=== PATIENT | male | born 1945 | race Caucasian/White ===

== ENCOUNTER 2020-06-06 12:37 | Observation (INO) | payer MEDICARE, SELFPAY ==
[2020-06-06] VITALS (56 sets, daily range): BP systolic 122–173; BP diastolic 71–101; PULSE 78–100; RESP 9–22; TEMP 36.1–37.2; O2SAT 94–99; BMI 19.5
--- NOTE | ~2020-06-06 | XR_ITS ---
EXAMINATION: XR shoulder RT min 2V EXAM DATE: 06/06/2020 13:51 INDICATION: Initial encounter following injury, with pain of the right shoulder. Fell 10 days ago. TECHNIQUE: The following right shoulder projections obtained: frontal projection with internal rotati on, frontal projection with external rotation, Grashey, and scapular Y view (4+ views). Comparison is made to prior examination from 10/06/2018. FINDINGS: There is moderate right glenohumeral joint primary osteoarthritis, mild at the acromioclavi cular joint. There is high riding humeral head indicating likelihood of chronic rotator cuff tear. No fracture or dislocation. No radiopaque foreign bodies identified. Probable right apical bullous dise ase. IMPRESSION: 1. No acute right shoulder findings. 2. Moderate osteoarthritis. 3. Probable chronic rotator cuff tear. Reviewed, dictated and finalized at location A.
--- NOTE | ~2020-06-06 | XR_ITS ---
EXAMINATION: XR elbow RT min 3V DATE: 06/07/2020 14:20 INDICATION: Right elbow trauma post fall TECHNIQUE: Anteroposterior, two oblique and lateral views of the right elbow were obtained. COMPARISON: 10/02/2018 FINDINGS: Alignment is normal. No fracture. Tiny enthesopathic ossicle at the proximal tip of the olecranon. Ti ny marginal osteophytes without significant joint space narrowing consistent with mild osteoarthritis . No right elbow joint effusion. Soft tissues are unremarkable. IMPRESSION: 1. Mild right elbow osteoarthritis. No joint effusion or acute osseous abnormality. Reviewed, dictated and finalized at location B. IMPRESSION: 1. Mild right elbow osteoarthritis. No joint effusion or acute osseous abnormal ity.
--- NOTE | ~2020-06-06 | XR_ITS ---
EXAMINATION: XR hip RT 2V w AP pelvis EXAM DATE: 06/06/2020 13:51 INDICATION: Initial encounter following injury, with pain of the pelvis, right hip. Fell 10 days ago. TECHNIQUE: Right hip frontal, 'frog leg' projections for interpretation. Frontal projection pelvis. Comparison is made to prior examination from 09/26/2016. FINDINGS: Smooth right hip femoral head contour, no radiographic evidence of avascular necrosis. The re is moderate symmetric bilateral hip primary osteoarthritis. There are no acute fractures or disloc ations identified. There is no subcutaneous gas. The soft tissue is unremarkable. Right lower maru drant bowel anastomosis material identified. IMPRESSION: 1. Right hip, pelvis x-ray exam without acute osseous findings. 2. Moderate hip osteoarthritis. Reviewed, dictated and finalized at location A.
--- NOTE | ~2020-06-06 | CT_ITS ---
EXAMINATION: CT brain wo con EXAM DATE: 06/07/2020 14:41 INDICATION: Fall 11 days ago, intermittent headache. TECHNIQUE: Spiral CT of the head was performed without contrast. Axial, coronal and sagittal images were reviewed. The dose-length product (DLP) for this examination was 605.33 mGy-cm. The exposure w as tailored according to patient size, and iterative reconstruction (ASIR) was used as additional dos e reduction technique. Comparison is made to prior examination from 10/10/2018. FINDINGS: There is no acute intraparenchymal hemorrhage. No evidence of intraparenchymal brain mass lesion. No evidence of acute infarction. Please note that initial head CT has limited sensitivity f or small or acute infarctions. There is an old small right thalamic lacunar infarction. There is mo derate periventricular and subcortical hypodensity, nonspecific but probably related to small vessel ischemic disease. There is moderate prominence of the sulci and ventricles related to cerebral atro phy. There is intracranial carotid arteriosclerosis. There are no extra-axial collections. There is no mass effect or midline shift. The orbits are unremarkable. Soft tissue is unremarkable. The visualized sinuses and mastoid air cells are well aerated. IMPRESSION: 1. No acute intracranial findings. 2. Chronic age related findings. 3. Old small right thalamic lacunar infarction. Reviewed, dictated and finalized at location A.
[2020-06-06 12:47] LABS: Glucose Point of Care 363 (65-105)
--- NOTE | 2020-06-06 12:47 | PC.NURSE ---
Blood glucose was 363 at 12:46
--- NOTE | 2020-06-06 13:23 | ED.FALL ---
HPI - Fall General Chief Complaint: Fall Stated Complaint: fall Time Seen by Provider: 06/06/20 13:11 History of Present Illness HPI Narrative: Fall onto right hip about 1 week ago. Hip pain since then. Increasing. Now he has difficulty walking due to the pain and weakness. He is normally able to ambulate with a walker. He recently required rehab and has been declining since that time. Related Data Home Medications Medication Instructions Recorded Confirmed carbidopa 25 mg-levodopa 100 mg 3 tablet PO TID tablet 03/08/19 05/18/20 tablet cholecalciferol (vitamin D3) 25 1,000 unit PO DAILY 03/08/19 05/18/20 mcg (1,000 unit) chewable tablet fluticasone propionate 50 2 spray NASAL DAILY PRN 03/08/19 05/18/20 mcg/actuation nasal spray,suspension polyethylene glycol 3350 17 17 gm PO DAILY 03/08/19 05/18/20 gram/dose oral powder vitamin B12 500 mcg-folic acid 400 1 tablet PO DAILY 03/08/19 05/18/20 mcg tablet cetirizine 10 mg tablet 5 mg PO DAILY PRN 05/06/19 05/18/20 divalproex 500 mg tablet,extended 2,000 mg PO QAM AND QHS tablet 05/06/19 05/18/20 release 24 hr guaifenesin 600 mg tablet, 600 mg PO Q12H PRN 05/06/19 05/18/20 extended release 12 hr fluticasone 250 mcg-salmeterol 50 2 inh INHALATION BID ea 05/18/20 05/18/20 mcg/dose blistr powdr for inhalation loratadine 10 mg tablet 10 mg PO DAILY 05/18/20 05/18/20 tauxwuct-mmd-iykni acid 300 1 tablet PO DAILY 05/18/20 05/18/20 mcg-lycopene 600 mcg-lutein 300 mcg tablet primidone 50 mg tablet 50 mg PO .QHS tablet 05/18/20 05/18/20 sertraline 100 mg tablet 50 mg PO DAILY tablet 05/18/20 05/18/20 trazodone 50 mg tablet 50 mg PO QPM tablet 05/18/20 05/18/20 Allergies Allergy/AdvReac Type Severity Reaction Status Date / Time codeine Allergy Mild RASH,PT Verified 05/24/19 13:41 STATED HE IS NOT ALLERGIC TO THIS. Review of Systems Review of Systems: All systems reviewed & are unremarkable except as noted in HPI and below Constitutional: Constitutional: Denies chills, Reports fatigue, Denies fever(s) and Reports weakness Eyes: Eyes: Reports no additional eye complaints Cardiovascular: Cardiovascular: Denies chest pain Respiratory: Respiratory: Denies dyspnea Gastrointestinal: Comments: Poor appetite Genitourinary: Genitourinary: Reports no additional male genitourinary complaints Musculoskeletal: Musculoskeletal: Reports no additional musculoskeletal complaints Neurologic: Reports system reviewed and no additional complaints, except as documented [facility] Past Medical History Medical History Aortic stenosis Broken ribs COPD (chronic obstructive pulmonary disease) Difficulty in walking Hypertension Right shoulder pain Rotator cuff arthropathy Surgical History Surgical History History of tonsillectomy Family History Family History Unknown No problems noted. Social History Social History Smoking status: Former smoker Second hand tobacco smoke exposure: Yes Smoking end date: 03/03/16 Alcohol intake: never Substance use: never Substance use type: does not use Gender identity (if verbalized by the patient): Male Spiritual care concerns: Yes Agree to blood products: Yes Exam Const: General: no acute distress, alert and ill appearing Nutritional Appearance: thin Orientation/consciousness: patient oriented x3 HENMT: Head: normal to inspection Neck: Neck: normal visual inspection Resp: Effort & Inspection: normal respiratory effort Auscultation: clear to auscultation bilaterally Cardio: Rate: regular rate Rhythm: regular rhythm GI: GI Palp: Yes Soft to palpation and No Tenderness to palpation present (GI) Skin: General skin exam: normal colo
--- NOTE | 2020-06-06 14:38 | ECG_ITS ---
Measurements Intervals [place] Rate: 81 P: 87 PA: 172 QRS: -72 QRSD: 129 T: 75 QT: 374 QTc: 435 Interpretive Statements SINUS RHYTHM RIGHT BUNDLE BRANCH BLOCK LEFT ANTERIOR FASCICULAR BLOCK ABNORMAL ECG Electronically Signed On 06-06-2020 15:36:21 CDT by Peewee Montoya D.O.
[2020-06-06] MEDS: SODIUM CHLORIDE 0.9% IV 1,000 ML 999 ML IV CONT (15:05)
[2020-06-06] MEDS: traMADol HCL (*CRX) 50 MG TABLET PO (15:19)
[2020-06-06 15:30] LABS: Basophils Absolute Auto 0.1 K/mm3 (0.0-0.1); Basophils Percent Auto 0.6 % (0.2-1.2); Eosinophils Absolute Auto 0.2 K/mm3 (0-0.3); Eosinophils Percent Auto 2.5 % (0-4.4); Hematocrit 29.3 % (42.0-52.0); Hemoglobin 9.4 g/dL (14.0-18.0); Immature Granulocyte Absolute 0.05 K/mm3 (0.00-0.031); Immature Granulocyte Percent A 0.6 % (0-0.5); Lymphocytes Absolute Auto 1.82 K/mm3 (0.9-3.2); Lymphocytes Percent Auto 22.3 % (18.3-44.2); Mean Corpuscular HGB Conc 32.1 g/dl (32-36); Mean Corpuscular Hemoglobin 29.2 pg (26-34); Mean Platelet Volume 9.3 fl (7.4-10.4); Monocytes Absolute Auto 0.6 K/mm3 (0.1-0.6); Neutrophils Absolute Auto 5.5 K/mm3 (1.3-6.7); Platelet Count Result 296 k/mm3 (150-375); Red Blood Count 3.22 M/mm3 (4.6-6.20); White Blood Count 8.2 K/mm3 (4.5-10.0)
[2020-06-06 15:46] LABS: Albumin Level 3.7 g/dL (3.5-5.1); Bilirubin,Total 0.2 mg/dL (0.2-1.3); Carbon Dioxide 31 mmol/L (22-30); Estimated Glomerular Filt Rate > 60; Potassium 5.1 mmol/L (3.4-5.0); Sodium 134 mmol/L (137-145)
[2020-06-06 15:50] LABS: Add Urine Microscopic? YES; Appearance Urine Clear (Clear); Bilirubin Urine Negative (Negative); Blood Urine Negative (Negative); Color Urine Straw (Yellow); Glucose Urine UA 3+ mg/dL (Negative); Ketones Urine Negative (Negative); Leukocyte Esterase Ur Negative LEU/UL (Negative); Nitrate Urine Negative (Negative); Protein Urine Negative (Negative); RBC Urine 0-2 /hpf (0-2); Urobilinogen Urine Negative mg/dL (<2.0); WBC Urine 0-3 /hpf
[2020-06-06 16:08] LABS: Alkaline Phosphatase 72 U/L (38-126); Anion Gap 5 mmol/L (8-16); Aspartate Amino Transferase 12 U/L (17-59); Blood Urea Nitrogen 21 mg/dL (9-20); Calcium 8.9 mg/dL (8.4-10.2); Chloride 98 mmol/L (98-107); Estimated CRCL calculation 45 ml/min; Glucose 393 mg/dL (75-110)
[2020-06-06 16:11] LABS: Alanine Aminotransferase < 4 U/L (4-50)
--- NOTE | 2020-06-06 17:32 | PC.NURSE ---
Patient attempted to walk, was slow and shaking, said he was a little scared because he didn't want to fall again. Patient had no complaints and said he felt fine.
--- NOTE | 2020-06-06 22:01 | ADMGEN ---
This patient, Getachew Barrera, was admitted to Medical Room 345-01. Patient/family oriented to hospital policies and general routines including ID bracelet, bed and alarms, visiting hours, pain management, procedures, bathroom and other care routines, personal items, smoking policy, room service/diet, and visiting hours. Information on how to activate the Rapid Response Team has been discussed. Patient/Family are encouraged to report perceived risks to care and to ask questions if they do not understand what they are told or what they should do.
[2020-06-06 22:13] LABS: Glucose Point of Care 196 (65-105)
[2020-06-07] MEDS: ACETAMINOPHEN 500 MG TABLET 1000 MG PO ×3 (00:47→17:02)
[2020-06-07] MEDS: PRIMIDONE 50 MG TABLET PO ×2 (00:47→20:14)
[2020-06-07] MEDS: PANTOPRAZOLE 40 MG TABLET PO ×3 (00:47→20:14)
[2020-06-07] MEDS: CARBIDOPA/LEVODOPA 12.5/50 MG TABLET 1 TABLET PO ×4 (00:47→17:02)
[2020-06-07] MEDS: CARBIDOPA/LEVODOPA 25/100 MG TABLET 2 TABLET PO ×4 (00:47→17:02)
[2020-06-07] MEDS: traZODone HCL 50 MG TABLET PO ×2 (00:47→20:14)
[2020-06-07 06:00] VITALS: BP 139/68; PULSE 78; RESP 16; TEMP 36.4; O2SAT 96
[2020-06-07 08:06] VITALS: O2SAT 92
[2020-06-07 08:23] LABS: Basophils Absolute Auto 0.1 K/mm3 (0.0-0.1); Basophils Percent Auto 0.8 % (0.2-1.2); Eosinophils Absolute Auto 0.3 K/mm3 (0-0.3); Eosinophils Percent Auto 3.4 % (0-4.4); Hematocrit 26.6 % (42.0-52.0); Hemoglobin 8.8 g/dL (14.0-18.0); Immature Granulocyte Absolute 0.04 K/mm3 (0.00-0.031); Immature Granulocyte Percent A 0.5 % (0-0.5); Lymphocytes Absolute Auto 1.88 K/mm3 (0.9-3.2); Lymphocytes Percent Auto 24.9 % (18.3-44.2); Mean Corpuscular HGB Conc 33.1 g/dl (32-36); Mean Corpuscular Hemoglobin 29.5 pg (26-34); Mean Corpuscular Volume 89.3 fl (80-100); Mean Platelet Volume 10.2 fl (7.4-10.4); Monocytes Absolute Auto 0.6 K/mm3 (0.1-0.6); Monocytes Percent Auto 8.1 % (2.6-8.5); Neutrophils Absolute Auto 4.7 K/mm3 (1.3-6.7); Neutrophils Percent Auto 62.3 % (45.5-73.1); Platelet Count Result 234 k/mm3 (150-375); Red Blood Count 2.98 M/mm3 (4.6-6.20); White Blood Count 7.6 K/mm3 (4.5-10.0)
[2020-06-07 08:35] LABS: Albumin Level 3.2 g/dL (3.5-5.1); Alkaline Phosphatase 64 U/L (38-126); Anion Gap 2 mmol/L (8-16); Aspartate Amino Transferase 13 U/L (17-59); Bilirubin,Total 0.3 mg/dL (0.2-1.3); Blood Urea Nitrogen 19 mg/dL (9-20); Calcium 8.6 mg/dL (8.4-10.2); Carbon Dioxide 31 mmol/L (22-30); Chloride 99 mmol/L (98-107); Estimated CRCL calculation 54 ml/min; Estimated Glomerular Filt Rate > 60; Glucose 153 mg/dL (75-110); Magnesium 1.1 mg/dL (1.6-2.3); Potassium 4.5 mmol/L (3.4-5.0); Sodium 132 mmol/L (137-145)
[2020-06-07 08:36] LABS: Alanine Aminotransferase < 4 U/L (4-50)
[2020-06-07 08:53] LABS: Glucose Point of Care 273 (65-105)
[2020-06-07] MEDS: DIVALPROEX SODIUM ER 500 MG TAB.24H PO (09:03)
[2020-06-07] MEDS: CYANOCOBALAMIN 500 MCG TABLET PO (09:03)
[2020-06-07] MEDS: CHOLECALCIFEROL 1,000 UNITS TABLET 1000 UNITS PO (09:03)
[2020-06-07] MEDS: FOLIC ACID 0.4 MG TABLET PO (09:04)
[2020-06-07] MEDS: guaiFENesin 12 HR 600 MG TABCR 1200 MG PO (09:05)
[2020-06-07] MEDS: metFORMIN HCL XR 500 MG TAB.SR.24H 1000 MG PO ×2 (09:05→17:02)
[2020-06-07] MEDS: OPTI-GEN TAB 1 TABLET PO (09:05)
[2020-06-07] MEDS: LORATADINE 10 MG TABLET PO (09:05)
[2020-06-07] MEDS: SERTRALINE HCL 50 MG TABLET 100 MG PO (09:06)
[2020-06-07] MEDS: MAGNESIUM SULFATE 3GM/D5W100ML 3 GM/100 ML BAG IVPB (09:12)
--- NOTE | 2020-06-07 11:32 | PM.IMHP ---
H&P: HPI History of Present Illness Date/Time: 06/07/20 11:32 Mr. Barrera is a very pleasant 74 y.o. male with PMH significant for Parkinson's disease and followed by the movement clinic at [facility], neuropathy, T2DM, hx of larynx cancer s/p resection in 2015, hypertension, moderate aortic stenosis, bipolar disorder, depression, mild COPD, cervical stenosis, and GERD who presented to the emergency department on 06/06/20 at his family's request because they feel he needs rehab and can no longer care for himself at home. He suffered a mechanical fall while ambulating to the bathroom 11 days prior to admission. His walker does not fit in his bathroom door so he went to reach for the door knob but missed this and lost his balance, resulting on a fall on his right side. He injured his right hip, shoulder, and elbow. His pain continues to improve and he is now ambulating with a walker. He does not believe he suffered any head trauma however he is not completely sure. His reports that he did not have any loss of consciousness or seizure activity. He denies lateralizing weakness, speech change, or vision change. He reports that he has a frontal headache but he has no other specific complaints at this time. He reports that his appetite has improved and he is gaining more weight. He notes generalized weakness and gait dysfunction, ongoing for at least 1 year and worsening, due to his Parkinson's disease. He has been using a walker for 1 year. He denies recent recurrent falls and notes he only has 1 fall every 6 months or so. He recently saw his neurologist 05/03/20 at the movement clinic at [facility]. His has expressed that she uses a walker to ambulate and she is having difficulty taking care of him at home. He had a Zoom conference with his children on Friday night and they encouraged him to pursue rehab, prompting his emergency room visit. He has no urinary complaints. He had constipation in the past but he is now adherent to a bowel regimen with regular bowels. He denies chest pain. He notes occasional dyspnea and has COPD but this is not any worse than baseline. His mood is stable however he is working to establish care with a new psychiatrist. He notes chronic rhinorrhea and occasional sinus congestion. He notes dry skin. He notes difficulty swallowing since his larynx surgery due to laryngeal cancer. He denies leg swelling. He denies abdominal pain, nausea, and vomiting. He notes bilateral resting tremor which worsens with effort. Initial workup in the emergency department included plain films of the right hip and shoulder which demonstrated osteoarthritis without evidence of fracture or dislocation. Right shoulder films demonstrated probable chronic rotator cuff tear. Labs on arrival to the ED demonstrated normocytic anemia, sodium 134, potassium 5.1, CO2 21, BUN 21, glucose 393. Urinalysis demonstrated 3+ glucose and was otherwise unremarkable. He was admitted to the hospitalist service under observation status for PT/OT evaluation and care coordination consult for placement. The supervising physician for this history and physical is Dr. Liliana Hensley. Chief Complaint: Fall Difficulty caring for self at home, needs rehab placement Review of Systems Review of Systems: All systems reviewed & are unremarkable except as noted in HPI and below PMFSH Past Medical History Medical History Aortic stenosis Bipolar disorder Broken ribs Chronic depression COPD (chronic obstructive pulmonary disease) Difficulty in walking Hypertension Parkinsons disease Right shoulder pain Rotator cuff arthropathy Type 2 diabetes mellitus with hyperglycemia Surgical History Surgical History History of throat surgery History of tonsillectomy Hx of rotator cuff surgery Left shoulder Family History Family History (Reviewed 06/07/20 @ 14:07 by
[2020-06-07] MEDS: traMADol HCL (*CRX) 25 MG TABLET PO (12:09)
[2020-06-07] MEDS: INSULIN ASPART (*BKC) 100 UNITS/ML SUB-Q (12:13)
[2020-06-07 12:14] LABS: Glucose Point of Care 288 (65-105)
[2020-06-07 12:27] LABS: Magnesium 1.9 mg/dL (1.6-2.3)
[2020-06-07 14:00] VITALS: BP 130/70; PULSE 93; RESP 16; TEMP 36.1; O2SAT 97
--- NOTE | 2020-06-07 15:04 | PCSTNOTE ---
Attempted to complete bedside swallow evaluation; however, pt was just leaving for [facility]. ST will complete evaluation 06-08-20
[2020-06-07 16:58] LABS: Glucose Point of Care 200 (65-105)
[2020-06-07] MEDS: ASPIRIN 81 MG ENTERIC TABLET PO (17:02)
[2020-06-07 19:31] VITALS: BP 147/76; PULSE 87; RESP 14; TEMP 36.2; O2SAT 99
[2020-06-07] MEDS: FLUTICASONE/SALMETEROL 230-21 MCG INHALER 1 PUFF 2 PUFF INHALATION (19:50)
[2020-06-07 19:51] VITALS: PULSE 88; RESP 20
[2020-06-07] MEDS: ENOXAPARIN 40 MG/0.4 ML SYRINGE SUB-Q (20:14)
[2020-06-07 20:31] LABS: Glucose Point of Care 232 (65-105)
[2020-06-07] MEDS: LORazepam (*CRX) 0.5 MG TABLET PO (22:39)
[2020-06-08 05:12] VITALS: BP 155/70; PULSE 74; RESP 16; TEMP 36.7; O2SAT 97
[2020-06-08 06:26] LABS: Hematocrit 28.6 % (42.0-52.0); Hemoglobin 9.4 g/dL (14.0-18.0); Mean Corpuscular HGB Conc 32.9 g/dl (32-36); Mean Corpuscular Hemoglobin 29.1 pg (26-34); Mean Corpuscular Volume 88.5 fl (80-100); Mean Platelet Volume 9.2 fl (7.4-10.4); Platelet Count Result 299 k/mm3 (150-375); Red Blood Count 3.23 M/mm3 (4.6-6.20); Red Cell Distribution Width 14.8 % (11.5-14.5); White Blood Count 6.8 K/mm3 (4.5-10.0)
[2020-06-08 06:30] LABS: Hemoglobin A1C 8.8 % (<5.7)
[2020-06-08 06:38] LABS: Transferrin 227 mg/dL (206-381)
[2020-06-08 06:40] LABS: Anion Gap 5 mmol/L (8-16); Blood Urea Nitrogen 17 mg/dL (9-20); Calcium 9.3 mg/dL (8.4-10.2); Carbon Dioxide 32 mmol/L (22-30); Chloride 97 mmol/L (98-107); Estimated CRCL calculation 48 ml/min; Estimated Glomerular Filt Rate > 60; Glucose 138 mg/dL (75-110); Magnesium 1.6 mg/dL (1.6-2.3); Potassium 5.3 mmol/L (3.4-5.0); Sodium 134 mmol/L (137-145)
[2020-06-08 06:54] LABS: Iron 35 ug/dL (49-181)
[2020-06-08 07:03] LABS: Percent Iron Saturation 12 % (20-50)
[2020-06-08 07:38] LABS: Folic Acid 9.8 ng/mL (2.76->20)
[2020-06-08 07:58] LABS: Glucose Point of Care 155 (65-105)
[2020-06-08 08:00] VITALS: PULSE 74; RESP 16; O2SAT 97
[2020-06-08] MEDS: INSULIN ASPART (*BKC) 100 UNITS/ML SUB-Q ×3 (08:37→16:27)
[2020-06-08] MEDS: FLUTICASONE/SALMETEROL 230-21 MCG INHALER 1 PUFF 2 PUFF INHALATION (08:46)
[2020-06-08] MEDS: ASPIRIN 81 MG ENTERIC TABLET PO (08:48)
[2020-06-08] MEDS: CARBIDOPA/LEVODOPA 25/100 MG TABLET 2 TABLET PO ×3 (08:49→16:21)
[2020-06-08] MEDS: ACETAMINOPHEN 500 MG TABLET 1000 MG PO ×2 (08:49→16:21)
[2020-06-08] MEDS: CYANOCOBALAMIN 500 MCG TABLET PO (08:50)
[2020-06-08] MEDS: OPTI-GEN TAB 1 TABLET PO (08:50)
[2020-06-08] MEDS: CARBIDOPA/LEVODOPA 12.5/50 MG TABLET 1 TABLET PO ×3 (08:50→16:21)
[2020-06-08] MEDS: metFORMIN HCL XR 500 MG TAB.SR.24H 1000 MG PO ×2 (08:50→16:22)
[2020-06-08] MEDS: FOLIC ACID 0.4 MG TABLET PO (08:51)
[2020-06-08] MEDS: SERTRALINE HCL 50 MG TABLET 100 MG PO (08:51)
[2020-06-08] MEDS: LORATADINE 10 MG TABLET PO (08:51)
[2020-06-08] MEDS: CHOLECALCIFEROL 1,000 UNITS TABLET 1000 UNITS PO (08:51)
[2020-06-08] MEDS: guaiFENesin 12 HR 600 MG TABCR 1200 MG PO (08:51)
[2020-06-08] MEDS: PANTOPRAZOLE 40 MG TABLET PO (08:52)
[2020-06-08] MEDS: DIVALPROEX SODIUM ER 500 MG TAB.24H PO (10:47)
[2020-06-08] MEDS: FERROUS SULFATE 324 MG TABLET PO (11:40)
[2020-06-08] MEDS: polyethylene glycoL 3350 17 GM POWD.PACK PO (12:06)
[2020-06-08] MEDS: DOCUSATE SODIUM 100 MG CAPSULE PO (12:06)
--- NOTE | 2020-06-08 14:00 | PM.DS ---
DS: Admitting Diagnosis Admitting Diagnosis Admitting Diagnosis: Fall, decreased mobility and need for rehab placement DS: Discharge Diagnosis Discharge Diagnosis (1) Fall: Code(s): W19.XXXA - Unspecified fall, initial encounter Status: Acute Assessment and Plan: Discharge Summary (Date of service 06/08/20): Mr. Barrera is a 74 y.o. male with PMH significant for Parkinson's disease and followed by the movement clinic at [facility], neuropathy, T2DM, hx of larynx cancer s/p resection in 2014, hypertension, moderate aortic stenosis, bipolar disorder, depression, mild COPD, cervical stenosis, and GERD who presented to the emergency department on 06/06/20 at his family's request because they feel he needs rehab and can no longer care for himself at home. He suffered a mechanical fall while ambulating to the bathroom 11 days prior to admission and injured his right hip, right shoulder, and right elbow. He noted that his pain continued to improve but he just felt very deconditioned and mobility/ability to care for himself has worsened over the past year due to his Parkinson's disease. He did not believe he suffered any head trauma but CT brain was ordered since he was not completely sure and negative for acute findings but did show old small right lacunar infarct and chronic small vessel disease. He had a Zoom conference with his children who encouraged him to pursue rehab, prompting his emergency room visit. Initial workup in the emergency department included plain films of the right hip and shoulder which demonstrated osteoarthritis without evidence of fracture or dislocation. Right shoulder films demonstrated probable chronic rotator cuff tear. Labs on arrival to the ED demonstrated normocytic anemia, sodium 134, potassium 5.1, CO2 21, BUN 21, glucose 393. Urinalysis demonstrated 3+ glucose and was otherwise unremarkable. He was admitted to the hospitalist service for PT/OT evaluation and placement. He was evaluated by physical and occupational therapy who recommended rehab. Care coordination was consulted and he was accepted to [facility] for rehab. He was discharged in hemodynamically stable condition on the afternoon of 06/08/20. Worrisome signs and symptoms which would warrant return to the emergency department were discussed and he verbalized understanding. (2) Neurologic gait dysfunction: Code(s): R26.9 - Unspecified abnormalities of gait and mobility Status: Acute Assessment and Plan: Secondary to Parkinson's disease and deconditioning from decreased exercise and activity due to staying home from [facility]. He recently saw his neurologist who ordered home PT but he is still having difficultly caring for himself. He and his family decided that he needs rehab due to general decline in his mobility secondary to his Parkinson's disease. PT/OT were consulted and recommended rehab. He needs to continue follow-up with his neurologist outpatient. (3) Physical deconditioning: Code(s): R53.81 - Other malaise Status: Acute Assessment and Plan: As above. (4) Parkinsons disease: Code(s): G20 - Parkinson's disease Status: Acute Assessment and Plan: He follows with the movement clinic at [facility] and recently saw his neurologist on 05/03/20. Primidone and levodopa-carbidopa were continued and he was encouraged to continue follow-up with neurology outpatient. (5) Type 2 diabetes mellitus with hyperglycemia: Qualifiers: Diabetes mellitus nursing home insulin use: without cleaning handyman use Qualified Code(s): E11.65 - Type 2 diabetes mellitus with hyperglycemia Code(s): E11.65 - Type 2 diabetes mellitus with hyperglycemia Status: Acute Assessment and Plan: Blood sugars were elevated above target. Hemoglobin A1c was 8.8%. Metformin was continued and glimepiride was added. He will need close monitoring at [facility]. (6) Chronic
[2020-06-08] MEDS: traMADol HCL (*CRX) 25 MG TABLET PO (14:01)
[2020-06-08 14:37] VITALS: BP 158/84; PULSE 86; RESP 16; TEMP 36.5; O2SAT 99
--- NOTE | 2020-06-08 15:08 | PCOTNOTE ---
OT attempted treatment this date. Patient dressed and ready for discharge from hospital. Patient stating he was done working with therapy and would like to be left alone until his got here.
[2020-06-08 16:20] LABS: Glucose Point of Care 143 (65-105)
== END 2020-06-08 18:15 ==
LOC: ANHED 19:39 → ANH3MED 20:35
PROVIDERS: Physician Assistant; Admitting Provider Internal Medicine; Emergency Provider Emergency Medicine; PCP Physician Assistant; Visit Provider Family Medicine
DX: M25.551 Pain in right hip (principal); W19.XXXA Unspecified fall, initial encounter; R26.9 Unspecified abnormalities of gait and mobility; R53.81 Other malaise; R53.1 Weakness; G20 Parkinson's disease; E83.42 Hypomagnesemia; E11.65 Type 2 diabetes mellitus with hyperglycemia; E11.40 Type 2 diabetes mellitus with diabetic neuropathy, unspecified; R13.10 Dysphagia, unspecified; D64.9 Anemia, unspecified; M16.11 Unilateral primary osteoarthritis, right hip; M19.011 Primary osteoarthritis, right shoulder; I10 Essential (primary) hypertension; J44.9 Chronic obstructive pulmonary disease, unspecified; I35.0 Nonrheumatic aortic (valve) stenosis; K21.9 Gastro-esophageal reflux disease without esophagitis; M48.02 Spinal stenosis, cervical region; F31.9 Bipolar disorder, unspecified; Z85.21 Personal history of malignant neoplasm of larynx; Z79.84 Long term (current) use of oral hypoglycemic drugs; F17.290 Nicotine dependence, other tobacco product, uncomplicated; Z86.73 Personal history of transient ischemic attack (TIA), and cerebral infarction without residual deficits
CPT/HCPCS: 36415; 70450; 73030; 73080; 73502; 80048; 80053; 81001; 82607; 82728; 82746; 82948; 83036; 83540; 83550; 83735; 84132; 84466; 85025; 85027; 92610; 93005; 94640; 96360; 96361; 96365; 96372; 97161; 97165; 97530; 99285; A9270; G0378; J1650; J1815; J3475; J7030

== ENCOUNTER 2021-03-23 01:54 | Day surgery (SDC) | payer MEDICARE, SELFPAY ==
[2021-03-21 14:31] VITALS: BMI 17.5
--- NOTE | 2021-03-22 13:09 | PM.HPGS ---
History of Present Illness History of Present Illness Consent: Risks, benefits, and alternatives have been discussed and questions answered. Patient agrees to proceed with procedure. Chief complaint: neoplasm screening Narrative: Getachew Barrera is a 75 year old male was referred for colon cancer screening. Review of Systems Review of Systems: All systems reviewed & are unremarkable except as noted in HPI and below PMFSH Past Medical History Medical History Aortic stenosis moderate Bipolar disorder Broken ribs Chronic depression COPD (chronic obstructive pulmonary disease) Difficulty in walking History of CVA (cerebrovascular accident) Old small right thalamic lacunar infarct on CT brain 06/07/20 Hypertension Impacted cerumen of right ear On valproate therapy Parkinsons disease Right shoulder pain Rotator cuff arthropathy Type 2 diabetes mellitus with hyperglycemia Surgical History Surgical History History of throat surgery History of tonsillectomy Hx of rotator cuff surgery Left shoulder Family History Family History Unknown No problems noted. Social History Social History Social History: Mr. Barrera lives at home in [place] with his , Phoebe Barrera. He has 4 children. He is retired. 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 He reports daily vaping. He is a former 50 pack-year smoker. He denies alcohol use. He notes occasional marijuana use. He wishes for his code status to be DNR and he has designated his surrogate medical decision maker as his , Phoebe Barrera. Tobacco type: e-cigarettes/vaping Second hand tobacco smoke exposure: Yes Smoking end date: 03/03/16 Alcohol intake: never Substance use: current Substance use type: marijuana Other substance usage details: medical marijuana daily Living arrangements: with family Gender identity (if verbalized by the patient): Male Spiritual care concerns: No Agree to blood products: Yes Meds Home Medications and Allergies Home Medications Medication Instructions Recorded Confirmed Type carbidopa 25 mg-levodopa 100 mg 2.5 tablet PO TID tablet 03/08/19 03/23/21 History tablet vitamin B12 500 mcg-folic acid 400 1 tablet PO DAILY 03/08/19 03/23/21 History mcg tablet loratadine 10 mg tablet 10 mg PO DAILY 05/18/20 03/23/21 History snxtpigr-wxf-etjvh acid 300 1 tablet PO DAILY 05/18/20 03/23/21 History mcg-lycopene 600 mcg-lutein 300 mcg tablet primidone 50 mg tablet 50 mg PO HS tablet 05/18/20 03/23/21 History acetaminophen [Tylenol Extra 1,000 mg PO BID 06/06/20 03/23/21 History Strength] aspirin 81 mg PO QAM 30 Days #30 tablet 06/08/20 03/23/21 Rx docusate sodium 100 mg PO Q12HR 30 Days #60 cap 06/08/20 03/23/21 Rx polyethylene glycol 3350 [Miralax] 17 g PO QAM PRN 14 Days #14 ea 06/08/20 03/23/21 Rx blood sugar diagnostic #100 ea 07/03/20 03/23/21 Rx cholecalciferol (vitamin D3) 25 25 mcg PO DAILY 07/03/20 03/23/21 History mcg (1,000 unit) capsule folic acid 800 mcg tablet 0.8 mg PO DAILY 07/03/20 03/23/21 History glimepiride 4 mg tablet 4 mg PO QAM #90 tablet 07/03/20 03/23/21 Rx melatonin 10 mg capsule 10 mg PO QHS 07/03/20 03/23/21 History dulaglutide 1.5 mg/0.5 mL 1.5 mg SUBCUT WEEKLY 10/31/20 03/23/21 History subcutaneous pen injector sildenafil 100 mg tablet 100 mg PO DAILY PRN #9 tablet 10/31/20 03/23/21 Rx lancets 28 gauge #100 ea 11/03/20 03/23/21 Rx fluticasone propionate 50 See Rx Instructions .ROUTE 11/17/20 03/23/21 Rx mcg/actuation nasal .COMPLEX #16 g spray,suspension metformin 500 mg tablet,extended 1,000 mg PO BID #360 tablet 11/24/20 03/23/21 Rx release 24 hr trazodone 50 mg tablet 50 mg PO HS #30 tablet 12/06/20
--- NOTE | 2021-03-22 13:27 | WPDANESEPPF ---
Anes - Initial Pre Proc Eval Procedure: Operation Date: 03/23/21 09:00 Proposed Procedures p Screening Colonoscopy - Bernard Lindsey MD <Grupo Herring, DO - Last Filed: 03/23/21 09:39> Date/Time: 03/22/21 13:27 <Grupo Herring DO - Last Filed: 03/23/21 09:39> Surgeon: Bernard Lindsey MD <Grupo Herring DO - Last Filed: 03/23/21 09:39> Pre Op Diagnosis: neoplasm screening <Grupo Herring DO - Last Filed: 03/23/21 09:39> Patient Data Age: 75 Gender: M Height: 1.75 m Weight: 53.9 kg <Grupo Herring DO - Last Filed: 03/23/21 09:39> Allergies Allergy/AdvReac Type Severity Reaction Status Date / Time codeine Allergy Mild RASH,PT Verified 03/23/21 08:07 STATED HE IS NOT ALLERGIC TO THIS. <Grupo Herring, DO - Last Filed: 03/23/21 09:39> Home Medications Medication Instructions Recorded Confirmed Type carbidopa 25 mg-levodopa 100 mg 2.5 tablet PO TID tablet 03/08/19 03/23/21 History tablet vitamin B12 500 mcg-folic acid 400 1 tablet PO DAILY 03/08/19 03/23/21 History mcg tablet loratadine 10 mg tablet 10 mg PO DAILY 05/18/20 03/23/21 History blbuzwrx-ixj-sxtnu acid 300 1 tablet PO DAILY 05/18/20 03/23/21 History mcg-lycopene 600 mcg-lutein 300 mcg tablet primidone 50 mg tablet 50 mg PO HS tablet 05/18/20 03/23/21 History acetaminophen [Tylenol Extra 1,000 mg PO BID 06/06/20 03/23/21 History Strength] aspirin 81 mg PO QAM 30 Days #30 tablet 06/08/20 03/23/21 Rx docusate sodium 100 mg PO Q12HR 30 Days #60 cap 06/08/20 03/23/21 Rx polyethylene glycol 3350 [Miralax] 17 g PO QAM PRN 14 Days #14 ea 06/08/20 03/23/21 Rx blood sugar diagnostic #100 ea 07/03/20 03/23/21 Rx cholecalciferol (vitamin D3) 25 25 mcg PO DAILY 07/03/20 03/23/21 History mcg (1,000 unit) capsule folic acid 800 mcg tablet 0.8 mg PO DAILY 07/03/20 03/23/21 History glimepiride 4 mg tablet 4 mg PO QAM #90 tablet 07/03/20 03/23/21 Rx melatonin 10 mg capsule 10 mg PO QHS 07/03/20 03/23/21 History dulaglutide 1.5 mg/0.5 mL 1.5 mg SUBCUT WEEKLY 10/31/20 03/23/21 History subcutaneous pen injector sildenafil 100 mg tablet 100 mg PO DAILY PRN #9 tablet 10/31/20 03/23/21 Rx lancets 28 gauge #100 ea 11/03/20 03/23/21 Rx fluticasone propionate 50 See Rx Instructions .ROUTE 11/17/20 03/23/21 Rx mcg/actuation nasal .COMPLEX #16 g spray,suspension metformin 500 mg tablet,extended 1,000 mg PO BID #360 tablet 11/24/20 03/23/21 Rx release 24 hr trazodone 50 mg tablet 50 mg PO HS #30 tablet 12/06/20 03/23/21 Rx magnesium oxide 400 mg PO DAILY #30 tablet 02/06/21 03/23/21 Rx lorazepam 0.5 mg tablet 0.5 mg PO .QHS PRN #30 tablet 02/27/21 03/23/21 Rx divalproex 500 mg tablet,extended 500 mg PO BID #180 tablet 03/05/21 03/23/21 Rx release 24 hr fluticasone 500 mcg-salmeterol 50 1 inh INHALATION Q12H #60 ea 03/09/21 03/23/21 Rx mcg/dose blistr powdr for inhalation pantoprazole 40 mg tablet,delayed See Rx Instructions .ROUTE 03/14/21 03/23/21 Rx release .COMPLEX #180 tablet risperidone 0.5 mg tablet 0.5 mg PO QHS #30 tablet 03/21/21 03/23/21 Rx sertraline 100 mg tablet 200 mg PO DAILY #60 tablet 03/21/21 03/23/21 Rx empagliflozin 10 mg tablet 10 mg PO DAILY #30 tablet 03/22/21 03/23/21 Rx <Grupo Herring DO - Last Filed: 03/23/21 09:39> Patient hx anesthesia problems: none <Brittany Torres CRNA - Last Filed: 03/23/21 08:19> Family hx anesthesia problems: none <Brittany Torres CRNA - Last Filed: 03/23/21 08:19> Results Review: All pre-operative results and documents have been reviewed as part of the pre-operative evaluation. <Grupo Herring DO - Last Filed: 03/23/21 09:39> [facility] Past Medical History Medical History: Medical History Aortic stenosis moderate Bipolar disorder Broken ribs Chronic depression COPD (ch
[2021-03-23 08:00] VITALS: BP 123/70; PULSE 86; RESP 18; TEMP 37.1; O2SAT 98; BMI 17.4
[2021-03-23] MEDS: LACTATED RINGERS 1,000 ML 150 ML IV CONT (08:20)
[2021-03-23 08:22] LABS: Glucose Point of Care 100 mg/dl (65-105)
[2021-03-23 08:57] VITALS: BP 117/61; PULSE 81; RESP 30; O2SAT 100
[2021-03-23 09:07] VITALS: BP 158/69; PULSE 79; RESP 25; O2SAT 100
[2021-03-23 09:17] VITALS: BP 149/66; PULSE 75; RESP 15; O2SAT 99
== END 2021-03-23 09:33 | disposition home or self-care (01) ==
PROVIDERS: PCP Family Medicine; Visit Provider Internal Medicine Gastroenterology
PROC: 0DJD8ZZ Inspection of Lower Intestinal Tract, Via Natural or Artificial Opening Endoscopic (ICD-10-PCS; CPT 45378; principal; 2021-03-23 09:00)
DX: Z12.11 Encounter for screening for malignant neoplasm of colon (principal); K57.30 Diverticulosis of large intestine without perforation or abscess without bleeding; Z98.0 Intestinal bypass and anastomosis status; G20 Parkinson's disease; J44.9 Chronic obstructive pulmonary disease, unspecified; Z86.73 Personal history of transient ischemic attack (TIA), and cerebral infarction without residual deficits; E11.9 Type 2 diabetes mellitus without complications; I35.0 Nonrheumatic aortic (valve) stenosis; F31.9 Bipolar disorder, unspecified; F17.290 Nicotine dependence, other tobacco product, uncomplicated; F12.90 Cannabis use, unspecified, uncomplicated; Z79.82 Long term (current) use of aspirin; Z79.84 Long term (current) use of oral hypoglycemic drugs; Z79.899 Other long term (current) drug therapy
CPT/HCPCS: G0121; 82948; J2704; J7120

== ENCOUNTER 2021-05-16 07:36 | Observation (INO) | payer MEDICARE, SELFPAY ==
[2021-05-16] VITALS (8 sets, daily range): BP systolic 111–156; BP diastolic 66–80; PULSE 82–99; RESP 14–18; TEMP 36.5–37.6; O2SAT 91–99; BMI 11.0
--- NOTE | 2021-05-16 | ECHO_ITS ---
Patient Info Name: Getachew Barrrea Age: 75 years : 1945 Gender: Male Ht: 70 in Wt: 120 lbs BSA: 1.62 m2 HR: 78 bpm BP: 161 / 78 mmHg Heart Rhythm: Sinus Rhythm Technical Quality: Fair Exam Date: 05/16/2021 3:29 PM Exam Location: [facility] Card Pulmonary Patient Status: Inpatient Admit Date: 05/16/2021 Staff Ordering Physician: Maria Elena Gomes APRN Office Support Assistant: Haylee Titus RDCS Attending Provider: Marilia Rivers MD Referring Physician: Mireya HERNANDEZ; Exam Type: CA echo doppler color flow Study Info Indications - fALLS WITH Complete two-dimensional, color flow and Doppler transthoracic echocardiogram is performed. Summary 1. Complete two-dimensional, color flow and Doppler transthoracic echocardiogram is performed. 2. Left ventricular chamber dimension is normal. 3. Left ventricular systolic function is normal, estimated at 60-65%. 4. Ventricular septum is sigmoid shaped. No LVOT obstruction. 5. The left ventricular diastolic function is grade II diastolic dysfunction. 6. E/e' 8 is minimally elevated. 7. There is severe aortic valve sclerosis. 8. The aortic valve is not well visualized. Cannot determine number of aortic valve leaflets due to significant calcification of aortic valve. 9. There is moderate aortic valve stenosis with a peak velocity of 259 cm/s, mean gradient of 14 mmHg, and aortic valve area of 1.2 cm2. 10. There is trace aortic valve regurgitation. 11. The mitral valve has moderately calcified annulus. 12. There is trace tricuspid valve regurgitation. 13. The aortic root size at the sinus of Valsalva is mildly dilated at 4.4 cm. Left Ventricle Ventricular septum is sigmoid shaped. No LVOT obstruction. E/e' 8 is minimally elevated. Left ventricular chamber dimension is normal. Left ventricular systolic function is normal, estimated at 60-65%. The left ventricular diastolic function is grade II diastolic dysfunction. Right Ventricle Right ventricular systolic function is normal and with normal TAPSE 2.0 cm. Right ventricular chamber dimension is normal. Left Atria Left atrial chamber dimension is normal. Right Atria Right atrial chamber dimension is normal. Aortic Valve The aortic valve is not well visualized. Cannot determine number of aortic valve leaflets due to significant calcification of aortic valve. There is severe aortic valve sclerosis. There is moderate aortic valve stenosis with a peak velocity of 259 cm/s, mean gradient of 14 mmHg, and aortic valve area of 1.2 cm2. There is trace aortic valve regurgitation. Pulmonic Valve There is no pulmonic regurgitation. Mitral Valve The mitral valve has moderately calcified annulus. There is no mitral valve stenosis. There is no mitral valve regurgitation. Tricuspid Valve There is trace tricuspid valve regurgitation. No pulmonary hypertension, estimated pulmonary arterial systolic pressure is 30 mmHg. Pericardium/Pleural There is no pericardial effusion. Inferior Vena Cava Normal inferior vena cava with >50% collapse upon inspiration consistent with normal right atrial pressure, 5 mmHg. Aorta The aortic root size at the sinus of Valsalva is mildly dilated at 4.4 cm. Left Ventricular Outflow Tract Name Value Normal LVOT 2D
--- NOTE | ~2021-05-16 | XR_ITS ---
EXAMINATION: XR chest 1V DATE: 05/16/2021 08:31 INDICATION: Fall TECHNIQUE: frontal view of the chest was obtained. COMPARISON: Chest radiograph dated 10/11/2018 FINDINGS: Again seen is emphysema with increased lucency with associated architectural distortion most prominen t in the right lung with prominent bullous changes along the periphery of the upper to lower lung zon es. Opacities in the left lung have improved. There are persistent opacities in the right infrahilar region. Blunting at the costophrenic angles consistent with very small bilateral pleural effusions. Skinfold projects over the right lower lung zone. No pneumothorax. The cardiomediastinal silhouette is normal. Right rotator cuff arthropathy. Interval healing of prior lateral right seventh and eighth rib fract ures. No acute osseous abnormality appreciated. IMPRESSION: 1. Opacities in the right infrahilar region which could represent atelectasis and/or pneumonia. 2. Severe emphysema. Reviewed, dictated and finalized at location A. IMPRESSION: 1. Opacities in the right infrahilar region which could represent atelectasis a nd/or pneumonia. 2. Severe emphysema.
--- NOTE | ~2021-05-16 | CT_ITS ---
EXAMINATION: CT cervical spine wo con DATE: 05/16/2021 08:40 INDICATION: Neck injury. Fall. Weakness. TECHNIQUE: Computed tomography (CT) of the cervical spine was performed without intravenous contrast. Automated exposure control and iterative reconstruction technique were employed. The dose-length pro duct was 200.80 mGy-cm. COMPARISON: CT cervical spine 10/06/2018 FINDINGS: There is severe emphysema the lung apices. There is mild scarring at left lung apex. There is 10 degrees levoscoliosis of cervical spine. There is 2 mm anterolisthesis of C3 on C4 and 2 mm ret rolisthesis of C5 on C6. Vertebral body heights are normal. There is mildly decreased disc height at C3-C4 and severely decreased disc height at C5-C6 with endplate remodeling. The following disc levels are specifically discussed: C2-C3: There is mild bilateral uncovertebral joint osteoarthritis. There is severe right and mild lef t facet joint osteoarthritis. There is mild right neural foraminal stenosis. There is mild central ca nal stenosis. C3-C4: There is moderate bilateral uncovertebral joint osteoarthritis. There is severe bilateral face t joint osteoarthritis. There is moderate bilateral neural foraminal stenosis. There is moderate cent ral canal stenosis. C4-C5: There is mild bilateral uncovertebral joint osteoarthritis. There is severe right and mild lef t facet joint osteoarthritis. There is mild bilateral neural foraminal stenosis. There is mild centra l canal stenosis. C5-C6: There is severe bilateral uncovertebral joint osteoarthritis. There is mild bilateral facet jacky int osteoarthritis. There is mild bilateral neural foraminal stenosis. There is mild central canal st enosis. C6-C7: There is no uncovertebral joint osteoarthritis. There is no facet joint osteoarthritis. There is no neural foraminal stenosis. There is mild central canal stenosis. C7-T1: There is no uncovertebral joint osteoarthritis. There is severe right and mild left facet join t osteoarthritis. There is mild right neural foraminal stenosis. There is no central canal stenosis. IMPRESSION: 1. No fracture. 2. Severe cervical spondylosis. 3. Cervical levoscoliosis. 4. Severe emphysema. Reviewed, dictated and finalized at location A.
--- NOTE | ~2021-05-16 | CT_ITS ---
EXAMINATION: CT brain wo con DATE: 05/16/2021 08:40 INDICATION: Weakness. Fall. TECHNIQUE: Computed tomography (CT) of the head was performed without intravenous contrast. The mA wa s adjusted according to patient size. Iterative reconstruction technique was employed. The dose-lengt h product was 605.33 mGy-cm. COMPARISON: Head CT 06/07/2020 FINDINGS: There is an old infarct in right cerebellum. There is an old infarct in right thalamus. The re are scattered areas of low attenuation in the cerebral white matter. There is no intracranial hemo rrhage, acute infarction, or abnormal intracranial mass lesion. The ventricles are normal in size. Th ere are likely changes of right ocular lens replacement surgery. There is mild mucosal thickening in the paranasal sinuses. There is a trace left mastoid effusion. IMPRESSION: 1. Old infarcts in the right cerebellum and right thalamus. 2. Stable moderate nonspecific cerebral white matter disease, which likely represents chronic small v essel ischemic disease. Reviewed, dictated and finalized at location A. IMPRESSION: 1. Old infarcts in the right cerebellum and right thalamus. 2. Stable moderate nonspecific cerebral white matter disease, which likely repr esents chronic small vessel ischemic disease.
--- NOTE | ~2021-05-16 | XR_ITS ---
EXAMINATION: XR thoracic spine 3V DATE: 05/16/2021 08:31 INDICATION: Back pain post fall TECHNIQUE: One AP, lateral and lateral swimmer's views of the thoracic spine were obtained. COMPARISON: None. FINDINGS: Mild thoracic dextrocurvature. Normal sagittal alignment of the thoracic spine. 2 mm anterolisthesis of C3 on C4 on the lateral swimmers projection with severe associated facet osteoarthritis at this le rosemary. Thoracic vertebral body heights are normal. The neck L1 compression fracture with moderate centr al vertebral body height loss as seen on CT dated 10/04/2018. Mild disc height loss at a few levels in the midthoracic spine. Cardiomediastinal silhouette is normal. Emphysema with biapical pleural-parenc hymal scarring. IMPRESSION: 1. Mild thoracic dextrocurvature with mild spondylosis. Reviewed, dictated and finalized at location A.
--- NOTE | ~2021-05-16 | XR_ITS ---
XR lumbar spine 2-3V 05/16/2021 08:31 Indication: Status post fall. Back pain. Procedure: 3 views lumbar spine Comparison: 09/26/2016 Findings: There is a chronic superior endplate compression fracture of L1 unchanged. There is moderat e-severe lumbar spondylosis characterized by disc narrowing, facet hypertrophy and grade 2 spondyloli sthesis at L5-S1. Mild levocurvature of the lumbar spine. There is atherosclerosis of the aorta. Impression: 1: No acute abnormality of the lumbar spine. 2: Chronic L1 superior endplate compression fracture. 3: Moderate-severe lumbar spondylosis with grade 2 spondylolisthesis at L5-S1. Reviewed, dictated and finalized at location B. Impression: 1: No acute abnormality of the lumbar spine. 2: Chronic L1 superior endplate compression fracture. 3: Moderate-severe lumbar spondylosis with grade 2 spondylolisthesis at L5-S1.
--- NOTE | ~2021-05-16 | XR_ITS ---
XR pelvis 1-2V 05/16/2021 08:31 Indication: Status post fall. Procedure: AP pelvis Comparison: No prior studies for comparison. Findings: There is an age-indeterminate fracture of the right lower lobe rib. Pelvic rings are intact . There is mild osteoarthritis of the hips and pubic symphysis. There is mild lower lumbar spondylosi s. Sacral foramen are symmetric. Impression: 1: Age-indeterminate fracture right lower rib laterally. Recommend rib series correlation. Reviewed, dictated and finalized at location B. Impression: 1: Age-indeterminate fracture right lower rib laterally. Recommend rib series c orrelation.
--- NOTE | 2021-05-16 07:41 | ECG_ITS ---
Measurements Intervals [place] Rate: 97 P: 84 OK: 162 QRS: -81 QRSD: 129 T: 82 QT: 349 QTc: 445 Interpretive Statements SINUS RHYTHM RIGHT BUNDLE BRANCH BLOCK [120+ ms QRS DURATION, UPRIGHT V1, 40+ ms S IN I/aVL/V4/V5/V6] LEFT ANTERIOR FASCICULAR BLOCK [QRS AXIS <= -45, QR IN I, RS IN II] COMPARED TO TRACING NO SIGNIFICANT CHANGE Electronically Signed On 05-16-2021 13:03:14 CDT by Mitzy Grider M.D.
[2021-05-16 07:55] LABS: Basophils Percent Auto 0.5 % (0.2-1.2); Eosinophils Absolute Auto 0.1 K/mm3 (0-0.3); Eosinophils Percent Auto 2.1 % (0-4.4); Hematocrit 30.7 % (42.0-52.0); Hemoglobin 9.4 g/dL (14.0-18.0); Immature Granulocyte Absolute 0.04 K/mm3 (0.00-0.031); Immature Granulocyte Percent A 0.6 % (0-0.5); Lymphocytes Absolute Auto 0.79 K/mm3 (0.9-3.2); Lymphocytes Percent Auto 12.7 % (18.3-44.2); Mean Corpuscular HGB Conc 30.6 g/dl (32-36); Mean Corpuscular Hemoglobin 27.2 pg (26-34); Mean Corpuscular Volume 88.7 fl (80-100); Mean Platelet Volume 9.2 fl (7.4-10.4); Monocytes Absolute Auto 0.9 K/mm3 (0.1-0.6); Monocytes Percent Auto 14.8 % (2.6-8.5); Neutrophils Absolute Auto 4.3 K/mm3 (1.3-6.7); Neutrophils Percent Auto 69.3 % (45.5-73.1); Platelet Count Result 236 k/mm3 (150-375); Red Blood Count 3.46 M/mm3 (4.6-6.20); Red Cell Distribution Width 17.7 % (11.5-14.5); White Blood Count 6.2 K/mm3 (4.5-10.0)
[2021-05-16 08:07] LABS: Albumin Level 4.1 g/dL (3.5-5.1); Alkaline Phosphatase 56 U/L (38-126); Anion Gap 9 mmol/L (8-16); Aspartate Amino Transferase 16 U/L (17-59); Bilirubin,Total 0.4 mg/dL (0.2-1.3); Blood Urea Nitrogen 26 mg/dL (9-20); Calcium 9.5 mg/dL (8.4-10.2); Carbon Dioxide 27 mmol/L (22-30); Chloride 98 mmol/L (98-107); Estimated Glomerular Filt Rate 54; Glucose 150 mg/dL (65-110); Potassium 5.1 mmol/L (3.4-5.0); Sodium 134 mmol/L (137-145)
[2021-05-16 08:11] LABS: Add Urine Microscopic? YES; Appearance Urine Clear (Clear); Bilirubin Urine Negative (Negative); Blood Urine Negative (Negative); Color Urine Yellow (Yellow); Glucose Urine UA 3+ mg/dL (Negative); Ketones Urine Trace mg/dL (Negative); Leukocyte Esterase Ur Negative LEU/UL (Negative); Nitrate Urine Negative (Negative); Protein Urine Negative (Negative); RBC Urine 0-2 /hpf (0-2); Urobilinogen Urine Negative mg/dL (<2.0); WBC Urine 0-3 /hpf
--- NOTE | 2021-05-16 08:13 | ED.FALL ---
HPI - Fall General Chief Complaint: Fall Stated Complaint: fall with hip pain Time Seen by Provider: 05/16/21 07:44 Source: patient, EMS and RN notes reviewed Mode of arrival: EMS Limitations: no limitations History of Present Illness HPI Narrative: Patient 75 years old white male came to the emergency room because of general weakness, multiple falls, unable to manage to take care of himself, his unable to take care of him, uses a walker, would like to go to a rehab center or custodial to get better. Last meal was last night, patient denies any fever, chills, nausea, vomiting, headache, chest pain, shortness of breath or urinary symptoms. Related Data Home Medications Medication Instructions Recorded Confirmed carbidopa 25 mg-levodopa 100 mg 2.5 tablet PO TID tablet 03/08/19 03/23/21 tablet vitamin B12 500 mcg-folic acid 400 1 tablet PO DAILY 03/08/19 03/23/21 mcg tablet loratadine 10 mg tablet 10 mg PO DAILY 05/18/20 03/23/21 zamircia-dek-qbljb acid 300 1 tablet PO DAILY 05/18/20 03/23/21 mcg-lycopene 600 mcg-lutein 300 mcg tablet primidone 50 mg tablet 50 mg PO HS tablet 05/18/20 03/23/21 acetaminophen [Tylenol Extra 1,000 mg PO BID 06/06/20 03/23/21 Strength] cholecalciferol (vitamin D3) 25 25 mcg PO DAILY 07/03/20 03/23/21 mcg (1,000 unit) capsule folic acid 800 mcg tablet 0.8 mg PO DAILY 07/03/20 03/23/21 melatonin 10 mg capsule 10 mg PO QHS 07/03/20 03/23/21 Allergies Allergy/AdvReac Type Severity Reaction Status Date / Time codeine Allergy Mild RASH,PT Verified 03/23/21 08:07 STATED HE IS NOT ALLERGIC TO THIS. Review of Systems Review of Systems: CONSTITUTIONAL: Denies fever, chills, or sweats. EYES: Denies visual changes, redness, or discharge. ENT: Denies rhinorrhea, congestion, sore throat, or otalgia. CARDIOVASCULAR: Denies chest pain, palpitations, or edema. RESPIRATORY: Denies cough or dyspnea. GASTROINTESTINAL: Denies abdominal pain, nausea, vomiting, or diarrhea. GENITOURINARY: Denies dysuria or hematuria. SKIN: Denies rash or itching. MUSCULOSKELETAL: Back pain, myalgia NEUROLOGIC: Denies headache, numbness, PSYCHIATRIC: Denies anxiety or depression. 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 Social History Social History Social History: Mr. Barrera lives at home in [place] with his , Phoebe Barrera. He has 4 children. He is retired. 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 He reports daily vaping. He is a former 50 pack-year smoker. He denies alcohol use. He notes occasional marijuana use. He wishes for his code status to be DNR and he has designated his surrogate medical decision maker as his , Phoebe Barrera. Tobacco type: e-cigarettes/vaping Second hand tobacco smoke exposure: Yes Smoking end date: 03/03/16 Alcohol intake: never Substance use: current Substance use type: marijuana Other substance usage details: medical marijuana daily Gender identity (if verbalized by the patient): Male Spiritual care concerns: No Agree to blood products: Yes Exam
[2021-05-16 08:39] LABS: Alanine Aminotransferase < 6 U/L (4-50)
[2021-05-16] MEDS: SODIUM CHLORIDE 0.9% IV 1,000 ML 999 ML IV CONT (09:15)
--- NOTE | 2021-05-16 10:07 | PCCCNOTE ---
Addendum entered by Mayra Elias RN 05/17/21 07:50: OBRA called to [phone], VM received from Christelle at [facility] Reference [id number], requesting call back with requesting facility, . Addendum entered by Mayra Elias RN 05/16/21 16:36: Phone call received from Ann at [facility], @ 1530, have received referral and following, would like PT/OT sent over when available. VM received from Shanita at [facility], unable to accept. Fax'd PT/OT to [facility] as requested and pending. Fax sent to [facility] for authorization and pending. Patient has been been referred for onsite Level II Screen [facility], Pending. Addendum entered by Mayra Elias RN 05/16/21 14:09: VM received [facility], that they are able to accept clinically and want to know who will submit for auth. Called Denisha back at [phone], left message that we will submit to [facility] once PT/OT eval are completed. Original Note: Called to ER to meet with patient for skilled nursing placement, provider, Dr. Zuniga and bedside RN Lena. Met with patient, who confirms that he will need skillled skilled nursing placement due to weakness. Patient's first choice is [facility] as he has been there before, asks if okay to talk with his [facility]. Called to [facility] [phone], discussed skilled nursing and agrees, would like [facility] as first choice but agreeable to referrals being sent to [facility] and [facility] along with [facility] which she confirms is first choice since they go to [facility]. She understands that we will submit to insurance, and it will need to be authorized. PASSR has been submitted, PT/OT ordered and pending, referrals fax'd to [facility], [facility], and [facility].
[2021-05-16] MEDS: SODIUM CHLORIDE 0.9% IV 1,000 ML 125 ML IV CONT (12:03)
--- NOTE | 2021-05-16 16:05 | PM.IMHP ---
H&P: HPI History of Present Illness Date/Time: Patient was placed observation status for expected length of stay less than 23 hours for management, will plan to re-evaluate tomorrow for improvement. 05/16/21 16:05 Chief Complaint: Fall Narrative: Mr. Danielle is a 75-year-old gentleman who presented to the emergency room with generalized weakness and multiple falls recently. Patient lives with his and she states she can no longer take care of him because he falls so frequently. Patient is have discussed what to do and they are agreeable with rehab or a fpc, whichever 1 he will qualify for. Patient states he has not been eating or drinking very well, because he is just not hungry. Patient states he does fall frequently, but he does not believe it is daily. Patient has a well-known history of Parkinson's disease and at this point he realizes that it is advancing. Patient denies any lightheadedness, dizziness, syncopal, or near syncopal episodes. Patient states he just feels unsteady and falls at times. Patient denies any chest pain, shortness a breath, or palpitations. Patient does have a known history of Parkinson's disease, hypertension, CVA, COPD, bipolar disorder, type 2 diabetes mellitus, aortic stenosis, and chronic depression. Review of Systems Review of Systems: A 12 point review of systems was completed patient all pertinent positive and negative per HPI the remainder are unremarkable. 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 Other Unknown family medical history Social History Social History Social History: Mr. Barrera lives at home in [place] with his , Phoebe Barrera. He has 4 children. He is retired. 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 He reports daily vaping. He is a former 50 pack-year smoker. He denies alcohol use. He notes occasional marijuana use. He wishes for his code status to be DNR and he has designated his surrogate medical decision maker as his , Phoebe Barrera. Tobacco type: e-cigarettes/vaping Second hand tobacco smoke exposure: No Smoking end date: 03/03/16 Alcohol intake: never Substance use: never Substance use type: does not use Other substance usage details: medical marijuana daily Gender identity (if verbalized by the patient): Male Spiritual care concerns: No Agree to blood products: Yes Meds Home Medications and Allergies Home Medications Medication Instructions Recorded Confirmed Type carbidopa 25 mg-levodopa 100 mg 2.5 tablet PO TID tablet 03/08/19 05/16/21 History tablet vitamin B12 500 mcg-folic acid 400 1 tablet PO DAILY 03/08/19 05/16/21 History mcg tablet loratadine 10 mg tablet 10 mg PO DAILY 05/18/20 03/23/21 History utobfqeq-kkl-cibbw acid 300 1 tablet PO DAILY 05/18/20 05/16/21 History mcg-lycopene 600 mcg-lutein 300 mcg tablet primidone 50 mg tablet 50 mg PO HS tablet 05/18/20 05/16/21 History acetaminophen [Tylenol Extra 1,000 mg PO BID 06/06/20 05/16/21 History Strength] docusate sodium 100 mg PO Q12HR 30 Days #60 cap 06/08/20
[2021-05-16 17:22] LABS: Glucose Point of Care 137 mg/dl (65-105)
[2021-05-16] MEDS: SODIUM CHLORIDE 0.9% IV 1,000 ML 100 ML IV CONT (20:41)
--- NOTE | 2021-05-16 21:58 | PHAR ---
PHARMACY VERIFIED HOME MED: *HOME MED* DULAGLUTIDE (TRULICITY) 1.5 MG/0.5 ML INJECT 0.5 mL subQ into the abdomen, thigh, or upper arm once now
[2021-05-17 05:00] VITALS: BP 156/78; PULSE 86; RESP 15; TEMP 36.7; O2SAT 95
[2021-05-17] MEDS: SODIUM CHLORIDE 0.9% IV 1,000 ML 100 ML IV CONT ×2 (05:57→16:39)
[2021-05-17 06:08] LABS: Basophils Percent Auto 0.6 % (0.2-1.2); Eosinophils Absolute Auto 0.3 K/mm3 (0-0.3); Eosinophils Percent Auto 5.7 % (0-4.4); Hematocrit 27.1 % (42.0-52.0); Hemoglobin 8.4 g/dL (14.0-18.0); Immature Granulocyte Absolute 0.03 K/mm3 (0.00-0.031); Immature Granulocyte Percent A 0.6 % (0-0.5); Lymphocytes Absolute Auto 1.15 K/mm3 (0.9-3.2); Lymphocytes Percent Auto 21.7 % (18.3-44.2); Mean Corpuscular Hemoglobin 27.5 pg (26-34); Mean Corpuscular Volume 88.9 fl (80-100); Monocytes Absolute Auto 0.6 K/mm3 (0.1-0.6); Monocytes Percent Auto 11.7 % (2.6-8.5); Neutrophils Absolute Auto 3.2 K/mm3 (1.3-6.7); Neutrophils Percent Auto 59.7 % (45.5-73.1); Platelet Count Result 206 k/mm3 (150-375); Red Blood Count 3.05 M/mm3 (4.6-6.20); Red Cell Distribution Width 17.2 % (11.5-14.5); White Blood Count 5.3 K/mm3 (4.5-10.0)
[2021-05-17 06:21] LABS: Anion Gap 6 mmol/L (8-16); Blood Urea Nitrogen 21 mg/dL (9-20); Calcium 8.8 mg/dL (8.4-10.2); Carbon Dioxide 25 mmol/L (22-30); Chloride 102 mmol/L (98-107); Estimated Glomerular Filt Rate 59; Glucose 103 mg/dL (65-110); Potassium 4.6 mmol/L (3.4-5.0); Sodium 133 mmol/L (137-145)
[2021-05-17 08:00] VITALS: PULSE 86; RESP 15; O2SAT 95
[2021-05-17] MEDS: ENOXAPARIN 40 MG/0.4 ML SYRINGE SUB-Q (08:58)
[2021-05-17] MEDS: FLUTICASONE PROPIONATE 0.05% NA SPR 16 GM BTL (*BKC) 2 SPRAY NASAL (09:00)
[2021-05-17 13:51] VITALS: BMI 17.7
[2021-05-17 13:57] VITALS: BMI 17.7
[2021-05-17] MEDS: CARBIDOPA/LEVODOPA 12.5/50 MG TABLET 1 TABLET PO ×2 (13:58→16:42)
[2021-05-17] MEDS: CARBIDOPA/LEVODOPA 25/100 MG TABLET 2 TABLET PO ×2 (13:59→16:41)
[2021-05-17 14:30] VITALS: BP 140/78; PULSE 90; RESP 16; TEMP 36.4; O2SAT 95
--- NOTE | 2021-05-17 15:16 | PM.IMPN ---
Progress Note: A&P Assessment and Plan (1) Frequent falls: Code(s): R29.6 - Repeated falls Status: Acute (2) Prerenal azotemia: Code(s): R79.89 - Other specified abnormal findings of blood chemistry Status: Acute (3) Adult failure to thrive: Code(s): R62.7 - Adult failure to thrive Status: Acute Additional Plan # failure to thrive in setting of Parkinson's disease # frequent falls # right lower lateral rib fracture age indeterminate -continue supportive care -patient no longer able to be at his family is not able to care for him. Patient may need placement for long-term care verses evaluation at skilled nurse facility. -PT/OT consult -no intervention needed for rib fractures, continue pain control as needed -will monitor his p.o. intake and consider Megace if needed # aortic stenosis -known history of moderate aortic/severe stenosis, patient follow-up with PCP. At this point with clinical decompensation he may not be appropriate for any further intervention # prerenal azotemia -continue IV fluid hydration 100 cc normal saline # other chronic conditions -Parkinson's disease: Continue home medications Sinemet, Risperdal, Zoloft, primidone -continue aspirin 81 mg at home -vitamin B12 supplement, vitamin-D, folic acid, Mag oxide -seizure history: Continue divalproex -type 2 diabetes: Continue Jardiance -seasonal allergies: Continue Flonase Claritin -insomnia: Continue home Xanax, melatonin, trazodone Diet: Regular diet with soft and bite size pieces and dietary supplements DVT prophylaxis: Lovenox GI prophylaxis: Continue home Protonix Code status: Do not resuscitate Disposition: long-term facility Time Spent With Patient Time with patient: 25 - 35 minutes Subjective Date/time seen: 05/17/21 15:16 Patient seen examined. He is doing well today. Patient needs to continue working physical therapy. He has Parkinson's and having increased falls at home. feels she cannot take care of him anymore. Will look for placement in nursing home facility may need to look for assisted living facility afterwards. Patient has known aortic stenosis, in the future if he clinically improves he may need evaluation for TAVR. Will defer at this time and patient follow-up his PCP for aortic stenosis follow-up. He endorses weakness. He denies fever, chills nausea, vomiting, diarrhea, chest pain, shortness of breath. We will resume his home meds today. Review of Systems Review of Systems: All systems reviewed & are unremarkable except as noted in HPI and below Exam Narrative: - GENERAL: Pleasant very frail elder male in no acute distress. Very thin. - EYES: EOMI. Anicteric. - HENT: Moist mucous membranes. - LUNGS: Clear to auscultation bilaterally, no wheezing, rhonchi, or rales. - CARDIOVASCULAR: Regular rate and rhythm. No murmur. No JVD. - ABDOMEN: Soft, non-tender and non-distended. No palpable masses. - EXTREMITIES: No edema. Peripheral pulses 2+. Non-tender. - NEUROLOGIC: No focal neurological deficits. CN II-XII grossly intact. - PSYCHIATRIC: Awake, Alert and oriented. Appropriate mood and affect. - SKIN: No rashes or lesions. Warm. - LYMPH: No cervical lymphadenopathy. Objective Data Vital Signs Vital Signs: Vital Signs - 24 hr 05/16/21 20:25 05/16/21 21:07 05/17/21 05:00 Temperature 36.6 C 36.7 C Pulse Rate 86 82 86 Respiratory Rate 16 15 Blood Pressure 145/73 H 156/78 H Pulse Oximetry 91 92 95 05/17/21 08:00 Temperature Pulse Rate 86 Respiratory Rate 15 Blood Pressure Pulse Oximetry 95 Intake/Output Intake/Output: Intake & Output 05/14/21 05/15/21 05/16/21 05/17/21 23:59 23:59 23:59 23:59 Intake Total 2460 1630 Output Total 300 300 Balance 2160 1330 Meds/Results Medications: Active Medications Generic Name Dose Route Start Last Admin Trade Name Freq PRN Reason Stop Dose Admin Acetaminophen 1,000 mg 05/17/21 17:00 Acetami
[2021-05-17 16:00] VITALS: BP 138/76; PULSE 90; RESP 16; TEMP 36.5; O2SAT 99
[2021-05-17 16:12] LABS: Glucose Point of Care 231 mg/dl (65-105)
[2021-05-17] MEDS: ARTIFICIAL TEARS OPHTH SOLN 15 ML BOTTLE 1 DROP EACH EYE (16:40)
[2021-05-17] MEDS: ACETAMINOPHEN 500 MG TABLET 1000 MG PO (16:42)
[2021-05-17] MEDS: PANTOPRAZOLE 40 MG TABLET PO (20:35)
[2021-05-17] MEDS: DOCUSATE SODIUM 100 MG CAPSULE PO (20:35)
[2021-05-17] MEDS: MELATONIN 5 MG TABLET 10 MG PO (20:35)
[2021-05-17] MEDS: risperiDONE 0.5 MG TABLET PO (20:35)
[2021-05-17] MEDS: FLUTICASONE/SALMETEROL 230-21 MCG INHALER 1 PUFF 2 PUFF INHALATION (20:35)
[2021-05-17] MEDS: traZODone HCL 50 MG TABLET PO (20:35)
[2021-05-17] MEDS: PRIMIDONE 50 MG TABLET PO (20:36)
[2021-05-17] MEDS: DIVALPROEX SODIUM ER 500 MG TAB.24H PO (20:37)
[2021-05-17 20:49] VITALS: O2SAT 95
[2021-05-17] MEDS: LORazepam (*CRX) 0.5 MG TABLET PO (20:52)
[2021-05-18] VITALS (7 sets, daily range): BP systolic 126–155; BP diastolic 66–77; PULSE 84–91; RESP 14–18; TEMP 36–37.1; O2SAT 91–97
[2021-05-18] MEDS: SODIUM CHLORIDE 0.9% IV 1,000 ML 100 ML IV CONT (01:29)
[2021-05-18 06:14] LABS: Basophils Percent Auto 0.6 % (0.2-1.2); Eosinophils Absolute Auto 0.5 K/mm3 (0-0.3); Eosinophils Percent Auto 9.6 % (0-4.4); Hemoglobin 7.6 g/dL (14.0-18.0); Immature Granulocyte Absolute 0.04 K/mm3 (0.00-0.031); Immature Granulocyte Percent A 0.8 % (0-0.5); Lymphocytes Absolute Auto 1.09 K/mm3 (0.9-3.2); Lymphocytes Percent Auto 21.8 % (18.3-44.2); Mean Corpuscular HGB Conc 31.7 g/dl (32-36); Mean Corpuscular Hemoglobin 27.4 pg (26-34); Mean Corpuscular Volume 86.6 fl (80-100); Mean Platelet Volume 8.8 fl (7.4-10.4); Monocytes Absolute Auto 0.6 K/mm3 (0.1-0.6); Monocytes Percent Auto 11.6 % (2.6-8.5); Neutrophils Absolute Auto 2.8 K/mm3 (1.3-6.7); Neutrophils Percent Auto 55.6 % (45.5-73.1); Platelet Count Result 194 k/mm3 (150-375); Red Blood Count 2.77 M/mm3 (4.6-6.20)
[2021-05-18 06:29] LABS: Anion Gap 4 mmol/L (8-16); Blood Urea Nitrogen 18 mg/dL (9-20); Calcium 8.8 mg/dL (8.4-10.2); Carbon Dioxide 25 mmol/L (22-30); Chloride 102 mmol/L (98-107); Estimated CRCL calculation 40 ml/min; Estimated Glomerular Filt Rate > 60; Glucose 140 mg/dL (65-110); Magnesium 1.4 mg/dL (1.6-2.3); Potassium 4.5 mmol/L (3.4-5.0); Sodium 131 mmol/L (137-145)
[2021-05-18 08:04] LABS: Glucose Point of Care 149 mg/dl (65-105)
[2021-05-18] MEDS: FLUTICASONE/SALMETEROL 230-21 MCG INHALER 1 PUFF 2 PUFF INHALATION ×2 (08:27→20:23)
[2021-05-18] MEDS: ARTIFICIAL TEARS OPHTH SOLN 15 ML BOTTLE 1 DROP EACH EYE ×2 (08:43→17:12)
[2021-05-18] MEDS: OPTI-GEN TAB 1 TABLET PO (08:43)
[2021-05-18] MEDS: FLUTICASONE PROPIONATE 0.05% NA SPR 16 GM BTL (*BKC) 2 SPRAY NASAL (08:43)
[2021-05-18] MEDS: DOCUSATE SODIUM 100 MG CAPSULE PO ×2 (08:44→21:44)
[2021-05-18] MEDS: CARBIDOPA/LEVODOPA 25/100 MG TABLET 2 TABLET PO ×3 (08:44→17:13)
[2021-05-18] MEDS: CARBIDOPA/LEVODOPA 12.5/50 MG TABLET 1 TABLET PO ×3 (08:45→17:14)
[2021-05-18] MEDS: SERTRALINE HCL 50 MG TABLET 200 MG PO (08:47)
[2021-05-18] MEDS: DIVALPROEX SODIUM ER 500 MG TAB.24H PO ×2 (08:48→21:44)
[2021-05-18] MEDS: FOLIC ACID 0.4 MG TABLET 0.8 MG PO (08:48)
[2021-05-18] MEDS: LORATADINE 10 MG TABLET PO (08:50)
[2021-05-18] MEDS: ASPIRIN 81 MG ENTERIC TABLET PO (08:50)
[2021-05-18] MEDS: ENOXAPARIN 40 MG/0.4 ML SYRINGE SUB-Q (08:50)
[2021-05-18] MEDS: MAGNESIUM OXIDE 400 MG TABLET PO (08:50)
[2021-05-18] MEDS: ACETAMINOPHEN 500 MG TABLET 1000 MG PO ×2 (08:51→17:12)
[2021-05-18] MEDS: PANTOPRAZOLE 40 MG TABLET PO ×2 (08:51→21:44)
[2021-05-18] MEDS: EMPAGLIFLOZIN 10 MG TABLET PO (08:52)
[2021-05-18] MEDS: CHOLECALCIFEROL 1,000 UNITS TABLET 1000 UNITS PO (08:52)
[2021-05-18] MEDS: CYANOCOBALAMIN 500 MCG TABLET PO (08:52)
[2021-05-18] MEDS: FOLIC ACID 0.4 MG TABLET PO (08:53)
[2021-05-18] MEDS: MAGNESIUM SULF 4 GM/WATER100ML 4 GM/100 ML BAG IVPB (10:09)
--- NOTE | 2021-05-18 10:10 | PM.IMPN ---
Progress Note: A&P Assessment and Plan (1) Frequent falls: Code(s): R29.6 - Repeated falls Status: Acute (2) Prerenal azotemia: Code(s): R79.89 - Other specified abnormal findings of blood chemistry Status: Acute (3) Adult failure to thrive: Code(s): R62.7 - Adult failure to thrive Status: Acute (4) Chronic anemia: Code(s): D64.9 - Anemia, unspecified Status: Acute Additional Plan # failure to thrive in setting of Parkinson's disease # frequent falls # right lower lateral rib fracture age indeterminate -continue supportive care -patient no longer able to be at his family is not able to care for him. Patient may need placement for long-term care verses evaluation at skilled nurse facility -PT/OT consulted -no intervention needed for rib fractures, continue pain control as needed -will monitor his p.o. intake and consider Megace if needed # anemia -hemoglobin 7.6, drop in hemoglobin likely hemodilutional, no signs of bleeding -placed on iron supplementation, check iron panel # aortic stenosis -known history of moderate aortic/severe stenosis, patient follow-up with PCP. No need for surgery at this time # prerenal azotemia -resolved, stop IV fluids # other chronic conditions -Parkinson's disease: Continue home medications Sinemet, Risperdal, Zoloft, primidone -continue aspirin 81 mg at home -vitamin B12 supplement, vitamin-D, folic acid, Mag oxide -seizure history: Continue divalproex -type 2 diabetes: Continue Jardiance -seasonal allergies: Continue Flonase Claritin -insomnia: Continue home Xanax, melatonin, trazodone Diet: Regular diet with soft and bite size pieces and dietary supplements DVT prophylaxis: Lovenox GI prophylaxis: Continue home Protonix Code status: Do not resuscitate [facility]position[facility] Subjective Date/time seen: 05/18/21 10:10 Patient seen examined. He has no new complaints. Hemoglobin dropped to 7.6, likely hemodilution, stopping IV fluids. Magnesium 1.4 giving 4 g Mag sulfate. Discussed with bedside. Still looking for placement. Denies fever, chills, nausea vomiting, diarrhea, chest pain, shortness of breath. Review of Systems Review of Systems: All systems reviewed & are unremarkable except as noted in HPI and below Exam Narrative: - GENERAL: Pleasant very frail elder male in no acute distress. Very thin. - EYES: EOMI. Anicteric. - HENT: Moist mucous membranes. Tremor - LUNGS: Clear to auscultation bilaterally, no wheezing, rhonchi, or rales. - CARDIOVASCULAR: Regular rate and rhythm. No murmur. No JVD. - ABDOMEN: Soft, non-tender and non-distended. No palpable masses. - EXTREMITIES: No edema. Peripheral pulses 2+. Non-tender. - NEUROLOGIC: No focal neurological deficits. CN II-XII grossly intact. Parkinson's tremor both hands, lower jaw - PSYCHIATRIC: Awake, Alert and oriented. Appropriate mood and affect. - SKIN: No rashes or lesions. Warm. - LYMPH: No cervical lymphadenopathy. Objective Data Vital Signs Vital Signs: Vital Signs - 24 hr 05/17/21 14:30 05/17/21 16:00 05/17/21 20:49 Temperature 36.4 C 36.5 C Pulse Rate 90 90 Respiratory Rate 16 16 Blood Pressure 140/78 138/76 Pulse Oximetry 95 99 95 05/18/21 05:26 05/18/21 08:00 05/18/21 08:25 Temperature 36.3 C L Pulse Rate 84 84 Respiratory Rate 18 18 Blood Pressure 128/76 Pulse Oximetry 97 95 95 Intake/Output Intake/Output: Intake & Output 05/15/21 05/16/21 05/17/21 05/18/21 23:59 23:59 23:59 23:59 Intake Total 2460 3450 1475 Output Total 300 900 675 Balance 2160 2550 800 Meds/Results Medications: Active Medications Generic Name Dose Route Start Last Admin Trade Name Freq PRN Reason Stop Dose Admin Acetaminophen 1,000 mg 05/17/21 17:00 05/18/21 08:51 Acetaminophen 500 Mg Tablet PO 1,000 mg BID ILANA Administration Artificial Tears 1 drop 05/17/21 17:00 05/18/21 08:43 Artificial Tears Ophth
[2021-05-18 10:28] LABS: Immature Reticulocyte Fraction 9.1 % (3.0-15.9); Reticulocyte Hemoglobin Conten 26.2 pg (28.2-35.7); Reticulocyte Percent 0.99 % (0.7-4.3); Reticulocytes Absolute 0.03 B/L (32.2-175.7)
[2021-05-18 10:36] LABS: Lactate Dehydrogenase 224 U/L (313-618)
[2021-05-18 11:00] LABS: Iron 38 ug/dL (49-181)
[2021-05-18 11:12] LABS: Percent Iron Saturation 14 % (20-50)
[2021-05-18 11:24] LABS: Glucose Point of Care 303 mg/dl (65-105)
[2021-05-18 16:29] LABS: Glucose Point of Care 239 mg/dl (65-105)
[2021-05-18 19:59] LABS: Glucose Point of Care 274 mg/dl (65-105)
[2021-05-18] MEDS: traZODone HCL 50 MG TABLET PO (21:43)
[2021-05-18] MEDS: MELATONIN 5 MG TABLET 10 MG PO (21:43)
[2021-05-18] MEDS: risperiDONE 0.5 MG TABLET PO (21:43)
[2021-05-18] MEDS: PRIMIDONE 50 MG TABLET PO (21:43)
[2021-05-18] MEDS: LORazepam (*CRX) 0.5 MG TABLET PO (21:44)
[2021-05-19 06:01] LABS: Hemoglobin 8.5 g/dL (14.0-18.0); Mean Corpuscular HGB Conc 32.7 g/dl (32-36); Mean Corpuscular Hemoglobin 28.1 pg (26-34); Mean Corpuscular Volume 85.8 fl (80-100); Mean Platelet Volume 9.2 fl (7.4-10.4); Platelet Count Result 246 k/mm3 (150-375); Red Blood Count 3.03 M/mm3 (4.6-6.20); White Blood Count 5.9 K/mm3 (4.5-10.0)
[2021-05-19 06:24] LABS: Anion Gap 4 mmol/L (8-16); Blood Urea Nitrogen 21 mg/dL (9-20); Calcium 9.2 mg/dL (8.4-10.2); Carbon Dioxide 28 mmol/L (22-30); Chloride 101 mmol/L (98-107); Estimated CRCL calculation 44 ml/min; Estimated Glomerular Filt Rate > 60; Glucose 151 mg/dL (65-110); Potassium 5.5 mmol/L (3.4-5.0); Sodium 133 mmol/L (137-145)
[2021-05-19 06:25] VITALS: BP 169/78; PULSE 80; RESP 16; TEMP 36.2; O2SAT 95
[2021-05-19] MEDS: CARBIDOPA/LEVODOPA 12.5/50 MG TABLET 1 TABLET PO ×3 (08:11→16:41)
[2021-05-19] MEDS: FOLIC ACID 0.4 MG TABLET 0.8 MG PO (08:12)
[2021-05-19] MEDS: ACETAMINOPHEN 500 MG TABLET 1000 MG PO ×2 (08:12→16:41)
[2021-05-19] MEDS: MAGNESIUM OXIDE 400 MG TABLET PO (08:12)
[2021-05-19] MEDS: FOLIC ACID 0.4 MG TABLET PO (08:12)
[2021-05-19] MEDS: PANTOPRAZOLE 40 MG TABLET PO ×2 (08:12→21:48)
[2021-05-19] MEDS: OPTI-GEN TAB 1 TABLET PO (08:13)
[2021-05-19] MEDS: CARBIDOPA/LEVODOPA 25/100 MG TABLET 2 TABLET PO ×3 (08:13→16:41)
[2021-05-19] MEDS: CYANOCOBALAMIN 500 MCG TABLET PO (08:13)
[2021-05-19] MEDS: EMPAGLIFLOZIN 10 MG TABLET PO (08:13)
[2021-05-19] MEDS: DOCUSATE SODIUM 100 MG CAPSULE PO ×2 (08:13→21:48)
[2021-05-19] MEDS: DIVALPROEX SODIUM ER 500 MG TAB.24H PO ×2 (08:13→21:48)
[2021-05-19] MEDS: ASPIRIN 81 MG ENTERIC TABLET PO (08:13)
[2021-05-19] MEDS: ARTIFICIAL TEARS OPHTH SOLN 15 ML BOTTLE 1 DROP EACH EYE ×2 (08:13→16:41)
[2021-05-19] MEDS: FERROUS SULFATE 324 MG TABLET PO (08:14)
[2021-05-19] MEDS: FLUTICASONE PROPIONATE 0.05% NA SPR 16 GM BTL (*BKC) 2 SPRAY NASAL (08:14)
[2021-05-19] MEDS: LORATADINE 10 MG TABLET PO (08:14)
[2021-05-19] MEDS: SERTRALINE HCL 50 MG TABLET 200 MG PO (08:14)
[2021-05-19] MEDS: SODIUM POLYSTYRENE SULFONONATE 15 GM/60 ML BTL PO (08:14)
[2021-05-19] MEDS: CHOLECALCIFEROL 1,000 UNITS TABLET 1000 UNITS PO (08:14)
[2021-05-19] MEDS: ENOXAPARIN 40 MG/0.4 ML SYRINGE SUB-Q (08:14)
[2021-05-19 08:35] VITALS: O2SAT 94
[2021-05-19] MEDS: FLUTICASONE/SALMETEROL 230-21 MCG INHALER 1 PUFF 2 PUFF INHALATION ×2 (08:40→20:05)
--- NOTE | 2021-05-19 12:21 | PM.IMPN ---
Progress Note: A&P Assessment and Plan (1) Frequent falls: Code(s): R29.6 - Repeated falls Status: Acute (2) Prerenal azotemia: Code(s): R79.89 - Other specified abnormal findings of blood chemistry Status: Acute (3) Adult failure to thrive: Code(s): R62.7 - Adult failure to thrive Status: Acute (4) Rib fracture: Qualifiers: Encounter type: subsequent encounter Fracture healing: with nonunion Fracture type: closed Laterality: right Rib fracture type: single rib Qualified Code(s): S22.31XK - Fracture of one rib, right side, subsequent encounter for fracture with nonunion Code(s): S22.39XA - Fracture of one rib, unspecified side, initial encounter for closed fracture Status: Acute (5) Anemia: Code(s): D64.9 - Anemia, unspecified Status: Acute Additional Plan # failure to thrive in setting of Parkinson's disease # frequent falls # right lower lateral rib fracture age indeterminate -continue supportive care -patient no longer able to be at his family is not able to care for him. Patient may need placement for long-term care verses evaluation at skilled nurse facility -PT/OT following -no intervention needed for rib fractures, continue pain control as needed -will monitor his p.o. intake and consider Megace if needed, holding off for now # hyperkalemia -may be secondary to poor p.o. water intake -giving Kayexalate 15 g for potassium 5.5 # anemia -hemoglobin 8.5, stable - iron supplementation # aortic stenosis -known history of moderate aortic/severe stenosis, patient follow-up with PCP. No need for surgery at this time # prerenal azotemia -resolved, stopped IV fluids # other chronic conditions -Parkinson's disease: Continue home medications Sinemet, Risperdal, Zoloft, primidone -continue aspirin 81 mg at home -vitamin B12 supplement, vitamin-D, folic acid, Mag oxide -seizure history: Continue divalproex -type 2 diabetes: Continue Jardiance -seasonal allergies: Continue Flonase Claritin -insomnia: Continue home Xanax, melatonin, trazodone Diet: Regular diet with soft and bite size pieces and dietary supplements DVT prophylaxis: Lovenox GI prophylaxis: Continue home Protonix Code status: Do not resuscitate Disposition: [facility] facility, he [facility] for [facility] Time Spent With Patient Time with patient: 15 - 25 minutes Subjective Date/time seen: 05/19/21 12:21 Patient seen examined. He is doing well with no new complaints. Potassium graciela to 5.5, giving Kayexalate 15 g. Patient encouraged to drink more water as a hydrated. He states he does like to get up to pee as well he does not like to drink too much water. We are still waiting for placement at jail facility. Patient has fever, chills, nausea, vomiting, diarrhea, chest pain, shortness of breath. Review of Systems Review of Systems: All systems reviewed & are unremarkable except as noted in HPI and below Exam Narrative: - GENERAL: Pleasant very frail elder male in no acute distress. Very thin. - EYES: EOMI. Anicteric. - HENT: Moist mucous membranes. Tremor of jaw - LUNGS: Clear to auscultation bilaterally, no wheezing, rhonchi, or rales. - CARDIOVASCULAR: Regular rate and rhythm. No murmur. No JVD. - ABDOMEN: Soft, non-tender and non-distended. No palpable masses. - EXTREMITIES: No edema. Peripheral pulses 2+. Non-tender. - NEUROLOGIC: No focal neurological deficits. CN II-XII grossly intact. Parkinson's tremor both hands, lower jaw - PSYCHIATRIC: Awake, Alert and oriented. Appropriate mood and affect. - SKIN: No rashes or lesions. Warm. - LYMPH: No cervical lymphadenopathy. Objective Data Vital Signs Vital Signs: Vital Signs - 24 hr 05/18/21 14:53 05/18/21 17:28 05/18/21 20:24 Temperature 37.1 C 37.1 C Pulse Rate 90 90 Respiratory Rate 14 14 Blood Pressure 126/66 126/66 Pulse Oximetry 93 93 93 05/18/21 21:12 0
[2021-05-19 15:41] VITALS: BP 153/81; PULSE 92; RESP 16; TEMP 36.6; O2SAT 97
[2021-05-19 19:34] VITALS: BP 135/72; PULSE 91; RESP 16; TEMP 36.6; O2SAT 96
[2021-05-19 20:08] VITALS: O2SAT 94
[2021-05-19] MEDS: LORazepam (*CRX) 0.5 MG TABLET PO (21:48)
[2021-05-19] MEDS: traZODone HCL 50 MG TABLET PO (21:48)
[2021-05-19] MEDS: risperiDONE 0.5 MG TABLET PO (21:49)
[2021-05-19] MEDS: MELATONIN 5 MG TABLET 10 MG PO (21:49)
[2021-05-19] MEDS: PRIMIDONE 50 MG TABLET PO (21:49)
[2021-05-20 04:34] VITALS: BP 158/81; PULSE 81; RESP 18; TEMP 36.5; O2SAT 94
[2021-05-20 07:55] LABS: Glucose Point of Care 159 mg/dl (65-105)
[2021-05-20] MEDS: FLUTICASONE/SALMETEROL 230-21 MCG INHALER 1 PUFF 2 PUFF INHALATION ×2 (08:41→20:34)
[2021-05-20] MEDS: ARTIFICIAL TEARS OPHTH SOLN 15 ML BOTTLE 1 DROP EACH EYE ×2 (08:53→16:30)
[2021-05-20] MEDS: CARBIDOPA/LEVODOPA 12.5/50 MG TABLET 1 TABLET PO ×3 (08:53→16:30)
[2021-05-20] MEDS: ACETAMINOPHEN 500 MG TABLET 1000 MG PO ×2 (08:53→16:29)
[2021-05-20] MEDS: ASPIRIN 81 MG ENTERIC TABLET PO (08:53)
[2021-05-20] MEDS: CARBIDOPA/LEVODOPA 25/100 MG TABLET 2 TABLET PO ×3 (08:53→16:30)
[2021-05-20] MEDS: FERROUS SULFATE 324 MG TABLET PO (08:53)
[2021-05-20] MEDS: EMPAGLIFLOZIN 10 MG TABLET PO (08:54)
[2021-05-20] MEDS: CHOLECALCIFEROL 1,000 UNITS TABLET 1000 UNITS PO (08:54)
[2021-05-20] MEDS: CYANOCOBALAMIN 500 MCG TABLET PO (08:54)
[2021-05-20] MEDS: ENOXAPARIN 40 MG/0.4 ML SYRINGE SUB-Q (08:54)
[2021-05-20] MEDS: DIVALPROEX SODIUM ER 500 MG TAB.24H PO ×2 (08:54→20:39)
[2021-05-20] MEDS: FLUTICASONE PROPIONATE 0.05% NA SPR 16 GM BTL (*BKC) 2 SPRAY NASAL (08:54)
[2021-05-20] MEDS: DOCUSATE SODIUM 100 MG CAPSULE PO ×2 (08:54→20:37)
[2021-05-20] MEDS: FOLIC ACID 0.4 MG TABLET PO (08:55)
[2021-05-20] MEDS: PANTOPRAZOLE 40 MG TABLET PO ×2 (08:55→20:37)
[2021-05-20] MEDS: FOLIC ACID 0.4 MG TABLET 0.8 MG PO (08:55)
[2021-05-20] MEDS: MAGNESIUM OXIDE 400 MG TABLET PO (08:55)
[2021-05-20] MEDS: SERTRALINE HCL 50 MG TABLET 200 MG PO (08:55)
[2021-05-20] MEDS: LORATADINE 10 MG TABLET PO (08:55)
[2021-05-20] MEDS: OPTI-GEN TAB 1 TABLET PO (08:55)
[2021-05-20 10:00] LABS: Anion Gap 9 mmol/L (8-16); Blood Urea Nitrogen 22 mg/dL (9-20); Calcium 9.3 mg/dL (8.4-10.2); Carbon Dioxide 27 mmol/L (22-30); Chloride 97 mmol/L (98-107); Estimated CRCL calculation 37 ml/min; Estimated Glomerular Filt Rate 59; Glucose 320 mg/dL (65-110); Potassium 4.7 mmol/L (3.4-5.0); Sodium 133 mmol/L (137-145)
[2021-05-20 11:44] LABS: Glucose Point of Care 400 mg/dl (65-105)
[2021-05-20 11:44] LABS: Glucose Point of Care 420 mg/dl (65-105)
--- NOTE | 2021-05-20 11:57 | PC.NURSE ---
Dr Pastrana notified of blood sugar 400, new received
[2021-05-20] MEDS: INSULIN ASPART (*BKC) 100 UNITS/ML SUB-Q (12:01)
--- NOTE | 2021-05-20 12:22 | PM.IMPN ---
Progress Note: A&P Assessment and Plan (1) Frequent falls: Code(s): R29.6 - Repeated falls Status: Acute (2) Prerenal azotemia: Code(s): R79.89 - Other specified abnormal findings of blood chemistry Status: Acute (3) Adult failure to thrive: Code(s): R62.7 - Adult failure to thrive Status: Acute (4) Rib fracture: Qualifiers: Encounter type: subsequent encounter Fracture healing: with nonunion Fracture type: closed Laterality: right Rib fracture type: single rib Qualified Code(s): S22.31XK - Fracture of one rib, right side, subsequent encounter for fracture with nonunion Code(s): S22.39XA - Fracture of one rib, unspecified side, initial encounter for closed fracture Status: Acute (5) Anemia: Code(s): D64.9 - Anemia, unspecified Status: Acute Additional Plan # failure to thrive in setting of Parkinson's disease # frequent falls # right lower lateral rib fracture age indeterminate -continue supportive care -patient no longer able to be at his family is not able to care for him. Patient may need placement for long-term care verses evaluation at skilled nurse facility -PT/OT following -no intervention needed for rib fractures, continue pain control as needed -will monitor his p.o. intake and consider Megace if needed, holding off for now, intake appears to be improved as his blood sugars are rising # hyperkalemia, resolved -may be secondary to poor p.o. water intake -yesterday he received Kayexalate improving his potassium from 5.5 to 4.7 # anemia -hemoglobin 8.5, stable - iron supplementation # aortic stenosis -known history of moderate aortic/severe stenosis, patient follow-up with PCP. No need for surgery at this time # prerenal azotemia -resolved, stopped IV fluids # other chronic conditions -Parkinson's disease: Continue home medications Sinemet, Risperdal, Zoloft, primidone -continue aspirin 81 mg at home -vitamin B12 supplement, vitamin-D, folic acid, Mag oxide -seizure history: Continue divalproex -type 2 diabetes: Continue Jardiance, adding Accu-Cheks a.c. HS, sliding scale insulin, changing to diabetic diet -seasonal allergies: Continue Flonase Claritin -insomnia: Continue home Xanax, melatonin, trazodone Diet: soft and bite size pieces and dietary supplements, changing regular diet to diabetic diet for elevated blood sugars DVT prophylaxis: Lovenox GI prophylaxis: Continue home Protonix Code status: Do not resuscitate Disposition: long term facility, he is medically stable for [facility] facility Time Spent With Patient Time with patient: 15 - 25 minutes Subjective Date/time seen: 05/20/21 12:22 Patient seen examined. Creatinine 2.0, hemoglobin stable at 8.5. No overnight events, he has no new complaints. Nursing reports blood sugar significant elevated 400, will add sliding scale insulin moderate dose, Accu-Cheks a.c. HS. Patient's p.o. intake appears to be improving. He is put back on diabetic diet, he was on regular diet for failure to thrive. Still awaiting placement. He denies fever, chills, nausea, vomiting, diarrhea chest pain, shortness of breath. Review of Systems Review of Systems: All systems reviewed & are unremarkable except as noted in HPI and below Exam Narrative: - GENERAL: Pleasant very frail elder male in no acute distress. Very thin. - EYES: EOMI. Anicteric. - HENT: Moist mucous membranes. Tremor of jaw - LUNGS: Clear to auscultation bilaterally, no wheezing, rhonchi, or rales. - CARDIOVASCULAR: Regular rate and rhythm. No murmur. No JVD. - ABDOMEN: Soft, non-tender and non-distended. No palpable masses. - EXTREMITIES: No edema. Peripheral pulses 2+. Non-tender. - NEUROLOGIC: No focal neurological deficits. CN II-XII grossly intact. Parkinson's tremor both hands, lower jaw - PSYCHIATRIC: Awake, Alert and oriented. Appropriate mood and affect. - SKIN: No rashes or lesions. Warm. - LYMPH: No ce
[2021-05-20 13:53] LABS: Glucose Point of Care 269 mg/dl (65-105)
[2021-05-20 14:00] VITALS: BP 107/73; PULSE 95; RESP 18; TEMP 36.4; O2SAT 100
[2021-05-20 16:21] LABS: Glucose Point of Care 118 mg/dl (65-105)
[2021-05-20 20:32] VITALS: BP 133/68; PULSE 91; RESP 16; TEMP 36.4; O2SAT 95
[2021-05-20 20:37] VITALS: O2SAT 93
[2021-05-20] MEDS: MELATONIN 5 MG TABLET 10 MG PO (20:37)
[2021-05-20] MEDS: PRIMIDONE 50 MG TABLET PO (20:37)
[2021-05-20] MEDS: risperiDONE 0.5 MG TABLET PO (20:37)
[2021-05-20] MEDS: traZODone HCL 50 MG TABLET PO (20:38)
[2021-05-20 21:26] LABS: Glucose Point of Care 345 mg/dl (65-105)
[2021-05-20] MEDS: INSULIN ASPART (*BKC) 100 UNITS/ML 6 UNITS SUB-Q (22:26)
[2021-05-21 04:49] VITALS: BP 124/69; PULSE 77; RESP 16; TEMP 36.2; O2SAT 95
[2021-05-21 07:32] LABS: Glucose Point of Care 164 mg/dl (65-105)
[2021-05-21] MEDS: CARBIDOPA/LEVODOPA 25/100 MG TABLET 2 TABLET PO ×3 (08:24→16:35)
[2021-05-21] MEDS: ARTIFICIAL TEARS OPHTH SOLN 15 ML BOTTLE 1 DROP EACH EYE ×2 (08:24→16:35)
[2021-05-21] MEDS: FERROUS SULFATE 324 MG TABLET PO (08:24)
[2021-05-21] MEDS: CARBIDOPA/LEVODOPA 12.5/50 MG TABLET 1 TABLET PO ×3 (08:24→16:35)
[2021-05-21] MEDS: ASPIRIN 81 MG ENTERIC TABLET PO (08:24)
[2021-05-21] MEDS: ACETAMINOPHEN 500 MG TABLET 1000 MG PO ×2 (08:24→16:34)
[2021-05-21] MEDS: ENOXAPARIN 40 MG/0.4 ML SYRINGE SUB-Q (08:25)
[2021-05-21] MEDS: DOCUSATE SODIUM 100 MG CAPSULE PO ×2 (08:25→20:47)
[2021-05-21] MEDS: DIVALPROEX SODIUM ER 500 MG TAB.24H PO ×2 (08:25→20:47)
[2021-05-21] MEDS: EMPAGLIFLOZIN 10 MG TABLET PO (08:25)
[2021-05-21] MEDS: CHOLECALCIFEROL 1,000 UNITS TABLET 1000 UNITS PO (08:25)
[2021-05-21] MEDS: CYANOCOBALAMIN 500 MCG TABLET PO (08:25)
[2021-05-21] MEDS: FLUTICASONE PROPIONATE 0.05% NA SPR 16 GM BTL (*BKC) 2 SPRAY NASAL (08:26)
[2021-05-21] MEDS: FOLIC ACID 0.4 MG TABLET PO (08:26)
[2021-05-21] MEDS: SERTRALINE HCL 50 MG TABLET 200 MG PO (08:26)
[2021-05-21] MEDS: PANTOPRAZOLE 40 MG TABLET PO ×2 (08:26→20:47)
[2021-05-21] MEDS: LORATADINE 10 MG TABLET PO (08:26)
[2021-05-21] MEDS: MAGNESIUM OXIDE 400 MG TABLET PO (08:26)
[2021-05-21] MEDS: FOLIC ACID 0.4 MG TABLET 0.8 MG PO (08:26)
[2021-05-21] MEDS: OPTI-GEN TAB 1 TABLET PO (08:26)
[2021-05-21] MEDS: FLUTICASONE/SALMETEROL 230-21 MCG INHALER 1 PUFF 2 PUFF INHALATION ×2 (08:31→20:13)
[2021-05-21 08:32] VITALS: O2SAT 93
[2021-05-21 11:33] LABS: Glucose Point of Care 215 mg/dl (65-105)
[2021-05-21] MEDS: INSULIN ASPART (*BKC) 100 UNITS/ML SUB-Q (11:48)
[2021-05-21 14:30] VITALS: BP 110/61; PULSE 84; RESP 14; TEMP 36.1; O2SAT 97
--- NOTE | 2021-05-21 14:30 | PM.IMPN ---
Progress Note: A&P Additional Plan 75-year-old gentleman who presented to the emergency room with generalized weakness and multiple falls recently. 1)failure to thrive in setting of Parkinson's disease frequent falls right lower lateral rib fracture age indeterminate continue supportive care patient no longer able to be at his family is not able to care for him. PT/OT following -no intervention needed for rib fractures, continue pain control as needed -will monitor his p.o. intake and consider Megace if needed, holding off for now, intake appears to be improved as his blood sugars are rising Continue home medications Sinemet, Risperdal, Zoloft, primidone 2)hyperkalemia, resolved 3) anemia -hemoglobin stable - iron supplementation 4)aortic stenosis -known history of moderate aortic/severe stenosis, patient follow-up with PCP. No need for surgery at this time 5)prerenal azotemia -resolved 6)seizure history: Continue divalproex 7)type 2 diabetes: Continue Jardiance, c/w Accu-Cheks a.c. HS, sliding scale insulin, c/wdiabetic diet 8)DVT prophylaxis: Lovenox 9)Code status: Do not resuscitate 10)Disposition: long term facility, he is medically stable for long-term facility,await placement Time Spent With Patient Time with patient: 15 - 25 minutes Subjective Date/time seen: 05/21/21 14:30 no acute events overnight Review of Systems Review of Systems: All systems reviewed & are unremarkable except as noted in HPI and below Constitutional: Constitutional: Reports no additional constitutional complaints ENT: Reports system reviewed and no additional complaints, except as documented Cardiovascular: Cardiovascular: Reports no additional cardiovascular complaints Respiratory: Respiratory: Reports no additional respiratory complaints and Reports dyspnea Gastrointestinal: Gastrointestinal: Reports no additional gastrointestinal complaints Exam Const: General: no acute distress HENMT: Mouth: Yes moist mucous membranes Eyes: General: appearance normal, both eyes and all related structures Neck: Neck: supple Resp: Effort & Inspection: normal respiratory effort Auscultation: clear to auscultation bilaterally Cardio: Rate: regular rate Rhythm: regular rhythm GI: GI Palp: Yes Soft to palpation Auscultation: normal bowel sounds Skin: General skin exam: normal color Neuro: Motor exam (neuro): Motor abnormalites present Other: parkinson's tremor noted Psych: Mental Status: mental status grossly normal Objective Data Vital Signs Vital Signs: Vital Signs - 24 hr 05/20/21 20:32 05/20/21 20:37 05/21/21 04:49 Temperature 97.6 F 97.2 F L Pulse Rate 91 77 Respiratory Rate 16 16 Blood Pressure 133/68 124/69 Pulse Oximetry 95 93 95 05/21/21 08:32 Temperature Pulse Rate Respiratory Rate Blood Pressure Pulse Oximetry 93 Intake/Output Intake/Output: Intake & Output 05/18/21 05/19/21 05/20/21 05/21/21 23:59 23:59 23:59 23:59 Intake Total 3660 1080 1362 270 Output Total 1375 2160 900 250 Balance 2245 -0433 462 20 Meds/Results Medications: Active Medications Generic Name Dose Route Start Last Admin Trade Name Mando PRN Reason Stop Dose Admin Acetaminophen 1,000 mg 05/17/21 17:00 05/21/21 08:24 Acetaminophen 500 Mg Tablet PO 1,000 mg BID ILANA Administration Artificial Tears 1 drop 05/17/21 17:00 05/21/21 08:24 Artificial Tears Ophth Soln 15 Ml Bottle EACH EYE 1 drop BID ILANA Administration Aspirin 81 mg 05/18/21 09:00 05/21/21 08:24 Aspirin 81 Mg Enteric Tablet PO 81 mg QAM ILANA Administration Carbidopa/Levodopa 2 tablet 05/17/21 13:00 05/21/21 13:27 Carbidopa/Levodopa 25/100 Mg Tablet PO 2 tablet TID ILANA Administration Carbidopa/Levodopa 1 tablet 05/17/21 13:00 05/21/21 13:27 Carbidopa/Levodopa 12.5/50 Mg Tablet PO 1 tablet TID ILANA Administration Cyanocobalamin 500 mcg 05/18/21 09:00
[2021-05-21 16:28] LABS: Glucose Point of Care 174 mg/dl (65-105)
[2021-05-21 20:00] VITALS: PULSE 84; RESP 14; O2SAT 94
[2021-05-21 20:16] VITALS: O2SAT 94
[2021-05-21] MEDS: PRIMIDONE 50 MG TABLET PO (20:47)
[2021-05-21] MEDS: traZODone HCL 50 MG TABLET PO (20:47)
[2021-05-21] MEDS: risperiDONE 0.5 MG TABLET PO (20:47)
[2021-05-21] MEDS: MELATONIN 5 MG TABLET 10 MG PO (20:47)
[2021-05-21 21:03] LABS: Glucose Point of Care 192 mg/dl (65-105)
[2021-05-21 21:46] VITALS: BP 114/70; PULSE 91; RESP 18; TEMP 36.2; O2SAT 94
[2021-05-22 05:59] LABS: Basophils Percent Auto 0.3 % (0.2-1.2); Eosinophils Absolute Auto 0.1 K/mm3 (0-0.3); Eosinophils Percent Auto 1.4 % (0-4.4); Hematocrit 27.2 % (42.0-52.0); Hemoglobin 8.6 g/dL (14.0-18.0); Immature Granulocyte Absolute 0.04 K/mm3 (0.00-0.031); Immature Granulocyte Percent A 0.6 % (0-0.5); Lymphocytes Absolute Auto 0.56 K/mm3 (0.9-3.2); Lymphocytes Percent Auto 7.8 % (18.3-44.2); Mean Corpuscular HGB Conc 31.6 g/dl (32-36); Mean Corpuscular Hemoglobin 27.4 pg (26-34); Mean Corpuscular Volume 86.6 fl (80-100); Mean Platelet Volume 8.9 fl (7.4-10.4); Monocytes Absolute Auto 0.8 K/mm3 (0.1-0.6); Monocytes Percent Auto 11.5 % (2.6-8.5); Neutrophils Absolute Auto 5.6 K/mm3 (1.3-6.7); Neutrophils Percent Auto 78.4 % (45.5-73.1); Platelet Count Result 285 k/mm3 (150-375); Red Blood Count 3.14 M/mm3 (4.6-6.20); Red Cell Distribution Width 17.8 % (11.5-14.5); White Blood Count 7.2 K/mm3 (4.5-10.0)
[2021-05-22 06:00] VITALS: BP 145/74; PULSE 96; RESP 18; TEMP 36.8; O2SAT 94
[2021-05-22 06:10] LABS: Anion Gap 11 mmol/L (8-16); Blood Urea Nitrogen 32 mg/dL (9-20); Calcium 9.4 mg/dL (8.4-10.2); Carbon Dioxide 24 mmol/L (22-30); Chloride 100 mmol/L (98-107); Estimated CRCL calculation 32 ml/min; Estimated Glomerular Filt Rate 50; Glucose 197 mg/dL (65-110); Potassium 4.6 mmol/L (3.4-5.0); Sodium 135 mmol/L (137-145)
[2021-05-22 07:53] LABS: Glucose Point of Care 188 mg/dl (65-105)
[2021-05-22] MEDS: ENOXAPARIN 40 MG/0.4 ML SYRINGE SUB-Q (08:29)
[2021-05-22] MEDS: ASPIRIN 81 MG ENTERIC TABLET PO (08:32)
[2021-05-22] MEDS: SERTRALINE HCL 50 MG TABLET 200 MG PO (08:32)
[2021-05-22] MEDS: PANTOPRAZOLE 40 MG TABLET PO (08:34)
[2021-05-22] MEDS: ACETAMINOPHEN 500 MG TABLET 1000 MG PO ×2 (08:34→17:23)
[2021-05-22] MEDS: FERROUS SULFATE 324 MG TABLET PO (08:35)
[2021-05-22] MEDS: DOCUSATE SODIUM 100 MG CAPSULE PO (08:35)
[2021-05-22] MEDS: CHOLECALCIFEROL 1,000 UNITS TABLET 1000 UNITS PO (08:36)
[2021-05-22] MEDS: FOLIC ACID 0.4 MG TABLET PO (08:38)
[2021-05-22] MEDS: FOLIC ACID 0.4 MG TABLET 0.8 MG PO (08:38)
[2021-05-22] MEDS: MAGNESIUM OXIDE 400 MG TABLET PO (08:40)
[2021-05-22] MEDS: LORATADINE 10 MG TABLET PO (08:40)
[2021-05-22] MEDS: OPTI-GEN TAB 1 TABLET PO (08:42)
[2021-05-22] MEDS: CYANOCOBALAMIN 500 MCG TABLET PO (08:42)
[2021-05-22] MEDS: EMPAGLIFLOZIN 10 MG TABLET PO (08:42)
[2021-05-22] MEDS: CARBIDOPA/LEVODOPA 12.5/50 MG TABLET 1 TABLET PO ×3 (08:43→17:23)
[2021-05-22] MEDS: DIVALPROEX SODIUM ER 500 MG TAB.24H PO (08:43)
[2021-05-22] MEDS: CARBIDOPA/LEVODOPA 25/100 MG TABLET 2 TABLET PO ×3 (08:44→17:25)
[2021-05-22] MEDS: FLUTICASONE PROPIONATE 0.05% NA SPR 16 GM BTL (*BKC) 2 SPRAY NASAL (08:54)
[2021-05-22] MEDS: ARTIFICIAL TEARS OPHTH SOLN 15 ML BOTTLE 1 DROP EACH EYE ×2 (08:54→17:25)
[2021-05-22] MEDS: FLUTICASONE/SALMETEROL 230-21 MCG INHALER 1 PUFF 2 PUFF INHALATION (09:11)
[2021-05-22] MEDS: BISACODYL 10 MG SUPPOSITORY RECTAL (11:42)
--- NOTE | 2021-05-22 12:05 | PCNFU ---
Nutrition Follow-Up Complete: Inadequate oral intake related to decreased appetite as evidenced by reported average intake Goal: Pt to meet 75% of estimated nutritional needs Patient is progressing towards goal. We will continue current goal. Pt current nutrition is Soft Bite Sized, Level 6/DBCC with Compact TID. Last recorded weight is 54.5 kg-stable Bowel Motility:+BM reported 05/17 Labs Reviewed:Glu 197, Cr 1.4,GFR 50, Na 135, Hgb 8.6,Hct 27.2 Meds Noted:Vit D, Sinemet, Vit B12, Colace, Lovenox, Ferrous Sulfate, Protonix, Mag-ox, Ativan, Folic Acid, Ocuvite. Zoloft. Skin: WNL Additional Notes: Nutrition follow up. Spoke with patient today, oral intake poor today. Overall intake has been 50-100% of most meals. Patient is a feeder. Diet supplement are being consumed providing an additional 220 kcals and 9 gms protein. He does like both flavors of the diet supplements being sent. Agree with diet orders. Monitoring: Will monitor labs, medication, wt, and reported intake every 5 days
[2021-05-22 12:17] LABS: Haptoglobin 285 mg/dL (43-212)
[2021-05-22 12:25] LABS: Glucose Point of Care 231 mg/dl (65-105)
[2021-05-22] MEDS: INSULIN ASPART (*BKC) 100 UNITS/ML SUB-Q (12:27)
--- NOTE | 2021-05-22 13:53 | PM.DS ---
DS: Admitting Diagnosis Discharge Date 05/22/2021 Admitting Diagnosis 1) Adult Failure to Thrive 2) Prerenal azotemia 3) Rib fracture 4) Parkinson's Disease 5) Frequent Falls DS: Discharge Diagnosis Discharge Diagnosis (1) Frequent falls: Code(s): R29.6 - Repeated falls Status: Acute Assessment and Plan: Patient states he does fall frequently, but he is not falling daily. Patient denies any loss of consciousness. Patient does have a history of moderate aortic stenosis. Patient has systolic murmur is very quiet and would like to re-evaluate his aortic stenosis to ensure that patient is not losing consciousness when he is falling from a severe aortic stenosis. - ECHO was performed that showed normal LVSF with EF of 60-65%. There is severe aortic valve stenosis identified. He will need follow up as outpatient with cardiology to discuss any treatment options he may or may not want to entertain. (2) Prerenal azotemia: Code(s): R79.89 - Other specified abnormal findings of blood chemistry Status: Acute Assessment and Plan: Patient does have prerenal azotemia. At this point time will hydrate patient with IV fluids and encourage oral intake. Will re-evaluate laboratories in the morning. - Stable renal function with Cr of 1.4 and BUN of 32. He has been hydrated and is taking in fluids well. (3) Adult failure to thrive: Code(s): R62.7 - Adult failure to thrive Status: Acute Assessment and Plan: - Patient's past does not feel that she is able to care for the patient at home by herself any longer. Will have PT and OT to evaluate and treat to help make decision over patient will need to be placed. - Discharging to [facility] today. (4) Rib fracture: Qualifiers: Encounter type: subsequent encounter Fracture healing: with nonunion Fracture type: closed Laterality: right Rib fracture type: single rib Qualified Code(s): S22.31XK - Fracture of one rib, right side, subsequent encounter for fracture with nonunion Code(s): S22.39XA - Fracture of one rib, unspecified side, initial encounter for closed fracture Status: Acute Assessment and Plan: - Patient's imaging shows a right lower lateral rib fracture with age undetermined. At this point time patient is totally asymptomatic and denies any pain. No further treatment is needed at this time. (5) Anemia: Code(s): D64.9 - Anemia, unspecified Status: Acute Assessment and Plan: - Stable on day of discharge with H&H of 8.6/27.2. Pt's baseline Hgb is 7-8. DS: Summary Hospital Course Reason for hospitalization: Generalized weakness and fatigue with inability to care for himself requiring SNF placement. Hospital Course: This very pleasant 75 yrear old male with history of anemia, aortic stenosis, Bipolar disorder, broken ribs from falls, depression, COPD, CVA, HTN, Parkinson's disease, T2DM presented to the ER with complaints of no longer being able to care for himself at home and his cannot either. He has sola been eating or drinking well and states he is just not hungry. He has experienced multiple falls. He denied any acute symptoms or complaints upon presentation and admission. He was evaluated with ECHO and PT was consulted and he has ultimately been placed at [facility]F. The pt. has done well considering the history given in ER and has remained stable. He has no complaints today at the time of discharge. Status at Discharge Functional status at discharge: wheelchair bound Overall status at discharge: patient is not back to baseline Time Spent with Patient Time attestation: Total time spent providing and/or coordinating discharge services: 40 minutes Time spent: Greater than 30 minutes Exam Narrative: - GENERAL: Pleasant very frail elder male in no acute distress. Very thin. - EYES: EOMI. Anicteric. - HENT: Moist mucous membranes. Tremor of jaw - LUNGS: Clear to aus
[2021-05-22 14:00] VITALS: BP 109/60; PULSE 92; RESP 16; TEMP 36.7; O2SAT 94
[2021-05-22 15:44] LABS: EDCOVIDSCREEN Negative (Negative)
[2021-05-22 17:33] LABS: Glucose Point of Care 130 mg/dl (65-105)
== END 2021-05-22 18:41 ==
LOC: ANHED 10:08 → ANH3MED 10:35
PROVIDERS: Internal Medicine; Nurse Practitioner Adult Health; Student in an Organized Health Care Education/Training Program; Admitting Provider Family Medicine; Emergency Provider Emergency Medicine; PCP Family Medicine; Visit Provider Nurse Practitioner Adult Health
DX: G20 Parkinson's disease (principal); R62.7 Adult failure to thrive; R79.89 Other specified abnormal findings of blood chemistry; R29.6 Repeated falls; R53.1 Weakness; S22.31XA Fracture of one rib, right side, initial encounter for closed fracture; W19.XXXA Unspecified fall, initial encounter; E87.5 Hyperkalemia; D64.9 Anemia, unspecified; J44.9 Chronic obstructive pulmonary disease, unspecified; I10 Essential (primary) hypertension; E11.9 Type 2 diabetes mellitus without complications; G40.909 Epilepsy, unspecified, not intractable, without status epilepticus; G47.00 Insomnia, unspecified; F31.9 Bipolar disorder, unspecified; I35.0 Nonrheumatic aortic (valve) stenosis; Z86.73 Personal history of transient ischemic attack (TIA), and cerebral infarction without residual deficits; F12.90 Cannabis use, unspecified, uncomplicated; Z87.891 Personal history of nicotine dependence; Z79.84 Long term (current) use of oral hypoglycemic drugs; Z66 Do not resuscitate; Z20.822 Contact with and (suspected) exposure to COVID-19; Z79.51 Long term (current) use of inhaled steroids; Z79.899 Other long term (current) drug therapy
CPT/HCPCS: 36415; 51701; 70450; 71045; 72072; 72100; 72125; 72170; 80048; 80053; 81001; 82728; 82948; 83010; 83540; 83550; 83615; 83735; 85025; 85027; 85046; 87426; 93005; 93306; 94640; 96361; 96365; 96366; 96367; 96372; 97110; 97161; 97165; 97530; 97535; 99285; A9270; C9803; G0378; J0131; J1650; J1815; J3475; J7030

== ENCOUNTER 2021-08-20 10:25 | Inpatient (IN) | payer MEDICARE, SELFPAY ==
[2021-08-20] VITALS (9 sets, daily range): BP systolic 113–156; BP diastolic 67–83; PULSE 96–100; RESP 18–22; TEMP 36.8–37.7; O2SAT 70–95; BMI 14.8
--- NOTE | ~2021-08-20 | XR_ITS ---
EXAMINATION: XR chest 1V portable Exam Date/Time: 08/22/2021 15:10 CDT HISTORY: pneumonia,COPD,CVA Comparison: 08/20/2021. RESULT: Lines, tubes, and devices: None. Lungs and pleura: Stable patchy opacities in the right lower lung. Severe emphysema. Large right lat eral blebs. Right angle blunting.. Cardiomediastinal silhouette: Stable cardiomediastinal silhouette. Other: No acute osseous or upper abdominal finding. IMPRESSION: No acute cardiopulmonary process. Stable right lower lung scar/atelectasis and severe emphysematous c hange. Reviewed, dictated and finalized at location K. IMPRESSION: No acute cardiopulmonary process. Stable right lower lung scar/atelectasis and severe emphysematous change.
--- NOTE | ~2021-08-20 | CT_ITS ---
EXAMINATION:CT diagnostic chest wo con DATE: 08/20/2021 11:33 INDICATION: Lung mass. TECHNIQUE: Computed tomography (CT) of the chest was performed without intravenous contrast. Automate d exposure control and iterative reconstruction technique were employed. The dose-length product (DLP ) was 257.64 mGy-cm. COMPARISON: Chest CT 10/02/2018, chest single view 08/20/2021 FINDINGS: There is severe emphysema. There is mild scarring at left lung apex. There is mild atelecta sis in left lower lobe. There are airspace opacities in right lower lobe. There is pleural thickening bilaterally with pleural calcifications on the left. The heart size is normal. There are coronary ar brad calcifications. There are calcifications of aortic valve. No pericardial effusion. There is ecta fátima of ascending aorta measuring 4.1 cm. There is a 3.9 cm cyst in right kidney. A 4 mm calcification in left kidney may be a stone or vascular calcification. There is mild thoracic spondylosis. There i s a chronic burst fracture of L2. IMPRESSION: 1. Airspace opacities in right lung lower lobe, likely rounded atelectasis. 2. Severe emphysema. Reviewed, dictated and finalized at location A.
--- NOTE | ~2021-08-20 | XR_ITS ---
EXAMINATION: XR chest 1V portable INDICATION: Shortness of breath, possible aspiration TECHNIQUE: Portable AP chest at 0956 hours COMPARISON: 08/22/2021 FINDINGS: There are lucencies of the upper lung zones, consistent with emphysema. A small right pleur al effusion is present. There is stable airspace opacity at the right lung base. No pneumothorax is i dentified. No new airspace opacities are seen. IMPRESSION: 1. Small right pleural effusion with stable right basilar airspace opacity, likely round atelectasis. 2. Emphysema. Reviewed, dictated and finalized at location A. IMPRESSION: 1. Small right pleural effusion with stable right basilar airspace opacity, lik ashley round atelectasis. 2. Emphysema.
--- NOTE | ~2021-08-20 | XR_ITS ---
EXAMINATION: XR chest 1V portable DATE: 08/20/2021 10:46 INDICATION: Cough TECHNIQUE: frontal view of the chest was obtained. COMPARISON: Chest radiograph dated 05/16/[address] dated 10/02/2018 FINDINGS: Again seen is severe emphysema with increased lucency most prominent at the left upper lung zone and along the periphery of the right lung, laterally with prominent bullous changes. Airspace opacities i n the right lower lung zone. This includes and indeterminate nodular opacity projecting over the ante rior right sixth rib which appears both larger and more caudal than would be expected for a nipple sh adow based upon the prior CT imaging. No pleural effusion or pneumothorax. The cardiomediastinal silh ouette is normal. A few old right rib fractures. IMPRESSION: 1. Opacities in the right lower lung zone which could represent atelectasis or pneumonia as well as a nd indeterminate more nodular opacity right lung base for which differential would include malignancy and would recommend further evaluation with chest CT. 2. Severe emphysema. Reviewed, dictated and finalized at location B. IMPRESSION: 1. Opacities in the right lower lung zone which could represent atelectasis or pneumonia as well as and indeterminate more nodular opacity right lung base for which differential would include malignancy and would recommend further evalua tion with chest CT. 2. Severe emphysema.
--- NOTE | ~2021-08-20 | CT_ITS ---
EXAMINATION: CT brain wo con DATE: 08/20/2021 10:52 INDICATION: Confusion. Altered mental status. Weakness. TECHNIQUE: Computed tomography (CT) of the head was performed without intravenous contrast. The mA wa s adjusted according to patient size. Iterative reconstruction technique was employed. The dose-lengt h product was 605.33 mGy-cm. COMPARISON: Head CT 05/16/2021 FINDINGS: There is an old infarct in right cerebellum. There is an old infarct in right thalamus. The re are scattered areas of low attenuation in the cerebral white matter. There is no intracranial hemo rrhage, acute infarction, or abnormal intracranial mass lesion. The ventricles are normal in size. Th ere are likely changes of right ocular lens replacement surgery. There is mucosal thickening in the p aranasal sinuses. The mastoid air cells are normal. IMPRESSION: 1. Old infarcts in the right cerebellum and right thalamus. 2. Stable moderate nonspecific cerebral white matter disease, which likely represents chronic small v essel ischemic disease. Reviewed, dictated and finalized at location A. IMPRESSION: 1. Old infarcts in the right cerebellum and right thalamus. 2. Stable moderate nonspecific cerebral white matter disease, which likely repr esents chronic small vessel ischemic disease.
--- NOTE | ~2021-08-20 | XR_ITS ---
EXAM: XR abdomen/kub 1V DATE: 08/26/2021 08:33 HISTORY: constipation . COMPARISON: CT abdomen pelvis 10/04/2018. FINDINGS: Clear lung bases. Normal bowel gas pattern. No organomegaly. No abnormal abdominal calcifi cation. Diffuse osteopenia. Lumbar and bilateral hip degenerative change. IMPRESSION: No radiographic evidence of obstruction or ileus. Reviewed, dictated and finalized at location K.
--- NOTE | 2021-08-20 10:30 | ECG_ITS ---
Measurements Intervals [place] Rate: 94 P: 86 SC: 171 QRS: -84 QRSD: 135 T: 80 QT: 367 QTc: 460 Interpretive Statements SINUS RHYTHM RIGHT BUNDLE-BRANCH BLOCK LEFT ANTERIOR FASCICULAR BLOCK ABNORMAL ECG COMPARED TO ECG 05/16/2021 07:42:09 NO SIGNIFICANT CHANGES Electronically Signed On 08-20-2021 14:40:11 CDT by Adrian Galvez M.D.
--- NOTE | 2021-08-20 10:31 | ED.GENADULT ---
HPI - General Adult General Chief complaint: Unspecified Stated complaint: increase weakness and decrease po intake x days Source: RN notes reviewed History of Present Illness HPI narrative: Patient presents emergency department from home via EMS for weakness. Patient states has been feeling generally weak since yesterday. States that he recently returned home from rehab for which she had been at rehab since he fell. Patient denies having any fevers or chills he denies falling at home denies any chest pain shortness of breath abdominal pain nausea vomiting diarrhea or any other symptoms. States he has not been eating and drinking as well Related Data Home Medications Medication Instructions Recorded Confirmed carbidopa 25 mg-levodopa 100 mg 2.5 tablet PO TID 03/08/19 07/25/21 tablet vitamin B12 500 mcg-folic acid 400 1 tablet PO DAILY 03/08/19 07/25/21 mcg tablet loratadine 10 mg tablet (Claritin) 10 mg PO DAILY 05/18/20 07/25/21 ralmrdad-bok-uezrt acid 300 1 tablet PO DAILY 05/18/20 07/25/21 mcg-lycopene 600 mcg-lutein 300 mcg tablet (Centrum Silver Men) primidone 50 mg tablet 50 mg PO HS 05/18/20 07/25/21 acetaminophen 500 mg tablet 1,000 mg PO BID 06/06/20 07/25/21 (Tylenol Extra Strength) cholecalciferol (vitamin D3) 25 25 mcg PO DAILY 07/03/20 07/25/21 mcg (1,000 unit) capsule folic acid 800 mcg tablet 0.8 mg PO DAILY 07/03/20 07/25/21 melatonin 10 mg capsule 10 mg PO QHS 07/03/20 07/25/21 aspirin 81 mg tablet,delayed 81 mg PO QAM 05/16/21 07/25/21 release (Adult Aspirin Regimen) pantoprazole 40 mg tablet,delayed 40 mg PO BID 05/16/21 07/25/21 release (Protonix) artificial tears solution eye drops 1 drp ophthalmic (eye) BID 05/17/21 07/25/21 Allergies Allergy/AdvReac Type Severity Reaction Status Date / Time codeine Allergy Mild RASH,PT Verified 07/25/21 16:05 STATED HE IS NOT ALLERGIC TO THIS. Review of Systems Review of Systems: Gen.: Denies fevers or chills Eyes: Denies eye pain or visual change ENT: Denies congestion Respiratory: Denies shortness of breath or cough CV: Denies chest pain or palpitations GI: Denies abdominal pain nausea, emesis or diarrhea Musculoskeletal: Denies back pain or muscle pain Neuro: Reports weakness Skin: Denies rash Except as documented, all other systems reviewed and negative [facility] Past Medical History Medical History Anemia Aortic stenosis moderate Bipolar disorder Broken ribs Chronic depression COPD (chronic obstructive pulmonary disease) Difficulty in walking History of CVA (cerebrovascular accident) 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 Other Unknown family medical history Social History Social History Social History: Mr. Barrera lives at home in [place] with his , Phoebe Barrera. He has 4 children. He is retired. 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 He reports daily vaping. He is a former 50 pack-year smoker. He denies alcohol use. He notes occasional marijuana use. He wishes for his code status to be DNR and he has designated his surrogate medical decision maker as his , Phoebe Barrera. Smoking status: Current some day smoker Tobacco type: e-cigarettes/vaping Second hand tobacco smoke exposure: No Smoking end date: 03/03/16 Cece
--- NOTE | 2021-08-20 10:45 | PC.NURSE ---
PT went to CT
--- NOTE | 2021-08-20 11:08 | PC.NURSE ---
Pt incontinant tech unable to obtain urine at this time will attempt again.
[2021-08-20 11:33] LABS: SARS-CoV-2 RNA PCR Negative
[2021-08-20] MEDS: SODIUM CHLORIDE 0.9% IV 1,000 ML 999 ML IV CONT (11:37)
[2021-08-20 11:47] LABS: Basophils Absolute Auto 0.1 K/mm3 (0.0-0.1); Basophils Percent Auto 0.6 % (0.2-1.2); Eosinophils Percent Auto 0.1 % (0-4.4); Hematocrit 36.7 % (42.0-52.0); Hemoglobin 11.4 g/dL (14.0-18.0); Immature Granulocyte Absolute 0.05 K/mm3 (0.00-0.031); Immature Granulocyte Percent A 0.5 % (0-0.5); Lymphocytes Absolute Auto 0.46 K/mm3 (0.9-3.2); Lymphocytes Percent Auto 4.2 % (18.3-44.2); Mean Corpuscular HGB Conc 31.1 g/dl (32-36); Mean Corpuscular Hemoglobin 26.9 pg (26-34); Mean Corpuscular Volume 86.6 fl (80-100); Mean Platelet Volume 10.2 fl (7.4-10.4); Monocytes Absolute Auto 0.9 K/mm3 (0.1-0.6); Monocytes Percent Auto 8.1 % (2.6-8.5); Neutrophils Absolute Auto 9.4 K/mm3 (1.3-6.7); Neutrophils Percent Auto 86.5 % (45.5-73.1); Platelet Count Result 243 k/mm3 (150-375); Red Blood Count 4.24 M/mm3 (4.6-6.20); Red Cell Distribution Width 18.6 % (11.5-14.5); White Blood Count 10.9 K/mm3 (4.5-10.0)
[2021-08-20 11:57] LABS: Lactic Acid Reflex 1.2 mmol/L (0.7-2.0)
[2021-08-20 11:58] LABS: Alanine Aminotransferase 7 U/L (6-50); Alkaline Phosphatase 84 U/L (38-126); Anion Gap 11 mmol/L (8-16); Aspartate Amino Transferase 12 U/L (17-59); Bilirubin,Total 0.5 mg/dL (0.2-1.3); Blood Urea Nitrogen 45 mg/dL (9-20); Calcium 10.7 mg/dL (8.4-10.2); Carbon Dioxide 28 mmol/L (22-30); Chloride 96 mmol/L (98-107); Estimated CRCL calculation 29 ml/min; Estimated Glomerular Filt Rate 49; Glucose 370 mg/dL (65-110); Magnesium 1.6 mg/dL (1.6-2.3); Potassium 4.6 mmol/L (3.4-5.0); Sodium 135 mmol/L (137-145)
[2021-08-20 12:04] LABS: INR 1.1; Prothrombin Time 14.2 Seconds (11.1-14.7)
[2021-08-20 12:05] LABS: Partial Thromboplastin Time 32.2 SECONDS (22.3-36.8)
[2021-08-20 12:29] LABS: Appearance Urine Cloudy (Clear); Bilirubin Urine Negative (Negative); Blood Urine 3+ (Negative); Color Urine Yellow (Yellow); Glucose Urine UA 3+ mg/dL (Negative); Ketones Urine 1+ mg/dL (Negative); Leukocyte Esterase Ur 3+ LEU/UL (Negative); Nitrate Urine Negative (Negative); Protein Urine 3+ mg/dL (Negative); Urobilinogen Urine 0.2 mg/dL (<2.0)
[2021-08-20 12:35] LABS: RBC Urine >75 /hpf (0-2); Squamous Epithelial Cell Urine Rare /hpf (Few); WBC Clumps Urine Present /HPF; WBC Urine >75 /hpf
[2021-08-20 12:43] LABS: Add Urine Microscopic? YES
[2021-08-20 13:17] LABS: Glucose Point of Care 381 mg/dl (65-105)
[2021-08-20] MEDS: INSULIN ASPART (*BKC) 100 UNITS/ML 6 UNITS SUB-Q (14:02)
--- NOTE | 2021-08-20 16:30 | PM.IMHP ---
H&P: HPI History of Present Illness Date/Time: 08/20/21 16:30 Chief Complaint: Generalized weakness Narrative: The patient presents to the ED from home by EMS for generalized weakness. He also had 2 episodes of vomiting yesterday. He reports some abdominal discomfort but no fever. He might have been a little bit febrile. No nausea. He lives at home with his . He has underlying Parkinson's disease. He denies any fall. In the ED use found to have urinary tract infection. No diarrhea. He has not been eating and drinking as much. Review of Systems Review of Systems: - CONSTITUTIONAL: Denies weight loss, fever and chills. - HEENT: Denies changes in vision and hearing - RESPIRATORY: Denies SOB and cough. - CV: Denies palpitations and CP. - GI: Reports abdominal pain, nausea, vomiting and denies diarrhea. - : Reports dysuria and urinary frequency. - MSK: Denies myalgia and joint pain. - SKIN: Denies rash and pruritus. - NEUROLOGICAL: Denies headache and syncope. - PSYCHIATRIC: Denies recent changes in mood. Denies anxiety and depression. 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 Other Unknown family medical history Social History Social History Social History: Mr. Barrera lives at home in [place] with his , Phoebe Barrera. He has 4 children. He is retired. 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 He reports daily vaping. He is a former 50 pack-year smoker. He denies alcohol use. He notes occasional marijuana use. He wishes for his code status to be DNR and he has designated his surrogate medical decision maker as his , Phoebe Barrera. Smoking status: Former smoker Tobacco type: e-cigarettes/vaping Second hand tobacco smoke exposure: No Smoking end date: 03/03/16 Alcohol intake: never Substance use: never Substance use type: marijuana Other substance usage details: uses small amount every day to stimulate the appetite Gender identity (if verbalized by the patient): Male Spiritual care concerns: Yes (Katelyn) Agree to blood products: Yes Meds Home Medications and Allergies Home Medications Medication Instructions Recorded Confirmed Type carbidopa 25 mg-levodopa 100 mg 2.5 tablet PO TID 03/08/19 08/20/21 History tablet vitamin B12 500 mcg-folic acid 400 1 tablet PO DAILY 03/08/19 08/20/21 History mcg tablet loratadine 10 mg tablet (Claritin) 10 mg PO DAILY 05/18/20 08/20/21 History nopctlzq-paj-ftnag acid 300 1 tablet PO DAILY 05/18/20 08/20/21 History mcg-lycopene 600 mcg-lutein 300 mcg tablet (Centrum Silver Men) primidone 50 mg tablet 50 mg PO HS 05/18/20 08/20/21 History acetaminophen 500 mg tablet 1,000 mg PO BID PRN Pain 06/06/20 08/20/21 History (Tylenol Extra Strength) docusate sodium 100 mg capsule 100 mg PO Q12HR 30 days #6
--- NOTE | 2021-08-20 16:41 | PC.NURSE ---
spoke with pt's per pt's instructions regarding his home meds. pt's asked during this conversation if we could have an oncology consult for the brown thing on his arm. She explained that it was biopsied about [address] Blanc's office and came back positive for cancer. Pt was scheduled to have an oncology consult tomorrow (08/21/21). I explained to pt that it was unlikely that there would be anything we could do as that is not why he is in the hospital (UTI, increasing weakness) but that I would ask the hospitalist and make her aware of pt's 's concern. I spoke with the hospitalist who confirmed that since that is not why pt is here and is not an acute condition, pt would have to seek outpatient care for the brown thing as planned prior to admission to the hospital.
[2021-08-20 16:45] LABS: Glucose Point of Care 217 mg/dl (65-105)
[2021-08-20] MEDS: SODIUM CHLORIDE 0.9% IV 1,000 ML 70 ML IV CONT (17:24)
[2021-08-20 17:45] LABS: Hemoglobin A1C 7.9 % (<5.7)
[2021-08-20] MEDS: DIVALPROEX SODIUM ER 500 MG TAB.24H PO (18:14)
[2021-08-20] MEDS: CARBIDOPA/LEVODOPA 25/100 MG TABLET 2 TABLET PO (18:14)
[2021-08-20] MEDS: INSULIN ASPART (*BKC) 100 UNITS/ML SUB-Q (18:14)
[2021-08-20] MEDS: metFORMIN HCL XR 500 MG TAB.SR.24H 1000 MG PO (18:14)
[2021-08-20] MEDS: CARBIDOPA/LEVODOPA 12.5/50 MG TABLET 1 TABLET PO (18:14)
[2021-08-20] MEDS: risperiDONE 0.5 MG TABLET PO (20:50)
[2021-08-20] MEDS: guaiFENesin 12 HR 600 MG TABCR 1200 MG PO (20:50)
[2021-08-20] MEDS: DOCUSATE SODIUM 100 MG CAPSULE PO (20:50)
[2021-08-20] MEDS: PRIMIDONE 50 MG TABLET PO (20:50)
[2021-08-20] MEDS: traZODone HCL 50 MG TABLET PO (20:50)
[2021-08-20] MEDS: MELATONIN 5 MG TABLET 10 MG PO (20:50)
[2021-08-20] MEDS: MAGNESIUM OXIDE 400 MG TABLET PO (20:50)
[2021-08-20] MEDS: PANTOPRAZOLE 40 MG TABLET PO (20:50)
[2021-08-20 21:12] LABS: Glucose Point of Care 231 mg/dl (65-105)
[2021-08-21] VITALS (7 sets, daily range): BP systolic 100–124; BP diastolic 60–68; PULSE 85–100; RESP 16–18; TEMP 36.7–38; O2SAT 93–95; BMI 14.8
[2021-08-21] MEDS: ACETAMINOPHEN 500 MG TABLET 1000 MG PO (05:28)
[2021-08-21 05:45] LABS: Basophils Absolute Auto 0.1 K/mm3 (0.0-0.1); Basophils Percent Auto 0.6 % (0.2-1.2); Eosinophils Percent Auto 0.1 % (0-4.4); Hematocrit 28.5 % (42.0-52.0); Hemoglobin 8.7 g/dL (14.0-18.0); Immature Granulocyte Absolute 0.04 K/mm3 (0.00-0.031); Immature Granulocyte Percent A 0.4 % (0-0.5); Lymphocytes Absolute Auto 0.55 K/mm3 (0.9-3.2); Lymphocytes Percent Auto 5.6 % (18.3-44.2); Mean Corpuscular HGB Conc 30.5 g/dl (32-36); Mean Corpuscular Hemoglobin 26.5 pg (26-34); Mean Corpuscular Volume 86.9 fl (80-100); Mean Platelet Volume 10.4 fl (7.4-10.4); Monocytes Absolute Auto 0.8 K/mm3 (0.1-0.6); Monocytes Percent Auto 8.5 % (2.6-8.5); Neutrophils Absolute Auto 8.4 K/mm3 (1.3-6.7); Neutrophils Percent Auto 84.8 % (45.5-73.1); Platelet Count Result 190 k/mm3 (150-375); Red Blood Count 3.28 M/mm3 (4.6-6.20); Red Cell Distribution Width 18.7 % (11.5-14.5); White Blood Count 9.9 K/mm3 (4.5-10.0)
[2021-08-21 06:17] LABS: Albumin Level 3.3 g/dL (3.5-5.1); Alkaline Phosphatase 59 U/L (38-126); Anion Gap 11 mmol/L (8-16); Aspartate Amino Transferase 12 U/L (17-59); Bilirubin,Total 0.4 mg/dL (0.2-1.3); Blood Urea Nitrogen 42 mg/dL (9-20); Carbon Dioxide 20 mmol/L (22-30); Chloride 103 mmol/L (98-107); Estimated CRCL calculation 29 ml/min; Estimated Glomerular Filt Rate 49; Glucose 235 mg/dL (65-110); Potassium 4.2 mmol/L (3.4-5.0); Sodium 134 mmol/L (137-145)
[2021-08-21 06:24] LABS: Alanine Aminotransferase < 4 U/L (6-50)
[2021-08-21] MEDS: SODIUM CHLORIDE 0.9% IV 1,000 ML 70 ML IV CONT (06:33)
[2021-08-21 07:47] LABS: Glucose Point of Care 220 mg/dl (65-105)
[2021-08-21] MEDS: INSULIN ASPART (*BKC) 100 UNITS/ML SUB-Q ×2 (08:30→16:44)
[2021-08-21] MEDS: CARBIDOPA/LEVODOPA 25/100 MG TABLET 2 TABLET PO ×3 (08:33→16:34)
[2021-08-21] MEDS: ARTIFICIAL TEARS OPHTH SOLN 15 ML BOTTLE 1 DROP EACH EYE (08:33)
[2021-08-21] MEDS: DOCUSATE SODIUM 100 MG CAPSULE PO ×2 (08:33→21:06)
[2021-08-21] MEDS: polyethylene glycoL 3350 17 GM POWD.PACK PO (08:33)
[2021-08-21] MEDS: metFORMIN HCL XR 500 MG TAB.SR.24H 1000 MG PO ×2 (08:34→16:35)
[2021-08-21] MEDS: PANTOPRAZOLE 40 MG TABLET PO ×2 (08:34→21:06)
[2021-08-21] MEDS: SERTRALINE HCL 50 MG TABLET 150 MG PO (08:34)
[2021-08-21] MEDS: OPTI-GEN TAB 1 TABLET PO (08:34)
[2021-08-21] MEDS: CARBIDOPA/LEVODOPA 12.5/50 MG TABLET 1 TABLET PO ×3 (08:34→16:33)
[2021-08-21] MEDS: DIVALPROEX SODIUM ER 500 MG TAB.24H PO ×2 (08:34→16:34)
[2021-08-21] MEDS: guaiFENesin 12 HR 600 MG TABCR 1200 MG PO ×2 (08:35→21:06)
[2021-08-21] MEDS: ASPIRIN 81 MG ENTERIC TABLET PO (08:35)
[2021-08-21] MEDS: EMPAGLIFLOZIN 10 MG TABLET PO (08:35)
[2021-08-21] MEDS: CHOLECALCIFEROL 1,000 UNITS TABLET 1000 UNITS PO (08:35)
[2021-08-21] MEDS: LORATADINE 10 MG TABLET PO (08:35)
[2021-08-21] MEDS: CYANOCOBALAMIN 1,000 MCG TABLET 1000 MCG PO (08:38)
[2021-08-21] MEDS: FLUTICASONE PROPIONATE 0.05% NA SPR 16 GM BTL (*BKC) 1 SPRAY NASAL (08:38)
[2021-08-21] MEDS: glipiZIDE 5 MG TABLET 20 MG PO ×2 (08:39→16:34)
[2021-08-21 11:52] LABS: Glucose Point of Care 206 mg/dl (65-105)
--- NOTE | 2021-08-21 11:58 | PCNSR ---
On 08/21/21, the student, Adriane Adkins, provided care and completed [facility] documentation on this patient. I have reviewed the student's documentation and agree with the findings.
--- NOTE | 2021-08-21 14:04 | PM.IMPN ---
Progress Note: A&P Assessment and Plan (1) Acute UTI: Code(s): N39.0 - Urinary tract infection, site not specified Status: Acute (2) Acute renal insufficiency: Code(s): N28.9 - Disorder of kidney and ureter, unspecified Status: Acute (3) Weakness: Code(s): R53.1 - Weakness Status: Acute (4) Acute hyperglycemia: Code(s): R73.9 - Hyperglycemia, unspecified Status: Acute (5) Hypercalcemia: Code(s): E83.52 - Hypercalcemia Status: Acute (6) Type 2 diabetes mellitus with hyperglycemia: Qualifiers: Diabetes mellitus terminal block assembler insulin use: without terminal block assembler use Qualified Code(s): E11.65 - Type 2 diabetes mellitus with hyperglycemia Code(s): E11.65 - Type 2 diabetes mellitus with hyperglycemia Status: Acute (7) Chronic depression: Code(s): F32.9 - Major depressive disorder, single episode, unspecified Status: Acute (8) Bipolar disorder: Code(s): F31.9 - Bipolar disorder, unspecified Status: Acute (9) Parkinsons disease: Code(s): G20 - Parkinson's disease Status: Acute (10) COPD (chronic obstructive pulmonary disease): Qualifiers: COPD type: emphysema Emphysema type: unspecified Qualified Code(s): J43.9 - Emphysema, unspecified Code(s): J44.9 - Chronic obstructive pulmonary disease, unspecified Status: Acute (11) Aortic stenosis: Qualifiers: Cardiac valve disease etiology: etiology unspecified Qualified Code(s): I35.0 - Nonrheumatic aortic (valve) stenosis Code(s): I35.0 - Nonrheumatic aortic (valve) stenosis Status: Acute (12) Primary hypertension: Code(s): I10 - Essential (primary) hypertension Status: Acute (13) Hyperlipidemia: Qualifiers: Hyperlipidemia type: unspecified Qualified Code(s): E78.5 - Hyperlipidemia, unspecified Code(s): E78.5 - Hyperlipidemia, unspecified Status: Acute Plan Generalized weakness CT head negative. PT OT to see Dehydration improving GABRIELA IV fluids creatinine continues to be the same today. Continue IV hydration as ordered UTI ceftriaxone Bacteremia Gram-positive cocci in clusters 1 other to could be contamination will cover with vancomycin until finalization Moderate aortic stenosis Bipolar disorder Parkinson's disease History of CVA Hypertension Type 2 diabetes mellitus with hyper glycemia improving. Chronic depression COPD Chronic anemia hemoglobin around 8-9 at baseline currently likely hemoconcentrated no back to baseline no signs of bleeding continue to monitor Abnormal x-ray chest further evaluation with CT chest revealed atelectasis DVT prophylaxis Code status do not resuscitate Subjective Date/time seen: 08/21/21 14:04 Interval history: HPI:The patient presents to the ED from home by EMS for generalized weakness.? He also had 2 episodes of vomiting yesterday.? He reports some abdominal discomfort but no fever.? He might have been a little bit febrile.? No nausea.? He lives at home with his .? He has underlying Parkinson's disease.? He denies any fall.? In the ED use found to have urinary tract infection.? No diarrhea.? He has not been eating and drinking as much. 08/21/21 feels okay still feels tired and sleepy. Did wanted to work was therapy no chest pain shortness of breath. Denies any abdominal pain. Not illness. Review of Systems Review of Systems: All systems reviewed & are unremarkable except as noted in HPI and below Exam Narrative: APPEARANCE:? No acute distress, nontoxic, resting in bed tired looking EYES: EOMI PERRLA HEENT: Normocephalic, atraumatic RESPIRATORY: No respiratory distress Clear to auscultation bilaterally with no rhonchi wheezing or rales. CARDIOVASCULAR: Regular rate and rhythm without murmurs rubs or gallops. ABDOMINAL: Soft, nontender, nondistended, no rebound or guarding MUSCULOSKELETAl: Moves all extremities.
[2021-08-21] MEDS: FOLIC ACID 0.4 MG TABLET 0.8 MG PO (14:05)
[2021-08-21 16:55] LABS: Glucose Point of Care 233 mg/dl (65-105)
[2021-08-21 20:46] LABS: Glucose Point of Care 251 mg/dl (65-105)
[2021-08-21] MEDS: risperiDONE 0.5 MG TABLET PO (21:06)
[2021-08-21] MEDS: MAGNESIUM OXIDE 400 MG TABLET PO (21:06)
[2021-08-21] MEDS: PRIMIDONE 50 MG TABLET PO (21:06)
[2021-08-21] MEDS: traZODone HCL 50 MG TABLET PO (21:06)
[2021-08-21] MEDS: MELATONIN 5 MG TABLET 10 MG PO (21:06)
[2021-08-22] MEDS: SODIUM CHLORIDE 0.9% IV 1,000 ML 70 ML IV CONT ×2 (02:56→22:41)
[2021-08-22 05:57] LABS: Basophils Absolute Auto 0.1 K/mm3 (0.0-0.1); Basophils Percent Auto 0.5 % (0.2-1.2); Eosinophils Absolute Auto 0.1 K/mm3 (0-0.3); Hematocrit 26.8 % (42.0-52.0); Hemoglobin 8.3 g/dL (14.0-18.0); Immature Granulocyte Absolute 0.04 K/mm3 (0.00-0.031); Immature Granulocyte Percent A 0.4 % (0-0.5); Lymphocytes Absolute Auto 0.53 K/mm3 (0.9-3.2); Lymphocytes Percent Auto 5.3 % (18.3-44.2); Mean Corpuscular Hemoglobin 26.8 pg (26-34); Mean Corpuscular Volume 86.5 fl (80-100); Mean Platelet Volume 10.2 fl (7.4-10.4); Monocytes Absolute Auto 0.8 K/mm3 (0.1-0.6); Monocytes Percent Auto 8.4 % (2.6-8.5); Neutrophils Absolute Auto 8.4 K/mm3 (1.3-6.7); Neutrophils Percent Auto 84.4 % (45.5-73.1); Platelet Count Result 197 k/mm3 (150-375); Red Cell Distribution Width 18.6 % (11.5-14.5); White Blood Count 9.9 K/mm3 (4.5-10.0)
[2021-08-22 06:00] VITALS: BP 119/66; PULSE 99; RESP 20; TEMP 36.9; O2SAT 90
[2021-08-22 06:14] LABS: Albumin Level 3.1 g/dL (3.5-5.1); Alkaline Phosphatase 67 U/L (38-126); Anion Gap 9 mmol/L (8-16); Aspartate Amino Transferase 11 U/L (17-59); Bilirubin,Total 0.3 mg/dL (0.2-1.3); Blood Urea Nitrogen 41 mg/dL (9-20); Calcium 8.5 mg/dL (8.4-10.2); Carbon Dioxide 21 mmol/L (22-30); Chloride 100 mmol/L (98-107); Estimated CRCL calculation 24 ml/min; Estimated Glomerular Filt Rate 39; Glucose 177 mg/dL (65-110); Magnesium 1.4 mg/dL (1.6-2.3); Potassium 4.3 mmol/L (3.4-5.0); Sodium 130 mmol/L (137-145)
[2021-08-22 07:15] LABS: Alanine Aminotransferase < 4 U/L (6-50)
[2021-08-22 07:44] LABS: Glucose Point of Care 170 mg/dl (65-105)
[2021-08-22] MEDS: metFORMIN HCL XR 500 MG TAB.SR.24H 1000 MG PO ×2 (08:32→16:44)
[2021-08-22] MEDS: DIVALPROEX SODIUM ER 500 MG TAB.24H PO ×2 (08:32→16:44)
[2021-08-22] MEDS: PANTOPRAZOLE 40 MG TABLET PO ×2 (08:33→19:56)
[2021-08-22] MEDS: ARTIFICIAL TEARS OPHTH SOLN 15 ML BOTTLE 1 DROP EACH EYE (08:33)
[2021-08-22] MEDS: guaiFENesin 12 HR 600 MG TABCR 1200 MG PO ×2 (08:33→19:56)
[2021-08-22] MEDS: glipiZIDE 5 MG TABLET 20 MG PO ×2 (08:33→16:44)
[2021-08-22] MEDS: CARBIDOPA/LEVODOPA 25/100 MG TABLET 2 TABLET PO ×3 (08:33→16:43)
[2021-08-22] MEDS: OPTI-GEN TAB 1 TABLET PO (08:34)
[2021-08-22] MEDS: DOCUSATE SODIUM 100 MG CAPSULE PO ×2 (08:34→19:56)
[2021-08-22] MEDS: SERTRALINE HCL 50 MG TABLET 150 MG PO (08:34)
[2021-08-22] MEDS: CYANOCOBALAMIN 1,000 MCG TABLET 1000 MCG PO (08:34)
[2021-08-22] MEDS: CARBIDOPA/LEVODOPA 12.5/50 MG TABLET 1 TABLET PO ×3 (08:34→16:44)
[2021-08-22] MEDS: EMPAGLIFLOZIN 10 MG TABLET PO (08:34)
[2021-08-22] MEDS: CHOLECALCIFEROL 1,000 UNITS TABLET 1000 UNITS PO (08:34)
[2021-08-22] MEDS: ASPIRIN 81 MG ENTERIC TABLET PO (08:34)
[2021-08-22] MEDS: LORATADINE 10 MG TABLET PO (08:34)
[2021-08-22] MEDS: FLUTICASONE PROPIONATE 0.05% NA SPR 16 GM BTL (*BKC) 1 SPRAY NASAL ×2 (08:35→20:09)
[2021-08-22] MEDS: polyethylene glycoL 3350 17 GM POWD.PACK PO (08:35)
[2021-08-22 09:02] VITALS: O2SAT 92
[2021-08-22 09:12] VITALS: TEMP 37.8
[2021-08-22] MEDS: ACETAMINOPHEN 500 MG TABLET 1000 MG PO (09:12)
[2021-08-22 10:10] VITALS: TEMP 37.1
[2021-08-22] MEDS: MAGNESIUM SULF 2 GM/WATER 50ML 2 GM/50 ML BAG IVPB (11:34)
[2021-08-22] MEDS: FOLIC ACID 0.4 MG TABLET 0.8 MG PO (11:35)
[2021-08-22 11:44] LABS: Glucose Point of Care 193 mg/dl (65-105)
[2021-08-22 13:14] LABS: Lactic Acid Reflex 0.8 mmol/L (0.7-2.0)
[2021-08-22 14:00] VITALS: BP 109/55; PULSE 88; RESP 16; TEMP 36.9; O2SAT 95
--- NOTE | 2021-08-22 15:10 | PM.IMPN ---
Progress Note: A&P Assessment and Plan (1) Acute UTI: Code(s): N39.0 - Urinary tract infection, site not specified Status: Acute (2) Acute renal insufficiency: Code(s): N28.9 - Disorder of kidney and ureter, unspecified Status: Acute (3) Weakness: Code(s): R53.1 - Weakness Status: Acute (4) Acute hyperglycemia: Code(s): R73.9 - Hyperglycemia, unspecified Status: Acute (5) Hypercalcemia: Code(s): E83.52 - Hypercalcemia Status: Acute (6) Type 2 diabetes mellitus with hyperglycemia: Qualifiers: Diabetes mellitus certified physician assistant insulin use: without certified physician assistant use Qualified Code(s): E11.65 - Type 2 diabetes mellitus with hyperglycemia Code(s): E11.65 - Type 2 diabetes mellitus with hyperglycemia Status: Acute (7) Chronic depression: Code(s): F32.9 - Major depressive disorder, single episode, unspecified Status: Acute (8) Bipolar disorder: Code(s): F31.9 - Bipolar disorder, unspecified Status: Acute (9) Parkinsons disease: Code(s): G20 - Parkinson's disease Status: Acute (10) COPD (chronic obstructive pulmonary disease): Qualifiers: COPD type: emphysema Emphysema type: unspecified Qualified Code(s): J43.9 - Emphysema, unspecified Code(s): J44.9 - Chronic obstructive pulmonary disease, unspecified Status: Acute (11) Aortic stenosis: Qualifiers: Cardiac valve disease etiology: etiology unspecified Qualified Code(s): I35.0 - Nonrheumatic aortic (valve) stenosis Code(s): I35.0 - Nonrheumatic aortic (valve) stenosis Status: Acute (12) Primary hypertension: Code(s): I10 - Essential (primary) hypertension Status: Acute (13) Hyperlipidemia: Qualifiers: Hyperlipidemia type: unspecified Qualified Code(s): E78.5 - Hyperlipidemia, unspecified Code(s): E78.5 - Hyperlipidemia, unspecified Status: Acute Plan Generalized weakness CT head negative. PT OT to see Dehydration improving GABRIELA IV fluids creatinine continues to be the same today. Continue IV hydration as ordered UTI ceftriaxone Bacteremia Gram-positive cocci in clusters 1 other to could be contamination will cover with vancomycin until finalization Moderate aortic stenosis Bipolar disorder Parkinson's disease History of CVA Hypertension Type 2 diabetes mellitus with hyper glycemia improving. Chronic depression COPD Chronic anemia hemoglobin around 8-9 at baseline currently likely hemoconcentrated no back to baseline no signs of bleeding continue to monitor Abnormal x-ray chest further evaluation with CT chest revealed atelectasis DVT prophylaxis Code status do not resuscitate 08/22/2021 interval history: patient continued to go of being tired and unable to sleep, trazodone was started 50 mg at bedtime will increase it 100 mg as needed, patient has a fever today, his urine and blood culture so far normal, currently patient is on ceftriaxone and vancomycin, will repeat urine and blood culture, spoke with the pharmacy id and start the patient on cefepime, Flagyl and doxycycline will continue vancomycin. will follow-up urine and blood culture as well as chest x-ray further recommendation to follow. Subjective Date/time seen: 08/22/21 15:10 Interval history: HPI:The patient presents to the ED from home by EMS for generalized weakness.? He also had 2 episodes of vomiting yesterday.? He reports some abdominal discomfort but no fever.? He might have been a little bit febrile.? No nausea.? He lives at home with his .? He has underlying Parkinson's disease.? He denies any fall.? In the ED use found to have urinary tract infection.? No diarrhea.? He has not been eating and drinking as much. 08/21/21 feels okay still feels tired and sleepy. Did wanted to work was therapy no chest pain shortness of breath. Denies any abdominal pain. Not illness. 08/22/2021 in
[2021-08-22] MEDS: metroNIDAZOLE 500 MG/ISO 100ML 500 MG/100 ML BAG 100 MG IVPB ×2 (15:32→22:37)
[2021-08-22 16:37] LABS: Glucose Point of Care 198 mg/dl (65-105)
[2021-08-22] MEDS: DOXYCYCLINE 100 MG/NS 100 ML 100 MG/100 ML BAG IVPB (16:39)
[2021-08-22] MEDS: PRIMIDONE 50 MG TABLET PO (19:56)
[2021-08-22] MEDS: risperiDONE 0.5 MG TABLET PO (19:56)
[2021-08-22] MEDS: MELATONIN 5 MG TABLET 10 MG PO (19:57)
[2021-08-22] MEDS: MAGNESIUM OXIDE 400 MG TABLET PO (19:57)
[2021-08-22 20:58] LABS: Glucose Point of Care 186 mg/dl (65-105)
[2021-08-22 21:58] VITALS: BP 123/62; PULSE 85; RESP 16; TEMP 36.8; O2SAT 97
[2021-08-23] MEDS: metroNIDAZOLE 500 MG/ISO 100ML 500 MG/100 ML BAG 100 MG IVPB ×3 (05:10→21:08)
[2021-08-23 06:00] VITALS: BP 138/63; PULSE 95; RESP 18; TEMP 37.7; O2SAT 92
[2021-08-23 06:31] VITALS: TEMP 37.7
[2021-08-23] MEDS: ACETAMINOPHEN 500 MG TABLET 1000 MG PO (06:31)
[2021-08-23 07:17] LABS: Hematocrit 25.4 % (42.0-52.0); Mean Corpuscular HGB Conc 31.5 g/dl (32-36); Mean Corpuscular Volume 85.8 fl (80-100); Mean Platelet Volume 10.1 fl (7.4-10.4); Platelet Count Result 197 k/mm3 (150-375); Red Blood Count 2.96 M/mm3 (4.6-6.20); Red Cell Distribution Width 18.6 % (11.5-14.5)
[2021-08-23 07:25] VITALS: TEMP 37.2
[2021-08-23 07:35] LABS: Glucose Point of Care 195 mg/dl (65-105)
[2021-08-23 07:36] LABS: Anion Gap 9 mmol/L (8-16); Blood Urea Nitrogen 40 mg/dL (9-20); Calcium 8.2 mg/dL (8.4-10.2); Carbon Dioxide 18 mmol/L (22-30); Chloride 103 mmol/L (98-107); Estimated CRCL calculation 24 ml/min; Estimated Glomerular Filt Rate 39; Glucose 203 mg/dL (65-110); Sodium 130 mmol/L (137-145)
[2021-08-23] MEDS: CARBIDOPA/LEVODOPA 25/100 MG TABLET 2 TABLET PO ×3 (09:00→17:07)
[2021-08-23] MEDS: DIVALPROEX SODIUM ER 500 MG TAB.24H PO ×2 (09:01→17:03)
[2021-08-23] MEDS: CARBIDOPA/LEVODOPA 12.5/50 MG TABLET 1 TABLET PO ×3 (09:01→17:07)
[2021-08-23] MEDS: LORATADINE 10 MG TABLET PO (09:02)
[2021-08-23] MEDS: guaiFENesin 12 HR 600 MG TABCR 1200 MG PO ×2 (09:02→20:09)
[2021-08-23] MEDS: ARTIFICIAL TEARS OPHTH SOLN 15 ML BOTTLE 1 DROP EACH EYE (09:04)
[2021-08-23] MEDS: glipiZIDE 5 MG TABLET 20 MG PO ×2 (09:13→17:07)
[2021-08-23] MEDS: OPTI-GEN TAB 1 TABLET PO (09:13)
[2021-08-23] MEDS: SERTRALINE HCL 50 MG TABLET 150 MG PO (09:13)
[2021-08-23] MEDS: PANTOPRAZOLE 40 MG TABLET PO ×2 (09:13→20:11)
[2021-08-23] MEDS: CHOLECALCIFEROL 1,000 UNITS TABLET 1000 UNITS PO (09:13)
[2021-08-23] MEDS: CYANOCOBALAMIN 1,000 MCG TABLET 1000 MCG PO (09:13)
[2021-08-23] MEDS: polyethylene glycoL 3350 17 GM POWD.PACK PO (09:13)
[2021-08-23] MEDS: DOCUSATE SODIUM 100 MG CAPSULE PO ×2 (09:13→20:09)
[2021-08-23] MEDS: EMPAGLIFLOZIN 10 MG TABLET PO (09:13)
[2021-08-23] MEDS: ASPIRIN 81 MG ENTERIC TABLET PO (09:13)
[2021-08-23] MEDS: FLUTICASONE PROPIONATE 0.05% NA SPR 16 GM BTL (*BKC) 1 SPRAY NASAL ×2 (09:19→20:09)
[2021-08-23] MEDS: metFORMIN HCL XR 500 MG TAB.SR.24H 1000 MG PO ×2 (09:20→17:08)
[2021-08-23] MEDS: MAGNESIUM OXIDE 400 MG TABLET PO ×2 (09:21→20:10)
--- NOTE | 2021-08-23 09:35 | PCPTNOTE ---
Patient refused attempts to transfer out of bed and gait. Patient states I am really sick. I don't like to skimp on my therapy, but I am sick. I am too sick to even try to get to the chair. Informed patient that he would be assisted during transfer and transfer equipment can be used to complete transfer. Patient continued to refuse transfer.
[2021-08-23 11:37] LABS: Glucose Point of Care 207 mg/dl (65-105)
--- NOTE | 2021-08-23 13:54 | PCCCNOTE ---
On 08/23/21, the student, [Camryn Conner], provided care and completed [facility] documentation on this patient. I have reviewed the student's documentation and agree with the findings.
[2021-08-23 14:00] VITALS: BP 137/71; PULSE 87; RESP 16; TEMP 36.5; O2SAT 93
[2021-08-23] MEDS: FOLIC ACID 0.4 MG TABLET 0.8 MG PO (14:34)
--- NOTE | 2021-08-23 14:55 | P.CDI_ITS ---
CDI Query Clarification Request Acute renal insufficiency codes to a nonspecific disorder of kidney and ureter. Please clarify the status of the patient's renal function, if known to accurately reflect the severity of illness. Risk Factors: Pt presented with generalized weakness, vomiting, recently return ed home from rehab after a fall, not been eating and drinking as much. Clinical Indicators: UTI, Cr 1.40 on arrival, 08/23/21 1.70. Treatment: IV fluids * Acute Kidney Injury (GABRIELA) * Acute on Chronic Renal Failure * Chronic Kidney failure (please document stage I-V/ESRD) * Acute Tubular Necrosis (ATN) * Other * Unspecified <LOR Harrington - Last Filed: 08/23/21 15:13> Clarified Diagnosis (1) Acute on chronic renal insufficiency: Code(s): N28.9 - Disorder of kidney and ureter, unspecified; N18.9 - Chronic kidney disease, unspecified <LOR Harrington - Last Filed: 08/23/21 15:13> Status: Acute <LOR Harrington - Last Filed: 08/23/21 15:13> Assessment and Plan: acute on chronic renal failure patient was hydrated <Marilia Rivers MD - Last Filed: 09/11/21 18:38>
[2021-08-23 16:59] LABS: Glucose Point of Care 286 mg/dl (65-105)
[2021-08-23] MEDS: INSULIN ASPART (*BKC) 100 UNITS/ML SUB-Q (17:02)
[2021-08-23] MEDS: SODIUM CHLORIDE 0.9% IV 1,000 ML 70 ML IV CONT (18:22)
[2021-08-23] MEDS: PRIMIDONE 50 MG TABLET PO (20:10)
[2021-08-23] MEDS: MELATONIN 5 MG TABLET 10 MG PO (20:10)
[2021-08-23] MEDS: risperiDONE 0.5 MG TABLET PO (20:10)
[2021-08-23 21:08] LABS: Glucose Point of Care 228 mg/dl (65-105)
[2021-08-23 22:00] VITALS: BP 116/54; PULSE 80; RESP 16; TEMP 36.6; O2SAT 95
[2021-08-24] MEDS: metroNIDAZOLE 500 MG/ISO 100ML 500 MG/100 ML BAG 100 MG IVPB ×3 (05:48→22:28)
[2021-08-24 06:00] VITALS: BP 131/56; PULSE 81; RESP 16; TEMP 36.7; O2SAT 94
[2021-08-24 06:00] LABS: Hematocrit 25.2 % (42.0-52.0); Mean Corpuscular HGB Conc 31.7 g/dl (32-36); Mean Corpuscular Hemoglobin 27.1 pg (26-34); Mean Corpuscular Volume 85.4 fl (80-100); Platelet Count Result 202 k/mm3 (150-375); Red Blood Count 2.95 M/mm3 (4.6-6.20); Red Cell Distribution Width 18.6 % (11.5-14.5); White Blood Count 9.7 K/mm3 (4.5-10.0)
[2021-08-24 06:14] LABS: Anion Gap 5 mmol/L (8-16); Blood Urea Nitrogen 39 mg/dL (9-20); Calcium 8.5 mg/dL (8.4-10.2); Carbon Dioxide 22 mmol/L (22-30); Chloride 104 mmol/L (98-107); Estimated CRCL calculation 22 ml/min; Estimated Glomerular Filt Rate 37; Glucose 157 mg/dL (65-110); Magnesium 1.8 mg/dL (1.6-2.3); Potassium 3.9 mmol/L (3.4-5.0); Sodium 131 mmol/L (137-145)
[2021-08-24 07:37] LABS: Glucose Point of Care 186 mg/dl (65-105)
[2021-08-24] MEDS: PANTOPRAZOLE 40 MG TABLET PO ×2 (09:39→20:19)
[2021-08-24] MEDS: CHOLECALCIFEROL 1,000 UNITS TABLET 1000 UNITS PO (09:39)
[2021-08-24] MEDS: polyethylene glycoL 3350 17 GM POWD.PACK PO (09:39)
[2021-08-24] MEDS: EMPAGLIFLOZIN 10 MG TABLET PO (09:39)
[2021-08-24] MEDS: metFORMIN HCL XR 500 MG TAB.SR.24H 1000 MG PO ×2 (09:39→16:41)
[2021-08-24] MEDS: MAGNESIUM OXIDE 400 MG TABLET PO ×2 (09:39→20:19)
[2021-08-24] MEDS: glipiZIDE 5 MG TABLET 20 MG PO ×2 (09:39→16:40)
[2021-08-24] MEDS: guaiFENesin 12 HR 600 MG TABCR 1200 MG PO ×2 (09:40→20:19)
[2021-08-24] MEDS: LORATADINE 10 MG TABLET PO (09:40)
[2021-08-24] MEDS: SERTRALINE HCL 50 MG TABLET 150 MG PO (09:40)
[2021-08-24] MEDS: DOCUSATE SODIUM 100 MG CAPSULE PO ×2 (09:40→20:19)
[2021-08-24] MEDS: CYANOCOBALAMIN 1,000 MCG TABLET 1000 MCG PO (09:40)
[2021-08-24] MEDS: ASPIRIN 81 MG ENTERIC TABLET PO (09:40)
[2021-08-24] MEDS: FLUTICASONE PROPIONATE 0.05% NA SPR 16 GM BTL (*BKC) 1 SPRAY NASAL ×2 (09:40→20:20)
[2021-08-24] MEDS: CARBIDOPA/LEVODOPA 12.5/50 MG TABLET 1 TABLET PO ×3 (09:40→16:38)
[2021-08-24] MEDS: OPTI-GEN TAB 1 TABLET PO (09:40)
[2021-08-24] MEDS: CARBIDOPA/LEVODOPA 25/100 MG TABLET 2 TABLET PO ×3 (09:40→16:38)
[2021-08-24] MEDS: DIVALPROEX SODIUM ER 500 MG TAB.24H PO ×2 (09:41→16:40)
[2021-08-24] MEDS: SODIUM CHLORIDE 0.9% IV 1,000 ML 75 ML IV CONT (09:52)
--- NOTE | 2021-08-24 10:46 | PCPTNOTE ---
Patient more alert today. Patient refused treatment this session. Patient states I want to rest! I don't want therapy today! I am tired! Patient informed and educated on the importance of participating in therapy to improve strength and mobility. Patient verbalizes understanding but continues to refuse. Patient states I am not refusing but I am not going to do anything today. I need to rest and can try tomorrow.
--- NOTE | 2021-08-24 11:17 | PCNFU ---
Nutrition Follow-Up Complete: Inadequate oral intake related to decreased appetite as evidenced by oral intake of 5%. Goal: Increase oral intake to 50% or more of meals with Glucerna shake TID (220kcal, 10gm protein each). - Not meeting goal, continue current goal Pt current nutrition is DBCC. Last recorded weight is 49.4 kg, no new wt measurements reported. Bowel Motility: Last BM on 08/20. Labs Reviewed: Hgb 8.0, Hct 25.2, Na 131, GFR 37, BUN 39, Cr 1.80, Glu 157 Meds Noted: Vit-D, Saline, Miralax, Multivitamin, Folic Acid, B-complex, NovoLog, Colace capsule Skin: WNL, dry/loose Additional Notes: Pt is eating about 10% of his meals because he reports a decreased appetite that is not improving. Pt is also refusing to drink his Glucerna shakes because he believes he needs more protein and his Muscle Milk shakes from home are a better option. Pt was educated again on the importance of getting adequate nutrition and meeting calorie needs through adequate oral intake of meals and Glucerna. Pt said he will again start drinking his Glucerna shake TID (220kcal, 10gm protein each). Monitor changes in wt, oral intake %, and labs every 3 days.
[2021-08-24 11:20] LABS: Glucose Point of Care 253 mg/dl (65-105)
[2021-08-24] MEDS: FOLIC ACID 0.4 MG TABLET 0.8 MG PO (12:14)
[2021-08-24] MEDS: INSULIN ASPART (*BKC) 100 UNITS/ML SUB-Q ×2 (12:17→16:42)
--- NOTE | 2021-08-24 13:31 | P.PNIM_ITS ---
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9 - Emphysema, unspecified Code(s): J44.9 - Chronic obstructive pulmonary disease, unspecified Status: Acute (11) Aortic stenosis: Qualifiers: Cardiac valve disease etiology: etiology unspecified Qualified Code(s): I35.0 - Nonrheumatic aortic (valve) stenosis Code(s): I35.0 - Nonrheumatic aortic (valve) stenosis Status: Acute (12) Primary hypertension: Code(s): I10 - Essential (primary) hypertension Status: Acute (13) Hyperlipidemia: Qualifiers: Hyperlipidemia type: unspecified Qualified Code(s): E78.5 - Hyperlipidemia, unspecified Code(s): E78.5 - Hyperlipidemia, unspecified Status: Acute Plan Generalized weakness CT head negative. PT OT to see Dehydration improving GABRIELA IV fluids creatinine continues to be the same today. Continue IV hydration as ordered UTI ceftriaxone Bacteremia Gram-positive cocci in clusters 1 other to could be contamination will cover with vancomycin until finalization Moderate aortic stenosis Bipolar disorder Parkinson's disease History of CVA Hypertension Type 2 diabetes mellitus with hyper glycemia improving. Chronic depression COPD Chronic anemia hemoglobin around 8-9 at baseline currently likely hemoconcentrated no back to baseline no signs of bleeding continue to monitor Abnormal x-ray chest further evaluation with CT chest revealed atelectasis DVT prophylaxis Code status do not resuscitate 08/22/2021 interval history: patient continued to go of being tired and unable to sleep, trazodone was started 50 mg at bedtime will increase it 100 mg as needed, patient has a fever today, his urine and blood culture so far normal, currently patient is on ceftriaxone and vancomycin, will repeat urine and blood culture, spoke with the pharmacy id and start the patient on cefepime, Flagyl and doxycycline will continue vancomycin. will follow-up urine and blood culture as well as chest x-ray further recommendation to follow. 08/23/2021 interval history: patient continued to complaints of being tired and unable to sleep, trazodone was started 50 mg at bedtime will increase it 100 mg as needed, patient had a fever on 08/22, his urine and blood culture so far normal, patient had been treated with ceftriaxone and vancomy
--- NOTE | 2021-08-24 13:39 | PCNSR ---
On 08/24/21, the student, Adriane Adkins, provided care and completed [facility] documentation on this patient. I have reviewed the student's documentation and agree with the findings.
[2021-08-24 14:00] VITALS: BP 114/64; PULSE 88; RESP 16; TEMP 36.1; O2SAT 98
[2021-08-24 16:10] LABS: Glucose Point of Care 257 mg/dl (65-105)
[2021-08-24] MEDS: risperiDONE 0.5 MG TABLET PO (20:19)
[2021-08-24] MEDS: PRIMIDONE 50 MG TABLET PO (20:19)
[2021-08-24] MEDS: MELATONIN 5 MG TABLET 10 MG PO (20:19)
[2021-08-24 21:00] LABS: Glucose Point of Care 252 mg/dl (65-105)
[2021-08-24 22:00] VITALS: BP 145/63; PULSE 92; RESP 16; TEMP 37.5; O2SAT 94
[2021-08-25] MEDS: metroNIDAZOLE 500 MG/ISO 100ML 500 MG/100 ML BAG 100 MG IVPB ×3 (05:24→22:19)
[2021-08-25] MEDS: SODIUM CHLORIDE 0.9% IV 1,000 ML 75 ML IV CONT ×2 (05:24→18:20)
[2021-08-25 05:40] VITALS: BP 136/66; PULSE 92; RESP 17; TEMP 37.4; O2SAT 92
[2021-08-25 06:15] LABS: Hematocrit 24.5 % (42.0-52.0); Hemoglobin 7.7 g/dL (14.0-18.0); Mean Corpuscular HGB Conc 31.4 g/dl (32-36); Mean Platelet Volume 9.6 fl (7.4-10.4); Platelet Count Result 215 k/mm3 (150-375); Red Blood Count 2.85 M/mm3 (4.6-6.20); Red Cell Distribution Width 18.7 % (11.5-14.5); White Blood Count 11.4 K/mm3 (4.5-10.0)
[2021-08-25 06:35] LABS: Anion Gap 7 mmol/L (8-16); Blood Urea Nitrogen 37 mg/dL (9-20); Calcium 8.4 mg/dL (8.4-10.2); Carbon Dioxide 17 mmol/L (22-30); Chloride 107 mmol/L (98-107); Estimated CRCL calculation 24 ml/min; Estimated Glomerular Filt Rate 39; Glucose 187 mg/dL (65-110); Magnesium 1.8 mg/dL (1.6-2.3); Sodium 131 mmol/L (137-145)
[2021-08-25 07:56] LABS: Glucose Point of Care 197 mg/dl (65-105)
[2021-08-25 08:00] VITALS: PULSE 92; RESP 17; O2SAT 92
[2021-08-25] MEDS: FLUTICASONE PROPIONATE 0.05% NA SPR 16 GM BTL (*BKC) 1 SPRAY NASAL ×2 (08:09→20:14)
[2021-08-25] MEDS: polyethylene glycoL 3350 17 GM POWD.PACK PO (08:09)
[2021-08-25] MEDS: CARBIDOPA/LEVODOPA 12.5/50 MG TABLET 1 TABLET PO ×3 (08:10→16:20)
[2021-08-25] MEDS: metFORMIN HCL XR 500 MG TAB.SR.24H 1000 MG PO ×2 (08:10→16:20)
[2021-08-25] MEDS: SERTRALINE HCL 50 MG TABLET 150 MG PO (08:10)
[2021-08-25] MEDS: glipiZIDE 5 MG TABLET 20 MG PO ×2 (08:10→16:20)
[2021-08-25] MEDS: guaiFENesin 12 HR 600 MG TABCR 1200 MG PO ×2 (08:10→20:14)
[2021-08-25] MEDS: CYANOCOBALAMIN 1,000 MCG TABLET 1000 MCG PO (08:10)
[2021-08-25] MEDS: DIVALPROEX SODIUM ER 500 MG TAB.24H PO ×2 (08:10→16:19)
[2021-08-25] MEDS: CHOLECALCIFEROL 1,000 UNITS TABLET 1000 UNITS PO (08:11)
[2021-08-25] MEDS: PANTOPRAZOLE 40 MG TABLET PO ×2 (08:11→20:14)
[2021-08-25] MEDS: OPTI-GEN TAB 1 TABLET PO (08:11)
[2021-08-25] MEDS: CARBIDOPA/LEVODOPA 25/100 MG TABLET 2 TABLET PO ×3 (08:11→16:19)
[2021-08-25] MEDS: EMPAGLIFLOZIN 10 MG TABLET PO (08:11)
[2021-08-25] MEDS: LORATADINE 10 MG TABLET PO (08:12)
[2021-08-25] MEDS: DOCUSATE SODIUM 100 MG CAPSULE PO ×2 (08:12→20:14)
[2021-08-25] MEDS: ASPIRIN 81 MG ENTERIC TABLET PO (08:12)
[2021-08-25] MEDS: MAGNESIUM OXIDE 400 MG TABLET PO ×2 (08:13→20:14)
[2021-08-25] MEDS: ACETAMINOPHEN 500 MG TABLET 1000 MG PO ×2 (10:47→16:29)
[2021-08-25 11:52] LABS: Glucose Point of Care 194 mg/dl (65-105)
[2021-08-25] MEDS: FOLIC ACID 0.4 MG TABLET 0.8 MG PO (12:35)
[2021-08-25 14:00] VITALS: BP 107/64; PULSE 85; RESP 16; TEMP 36.7; O2SAT 94
[2021-08-25] MEDS: INSULIN ASPART (*BKC) 100 UNITS/ML SUB-Q (17:14)
[2021-08-25 17:28] LABS: Glucose Point of Care 231 mg/dl (65-105)
[2021-08-25] MEDS: risperiDONE 0.5 MG TABLET PO (20:14)
[2021-08-25] MEDS: MELATONIN 5 MG TABLET 10 MG PO (20:14)
[2021-08-25] MEDS: PRIMIDONE 50 MG TABLET PO (20:14)
[2021-08-25 22:00] VITALS: BP 141/64; PULSE 83; RESP 16; TEMP 36.2; O2SAT 95
[2021-08-26 06:00] VITALS: BP 135/68; PULSE 97; RESP 16; TEMP 36.3; O2SAT 92
[2021-08-26 06:24] LABS: Hematocrit 24.7 % (42.0-52.0); Hemoglobin 7.8 g/dL (14.0-18.0); Mean Corpuscular HGB Conc 31.6 g/dl (32-36); Mean Corpuscular Hemoglobin 26.9 pg (26-34); Mean Corpuscular Volume 85.2 fl (80-100); Mean Platelet Volume 9.8 fl (7.4-10.4); Platelet Count Result 238 k/mm3 (150-375); Red Cell Distribution Width 18.9 % (11.5-14.5); White Blood Count 13.2 K/mm3 (4.5-10.0)
[2021-08-26 06:25] LABS: Anion Gap 9 mmol/L (8-16); Blood Urea Nitrogen 37 mg/dL (9-20); Calcium 8.4 mg/dL (8.4-10.2); Carbon Dioxide 18 mmol/L (22-30); Chloride 107 mmol/L (98-107); Estimated CRCL calculation 24 ml/min; Estimated Glomerular Filt Rate 39; Glucose 192 mg/dL (65-110); Magnesium 1.6 mg/dL (1.6-2.3); Sodium 134 mmol/L (137-145)
[2021-08-26] MEDS: metroNIDAZOLE 500 MG/ISO 100ML 500 MG/100 ML BAG 100 MG IVPB (06:36)
[2021-08-26] MEDS: SODIUM CHLORIDE 0.9% IV 1,000 ML 75 ML IV CONT (07:42)
--- NOTE | 2021-08-26 07:48 | PC.NURSE ---
constipation no bm report in several days, N.O KUB and suppository per MD Boland
[2021-08-26 08:00] VITALS: PULSE 97; RESP 16; O2SAT 92
[2021-08-26 08:12] LABS: Glucose Point of Care 179 mg/dl (65-105)
[2021-08-26] MEDS: SERTRALINE HCL 50 MG TABLET 150 MG PO (08:46)
[2021-08-26] MEDS: guaiFENesin 12 HR 600 MG TABCR 1200 MG PO ×2 (08:46→19:59)
[2021-08-26] MEDS: EMPAGLIFLOZIN 10 MG TABLET PO (08:46)
[2021-08-26] MEDS: FLUTICASONE PROPIONATE 0.05% NA SPR 16 GM BTL (*BKC) 1 SPRAY NASAL ×2 (08:46→19:59)
[2021-08-26] MEDS: ASPIRIN 81 MG ENTERIC TABLET PO (08:46)
[2021-08-26] MEDS: CHOLECALCIFEROL 1,000 UNITS TABLET 1000 UNITS PO (08:47)
[2021-08-26] MEDS: metFORMIN HCL XR 500 MG TAB.SR.24H 1000 MG PO ×2 (08:47→16:24)
[2021-08-26] MEDS: CARBIDOPA/LEVODOPA 25/100 MG TABLET 2 TABLET PO ×3 (08:47→16:23)
[2021-08-26] MEDS: CYANOCOBALAMIN 1,000 MCG TABLET 1000 MCG PO (08:47)
[2021-08-26] MEDS: LORATADINE 10 MG TABLET PO (08:47)
[2021-08-26] MEDS: glipiZIDE 5 MG TABLET 20 MG PO ×2 (08:48→16:24)
[2021-08-26] MEDS: CARBIDOPA/LEVODOPA 12.5/50 MG TABLET 1 TABLET PO ×3 (08:48→16:24)
[2021-08-26] MEDS: MAGNESIUM OXIDE 400 MG TABLET PO ×2 (08:48→20:00)
[2021-08-26] MEDS: PANTOPRAZOLE 40 MG TABLET PO ×2 (08:48→19:59)
[2021-08-26] MEDS: DOCUSATE SODIUM 100 MG CAPSULE PO ×2 (08:48→19:58)
[2021-08-26] MEDS: DIVALPROEX SODIUM ER 500 MG TAB.24H PO ×2 (08:48→16:24)
[2021-08-26] MEDS: OPTI-GEN TAB 1 TABLET PO (08:48)
[2021-08-26] MEDS: polyethylene glycoL 3350 17 GM POWD.PACK PO (09:45)
[2021-08-26 11:45] LABS: Glucose Point of Care 234 mg/dl (65-105)
[2021-08-26] MEDS: FOLIC ACID 0.4 MG TABLET 0.8 MG PO (12:07)
[2021-08-26] MEDS: INSULIN ASPART (*BKC) 100 UNITS/ML SUB-Q (12:08)
--- NOTE | 2021-08-26 12:48 | PM.IMPN ---
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 insulin use: without long wall mining machine tender use Qualified Code(s): E11.65 - Type 2 diabetes mellitus with hyperglycemia Code(s): E11.65 - Type 2 diabetes mellitus with hyperglycemia Status: Acute (7) Chronic depression: Code(s): F32.9 - Major depressive disorder, single episode, unspecified Status: Acute (8) Bipolar disorder: Code(s): F31.9 - Bipolar disorder, unspecified Status: Acute (9) Parkinsons disease: Code(s): G20 - Parkinson's disease Status: Acute (10) COPD (chronic obstructive pulmonary disease): Qualifiers: COPD type: emphysema Emphysema type: unspecified Qualified Code(s): J43.9 - Emphysema, unspecified Code(s): J44.9 - Chronic obstructive pulmonary disease, unspecified Status: Acute (11) Aortic stenosis: Qualifiers: Cardiac valve disease etiology: etiology unspecified Qualified Code(s): I35.0 - Nonrheumatic aortic (valve) stenosis Code(s): I35.0 - Nonrheumatic aortic (valve) stenosis Status: Acute (12) Primary hypertension: Code(s): I10 - Essential (primary) hypertension Status: Acute (13) Hyperlipidemia: Qualifiers: Hyperlipidemia type: unspecified Qualified Code(s): E78.5 - Hyperlipidemia, unspecified Code(s): E78.5 - Hyperlipidemia, unspecified Status: Acute Plan Generalized weakness CT head negative. PT OT to see Dehydration improving GABRIELA IV fluids creatinine continues to be the same today. Continue IV hydration as ordered UTI ceftriaxone Bacteremia Gram-positive cocci in clusters 1 other to could be contamination will cover with vancomycin until finalization Moderate aortic stenosis Bipolar disorder Parkinson's disease History of CVA Hypertension Type 2 diabetes mellitus with hyper glycemia improving. Chronic depression COPD Chronic anemia hemoglobin around 8-9 at baseline currently likely hemoconcentrated no back to baseline no signs of bleeding continue to monitor Abnormal x-ray chest further evaluation with CT chest revealed atelectasis DVT prophylaxis Code status do not resuscitate 08/22/2021 interval history: patient continued to go of being tired and unable to sleep, trazodone was started 50 mg at bedtime will increase it 100 mg as needed, patient has a fever today, his urine and blood culture so far normal, currently patient is on ceftriaxone and vancomycin, will repeat urine and blood culture, spoke with the pharmacy id and start the patient on cefepime, Flagyl and doxycycline will continue vancomycin. will follow-up urine and blood culture as well as chest x-ray further recommendation to follow. 08/23/2021 interval history: patient continued to complaints of being tired and unable to sleep, trazodone was started 50 mg at bedtime will increase it 100 mg as needed, patient had a fever on 08/22, his urine and blood culture so far normal, patient had been treated with ceftriaxone and vancomycin, ordered repeat urine and blood culture, spoke with the pharmacy id and started the patient on cefepime, Flagyl and doxycycline will continue vancomycin. today patient stats he is feeling litter better, will follow-up urine and blood culture, chest x-ray did not show any acute cardiopulmonary disease, will continue to monitor and have PT/OT evaluate the patient, further recomm
[2021-08-26 14:53] VITALS: BP 109/64; PULSE 92; RESP 16; TEMP 36.3
[2021-08-26] MEDS: ACETAMINOPHEN 500 MG TABLET 1000 MG PO (16:24)
[2021-08-26 16:49] LABS: Glucose Point of Care 191 mg/dl (65-105)
[2021-08-26] MEDS: risperiDONE 0.5 MG TABLET PO (19:59)
[2021-08-26] MEDS: MELATONIN 5 MG TABLET 10 MG PO (19:59)
[2021-08-26] MEDS: PRIMIDONE 50 MG TABLET PO (19:59)
[2021-08-26 20:40] LABS: Glucose Point of Care 232 mg/dl (65-105)
[2021-08-26 22:00] VITALS: BP 181/74; PULSE 105; RESP 18; TEMP 36.7; O2SAT 97
[2021-08-27] MEDS: SODIUM CHLORIDE 0.9% IV 1,000 ML 75 ML IV CONT (02:03)
[2021-08-27 06:00] VITALS: BP 118/63; PULSE 105; RESP 18; TEMP 37.8; O2SAT 93
[2021-08-27 06:35] LABS: Hematocrit 23.7 % (42.0-52.0); Hemoglobin 7.8 g/dL (14.0-18.0); Mean Corpuscular HGB Conc 32.9 g/dl (32-36); Mean Corpuscular Hemoglobin 27.3 pg (26-34); Mean Corpuscular Volume 82.9 fl (80-100); Mean Platelet Volume 8.8 fl (7.4-10.4); Platelet Count Result 210 k/mm3 (150-375); Red Blood Count 2.86 M/mm3 (4.6-6.20); Red Cell Distribution Width 19.1 % (11.5-14.5); White Blood Count 8.5 K/mm3 (4.5-10.0)
[2021-08-27 06:40] VITALS: TEMP 37.2
[2021-08-27 06:55] LABS: Anion Gap 9 mmol/L (8-16); Blood Urea Nitrogen 37 mg/dL (9-20); Calcium 8.5 mg/dL (8.4-10.2); Carbon Dioxide 17 mmol/L (22-30); Chloride 111 mmol/L (98-107); Estimated CRCL calculation 24 ml/min; Estimated Glomerular Filt Rate 39; Glucose 173 mg/dL (65-110); Magnesium 1.6 mg/dL (1.6-2.3); Potassium 3.9 mmol/L (3.4-5.0); Sodium 137 mmol/L (137-145)
[2021-08-27 08:00] VITALS: PULSE 105; RESP 18; O2SAT 93
[2021-08-27] MEDS: DIVALPROEX SODIUM ER 500 MG TAB.24H PO (08:13)
[2021-08-27] MEDS: OPTI-GEN TAB 1 TABLET PO (08:13)
[2021-08-27] MEDS: DOCUSATE SODIUM 100 MG CAPSULE PO (08:13)
[2021-08-27] MEDS: MAGNESIUM OXIDE 400 MG TABLET PO (08:14)
[2021-08-27] MEDS: CARBIDOPA/LEVODOPA 25/100 MG TABLET 2 TABLET PO ×2 (08:14→12:13)
[2021-08-27] MEDS: PANTOPRAZOLE 40 MG TABLET PO (08:14)
[2021-08-27] MEDS: CHOLECALCIFEROL 1,000 UNITS TABLET 1000 UNITS PO (08:14)
[2021-08-27] MEDS: guaiFENesin 12 HR 600 MG TABCR 1200 MG PO (08:14)
[2021-08-27] MEDS: ASPIRIN 81 MG ENTERIC TABLET PO (08:14)
[2021-08-27] MEDS: CYANOCOBALAMIN 1,000 MCG TABLET 1000 MCG PO (08:15)
[2021-08-27] MEDS: LORATADINE 10 MG TABLET PO (08:15)
[2021-08-27] MEDS: metFORMIN HCL XR 500 MG TAB.SR.24H 1000 MG PO (08:15)
[2021-08-27] MEDS: SERTRALINE HCL 50 MG TABLET 150 MG PO (08:15)
[2021-08-27] MEDS: EMPAGLIFLOZIN 10 MG TABLET PO (08:15)
[2021-08-27] MEDS: CARBIDOPA/LEVODOPA 12.5/50 MG TABLET 1 TABLET PO ×2 (08:16→12:14)
[2021-08-27] MEDS: FLUTICASONE PROPIONATE 0.05% NA SPR 16 GM BTL (*BKC) 1 SPRAY NASAL (08:16)
[2021-08-27] MEDS: glipiZIDE 5 MG TABLET 20 MG PO (08:16)
[2021-08-27 08:54] LABS: Glucose Point of Care 156 mg/dl (65-105)
--- NOTE | 2021-08-27 09:29 | PCOTNOTE ---
Patient asleep with head leaning to L, patient unable to stay awake to answer ABBOTT's questions. Assisted patient with repositioning head and patient fell back to sleep. Will attempt to see patient when awake later today for OT.
--- NOTE | 2021-08-27 09:54 | PC.NURSE ---
difficulty taking medication this morning, difficulty with swallowing, possible aspiration, elevated temperature, weakness, and drowsiness. Ordered cxr and swallow eval and tx.
--- NOTE | 2021-08-27 11:53 | PM.DS ---
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: without detention use Qualified Code(s): E11.65 - Type 2 diabetes mellitus with hyperglycemia Code(s): E11.65 - Type 2 diabetes mellitus with hyperglycemia Status: Acute (7) Chronic depression: Code(s): F32.9 - Major depressive disorder, single episode, unspecified Status: Acute (8) Bipolar disorder: Code(s): F31.9 - Bipolar disorder, unspecified Status: Acute (9) Parkinsons disease: Code(s): G20 - Parkinson's disease Status: Acute (10) COPD (chronic obstructive pulmonary disease): Qualifiers: COPD type: emphysema Emphysema type: unspecified Qualified Code(s): J43.9 - Emphysema, unspecified Code(s): J44.9 - Chronic obstructive pulmonary disease, unspecified Status: Acute (11) Aortic stenosis: Qualifiers: Cardiac valve disease etiology: etiology unspecified Qualified Code(s): I35.0 - Nonrheumatic aortic (valve) stenosis Code(s): I35.0 - Nonrheumatic aortic (valve) stenosis Status: Acute (12) Primary hypertension: Code(s): I10 - Essential (primary) hypertension Status: Acute (13) Hyperlipidemia: Qualifiers: Hyperlipidemia type: unspecified Qualified Code(s): E78.5 - Hyperlipidemia, unspecified Code(s): E78.5 - Hyperlipidemia, unspecified Status: Acute Plan Generalized weakness CT head negative. PT OT to see Dehydration improving GABRIELA IV fluids creatinine continues to be the same today. Continue IV hydration as ordered UTI ceftriaxone Bacteremia Gram-positive cocci in clusters 1 other to could be contamination will cover with vancomycin until finalization Moderate aortic stenosis Bipolar disorder Parkinson's disease History of CVA Hypertension Type 2 diabetes mellitus with hyper glycemia improving. Chronic depression COPD Chronic anemia hemoglobin around 8-9 at baseline currently likely hemoconcentrated no back to baseline no signs of bleeding continue to monitor Abnormal x-ray chest further evaluation with CT chest revealed atelectasis DVT prophylaxis Code status do not resuscitate 08/22/2021 interval history: patient continued to go of being tired and unable to sleep, trazodone was started 50 mg at bedtime will increase it 100 mg as needed, patient has a fever today, his urine and blood culture so far normal, currently patient is on ceftriaxone and vancomycin, will repeat urine and blood culture, spoke with the pharmacy id and start the patient on cefepime, Flagyl and doxycycline will continue vancomycin. will follow-up urine and blood culture as well as chest x-ray further recommendation to follow. 08/23/2021 interval history: patient continued to complaints of being tired and unable to sleep, trazodone was started 50 mg at bedtime will increase it 100 mg as needed, patient had a fever on 08/22, his urine and blood culture so far normal, patient had been treated with ceftriaxone and vancomycin, ordered repeat urine and blood culture, spoke with the pharmacy id and started the patient on cefepime, Flagyl and doxycycline will continue vancomycin. today patient stats he is feeling litter better, will follow-up urine and blood culture, chest x-ray did not show any acute cardiopulm
[2021-08-27] MEDS: FOLIC ACID 0.4 MG TABLET 0.8 MG PO (12:13)
[2021-08-27 12:16] LABS: Glucose Point of Care 159 mg/dl (65-105)
--- NOTE | 2021-08-27 12:36 | PC.NURSE ---
report given to Corey at [facility].
== END 2021-08-27 12:00 | disposition swing bed (61) | DRG 690 ==
LOC: ANHED 11:01 → ANH3MEDSUR 13:17
PROVIDERS: Internal Medicine; Admitting Provider Family Medicine; Emergency Provider Emergency Medicine; PCP Family Medicine; Visit Provider Family Medicine
DX: N39.0 Urinary tract infection, site not specified (principal); N17.9 Acute kidney failure, unspecified; E83.52 Hypercalcemia; E11.65 Type 2 diabetes mellitus with hyperglycemia; Z20.822 Contact with and (suspected) exposure to COVID-19; B95.7 Other staphylococcus as the cause of diseases classified elsewhere; F31.9 Bipolar disorder, unspecified; G20 Parkinson's disease; J43.9 Emphysema, unspecified; I35.0 Nonrheumatic aortic (valve) stenosis; I10 Essential (primary) hypertension; E78.5 Hyperlipidemia, unspecified; D64.9 Anemia, unspecified; E86.0 Dehydration; Z66 Do not resuscitate; Z86.73 Personal history of transient ischemic attack (TIA), and cerebral infarction without residual deficits; Z87.891 Personal history of nicotine dependence
CPT/HCPCS: 36415; 70450; 71045; 71250; 74018; 80048; 80053; 81001; 82948; 83036; 83605; 83735; 85025; 85027; 85610; 85730; 87040; 87081; 87086; 87147; 87181; 87186; 93005; 96361; 96365; 96366; 96367; 96374; 96375; 97110; 97116; 97161; 97166; 97530; 97535; 99285; A9270; C9803; G0378; J0692; J0696; J1815; J3370; J3475; J7030; U0003; U0005

== ENCOUNTER 2021-08-27 14:15 | Inpatient (IN) | payer MEDICARE, SELFPAY ==
--- NOTE | ~2021-08-27 | XR_ITS ---
XR chest 1V portable 08/30/2021 09:52 Indication: Cough Procedure: AP portable chest Comparison: Comparison to multiple prior studies sequentially, with oldest reviewed study dated 05/16. Findings: Heart size is normal. Small right pleural effusion. There is increasing consolidation in th e right lung base. There are emphysematous changes. No acute osseous abnormality. Generalized osteope evelyn. Impression: 1: Increasing right basilar consolidation which may reflect atelectasis or pneumonia. 2: Mild interstitial edema. 3: Small right pleural effusion. 4: Emphysema. Reviewed, dictated and finalized at location A. Impression: 1: Increasing right basilar consolidation which may reflect atelectasis or pneu monia. 2: Mild interstitial edema. 3: Small right pleural effusion. 4: Emphysema.
--- NOTE | ~2021-08-27 | CT_ITS ---
EXAMINATION: CT abdomen pelvis wo con DATE: 08/30/2021 07:17 INDICATION: Blood loss. TECHNIQUE: Computed tomography (CT) of the abdomen and pelvis was performed without intravenous contr ast. The dose-length product was 702.48 mGy-cm. Automated exposure control and iterative reconstructi on technique were employed. COMPARISON: CT dated 10/04/2018 FINDINGS: There are is emphysematous change with large bleb in the right lower lung. There is bibasil ar dependent airspace consolidation. Heart size normal. Small pleural effusions. Small pericardial ef fusion. There is chronic pancreatitis. There is right hydronephrosis with abrupt termination. Fluid i n the right renal collecting system is slightly hyperdense measuring 30 Hounsfield units. Cannot excl ude blood. Small amount of free fluid in the pelvis. There is nonobstructing left nephrolithiasis. Sm all amount of free fluid in the pelvis. Bladder wall is mildly prominent, although decompressed. Decaler tisha L1 burst fracture. Mild loss of vertebral body height at multiple additional lumbar levels. There is disc narrowing at multiple levels most advanced at L3-4, L4-5 and L5-S1. There is grade 2 spondyl olisthesis at L5-S1 secondary to spondylolysis. There is diffuse atherosclerosis of the aorta with ec brent. Aortic diameter measures up to 2.8 cm AP dimension. IMPRESSION: 1. Bibasilar airspace consolidation which may represent pneumonia and/or atelectasis. 2: Small pericardial effusion. 3: Small pleural effusions. 4: Hyperdense fluid in dilated right renal collecting system and renal pelvis which abruptly terminat es at the UPJ, suspicious for UPJ obstruction. Fluid may represent hemorrhage within the renal collec ting system. Infection is also a consideration. 5: Nonobstructing left nephrolithiasis. 6: Chronic pancreatitis. 7: Emphysema.] Reviewed, dictated and finalized at location A. IMPRESSION: 1. Bibasilar airspace consolidation which may represent pneumonia and/or atelec tasis. 2: Small pericardial effusion. 3: Small pleural effusions. 4: Hyperdense fluid in dilated right renal collecting system and renal pelvis w hich abruptly terminates at the UPJ, suspicious for UPJ obstruction. Fluid may represent hemorrhage within the renal collecting system. Infection is also a co nsideration. 5: Nonobstructing left nephrolithiasis. 6: Chronic pancreatitis. 7: Emphysema.]
[2021-08-27 14:15] VITALS: BP 96/58; PULSE 85; RESP 18; TEMP 36.6; O2SAT 94; BMI 16.2
[2021-08-27 17:19] LABS: Glucose Point of Care 212 mg/dl (65-105)
[2021-08-27] MEDS: DIVALPROEX SODIUM ER 500 MG TAB.24H PO (17:19)
[2021-08-27] MEDS: PANTOPRAZOLE 40 MG TABLET PO (17:19)
[2021-08-27] MEDS: guaiFENesin 12 HR 600 MG TABCR 1200 MG PO (17:19)
[2021-08-27] MEDS: CARBIDOPA/LEVODOPA 25/100 MG TABLET 2 TABLET PO (17:19)
[2021-08-27] MEDS: CARBIDOPA/LEVODOPA 12.5/50 MG TABLET 1 TABLET PO (17:20)
[2021-08-27] MEDS: FLUTICASONE PROPIONATE 0.05% NA SPR 16 GM BTL (*BKC) 1 SPRAY NASAL (17:23)
[2021-08-27] MEDS: ACETAMINOPHEN 500 MG TABLET 1000 MG PO (20:32)
[2021-08-27] MEDS: DOCUSATE SODIUM 100 MG CAPSULE PO (21:06)
[2021-08-27] MEDS: risperiDONE 0.25 MG TABLET 0.5 MG PO (21:06)
[2021-08-27] MEDS: PRIMIDONE 50 MG TABLET PO (21:06)
[2021-08-27] MEDS: MELATONIN 5 MG TABLET 10 MG PO (21:07)
[2021-08-27 21:11] LABS: Glucose Point of Care 214 mg/dl (65-105)
[2021-08-28] VITALS: BP 110/53; PULSE 77; RESP 16; TEMP 37.7; O2SAT 94
--- NOTE | 2021-08-28 07:04 | PM.IMHP ---
H&P: HPI History of Present Illness Date/Time: 08/28/21 07:04 Chief Complaint: Weakness, UTI, Rehab Narrative: This is a 76 year old male that has been admitted to our swing bed from [facility] where was admitted due to uti, confusion and weakness with 2 episodes of vomiting prior to admission. Patient had a 1 blood culture that was growing e- coli which was deem more than likely contamination. Patient spike a temp while at the hospital but he remained very weak. Patient had some acute kidney injury and some dehydration noted. Patient family would like for him to be able to go home and need to be stronger. At this time he has been with a low grade temperature that resolves itself so we will continue to monitor for signs and symptoms of any infection. Patient medication are needing to be crushed at this time. Patient denies any abdominal pain, He does states he has some back pain which he has had for years. He has been drinking and eating throughout the night. Patient has a past medical history of diabetes type 2, bipolar, UTI, encephalopathy, chronic kidney disease, chronic anemia. Prior to admission patient's potassium was 3.9, sodium was 137, BUN 37, creatinine 1.70, WBCs 8.5, hemoglobin 7.8, [place] 23.7, platelets 210. We will continue to monitor patient as he is a swing patient at this time Review of Systems Review of Systems: Weakness, confusion All systems reviewed & are unremarkable except as noted in HPI and below PMFSH Past Medical History Medical History Anemia Aortic stenosis moderate Bipolar disorder Broken ribs Chronic depression COPD (chronic obstructive pulmonary disease) Difficulty in walking History of CVA (cerebrovascular accident) 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 Other Unknown family medical history Social History Social History Social History: Mr. Barrera lives at home in [place] with his , Phoebe Barrera. He has 4 children. He is retired. 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 He reports daily vaping. He is a former 50 pack-year smoker. He denies alcohol use. He notes occasional marijuana use. He wishes for his code status to be DNR and he has designated his surrogate medical decision maker as his , Phoebe Barrera. Smoking packs per day: 1.5 Smoking cigarettes per day: 30.0 Years smoked: 55 Smoking pack-years: 82.50 Smoking status: Former smoker Tobacco type: cigarettes Second hand tobacco smoke exposure: No Smoking end date: 03/03/16 Alcohol intake: never Substance use: current Substance use type: marijuana Other substance usage details: smokes Last use: 1 week Gender identity (if verbalized by the patient): Male Spiritual care concerns: No Agree to blood products: Yes Comments At time as signature, I have reviewed and agree with nursing past medical, social, surgical and family history. Please see nursing chart for further information. There is no relevant family history pertinent to the presenting complaint. Meds Home Medications and Allergies Home Medications Medication Instructions Recorded Confirmed Type carbidopa 25 mg-levodopa 100 mg 2.5 tablet PO TID 03/08/19 08/27/21 History tablet vitamin B12 500 mcg-folic acid 400 1 tablet PO DAILY 03/08/19 08/27/21 His
[2021-08-28 07:25] VITALS: BP 117/77; PULSE 99; RESP 18; TEMP 38.2; O2SAT 90
[2021-08-28 08:00] VITALS: TEMP 37.8
[2021-08-28] MEDS: ASPIRIN 81 MG ENTERIC TABLET PO (08:01)
[2021-08-28] MEDS: SERTRALINE HCL 50 MG TABLET 150 MG PO (08:01)
[2021-08-28] MEDS: CYANOCOBALAMIN 1,000 MCG TABLET 1000 MCG PO (08:01)
[2021-08-28] MEDS: DOCUSATE SODIUM 100 MG CAPSULE PO ×2 (08:01→21:11)
[2021-08-28] MEDS: CARBIDOPA/LEVODOPA 25/100 MG TABLET 2 TABLET PO ×3 (08:01→17:28)
[2021-08-28] MEDS: guaiFENesin 12 HR 600 MG TABCR 1200 MG PO ×2 (08:02→17:28)
[2021-08-28] MEDS: LORATADINE 10 MG TABLET PO (08:02)
[2021-08-28] MEDS: FLUTICASONE PROPIONATE 0.05% NA SPR 16 GM BTL (*BKC) 1 SPRAY NASAL ×2 (08:02→17:28)
[2021-08-28] MEDS: polyethylene glycoL 3350 17 GM POWD.PACK PO (08:02)
[2021-08-28] MEDS: DIVALPROEX SODIUM ER 500 MG TAB.24H PO ×2 (08:02→17:28)
[2021-08-28] MEDS: OPTI-GEN TAB 1 TABLET PO (08:02)
[2021-08-28] MEDS: PANTOPRAZOLE 40 MG TABLET PO ×2 (08:02→17:28)
[2021-08-28 08:04] LABS: Glucose Point of Care 169 mg/dl (65-105)
[2021-08-28 08:35] VITALS: TEMP 37.4
[2021-08-28] MEDS: EMPAGLIFLOZIN 10 MG TABLET PO (08:38)
[2021-08-28] MEDS: FOLIC ACID 0.4 MG TABLET 0.8 MG PO (08:39)
[2021-08-28] MEDS: CARBIDOPA/LEVODOPA 12.5/50 MG TABLET 1 TABLET PO ×3 (08:39→17:28)
[2021-08-28 12:01] LABS: Glucose Point of Care 170 mg/dl (65-105)
--- NOTE | 2021-08-28 15:41 | STIPEVAL ---
Thank you for referring Getachew Barrera to [facility] [place].? The patient is scheduled to be seen for therapy? 2-3x/week for 2 weeks. Please review, sign, date and return this plan of care CAMILA.- I agree with and certify that the following plan of care is medically necessary. Referring Physician Date Admitting Provider: Onur Roberts MD Attending Provider: Onur Roberts MD Referring Provider: SONALI Inpatient Evaluation Start: 08/28/21 12:36 Freq: Status: Active Protocol: Document 08/28/21 12:00 MJB (Rec: 08/28/21 12:59 MJB [id number]) Therapy Assessment Status Assessment Status Assessment Status Evaluation Prior Level of Function Prior Swallow Level Prior Intake Method Oral Prior Diet Regular (Level 7 Diet) Prior Liquid Consistency Thin (Level 0 Diet) Prior Cognition/Communication Prior Communication Level No Impairment Pain Assessment Timing of Pain Assessment Timing of Pain Assessment Assessment Pain Scale Pain Scale Used Numeric (1 - 10) Self Report Pain Assessment Back Reported Pain Level 5 Pain Description Aching Pain Radiation Back Pain Score Pain Score 5: Self Report Interventions Used Interventions Used By Clinicians Rest Bedside Swallow Evaluation General Reports Dysphagia Yes Onset of Dysphagia during hospitalization History of Related Medical Diagnosis Parkinson's Disease Reported Difficult Consistencies Solids Swallowing Worsening Gradually Meal Observed Snack History of Dysphagia No Other Factors Impacting Dysphagia Lethargy Intake Method Prior to Swallow Oral Evaluation Diet Prior to Swallow Evaluation Regular, Level 7 Liquid Consistency Prior to Swallow Thin (0) Evaluation Cognition During Swallowing Alert Orthodontic/Dental Appliances Full Dentures, Lower,Full Dentures, Upper Consistency Solid Consistency Other Swallow Amount scrambled egg and oreo Behaviors Observed Lengthy Oral Transit Time, Multiple Swallows Used,Oral Residue,Shortness of Breath Occurrence of Coughing None Vocal Quality After Swallowing Breathy Swallow Palpation Results Reduced Laryngeal Elevation Thin Other Swallow Amount soda and orange juice Method of Presentation Straw Behaviors Observed Shortness of Breath Occurrence of Coughing None Vocal Quality After Swallowing Clear Swallow Palpation Results Good Swallow Initiation, Reduced Laryngeal Elevation Tolerance Tolerance For Swa
[2021-08-28 16:25] VITALS: BP 115/75; PULSE 98; RESP 16; TEMP 37.4; O2SAT 91
[2021-08-28 17:10] LABS: Glucose Point of Care 205 mg/dl (65-105)
[2021-08-28] MEDS: MELATONIN 5 MG TABLET 10 MG PO (21:11)
[2021-08-28] MEDS: PRIMIDONE 50 MG TABLET PO (21:11)
[2021-08-28] MEDS: risperiDONE 0.25 MG TABLET 0.5 MG PO (21:12)
[2021-08-28 21:40] LABS: Glucose Point of Care 195 mg/dl (65-105)
[2021-08-28 23:21] VITALS: BP 146/67; PULSE 75; RESP 18; TEMP 36.8; O2SAT 95
[2021-08-29 05:09] LABS: Hematocrit 23.3 % (37.0-46.0); Hemoglobin 7.1 g/dL (12.4-15.3); Mean Corpuscular HGB Conc 30.5 g/dL (32.0-36.0); Mean Corpuscular Hemoglobin 26.2 pg (27.0-31.0); Mean Platelet Volume 9.4 fl (8.7-11.0); Platelet Count Result 224 K/mm3 (150-420); Red Blood Count 2.71 M/mm3 (4.70-6.10); Red Cell Distribution Width 19.7 % (11.6-14.4); White Blood Count 14.6 K/mm3 (4.8-10.8)
[2021-08-29 05:18] LABS: Anion Gap 7 mmol/L (8-16); Blood Urea Nitrogen 39 mg/dL (7-18); Calcium 9.1 mg/dL (8.5-10.1); Carbon Dioxide 21 mmol/L (21-32); Chloride 106 mmol/L (98-108); Estimated CRCL calculation 24 ml/min; Estimated Glomerular Filt Rate 36; Glucose 136 mg/dL (70-99); Osmolality Calculated 289 mOsm/kg (285-295); Potassium 3.9 mmol/L (3.5-5.1); Sodium 134 mmol/L (136-145)
[2021-08-29 08:00] VITALS: BP 118/60; PULSE 92; RESP 16; TEMP 36.9; O2SAT 90
[2021-08-29] MEDS: polyethylene glycoL 3350 17 GM POWD.PACK PO (09:32)
[2021-08-29] MEDS: EMPAGLIFLOZIN 10 MG TABLET PO (09:32)
[2021-08-29] MEDS: CARBIDOPA/LEVODOPA 12.5/50 MG TABLET 1 TABLET PO ×3 (09:32→16:55)
[2021-08-29] MEDS: SERTRALINE HCL 50 MG TABLET 150 MG PO (09:33)
[2021-08-29] MEDS: FOLIC ACID 0.4 MG TABLET 0.8 MG PO (09:33)
[2021-08-29] MEDS: PANTOPRAZOLE 40 MG TABLET PO ×2 (09:33→16:54)
[2021-08-29] MEDS: ACETAMINOPHEN 500 MG TABLET 1000 MG PO ×2 (09:33→23:57)
[2021-08-29] MEDS: CYANOCOBALAMIN 1,000 MCG TABLET 1000 MCG PO (09:33)
[2021-08-29] MEDS: guaiFENesin 12 HR 600 MG TABCR 1200 MG PO ×2 (09:35→16:53)
[2021-08-29] MEDS: CARBIDOPA/LEVODOPA 25/100 MG TABLET 2 TABLET PO ×3 (09:35→16:54)
[2021-08-29] MEDS: OPTI-GEN TAB 1 TABLET PO (09:35)
[2021-08-29] MEDS: LORATADINE 10 MG TABLET PO (09:36)
[2021-08-29] MEDS: FLUTICASONE PROPIONATE 0.05% NA SPR 16 GM BTL (*BKC) 1 SPRAY NASAL ×2 (09:36→16:53)
[2021-08-29] MEDS: DOCUSATE SODIUM 100 MG CAPSULE PO ×2 (09:36→20:45)
[2021-08-29] MEDS: ASPIRIN 81 MG ENTERIC TABLET PO (09:36)
[2021-08-29] MEDS: DIVALPROEX SODIUM ER 500 MG TAB.24H PO ×2 (09:42→16:54)
[2021-08-29] MEDS: LIDOCAINE 5% PATCH 1 PATCH TRANSDERM (11:00)
--- NOTE | 2021-08-29 11:42 | PM.EVENT ---
Event Note Event Note Event Note: Patient only complaint is that he has pain in his lower back. Ordered lidocaine patch we will continue to monitor
[2021-08-29 12:06] LABS: Glucose Point of Care 225 mg/dl (65-105)
[2021-08-29 15:34] VITALS: BP 145/81; PULSE 96; RESP 20; TEMP 37.4; O2SAT 96
[2021-08-29 16:34] LABS: Glucose Point of Care 203 mg/dl (65-105)
[2021-08-29] MEDS: PRIMIDONE 50 MG TABLET PO (20:45)
[2021-08-29] MEDS: MELATONIN 5 MG TABLET 10 MG PO (20:45)
[2021-08-29] MEDS: risperiDONE 0.25 MG TABLET 0.5 MG PO (20:46)
[2021-08-29 20:47] LABS: Glucose Point of Care 300 mg/dl (65-105)
[2021-08-29 23:57] VITALS: TEMP 38.1
[2021-08-30] VITALS (8 sets, daily range): BP systolic 81–108; BP diastolic 39–57; PULSE 81–114; RESP 16–22; TEMP 36.7–38.1; O2SAT 90–94
--- NOTE | 2021-08-30 00:06 | PC.NURSE ---
Tylenol given due to temp 100.5 temporal, no c/o pain or discomfort.
--- NOTE | 2021-08-30 02:23 | PC.NURSE ---
Patient resting, temp 99.7 temporal, spo2 90, pulse 104.
--- NOTE | 2021-08-30 04:51 | PC.NURSE ---
Patient resting, temp is 97.2 temporal, pulse is 88.
[2021-08-30 05:11] LABS: Hematocrit 20.8 % (37.0-46.0); Mean Corpuscular HGB Conc 31.3 g/dL (32.0-36.0); Mean Corpuscular Hemoglobin 26.9 pg (27.0-31.0); Mean Platelet Volume 10.3 fl (8.7-11.0); Platelet Count Result 208 K/mm3 (150-420); Red Blood Count 2.42 M/mm3 (4.70-6.10); Red Cell Distribution Width 19.7 % (11.6-14.4); White Blood Count 13.7 K/mm3 (4.8-10.8)
[2021-08-30 05:29] LABS: Hemoglobin 6.5 g/dL (12.4-15.3)
--- NOTE | 2021-08-30 05:30 | PC.NURSE ---
Lab called to report a critical Hgb of 6.5 on patient.
--- NOTE | 2021-08-30 06:07 | PC.NURSE ---
Corbin Blanchard NP, called with new orders for a CT scan of the abdomen and pelvis; Orders received and noted.
[2021-08-30 07:49] LABS: Glucose Point of Care 194 mg/dl (65-105)
[2021-08-30] MEDS: guaiFENesin 12 HR 600 MG TABCR 1200 MG PO (08:19)
[2021-08-30] MEDS: CARBIDOPA/LEVODOPA 25/100 MG TABLET 2 TABLET PO ×2 (08:20→12:59)
[2021-08-30] MEDS: PANTOPRAZOLE 40 MG TABLET PO (08:21)
[2021-08-30] MEDS: OPTI-GEN TAB 1 TABLET PO (08:21)
[2021-08-30] MEDS: SERTRALINE HCL 50 MG TABLET 150 MG PO (08:22)
[2021-08-30] MEDS: DOCUSATE SODIUM 100 MG CAPSULE PO (08:22)
[2021-08-30] MEDS: CYANOCOBALAMIN 1,000 MCG TABLET 1000 MCG PO (08:23)
[2021-08-30] MEDS: LORATADINE 10 MG TABLET PO (08:23)
[2021-08-30] MEDS: DIVALPROEX SODIUM ER 500 MG TAB.24H PO (08:23)
[2021-08-30] MEDS: LIDOCAINE 5% PATCH 1 PATCH TRANSDERM (08:24)
[2021-08-30] MEDS: polyethylene glycoL 3350 17 GM POWD.PACK PO (08:24)
[2021-08-30] MEDS: EMPAGLIFLOZIN 10 MG TABLET PO (08:25)
[2021-08-30] MEDS: FOLIC ACID 0.4 MG TABLET 0.8 MG PO (08:25)
[2021-08-30] MEDS: CARBIDOPA/LEVODOPA 12.5/50 MG TABLET 1 TABLET PO ×2 (08:26→12:59)
[2021-08-30] MEDS: FLUTICASONE PROPIONATE 0.05% NA SPR 16 GM BTL (*BKC) 1 SPRAY NASAL (08:26)
[2021-08-30 08:36] LABS: Hematocrit 22.6 % (37.0-46.0); Hemoglobin 7.2 g/dL (12.4-15.3); Mean Corpuscular HGB Conc 31.9 g/dL (32.0-36.0); Mean Corpuscular Hemoglobin 26.9 pg (27.0-31.0); Mean Corpuscular Volume 84.3 fL (78.0-102.0); Mean Platelet Volume 10.3 fl (8.7-11.0); Platelet Count Result 215 K/mm3 (150-420); Red Blood Count 2.68 M/mm3 (4.70-6.10); Red Cell Distribution Width 19.7 % (11.6-14.4); White Blood Count 11.2 K/mm3 (4.8-10.8)
--- NOTE | 2021-08-30 08:39 | PCSTNOTE ---
Patient will not be seen for ST this date due to low hemoglobin and plan to be transferred to another hospital.
[2021-08-30 09:00] LABS: Immature Reticulocyte Fraction 17.1 % (2.0-16.52); Reticulocyte Hemoglobin Conten 25.4 pg (28.0-35.0); Reticulocyte Percent 0.27 % (0.50-1.50); Reticulocytes Absolute 0.01 M/mm3 (0.02-0.1)
[2021-08-30 09:10] LABS: Band Neutrophils Percent 6 % (0-6); Lymphocytes Absolute Manual 0.44 K/mm3 (1.1-4.5); Lymphocytes Percent Manual 4 % (18-44); Metamyelocytes Percent 3 %; Monocytes Absolute Manual 0.22 K/mm3 (0.1-0.90); Monocytes Percent Manual 2 % (3-9); Myelocytes Percent 2 %; Neutrophils Absolute Manual 9.96 K/mm3 (1.3-6.7); Neutrophils Percent Manual 83 % (46-73); Platelet Estimate Adequate (Adequate); Total Cells Counted 100
[2021-08-30 09:26] LABS: Occult Blood Negative (Negative)
[2021-08-30 09:35] LABS: Bilirubin Direct 0.1 mg/dL (0-0.2); Bilirubin,Total 0.3 mg/dL (0.00-1.00); Thyroid Stimulating Hormone Reflex 2.25 u/IU/mL (0.36-3.74)
[2021-08-30 09:38] LABS: Iron 13 ug/dL (65-175); Lactate Dehydrogenase 112 U/L (85-227)
[2021-08-30 09:40] LABS: Ferritin > 1000 ng/mL (26-388)
[2021-08-30 09:41] LABS: Folic Acid > 20.0 ng/mL (8.6->20); Vitamin B12 > 2000 pg/mL (193-986)
[2021-08-30 10:01] LABS: Percent Iron Saturation 13 % (12-57)
[2021-08-30 10:04] LABS: Alanine Aminotransferase 8 U/L (16-63); Albumin Level 1.8 g/dL (3.4-5.0); Alkaline Phosphatase 84 U/L (46-116); Anion Gap 8 mmol/L (8-16); Aspartate Amino Transferase 58 U/L (15-37); Bilirubin,Total 0.3 mg/dL (0.00-1.00); Blood Urea Nitrogen 46 mg/dL (7-18); Calcium 9.1 mg/dL (8.5-10.1); Carbon Dioxide 24 mmol/L (21-32); Chloride 106 mmol/L (98-108); Estimated CRCL calculation 20 ml/min; Estimated Glomerular Filt Rate 28; Glucose 164 mg/dL (70-99); Osmolality Calculated 301 mOsm/kg (285-295); Potassium 4.3 mmol/L (3.5-5.1); Sodium 138 mmol/L (136-145); Total Protein 5.4 g/dL (6.4-8.2)
--- NOTE | 2021-08-30 10:05 | PC.NURSE ---
18 g IV started in RFA on 2nd attempt. Patient tolerated well.
--- NOTE | 2021-08-30 10:12 | P.TS_ITS ---
Transfer Discharge Sum: Prov Provider Date of admission: 08/27/21 14:15 Primary care physician: Linda Blanc MD Admitting clinician: Onur Roberts MD Attending physician on admission: Mike Roberts Attending physician on discharge: Mike Roberts Discharging clinician: Wade Blanchard Anticipated date of transfer: 08/30/21 Receiving physician/facility: [facility] accepted by Dr. Salguero DS: Admitting Diagnosis Discharge Date 08/30/2021 Admitting Diagnosis weakness /swing bed DS: Discharge Diagnosis Discharge Diagnosis (1) Acute UTI: Code(s): N39.0 - Urinary tract infection, site not specified Status: Acute Assessment and Plan: * Treatment completed * encourage Po fluids * monitor urinary output patient incontinent * Repeat UA with culture pending (2) Acute renal insufficiency: Code(s): N28.9 - Disorder of kidney and ureter, unspecified Status: Acute Assessment and Plan: * Creatinine worsening 1.70>1.82>2.26 * Avoid nephrotoxic drugs * metformin and Glucophage held * Continue Accu-Cheks we will treat with sliding scale * Encourage p.o. fluids (3) Weakness: Code(s): R53.1 - Weakness Status: Acute Assessment and Plan: * Physical therapy and Occupational Therapy to evaluate and treat * Ensure patient has adequate hydration and nutrition * Monitoring any signs and symptoms of infection (4) Acute hyperglycemia: Code(s): R73.9 - Hyperglycemia, unspecified Status: Acute Assessment and Plan: * Monitor patient's blood sugars * Treat with insulin at this time * Hemoglobin A1c if not completed in the last 6 months (5) Anemia: Code(s): D64.9 - Anemia, unspecified Status: Acute Assessment and Plan: * Monitor hemoglobin levels hgb 7.1>6.5>7.1 2 units of PRBCs ordered. 1 unit infused at this hospital * CT of the abdomen indicates possible hemorrhage in the renal collection system * Patient being transfused [facility] accepted by Dr. Salguero for urology consult * Chronic anemia anemia work-up pending * iron 13 TIBC 104 ferritin greater than 1000 vitamin B12 greater than 2000 folate greater than 20 TSH 2.25 * Occult blood negative (6) Frequent falls: Code(s): R29.6 - Repeated falls Status: Acute Assessment and Plan: * Patient on fall precautions * Removed things that could be a hazard (7) Adult failure to thrive: Code(s): R62.7 - Adult failure to thrive Status: Acute Assessment and Plan: * Encourage patient to have p.o. intake (8) Type 2 diabetes mellitus with hyperglycemia: Qualifiers: Diabetes mellitus machine long goods helper insulin use: without usp use Qualified Code(s): E11.65 - Type 2 diabetes mellitus with hyperglycemia Code(s): E11.65 - Type 2 diabetes mellitus with hyperglycemia Status: Acute Assessment and Plan: * Hold Glucophage and glipizide * Accu-Chek before meals and at bedtime * Low-dose sliding scale * Encourage p.o. 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
--- NOTE | 2021-08-30 10:12 | PM.TDS ---
Transfer Discharge Sum: Prov Provider Date of admission: 08/27/21 14:15 Primary care physician: Linda Blanc MD Admitting clinician: Onur Roberts MD Attending physician on admission: Mike Roberts Attending physician on discharge: Mike Roberts Discharging clinician: Wade Blanchard Anticipated date of transfer: 08/30/21 Receiving physician/facility: [facility] accepted by Dr. Salguero DS: Admitting Diagnosis Discharge Date 08/30/2021 Admitting Diagnosis weakness /swing bed DS: Discharge Diagnosis Discharge Diagnosis (1) Acute UTI: Code(s): N39.0 - Urinary tract infection, site not specified Status: Acute Assessment and Plan: Treatment completed encourage Po fluids monitor urinary output patient incontinent Repeat UA with culture pending (2) Acute renal insufficiency: Code(s): N28.9 - Disorder of kidney and ureter, unspecified Status: Acute Assessment and Plan: Creatinine worsening 1.70>1.82>2.26 Avoid nephrotoxic drugs metformin and Glucophage held Continue Accu-Cheks we will treat with sliding scale Encourage p.o. fluids (3) Weakness: Code(s): R53.1 - Weakness Status: Acute Assessment and Plan: Physical therapy and Occupational Therapy to evaluate and treat Ensure patient has adequate hydration and nutrition Monitoring any signs and symptoms of infection (4) Acute hyperglycemia: Code(s): R73.9 - Hyperglycemia, unspecified Status: Acute Assessment and Plan: Monitor patient's blood sugars Treat with insulin at this time Hemoglobin A1c if not completed in the last 6 months (5) Anemia: Code(s): D64.9 - Anemia, unspecified Status: Acute Assessment and Plan: Monitor hemoglobin levels hgb 7.1>6.5>7.1 2 units of PRBCs ordered. 1 unit infused at this hospital CT of the abdomen indicates possible hemorrhage in the renal collection system Patient being transfused [facility] accepted by Dr. Salguero for urology consult Chronic anemia anemia work-up pending iron 13 TIBC 104 ferritin greater than 1000 vitamin B12 greater than 2000 folate greater than 20 TSH 2.25 Occult blood negative (6) Frequent falls: Code(s): R29.6 - Repeated falls Status: Acute Assessment and Plan: Patient on fall precautions Removed things that could be a hazard (7) Adult failure to thrive: Code(s): R62.7 - Adult failure to thrive Status: Acute Assessment and Plan: Encourage patient to have p.o. intake (8) Type 2 diabetes mellitus with hyperglycemia: Qualifiers: Diabetes mellitus [facility] insulin use: without technician terminal and repeater use Qualified Code(s): E11.65 - Type 2 diabetes mellitus with hyperglycemia Code(s): E11.65 - Type 2 diabetes mellitus with hyperglycemia Status: Acute Assessment and Plan: Hold Glucophage and glipizide Accu-Chek before meals and at bedtime Low-dose sliding scale Encourage p.o. 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 Status: Acute (10) Hypotension: Code(s): I95.9 - Hypotension, unspecified Status: Acute Assessment and Plan: Possibly secondary to hypovolemia caused by hemorrhage Will treat underlying cause Plan CT of the abdomen indicates nal pelvis which abruptly terminates at the UPJ, suspicious for UPJ obstruction Patient will transfer with a urology consult at [facility] Unsure if this is chronic or acute Transfer Discharge Sum: Med Medications Active and Home Medications: Home Medications carbidopa 25 mg-levodopa 100 mg tablet 2.5 tablet PO TID 03/08/19 [History Confirmed 08/27/21] vitamin B12 500 mcg-folic acid 400 mcg tablet 1 tablet PO DAILY 03/08/19 [History Confirmed 08/27/21] loratadine 10 mg tablet (Claritin) 10
--- NOTE | 2021-08-30 10:42 | PCDIET ---
1021 blood infusion started. See TAR for documentation.
[2021-08-30] MEDS: SODIUM CHLORIDE 0.9% IV 250 ML 100 ML (10:50)
[2021-08-30 11:41] LABS: Glucose Point of Care 270 mg/dl (65-105)
--- NOTE | 2021-08-30 13:28 | PC.NURSE ---
Blood product infused. Patient tolerated well.
--- NOTE | 2021-08-30 13:40 | PC.NURSE ---
Patient got zosin late d/t administration of blood products.
[2021-08-30] MEDS: SODIUM CHLORIDE 0.9% IV 1,000 ML 999 ML IV CONT (14:05)
--- NOTE | 2021-08-30 14:35 | PC.NURSE ---
Patient transferred back to [facility] via [facility] on stretcher, d/t unstable labs and low BP. Personal items sent with patient on ambulance. Report called to Prashanth at [facility]. Patient going into room 209.
[2021-09-04 14:40] LABS: Haptoglobin 216 mg/dL (43-212); Transferrin 99 mg/dL (188-341)
== END 2021-08-30 14:35 | disposition short-term general hospital (02) | DRG 948 ==
PROVIDERS: Nurse Practitioner; Nurse Practitioner Family; Admitting Provider Internal Medicine; PCP Family Medicine; Visit Provider Internal Medicine
DX: R53.1 Weakness (principal); D64.9 Anemia, unspecified; I95.9 Hypotension, unspecified; E11.22 Type 2 diabetes mellitus with diabetic chronic kidney disease; N18.9 Chronic kidney disease, unspecified; I35.0 Nonrheumatic aortic (valve) stenosis; J44.9 Chronic obstructive pulmonary disease, unspecified; N13.5 Crossing vessel and stricture of ureter without hydronephrosis; G20 Parkinson's disease; R62.7 Adult failure to thrive; R29.6 Repeated falls; F31.9 Bipolar disorder, unspecified; Z86.73 Personal history of transient ischemic attack (TIA), and cerebral infarction without residual deficits; Z79.899 Other long term (current) drug therapy; Z87.891 Personal history of nicotine dependence
CPT/HCPCS: 36415; 36430; 71045; 74176; 80048; 80053; 82247; 82248; 82272; 82607; 82728; 82746; 82948; 83010; 83540; 83550; 83615; 84443; 84466; 85025; 85027; 85046; 86850; 86900; 86901; 86920; 87040; 92610; 97110; 97161; 97165; 97530; 97535; A9270; J1815; J2543; J7030; J7050; P9016

== ENCOUNTER 2021-08-30 15:13 | Inpatient (IN) | payer MEDICARE, SELFPAY ==
--- NOTE | ~2021-08-30 | US_ITS ---
EXAMINATION: US venous doppler E DATE: 08/31/2021 13:12 INDICATION: Upper limb edema TECHNIQUE: Grayscale ultrasound images without and with compression and Doppler ultrasound images of the bilateral upper extremity veins were obtained. COMPARISON: None. FINDINGS: The right internal jugular vein, subclavian vein, axillary vein, brachial veins, basilic vein, cephal ic vein, radial vein, and ulnar vein are patent. There is partial thrombosis of the left ulnar vein. The left internal jugular vein, subclavian vein, axillary vein, brachial veins, basilic vein, cephalic vein, and radial vein are patent. IMPRESSION: 1. Partial thrombosis of the left ulnar vein. 2. No evidence of deep venous thrombosis of the right upper extremity. Reviewed, dictated and finalized at location F.
--- NOTE | ~2021-08-30 | XR_ITS ---
EXAMINATION: XR retrograde pyelo w/stent RT DATE: 08/31/2021 15:56 INDICATION: Right internal ureteral stent placement TECHNIQUE: Fluoroscopic images from a right internal ureteral stent placement are submitted for loli palafox 52 seconds of fluoroscopy time. Fluoroscopic images. FINDINGS: There is a right double-J internal ureteral stent projecting in expected position, with proximal [place] loop at the level of the renal pelvis and distal loop in the pelvis within the bladder lumen. IMPRESSION: 1. Right internal ureteral stent placement. Please refer to real-time procedural findings for dom mascorro. Reviewed, dictated and finalized at location A. IMPRESSION: 1. Right internal ureteral stent placement. Please refer to real-time procedu ral findings for details.
--- NOTE | ~2021-08-30 | US_ITS ---
EXAMINATION: US renal BI DATE: 09/04/2021 09:38 INDICATION: Right hydronephrosis TECHNIQUE: Multiple grayscale and Doppler ultrasound images of the kidneys were obtained. COMPARISON: 08/31/2021 FINDINGS: The right kidney measures 11.3 x 5.3 x 4.5 cm and contains a 3.9 cm cyst. A right internal ureteral stent is coiled in the right renal pelvis. The left kidney measures 13.5 x 5.1 x 6.5 cm. The kidneys demonstrate normal parenchymal echogenicity. A small volume of ascites is present. There is mild right hydronephrosis. The bladder is decompressed by Akhtar catheter. IMPRESSION: 1. Right internal ureteral stent insertion with mild persistent right hydronephrosis. 2. Ascites. Reviewed, dictated and finalized at location B. IMPRESSION: 1. Right internal ureteral stent insertion with mild persistent right hydroneph rosis. 2. Ascites.
--- NOTE | ~2021-08-30 | US_ITS ---
EXAMINATION: US carotid duplex BI DATE: 08/31/2021 13:04 INDICATION: Carotid bruit TECHNIQUE: Grayscale, color Doppler, and pulsed Doppler images of the cervical carotid arteries were obtained. The degree of vessel stenosis is placed in one of the following categories: normal, <50%, 5 0-69%, >=70% but less than near-occlusion, near-occlusion, or total occlusion. Note that percent sten osis relative to normal distal artery lumen diameter is indirectly measured from velocity measurement s as described by Dennis, et al. Radiology 2003; 229:340-346. COMPARISON: 01/24/2016 FINDINGS: RIGHT: The right common carotid artery (CCA) peak systolic velocity (PSV) is 114 cm/s. The right internal ca rotid artery (ICA) PSV is 93 cm/s. The right ICA end-diastolic velocity (EDV) is 26 cm/s. The right I CA/CCA PSV ratio is 0.8. Grayscale and color Doppler images yield an estimate of <50% diameter reduct ion from plaque in the ICA. The external carotid artery (ECA) PSV is 119 cm/s. There is antegrade lorrie w in the right vertebral artery. LEFT: The left CCA PSV is 98 cm/s. The left ICA PSV is 103 cm/s. The left ICA EDV is 28 cm/s. The left ICA/ CCA PSV ratio is 1.1. Grayscale and color Doppler images yield an estimate of <50% diameter reduction from plaque in the ICA. The ECA PSV is 108 cm/s. There is antegrade flow in the left vertebral arter y. IMPRESSION: 1. <50% stenosis in the right internal carotid artery. 2. <50% stenosis in the left internal carotid artery. Reviewed, dictated and finalized at location A.
--- NOTE | ~2021-08-30 | US_ITS ---
EXAMINATION: US venous doppler UE DATE: 09/04/2021 09:38 INDICATION: Left upper limb swelling, history of deep venous thrombosis TECHNIQUE: Grayscale ultrasound images without and with compression and Doppler ultrasound images of the left upper extremity veins were obtained. COMPARISON: 08/31/2021. FINDINGS: The left internal jugular vein, subclavian vein, axillary vein, brachial veins, basilic vein, cephali c vein, radial vein, and ulnar vein are patent. IMPRESSION: 1. No evidence of deep venous thrombosis. Reviewed, dictated and finalized at location B.
--- NOTE | ~2021-08-30 | US_ITS ---
EXAMINATION: US renal BI DATE: 08/31/2021 13:07 INDICATION: Acute kidney injury TECHNIQUE: Multiple grayscale and Doppler ultrasound images of the kidneys were obtained. COMPARISON: None. FINDINGS: The right kidney measures 13.3 x 6.4 x 6.9 cm. There is severe right hydronephrosis. The le ft kidney measures 12.1 x 4.7 x 6.9 cm. The kidneys demonstrate normal parenchymal echogenicity. Ther e is no hydronephrosis. The bladder is decompressed by Akhtar catheter. IMPRESSION: 1. Severe right hydronephrosis. Reviewed, dictated and finalized at location F.
[2021-08-30 15:13] VITALS: BMI 20.6
--- NOTE | 2021-08-30 16:17 | ADMGEN ---
This patient, Getachew Barrera, was admitted to IMU Room 209-01. Patient/family oriented to hospital policies and general routines including ID bracelet, bed and alarms, visiting hours, pain management, procedures, bathroom and other care routines, personal items, smoking policy, room service/diet, and visiting hours. Information on how to activate the Rapid Response Team has been discussed. Patient/Family are encouraged to report perceived risks to care and to ask questions if they do not understand what they are told or what they should do.
[2021-08-30 16:34] VITALS: BP 96/56; PULSE 79; RESP 18; TEMP 37; O2SAT 98
--- NOTE | 2021-08-30 17:37 | PM.IMHP ---
H&P: HPI History of Present Illness Date/Time: 08/30/21 17:37 Chief Complaint: Anemia Narrative: 76yo male with hx of COPD, Parkinson's disease and DM here for anemia and obstructing renal mass. Patient initially presente to the hospital on 08/20 from home for fall, generalized weakness,nausea and vomiting. UA was concerning for UTI but urine culture was negative. He was started on Rocephin on admission. He had GABRIELA with Cr 1.4 that worsened to 1.8. One blood culture grew out Staph coccus hominis. Antibiotics were changed to cefepime, Flagyl and Vancomycin and then narrowed once bacteria was identified. Blood cultures were repeated and they were negative. MRSA nasal swab and repeat UCx were negative. CT chest showed atelectasis in the RLL. It mentions a 3.9cm right renal cyst. He was anemic but it appears to be chronic with Hgb in the 7-8 range. Patient was discharged on 08/27/21 to rehab facility. At the rehab facility this morning, the patient's BP was 84/48. He had low grade fever to 100.5. Patient is alert and oriented but at times has difficulty providing detailed history. His is present who supplements this history. Patient states he has been weak with no energy since the fall that prompted his 1st admission. Patient has multiple chronic complaints although none appear to be acute over the past few days. He complains of increased voiding. He has had dysuria for about a month. He has been more constipated recently. No melena or hematochezia. He does have lower abdominal pain. He has chronic back pain that worsened over the past several months. No chest pain. No headaches or vision changes. He does have dysphagia but this is longstanding. He has a cough the past 6 months she has a worse in the morning productive green sputum. He was a heavy alcohol and tobacco user in the past. He currently vapes still. He also smokes marijuana to help with his appetite. His states that he is a very picky eater and he has trouble eating because he is edentulous. Labs drawn today showing WBC was 13.7K with Hgb 6.5. BUN 46 with Cr 2.3. Fe 13, TIBC 104 and TSAT 13%. TSH, b12 and folate normal. Transfsed 1 unit of PRBC. Stool guaiac negative. CXR showing increasing right basilar consolidation and mild edema. CT of Abd/pelvis showing bibasilar airspace consolidation, small pleural effusions, chronic pancreatitis, emphysema and hyperdense fluid in dilated right renal collecting system which abruptly terminates at the UPJ suspicious for obstruction. Fluid may represent hemorrhage. Patient was transferred to [facility] for further care. 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 Other Unknown family medical history Social History Social History (Updated 08/30/21 @ 19:10 by Mike Roberts MD) Social History: Patient is adopted. Lives at home in [place] with his , Phoebe Barrera. He has 4 children. He is retired. 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 He reports daily vaping. He is
[2021-08-30 17:44] LABS: Lactic Acid Reflex 1.6 mmol/L (0.7-2.0)
[2021-08-30 17:47] LABS: Alanine Aminotransferase 7 U/L (6-50); Albumin Level 2.4 g/dL (3.5-5.1); Alkaline Phosphatase 89 U/L (38-126); Anion Gap 7 mmol/L (8-16); Aspartate Amino Transferase 47 U/L (17-59); Bilirubin,Total 0.4 mg/dL (0.2-1.3); Blood Urea Nitrogen 45 mg/dL (9-20); Calcium 8.6 mg/dL (8.4-10.2); Carbon Dioxide 19 mmol/L (22-30); Chloride 109 mmol/L (98-107); Estimated CRCL calculation 28 ml/min; Estimated Glomerular Filt Rate 35; Glucose 148 mg/dL (65-110); Magnesium 1.7 mg/dL (1.6-2.3); Sodium 135 mmol/L (137-145)
[2021-08-30 17:48] LABS: Hematocrit 26.7 % (42.0-52.0); Hemoglobin 8.5 g/dL (14.0-18.0); Mean Corpuscular HGB Conc 31.8 g/dl (32-36); Mean Corpuscular Hemoglobin 27.8 pg (26-34); Mean Corpuscular Volume 87.3 fl (80-100); Mean Platelet Volume 10.3 fl (7.4-10.4); Platelet Count Result 210 k/mm3 (150-375); Red Blood Count 3.06 M/mm3 (4.6-6.20); Red Cell Distribution Width 18.3 % (11.5-14.5); White Blood Count 12.1 K/mm3 (4.5-10.0)
[2021-08-30 18:00] VITALS: PULSE 79
[2021-08-30] MEDS: SODIUM CHLORIDE 0.9% IV 1,000 ML 100 ML IV CONT (18:24)
[2021-08-30 18:44] LABS: Band Neutrophils Percent 5 % (0-6); Lymphocytes Absolute Manual 1.69 K/mm3 (1.1-4.5); Lymphocytes Percent Manual 14 % (18-44); Metamyelocytes Percent 2 %; Monocytes Absolute Manual 0.24 K/mm3 (0.1-0.90); Monocytes Percent Manual 2 % (3-9); Myelocytes Percent 1 %; Neutrophils Percent Manual 76 % (46-73); Platelet Estimate Adequate (Adequate); Total Cells Counted 100
[2021-08-30 18:45] LABS: Ovalocytes 1+ (NORMAL); Target Cells 1+ (NORMAL)
[2021-08-30 18:47] VITALS: BP 104/60; PULSE 76; RESP 18; TEMP 37.4; O2SAT 100
[2021-08-30 20:00] VITALS: BP 116/56; PULSE 81; PULSE 87; RESP 12; TEMP 37.4; O2SAT 95
[2021-08-30 21:44] LABS: Appearance Urine Clear (Clear); Bilirubin Urine Negative (Negative); Blood Urine Trace-lysed (Negative); Color Urine Yellow (Yellow); Glucose Urine UA 2+ mg/dL (Negative); Ketones Urine Negative (Negative); Leukocyte Esterase Ur 2+ LEU/UL (NEGATIVE); Nitrate Urine Negative (Negative); Protein Urine 1+ mg/dL (Negative); Urobilinogen Urine 0.2 mg/dL (<2.0)
[2021-08-30 21:50] LABS: Add Urine Microscopic? YES; Bacteria Urine Trace /hpf; Mucus Urine Rare /lpf; WBC Clumps Urine Present /HPF; WBC Urine >75 /hpf (0-3)
[2021-08-30 22:00] VITALS: PULSE 82
[2021-08-30 22:04] LABS: Creatinine Urine 39.9 mg/dL; Total Protein Urine Random 50 mg/dL; Ur Ttl Prot Creatinine Ratio 1.25 mg/mg (0-0.20)
[2021-08-30 22:11] LABS: Potassium Urine Random 19.5 meq/L; Sodium Urine Random 77 meq/L
[2021-08-31] VITALS (17 sets, daily range): BP systolic 104–130; BP diastolic 54–88; PULSE 75–111; RESP 12–22; TEMP 36.6–37.5; O2SAT 91–99; BMI 19.8
--- NOTE | 2021-08-31 | ECHO_ITS ---
Patient Info Name: Getachew Barrera Age: 76 years : 1945 Gender: Male Ht: 72 in Wt: 142 lbs BSA: 1.80 m2 HR: 85 bpm BP: 111 / 54 mmHg Heart Rhythm: Sinus Rhythm Technical Quality: Fair Exam Date: 08/31/2021 8:15 AM Exam Location: [facility] Patient Status: Outpatient Admit Date: 08/30/2021 Staff Ordering Physician: Mike Roberts MD Wire Coating Operator Metal: Haylee Titus RDCS Attending Provider: Jt Salguero MD Exam Type: CA echo doppler color flow Study Info Indications - ao stenosis Complete two-dimensional, color flow and Doppler transthoracic echocardiogram is performed. Summary 1. Complete two-dimensional, color flow and Doppler transthoracic echocardiogram is performed. 2. Left ventricular chamber dimension is normal. 3. Left ventricular systolic function is normal, estimated at 60-65%. 4. Left ventricular septal wall motion is abnormal with septal motion related to bundle branch block. 5. The left ventricular diastolic function is grade I diastolic dysfunction. 6. E/e' 12 is mildly elevated. 7. The aortic valve is possibly bicuspid or with fusion of right and left coronary cusps. 8. There is severe aortic valve sclerosis. 9. There is moderate aortic valve stenosis with a peak velocity of 255 cm/s, mean gradient of 12 mmHg, and aortic valve area of 1.4 cm2. 10. Mild pulmonary hypertension, estimated pulmonary arterial systolic pressure is 42 mmHg. 11. The aortic root size at the sinus of Valsalva is mildly dilated at 4.3 cm. Left Ventricle E/e' 12 is mildly elevated. Left ventricular chamber dimension is normal. Left ventricular systolic function is normal, estimated at 60-65%. Left ventricular septal wall motion is abnormal with septal motion related to bundle branch block. The left ventricular diastolic function is grade I diastolic dysfunction. Right Ventricle Right ventricular systolic function is normal and with normal TAPSE 1.7 cm. Right ventricular chamber dimension is normal. Left Atria Left atrial chamber dimension is normal. Right Atria Right atrial chamber dimension is normal. Aortic Valve The aortic valve is possibly bicuspid or with fusion of right and left coronary cusps. There is severe aortic valve sclerosis. There is moderate aortic valve stenosis with a peak velocity of 255 cm/s, mean gradient of 12 mmHg, and aortic valve area of 1.4 cm2. Pulmonic Valve There is no pulmonic regurgitation. Mitral Valve There is no mitral valve stenosis. There is no mitral valve regurgitation. Tricuspid Valve There is no tricuspid valve regurgitation. Mild pulmonary hypertension, estimated pulmonary arterial systolic pressure is 42 mmHg. Pericardium/Pleural There is no pericardial effusion. Inferior Vena Cava Normal inferior vena cava with >50% collapse upon inspiration consistent with normal right atrial pressure, 5 mmHg. Aorta The aortic root size at the sinus of Valsalva is mildly dilated at 4.3 cm. Left Ventricular Outflow Tract Name Value Normal LVOT 2D LVOT Diameter 2.0 cm LVOT Doppler LVOT Peak Velocity 91 cm/s
[2021-08-31 00:24] LABS: Eosinophil Urine None Seen % (None Seen)
[2021-08-31 05:03] LABS: Hematocrit 26.8 % (42.0-52.0); Hemoglobin 8.8 g/dL (14.0-18.0); Mean Corpuscular HGB Conc 32.8 g/dl (32-36); Mean Corpuscular Hemoglobin 27.8 pg (26-34); Mean Corpuscular Volume 84.5 fl (80-100); Mean Platelet Volume 9.8 fl (7.4-10.4); Platelet Count Result 207 k/mm3 (150-375); Red Blood Count 3.17 M/mm3 (4.6-6.20); Red Cell Distribution Width 18.4 % (11.5-14.5); White Blood Count 11.6 K/mm3 (4.5-10.0)
[2021-08-31 05:12] LABS: Lactic Acid Reflex 0.7 mmol/L (0.7-2.0)
[2021-08-31 05:17] LABS: Complement C3 86 mg/dL (88-165)
[2021-08-31 05:22] LABS: Albumin Level 2.2 g/dL (3.5-5.1); Alkaline Phosphatase 83 U/L (38-126); Anion Gap 7 mmol/L (8-16); Aspartate Amino Transferase 52 U/L (17-59); Bilirubin,Total 0.2 mg/dL (0.2-1.3); Blood Urea Nitrogen 42 mg/dL (9-20); Calcium 8.6 mg/dL (8.4-10.2); Carbon Dioxide 19 mmol/L (22-30); Chloride 109 mmol/L (98-107); Creatine Kinase 33 U/L (55-170); Estimated CRCL calculation 31 ml/min; Estimated Glomerular Filt Rate 39; Glucose 135 mg/dL (65-110); Magnesium 1.6 mg/dL (1.6-2.3); Phosphorus 2.7 mg/dL (2.5-4.5); Potassium 3.9 mmol/L (3.4-5.0); Sodium 135 mmol/L (137-145)
[2021-08-31 05:31] LABS: CRP 19.7 mg/dL (<1.0)
[2021-08-31 05:34] LABS: Alanine Aminotransferase < 6 U/L (6-50)
[2021-08-31 06:09] LABS: Glucose Point of Care 144 mg/dl (65-105)
[2021-08-31] MEDS: SODIUM CHLORIDE 0.9% IV 1,000 ML 100 ML IV CONT ×2 (06:35→20:59)
--- NOTE | 2021-08-31 09:10 | WPDURCON ---
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 Will plan on cysto retrograde stent placement today to see if this helps with his renal function. Depending on how he does clinically he may need ureteroscopy at a later point time and/or contrast study if his kidney function normalizes. (2) Acute renal insufficiency: Code(s): N28.9 - Disorder of kidney and ureter, unspecified Status: Acute Assessment and Plan: See above Urology Consult Note HPI Date Seen: 08/31/21 Time Seen: 08:00 Requesting Physician: Jt Salguero MD Primary Care Provider: Linda Blanc MD Consult Narrative Reason for consult: Right hydronephrosis with renal colic and renal insufficiency Narrative: Getachew Barrera is a 76 year old male with multiple medical problems. Unable to have any significant conversation with the patient. Patient was transferred from [facility]. He has a history of diabetes acute kidney injury, COPD and chronic anemia. During his evaluation with a CT scan he was found to have right hydronephrosis with a dilated collecting system to the UPJ area. There was a question of some blood in the collecting system. We are unable to obtain contrast study due to his renal insufficiency at this time. When asking the patient about pain he is nonspecific and states hurts all over. His baseline renal function back in May of 2021 was 1. He got up to a level of 2.2 and now is at 1.7. We are asked to further evaluate. 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 Other Unknown family medical history Social History Social History (Updated 08/30/21 @ 19:10 by Mike Roberts MD) Social History: Patient is adopted. Lives at home in [place] with his , Phoebe Barrera. He has 4 children. He is retired. 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 He reports daily vaping. He is a former 50 pack-year smoker. He denies alcohol use but was a heavy alcohol user up until 40 years ago. He notes occasional marijuana use. He is a DNR and he has designated his surrogate medical decision maker as his , Phoebe Barrera. Smoking packs per day: 1.5 Smoking cigarettes per day: 30.0 Years smoked: 55 Smoking pack-years: 82.50 Smoking status: Former smoker Second hand tobacco smoke exposure: No Alcohol intake: never Substance use: current Substance use type: marijuana Other substance usage details: smokes Last use: 1 week Gender identity (if verbalized by the patient): Male Spiritual care concerns: No Agree to blood products: Yes Meds Home Medications and Allergies Home Medications Medication Instructions Recorded Confirmed Type carbidopa 25 mg-levodopa 100 mg 2.5 tablet PO TID 03/08/19 08/30/21 History tablet
[2021-08-31] MEDS: FOLIC ACID 0.4 MG TABLET 0.8 MG PO (09:35)
[2021-08-31] MEDS: CARBIDOPA/LEVODOPA 25/100 MG TABLET 2 TABLET PO ×2 (09:35→18:05)
[2021-08-31] MEDS: DIVALPROEX SODIUM ER 500 MG TAB.24H PO ×2 (09:35→21:01)
[2021-08-31] MEDS: CARBIDOPA/LEVODOPA 12.5/50 MG TABLET 1 TABLET PO ×2 (09:35→18:05)
[2021-08-31] MEDS: MULTIVITAMINS /C LUTEIN (CENTRUM SILVER) TABLET *BKC 1 TAB PO (09:35)
[2021-08-31] MEDS: guaiFENesin 12 HR 600 MG TABCR 1200 MG PO ×2 (09:38→21:10)
[2021-08-31] MEDS: SERTRALINE HCL 50 MG TABLET 150 MG PO (09:39)
[2021-08-31] MEDS: PANTOPRAZOLE 40 MG TABLET PO ×2 (09:39→21:05)
[2021-08-31] MEDS: CYANOCOBALAMIN 1,000 MCG TABLET 1000 MCG PO (09:39)
[2021-08-31] MEDS: CHOLECALCIFEROL 1,000 UNITS TABLET 1000 UNITS PO (09:39)
[2021-08-31] MEDS: FLUTICASONE PROPIONATE 0.05% NA SPR 16 GM BTL (*BKC) 2 SPRAY NASAL (09:39)
--- NOTE | 2021-08-31 12:03 | PM.IMPN ---
Progress Note: A&P Assessment and Plan (1) Hypotension: Code(s): I95.9 - Hypotension, unspecified Status: Acute Assessment and Plan: Patient's blood pressure overall has been well controlled up until the morning of admission with systolic in the 80s. He is fluid responsive with the blood transfusion and now with IV fluids. Systolic blood pressure has improved and more stable. Hypotension could be related to sepsis versus dehydration. WBC 11.6K but CRP 19. Continue IV antibiotics. Continue fluids. Continue to monitor. 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 CT of the chest 10 days ago mentions a right renal cyst so this finding may be chronic. UA noted. Concerning for UTI. Renal functions improved with the fluids. Discussed with urology. Renal ultrasound pending. Plan for cystoscopy later today. Will continue to follow. (3) Anemia: Code(s): D64.9 - Anemia, unspecified Status: Acute Assessment and Plan: Patient's hemoglobin has been low since a year ago running in the 8-10 range mostly. Hemoglobin last admission was 11.4 but the following day dropped to 8.7. He may have bled into the renal pelvis. He did have blood in his urine on admission. Hemoglobin remained relatively stable in the 7-8 range but dropped to 6.5 at the Rehab. He received 1 unit packed red blood cells. Hemoglobin has improved to 8 range and stable. He was guaiac negative. May have been lab error given the brisk response with 1 unit. Iron studies are more consistent with anemia of chronic disease probably related to CKD, malnutrition and/or Parkinson's disease. No evidence of acute blood loss. Will continue to monitor H&H and transfuse as necessary. If stent placed, will see if there is old clotted blood in the right renal pelvis. (4) Acute UTI: Code(s): N39.0 - Urinary tract infection, site not specified Status: Acute Assessment and Plan: On the last admission, urinalysis was consistent with UTI but urine culture was negative. One Blood culture was positive for Staph hominis but repeat cultures were negative. Repeat UA and blood cultures pending. Continue broad-spectrum IV antibiotics. (5) Acute renal insufficiency: Code(s): N28.9 - Disorder of kidney and ureter, unspecified Status: Acute Assessment and Plan: Earlier this year patient's creatinine was 1.0-1.4 range but was 1.8 last admission. Creatinine on admission was 2.3 possibly related to obstructive process. He also may be dehydrated or related to UTI. He has had a metabolic non gap acidosis intermittently so consider RTA. Proteinuria could be related to the obstructive process. Urine eosinophils negative. Prot/Cr ration elevated at 1.25gm. Renal US pending. Cretainine better with fluids. Continue to follow. 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 PT and OT started He is having evidence of dysphagia so will have speech therapy evaluate and treat the patient as well. (7) Type 2 diabetes mellitus with hyperglycemia: Qualifiers: Diabetes mellitus fci insulin use: without parts counterman use Qualified Code(s): E11.65 - Type 2 diabetes mellitus with hyperglycemia Code(s): E11.65 - Type 2 diabetes mellitus with hyperglycemia Status: Acute Assessment and Plan: A1c 7.9. The patient's blood glucose was reviewed on 08/31/21 Glucose elev
--- NOTE | 2021-08-31 14:28 | WPDHPUPDATE1 ---
History and Physical Update Update Date/Time: 08/31/21 14:28 History and Physical has been reviewed, including an updated exam of the patient. There are NO changes in the patient's condition. Risks, benefits, and alternatives have been discussed and questions answered. Patient agrees to proceed with procedure. Proceed with cysto, right retrograde, right stent placement
--- NOTE | 2021-08-31 14:36 | PCPTNOTE ---
Attempted PT evaluation, pt off the floor for testing. Will follow
--- NOTE | 2021-08-31 14:39 | WPDANESEPPF ---
Anes - Initial Pre Proc Eval Procedure: Operation Date: 08/31/21 16:30 Proposed Procedures p Cystoscopy, Right Retrograde Pyelogram, Right Stent Placement(Right) - Brett Pope MD Date/Time: 08/31/21 14:39 Surgeon: Jt Salguero MD Pre Op Diagnosis: anemia,upj obstruction Patient Data Age: 76 Gender: M Height: 1.83 m Weight: 66.3 kg Last Vital Signs Temp 36.8 C 08/31/21 12:24 Pulse 95 08/31/21 12:24 Resp 16 08/31/21 12:24 BP 107/66 08/31/21 12:24 Pulse Ox 92 08/31/21 12:24 O2 Del Method Room Air 08/31/21 12:00 Allergies Allergy/AdvReac Type Severity Reaction Status Date / Time codeine Allergy Mild RASH,PT Verified 07/25/21 16:05 STATED HE IS NOT ALLERGIC TO THIS. Home Medications Medication Instructions Recorded Confirmed Type carbidopa 25 mg-levodopa 100 mg 2.5 tablet PO TID 03/08/19 08/30/21 History tablet vitamin B12 500 mcg-folic acid 400 1 tablet PO DAILY 03/08/19 08/30/21 History mcg tablet loratadine 10 mg tablet (Claritin) 10 mg PO DAILY 05/18/20 08/30/21 History gkvlrswn-uui-azamf acid 300 1 tablet PO DAILY 05/18/20 08/30/21 History mcg-lycopene 600 mcg-lutein 300 mcg tablet (Centrum Silver Men) primidone 50 mg tablet 50 mg PO HS 05/18/20 08/30/21 History acetaminophen 500 mg tablet 1,000 mg PO BID PRN Pain 06/06/20 08/30/21 History (Tylenol Extra Strength) docusate sodium 100 mg capsule 100 mg PO Q12HR 30 days #60 caps 06/08/20 08/30/21 Rx cholecalciferol (vitamin D3) 25 25 mcg PO DAILY 07/03/20 08/30/21 History mcg (1,000 unit) capsule folic acid 800 mcg tablet 0.8 mg PO DAILY 07/03/20 08/30/21 History melatonin 10 mg capsule 10 mg PO QHS 07/03/20 08/30/21 History sildenafil 100 mg tablet 100 mg PO DAILY PRN sexual 10/31/20 08/30/21 Rx activity #9 tabs lancets 28 gauge (Push Button #100 ea 11/03/20 08/30/21 Rx Safety Lancets) metformin 500 mg tablet,extended 1,000 mg PO BID #360 tabs 11/24/20 08/30/21 Rx release 24 hr divalproex 500 mg tablet,extended 500 mg PO BID #180 tabs 03/05/21 08/30/21 Rx release 24 hr empagliflozin 10 mg tablet 10 mg PO DAILY #30 tabs 03/22/21 08/30/21 Rx (Jardiance) aspirin 81 mg tablet,delayed 81 mg PO QAM 05/16/21 08/30/21 History release (Adult Aspirin Regimen) pantoprazole 40 mg tablet,delayed 40 mg PO BID 05/16/21 08/30/21 History release (Protonix) artificial tears solution eye drops 1 drp ophthalmic (eye) BID PRN Dry 05/17/21 08/30/21 History Eyes plecanatide 3 mg tablet 3 mg PO DAILY #30 tabs 06/27/21 08/30/21 Rx magnesium oxide 400 mg PO DAILY #30 tabs 06/29/21 08/30/21 Rx risperidone 0.5 mg tablet 0.5 mg PO QHS #30 tabs 06/29/21 08/30/21 Rx (Risperdal) fluticasone propionate 50 See Rx Instructions .Route 07/04/21 08/30/21 Rx mcg/actuation nasal .COMPLEX #16 grams spray,suspension blood sugar diagnostic #100 ea 07/09/21 08/30/21 Rx trazodone 50 mg tablet 50 mg PO HS #30 tabs 07/17/21 08/30/21 Rx dulaglutide 1.5 mg/0.5 mL See Rx Instructions .Route 08/01/21 08/30/21 Rx subcutaneous pen injector .COMPLEX #6.5 mL (Trulicity) glipizide 10 mg tablet 40 mg PO DAILY 08/20/21 08/30/21 History guaifenesin 1,200 mg tablet, 1,200 mg PO BID 08/20/21 08/30/21 History extended release 12 hr (Mucinex) lorazepam 0.5 mg tablet (Ativan) 0.5 mg PO HS PRN Anxiety 08/20/21 08/30/21 History polyethylene glycol 3350 17 gram 17 g PO DAILY 08/20/21 08/30/21 History oral powder packet (Miralax) sertraline 100 mg tablet 150 mg PO DAILY 08/20/21 08/30/21 History bisacodyl 10 mg rectal suppository 10 mg RECTAL QAM PRN Constipation 08/27/21 08/30/21 Rx #5 ea cyanocobalamin (vitamin B-12) 1,000 mcg PO QAM #30 tabs 08/27/21 08/30/21 Rx 1,000 mcg tablet (Vitamin B-12) Laboratory Tests 08/30/21 08/30/21 08/30/21 17:27 17:27 17:27 WBC 12.1 K/mm3 H K/mm3 (4.5-10.0) RBC 3.06 M/mm3 L M/mm3 (4.6-6.20) Hgb 8.5 g/dL L g/
[2021-08-31] MEDS: LACTATED RINGERS 1,000 ML 30 ML IV CONT (14:40)
--- NOTE | 2021-08-31 15:57 | W.PM.PROC2 ---
Procedure Note - Detailed Date of Procedure 08/31/21 Pre-op Diagnosis anemia,upj obstruction Post-op Diagnosis Same (Purulence in right renal pelvis) Procedure Performed Cystoscopy, right retrograde, right stent placement 6 [place] contour aspiration fluid from right renal pelvis, Akhtar placement Surgeon Brett Pope MD Anesthesia General Description of Procedure Patient is taken to the operative suite correctly identified. Once anesthesia was obtained was placed in dorsal lithotomy position and prepped draped usual sterile fashion. Twenty-two [place] scope was inserted into the bladder. There were no tumors noted. The right ureteral orifice was cannulated with a [place]. Pyelogram was performed. He has a ureter that appears somewhat narrow it is irregular in nature with what appears to be a UPJ proximally. Contrast made its way into the bladder. With placement of the [place] it was noted that purulence was coming from the right UO. The [place] was advanced all way up to the renal pelvis in approximately 10 cc of purulence was retrieved from the renal pelvis and sent for culture. We then placed a 6 [place] contour stent with the proximal end in the renal pelvis and the distal in the bladder. 2% viscous lidocaine was inserted into the urethra and a 16 [place] Akhtar was placed with 10 cc in the balloon. Patient is taken recovery stable condition. Will see how patient progresses. If it appears that this kidney still not draining well due to the significant thickness of this fluid then he may required percutaneous tube placed into the kidney. Urine Output 300 Drains Yes Packing No Pathology Yes Complications No immediate complications Condition Stable Disposition PACU
[2021-08-31 20:14] LABS: Glucose Point of Care 170 mg/dl (65-105)
[2021-08-31] MEDS: PRIMIDONE 50 MG TABLET PO (21:05)
[2021-08-31] MEDS: MELATONIN 5 MG TABLET 10 MG PO (21:05)
[2021-08-31] MEDS: MAGNESIUM OXIDE 400 MG TABLET PO (21:05)
[2021-08-31] MEDS: DOCUSATE SODIUM 100 MG CAPSULE PO (21:07)
[2021-08-31] MEDS: traZODone HCL 50 MG TABLET PO (21:07)
[2021-08-31] MEDS: risperiDONE 0.5 MG TABLET PO (21:07)
[2021-09-01] VITALS (16 sets, daily range): BP systolic 89–110; BP diastolic 48–59; PULSE 73–134; RESP 15–26; TEMP 35.8–39.5; O2SAT 90–97; BMI 11.0
[2021-09-01] MEDS: ACETAMINOPHEN 500 MG TABLET 1000 MG PO ×2 (00:35→12:21)
[2021-09-01 00:45] LABS: Glucose Point of Care 234 mg/dl (65-105)
[2021-09-01] MEDS: INSULIN ASPART (*BKC) 100 UNITS/ML SUB-Q ×2 (00:57→12:21)
[2021-09-01 05:42] LABS: Basophils Percent Auto 0.3 % (0.2-1.2); Eosinophils Percent Auto 0.3 % (0-4.4); Hematocrit 25.8 % (42.0-52.0); Hemoglobin 8.5 g/dL (14.0-18.0); Immature Granulocyte Absolute 0.33 K/mm3 (0.00-0.031); Immature Granulocyte Percent A 3.7 % (0-0.5); Lymphocytes Absolute Auto 0.61 K/mm3 (0.9-3.2); Lymphocytes Percent Auto 6.8 % (18.3-44.2); Mean Corpuscular HGB Conc 32.9 g/dl (32-36); Mean Corpuscular Hemoglobin 27.5 pg (26-34); Mean Corpuscular Volume 83.5 fl (80-100); Mean Platelet Volume 10.1 fl (7.4-10.4); Monocytes Absolute Auto 0.5 K/mm3 (0.1-0.6); Monocytes Percent Auto 5.4 % (2.6-8.5); Neutrophils Absolute Auto 7.4 K/mm3 (1.3-6.7); Neutrophils Percent Auto 83.5 % (45.5-73.1); Platelet Count Result 199 k/mm3 (150-375); Red Blood Count 3.09 M/mm3 (4.6-6.20); White Blood Count 8.9 K/mm3 (4.5-10.0)
[2021-09-01 05:52] LABS: Albumin Level 2.2 g/dL (3.5-5.1); Anion Gap 6 mmol/L (8-16); Blood Urea Nitrogen 41 mg/dL (9-20); Calcium 8.6 mg/dL (8.4-10.2); Carbon Dioxide 17 mmol/L (22-30); Chloride 114 mmol/L (98-107); Estimated CRCL calculation 40 ml/min; Estimated Glomerular Filt Rate 42; Glucose 162 mg/dL (65-110); Magnesium 1.7 mg/dL (1.6-2.3); Phosphorus 3.2 mg/dL (2.5-4.5); Potassium 3.7 mmol/L (3.4-5.0); Sodium 137 mmol/L (137-145)
[2021-09-01 05:59] LABS: Glucose Point of Care 155 mg/dl (65-105)
[2021-09-01] MEDS: SODIUM CHLORIDE 0.9% IV 1,000 ML 999 ML IV CONT (06:17)
[2021-09-01] MEDS: SODIUM CHLORIDE 0.9% IV 1,000 ML 100 ML IV CONT ×2 (07:00→21:02)
--- NOTE | 2021-09-01 08:13 | P.PNAN_ITS ---
Anes - Prog Note Post-Op Date/Time: 09/01/21 08:13 Vital Signs: Last Vital Signs Temp 35.8 C L 09/01/21 07:56 Pulse 78 09/01/21 07:56 Resp 16 09/01/21 07:56 BP 104/52 L 09/01/21 07:56 Pulse Ox 94 09/01/21 07:56 O2 Del Method Room Air 09/01/21 04:00 Pain Score (VAS): 04/12 I/O: Intake & Output 08/31/21 09/01/21 09/01/21 23:59 07:59 15:59 Intake Total 1700 1200 Output Total 50 800 Balance 1650 400 Laboratory Tests 09/01/21 05:09 09/01/21 05:09 08/31/21 09/01/21 09/01/21 20:04 00:33 05:09 WBC 8.9 RBC 3.09 L Hgb 8.5 L Hct 25.8 L MCV 83.5 MCH 27.5 MCHC 32.9 RDW 19.0 H Plt Count 199 MPV 10.1 Immature Gran % (Auto) 3.7 H Neut % (Auto) 83.5 H Lymph % (Auto) 6.8 L [place] % (Auto) 5.4 Eos % (Auto) 0.3 Baso % (Auto) 0.3 Lymph # (Auto) 0.61 L [place] # (Auto) 0.5 Eos # (Auto) 0.0 Baso # (Auto) 0.0 Abs Immat Gran (auto) 0.33 H Absolute Neuts (auto) 7.4 H Absolute Nucleated RBC 0.0 Nucleated RBC % 0.0 Sodium Potassium Chloride Carbon Dioxide Anion Gap BUN Creatinine Estim Creat Clear Calc Estimated GFR Glucose POC Capillary Glucose 170 H 234 H Calcium Phosphorus Magnesium Albumin 09/01/21 09/01/21 05:09 05:54 WBC RBC Hgb Hct MCV MCH MCHC RDW Plt Count MPV Immature Gran % (Auto) Neut % (Auto) Lymph % (Auto) [place] % (Auto) Eos % (Auto) Baso % (Auto) Lymph # (Auto) [place] # (Auto) Eos # (Auto) Baso # (Auto) Abs Immat Gran (auto) Absolute Neuts (auto) Absolute Nucleated RBC Nucleated RBC % Sodium 137 Potassium 3.7 Chloride 114 H Carbon Dioxide 17 L Anion Gap 6 L BUN 41 H Creatinine 1.60 H Estim Creat Clear Calc 40 Estimated GFR 42 L Glucose 162 H POC Capillary Glucose 155 H Calcium 8.6 Phosphorus 3.2 Magnesium 1.7 Albumin 2.2 L Patient Feedback: Patient satisfied with anesthetic care.
[2021-09-01] MEDS: FOLIC ACID 0.4 MG TABLET 0.8 MG PO (09:31)
[2021-09-01] MEDS: polyethylene glycoL 3350 17 GM POWD.PACK PO (09:31)
[2021-09-01] MEDS: SERTRALINE HCL 50 MG TABLET 150 MG PO (09:31)
[2021-09-01] MEDS: CARBIDOPA/LEVODOPA 25/100 MG TABLET 2 TABLET PO ×3 (09:31→18:11)
[2021-09-01] MEDS: DIVALPROEX SODIUM ER 500 MG TAB.24H PO ×2 (09:31→21:07)
[2021-09-01] MEDS: CARBIDOPA/LEVODOPA 12.5/50 MG TABLET 1 TABLET PO ×3 (09:32→18:12)
[2021-09-01] MEDS: CYANOCOBALAMIN 1,000 MCG TABLET 1000 MCG PO (09:32)
[2021-09-01] MEDS: guaiFENesin 12 HR 600 MG TABCR 1200 MG PO ×2 (09:32→21:07)
[2021-09-01] MEDS: PANTOPRAZOLE 40 MG TABLET PO ×2 (09:32→21:08)
[2021-09-01] MEDS: ASPIRIN 81 MG ENTERIC TABLET PO (09:32)
[2021-09-01] MEDS: CHOLECALCIFEROL 1,000 UNITS TABLET 1000 UNITS PO (09:32)
[2021-09-01] MEDS: DOCUSATE SODIUM 100 MG CAPSULE PO (09:32)
[2021-09-01] MEDS: FLUTICASONE PROPIONATE 0.05% NA SPR 16 GM BTL (*BKC) 2 SPRAY NASAL (09:33)
[2021-09-01] MEDS: MULTIVITAMINS /C LUTEIN (CENTRUM SILVER) TABLET *BKC 1 TAB PO (09:33)
--- NOTE | 2021-09-01 09:55 | PCSTNOTE ---
Patient was not seen yesterday, 08/31/21 due to being NPO for procedure. The evaluation will be attempted today, 09/01.
--- NOTE | 2021-09-01 10:51 | WPDHPUPDATE1 ---
History and Physical Update Update Date/Time: 09/01/21 10:51 History and Physical has been reviewed, including an updated exam of the patient. There are NO changes in the patient's condition. Risks, benefits, and alternatives have been discussed and questions answered. Patient agrees to proceed with procedure.
--- NOTE | 2021-09-01 10:52 | WPDUROPN2 ---
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 Agree with antibiotics, cultures pending, taper to C&S. 2. Monitor closely for sepsis and transfer to ICU if hemodynamic instability noted. 3. If no improvement, patient may require nephrostomy tube, will continue to monitor. Subjective Subjective Date/Time Seen: 09/01/21 10:52 NAEO, febrile with episodes of hypotension and tachycardia. Reports he still has right-sided back pain. Cultures pending. He would like to eat and drink. Speech pathologist walking into room for evaluation as I was leaving. Exam Narrative: NAD, A&Ox3 RRR EWOB S/NT/ND extremities warm and dry. Objective Data Vital Signs Vital Signs: Vital Signs - 24 hr 08/31/21 12:24 08/31/21 12:00 08/31/21 14:35 Temperature 98.3 F 97.8 F Pulse Rate 95 82 Respiratory Rate 16 20 Blood Pressure 107/66 125/64 Pulse Oximetry 92 99 Oxygen Delivery Room Air Room Air 08/31/21 16:01 08/31/21 16:15 08/31/21 16:29 Temperature 99.1 F Pulse Rate 79 96 75 Respiratory Rate 20 16 18 Blood Pressure 109/65 128/65 130/82 Pulse Oximetry 96 97 96 Oxygen Delivery Room Air Room Air Room Air 08/31/21 12:00 08/31/21 16:00 08/31/21 14:00 Temperature Pulse Rate 90 92 Respiratory Rate Blood Pressure Pulse Oximetry Oxygen Delivery Room Air 08/31/21 19:12 08/31/21 20:00 08/31/21 20:00 Temperature 98.3 F Pulse Rate 84 84 93 Respiratory Rate 15 15 Blood Pressure 127/88 Pulse Oximetry 95 95 Oxygen Delivery Room Air 08/31/21 22:00 09/01/21 00:35 09/01/21 00:00 Temperature 103 F H 103 F H Pulse Rate 111 H 133 H Respiratory Rate 26 H Blood Pressure 98/59 L Pulse Oximetry 90 Oxygen Delivery 09/01/21 00:00 09/01/21 00:00 09/01/21 01:35 Temperature 103.1 F H Pulse Rate 133 H 134 H Respiratory Rate 26 H Blood Pressure Pulse Oximetry 90 Oxygen Delivery Room Air 09/01/21 02:00 09/01/21 02:42 09/01/21 04:00 Temperature 101.4 F H 99.1 F Pulse Rate 128 H 107 H Respiratory Rate 24 H Blood Pressure 89/51 L Pulse Oximetry 91 Oxygen Delivery 09/01/21 04:00 09/01/21 04:00 09/01/21 05:37 Temperature Pulse Rate 107 H 104 H 95 Respiratory Rate 24 H Blood Pressure Pulse Oximetry 91 Oxygen Delivery Room Air 09/01/21 07:56 09/01/21 08:55 09/01/21 08:00 Temperature 96.4 F L Pulse Rate 78 79 Respiratory Rate 16 Blood Pressure 104/52 L Pulse Oximetry 94 Oxygen Delivery Room Air Intake/Output Intake/Output: Intake & Output 08/29/21 08/30/21 08/31/21 09/01/21 23:59 23:59 23:59 23:59 Intake Total 300 2700 1440 Output Total 1700 800 Balance 300 1000 640 Meds/Results Medications: Active Medications Generic Name Dose Route Start Last Admin Trade Name Jose Gq PRN Reason Stop Dose Admin Acetaminophen 1,000 mg 08/31/21 07:20 09/01/21 00:35 Acetaminophen 500 Mg Tablet PO 1,000 mg BID PRN Administration Pain or Fever Artificial Tears 1 drop 08/31/21 07:41 Artificial Tears Ophth Soln 15 Ml Bottle EACH EYE BID PRN Dry Eye(s) Aspirin 81 mg 08/31/21 09:00 09/01/21 09:32 Aspirin 81 Mg Enteric Tablet PO 81 mg QAM ILANA Administration Bisacodyl 10 mg 08/31/21 07:20 Bisacodyl 10 Mg Suppository RECTAL QAM PRN Constipation Carbidopa/Levodopa 1 tablet 08/31/21 09:00 09/01/21 09:32 Carbidopa/Levodopa 12.5/50 Mg Tablet PO 1 tablet TID ILANA Administration Carbidopa/Levodopa 2 tablet 08/31/21 09:00 09/01/21 09:31 Carbidopa/Levodopa 25/100 Mg Tablet PO 2 tablet TID ILANA Administration Cyanocobalamin 1,000 mcg 08/31/21 09:00 09/01/21 09:32 Cyanocobalamin 1,000 Mcg Tablet PO 1,000 mcg QAM ILANA Administration Dextrose 12.5 gm 08/30/21 19:45 Dextrose 50% 25 Gm/50 Ml Sy
--- NOTE | 2021-09-01 10:52 | PCSTNOTE ---
Please refer to the Bedside Swallow Evaluation in the EMR. Please note, silent aspiration cannot be ruled out at bedside.
--- NOTE | 2021-09-01 11:47 | PCNFU ---
Nutrition Follow-Up Complete: Inadequate oral intake related to anemia and upj obstruction as evidenced by NPO status Goal: Pt. to meet >50% of estimated nutritional needs Goal: patient is progressing towards goal. We will continue current goal. Pt current nutrition is Full liquids. Nutrition Recommendations: DBCC. Last recorded weight is 65.9 kg, down from 66.3 kg on admit. Bowel Motility: +Bm reported 08/30 Labs Reviewed:Glu 165, Cr 1.6,GFR 42, BUN 41, Alb 2.2,Hgb 8.5,Hct 25.8 Meds Noted: Protonix, Miralax, Zoloft, NS, Aspirin, Vit B12, Centrum Silver, Vancomycin, Sinemet, Folic Acid, Vit D Skin: Right distal arm skin tear, left anterior distal arm skin tear, bilateral upper buttock maceration Additional Notes: Patient seen today for nutrition follow up. Reporting good appetite. 75% of clear liquids documented. Bedside swallow performed today recommending Minced and Moist, Level 5 with no dentures and Soft and Bite Sized, Level 6 with dentures. Patient refused diet supplements, states he drinks muscle milk at home. Monitoring: Will monitor labs, medication, wt, and reported intake every 3 days
[2021-09-01 12:07] LABS: Glucose Point of Care 306 mg/dl (65-105)
[2021-09-01 17:44] LABS: Glucose Point of Care 134 mg/dl (65-105)
--- NOTE | 2021-09-01 18:09 | PM.IMPN ---
Progress Note: A&P Assessment and Plan (1) Sepsis associated hypotension: Code(s): A41.9 - Sepsis, unspecified organism; I95.9 - Hypotension, unspecified Status: Acute Assessment and Plan: Sepsis present on admission. Source is obstructed right renal pelvis with obstructing pyelitis. Patient's blood pressure dropped again last night felt related to the fevers. Could have been transiently bacteremic from the recent stent placement or he has re-obstructed. BP better today. Will continue the NS. Renal function better. Continue IV antibiotics. Continue to monitor. 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 UA noted. Concerning for UTI. Patient underwent cystoscopy with right stent placement.? There was purulence noted in the right renal pelvis.? Fluid was sent for culture.? Appreciate Urology evaluation and treatment. Renal ultrasound showing severe right hydronephrosis. Will continue to follow. (3) Anemia: Code(s): D64.9 - Anemia, unspecified Status: Acute Assessment and Plan: Patient's hemoglobin has been low since a year ago running in the 8-10 range mostly. Hemoglobin last admission was 11.4 but the following day dropped to 8.7 but remained relatively stable. Hgb did drop to 6.5 at the Rehab and he received 1 unit PRBC. Guaiac negative. Iron studies are more consistent with anemia of chronic disease probably related to CKD, malnutrition and/or Parkinson's disease. No evidence of acute blood loss. Hemoglobin has improved to 8 range and stable. Will continue to monitor H&H and transfuse as necessary. (4) Acute UTI: Code(s): N39.0 - Urinary tract infection, site not specified Status: Acute Assessment and Plan: On the last admission, urine culture was negative. One Blood culture was positive for Staph hominis but repeat cultures were negative. This admission, BCx NGTD. UCx negative. Urine culture from cystoscope (right renal pelvis) pending. BCx repeat due to fever. Continue broad-spectrum IV antibiotics. (5) Acute renal insufficiency: Code(s): N28.9 - Disorder of kidney and ureter, unspecified Status: Acute Assessment and Plan: Earlier this year patient's creatinine was 1.0-1.4 range but was 1.8 last admission. Creatinine this admission was 2.3 possibly related to obstructive process. He also may be dehydrated and/or related to UTI. He has had a metabolic non gap acidosis intermittently so consider RTA. Proteinuria could be related to the obstructive process. Urine eosinophils negative. Prot/Cr ration elevated at 1.25gm. Renal US showing severe hydronephrosis felt contributing to his elevated Cr. Also suspect ATN from the presumed right pyelitis. Creatinine better with fluids. Continue to follow. 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 PT and OT started He is having evidence of dysphagia but speech therapy evaluation was okay. Diet adjusted due to patient being edentulous. Will decreased primidone to see if this improves his appetite. 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 The patient's blood
[2021-09-01] MEDS: SODIUM BICARBONATE TAB 650 MG TABLET PO (21:07)
[2021-09-01] MEDS: MAGNESIUM OXIDE 400 MG TABLET PO (21:08)
[2021-09-01] MEDS: PRIMIDONE 25 MG TABLET PO (21:08)
[2021-09-01] MEDS: traZODone HCL 50 MG TABLET PO (21:08)
[2021-09-01] MEDS: risperiDONE 0.5 MG TABLET PO (21:08)
[2021-09-01] MEDS: MELATONIN 5 MG TABLET 10 MG PO (21:09)
[2021-09-02] VITALS (14 sets, daily range): BP systolic 90–124; BP diastolic 45–63; PULSE 72–103; RESP 16–20; TEMP 36.3–37.1; O2SAT 90–95
[2021-09-02 00:04] LABS: Glucose Point of Care 256 mg/dl (65-105)
[2021-09-02] MEDS: INSULIN ASPART (*BKC) 100 UNITS/ML SUB-Q ×3 (00:48→18:46)
[2021-09-02 05:03] LABS: Basophils Percent Auto 0.3 % (0.2-1.2); Eosinophils Absolute Auto 0.5 K/mm3 (0-0.3); Eosinophils Percent Auto 4.4 % (0-4.4); Hematocrit 25.8 % (42.0-52.0); Hemoglobin 8.4 g/dL (14.0-18.0); Immature Granulocyte Absolute 0.39 K/mm3 (0.00-0.031); Immature Granulocyte Percent A 3.7 % (0-0.5); Lymphocytes Absolute Auto 0.71 K/mm3 (0.9-3.2); Lymphocytes Percent Auto 6.7 % (18.3-44.2); Mean Corpuscular HGB Conc 32.6 g/dl (32-36); Mean Corpuscular Hemoglobin 27.6 pg (26-34); Mean Corpuscular Volume 84.9 fl (80-100); Mean Platelet Volume 10.1 fl (7.4-10.4); Monocytes Absolute Auto 0.5 K/mm3 (0.1-0.6); Monocytes Percent Auto 4.5 % (2.6-8.5); Neutrophils Absolute Auto 8.5 K/mm3 (1.3-6.7); Neutrophils Percent Auto 80.4 % (45.5-73.1); Platelet Count Result 198 k/mm3 (150-375); Red Blood Count 3.04 M/mm3 (4.6-6.20); Red Cell Distribution Width 19.1 % (11.5-14.5); White Blood Count 10.6 K/mm3 (4.5-10.0)
[2021-09-02 05:17] LABS: Anion Gap 4 mmol/L (8-16); Blood Urea Nitrogen 34 mg/dL (9-20); Calcium 8.3 mg/dL (8.4-10.2); Carbon Dioxide 18 mmol/L (22-30); Chloride 113 mmol/L (98-107); Estimated CRCL calculation 36 ml/min; Estimated Glomerular Filt Rate 46; Glucose 191 mg/dL (65-110); Magnesium 1.5 mg/dL (1.6-2.3); Phosphorus 2.9 mg/dL (2.5-4.5); Potassium 3.5 mmol/L (3.4-5.0); Sodium 135 mmol/L (137-145)
[2021-09-02 06:22] LABS: Glucose Point of Care 189 mg/dl (65-105)
--- NOTE | 2021-09-02 08:47 | PCPTNOTE ---
Attempted therapy session. Pt was waiting for assistance to eat breakfast, and requested therapist to come back later. Will attempted again.
[2021-09-02] MEDS: MAGNESIUM SULF 2 GM/WATER 50ML 2 GM/50 ML BAG IVPB (09:51)
[2021-09-02] MEDS: FLUTICASONE PROPIONATE 0.05% NA SPR 16 GM BTL (*BKC) 2 SPRAY NASAL (09:51)
[2021-09-02] MEDS: SODIUM BICARBONATE TAB 650 MG TABLET PO ×2 (09:51→17:47)
[2021-09-02] MEDS: guaiFENesin 12 HR 600 MG TABCR 1200 MG PO ×2 (09:51→21:09)
[2021-09-02] MEDS: SODIUM BICARBONATE 8.4% 100 MEQ in DEXTROSE 5% 1,000 ML 1,000 ML 70 MEQ IV CONT (09:51)
[2021-09-02] MEDS: MULTIVITAMINS /C LUTEIN (CENTRUM SILVER) TABLET *BKC 1 TAB PO (09:52)
[2021-09-02] MEDS: PANTOPRAZOLE 40 MG TABLET PO ×2 (09:52→21:09)
[2021-09-02] MEDS: CYANOCOBALAMIN 1,000 MCG TABLET 1000 MCG PO (09:52)
[2021-09-02] MEDS: FOLIC ACID 0.4 MG TABLET 0.8 MG PO (09:52)
[2021-09-02] MEDS: CARBIDOPA/LEVODOPA 25/100 MG TABLET 2 TABLET PO ×3 (09:52→17:47)
[2021-09-02] MEDS: DIVALPROEX SODIUM ER 500 MG TAB.24H PO ×2 (09:52→21:09)
[2021-09-02] MEDS: CARBIDOPA/LEVODOPA 12.5/50 MG TABLET 1 TABLET PO ×3 (09:52→17:47)
[2021-09-02] MEDS: ASPIRIN 81 MG ENTERIC TABLET PO (09:52)
[2021-09-02] MEDS: CHOLECALCIFEROL 1,000 UNITS TABLET 1000 UNITS PO (09:53)
[2021-09-02] MEDS: DOCUSATE SODIUM 100 MG CAPSULE PO (09:53)
[2021-09-02] MEDS: SERTRALINE HCL 50 MG TABLET 150 MG PO (09:53)
[2021-09-02] MEDS: polyethylene glycoL 3350 17 GM POWD.PACK PO (09:55)
--- NOTE | 2021-09-02 11:34 | PM.IMPN ---
Progress Note: A&P Assessment and Plan (1) Sepsis associated hypotension: Code(s): A41.9 - Sepsis, unspecified organism; I95.9 - Hypotension, unspecified Status: Acute Assessment and Plan: Sepsis present on admission. Source is obstructed right renal pelvis with obstructing pyelitis. 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 [place] he was transiently bacteremic from the recent stent placement; doubt that he has re-obstructed. BP better and stable. No further fevers. Renal function better. BCx 08/30 and 09/01 NGTD. UCx 08/30 negative but 08/31 UCx pending. Rash noted but probably related to heat due to dependent nature and that he was having fevers. Try powder and up to chair. Continue IV antibiotics. Continue to monitor. 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 Patient underwent cystoscopy with right stent placement on 08/31.? There was purulence noted in the right renal pelvis and fluid was sent for culture. This culture is pending? Appreciate Urology evaluation and treatment. Renal ultrasound showing severe right hydronephrosis prior to stent. Plan to repeat Renal US in a few days to see if this improves. Will continue to follow. (3) Anemia: Code(s): D64.9 - Anemia, unspecified Status: Acute Assessment and Plan: Patient's hemoglobin has been low since a year ago running in the 8-10 range mostly. Hemoglobin last admission was 11.4 but the following day dropped to 8.7 but remained relatively stable. Hgb did drop to 6.5 at the Rehab and he received 1 unit PRBC. Guaiac negative. Iron studies are more consistent with anemia of chronic disease probably related to CKD, malnutrition and/or Parkinson's disease. No evidence of acute blood loss. Hemoglobin has improved to 8 range and stable. Will continue to monitor H&H and transfuse as necessary. (4) Acute UTI: Code(s): N39.0 - Urinary tract infection, site not specified Status: Acute Assessment and Plan: On the last admission, urine culture was negative. One Blood culture was positive for Staph hominis but repeat blood cultures were negative. [place] to be a contaminant and he was not discharged on abx. This admission, BCx on 08/30 and 09/01 NGTD. UCx 08/30 negative. Urine culture from cystoscope (right renal pelvis) pending. Continue broad-spectrum IV antibiotics. (5) Acute renal insufficiency: Code(s): N28.9 - Disorder of kidney and ureter, unspecified Status: Acute Assessment and Plan: Earlier this year patient's creatinine was 1.0-1.4 range but was 1.8 last admission. Creatinine this admission was 2.3 possibly related to obstructive process. He also may be dehydrated and/or ATN related to UTI/pyelitis. He has had a metabolic non gap acidosis intermittently so consider RTA. Proteinuria could be related to the obstructive process. Urine eosinophils negative. Prot/Cr ration elevated at 1.25gm. Renal US showing severe hydronephrosis felt contributing to his elevated Cr. Creatinine better with fluids. Will change to IV fluids with bicarb x 1 liter then stop fluids. Continue oral bicarb until acidosis resolves. Continue to follow. 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 He is having evidence of dysphagia but speech therapy evaluation was okay. Diet adjusted due to patient being christelle
[2021-09-02 12:28] LABS: Glucose Point of Care 259 mg/dl (65-105)
--- NOTE | 2021-09-02 14:14 | WPDUROPN2 ---
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 Continue broad spectrum antibiotics, culture from OR pending. Agree with fluids Agree with IMU admission. (2) Acute UTI: Code(s): N39.0 - Urinary tract infection, site not specified Status: Acute Subjective Subjective Date/Time Seen: 09/02/21 14:14 NAEO, patient reports left back pain, reports it is unchanged since his spleen surgery. Exam Narrative: NAD, A&Ox3 RRR eWOB S/NT/ND Akhtar draining purulent urine. Objective Data Vital Signs Vital Signs: Vital Signs - 24 hr 09/01/21 16:00 09/01/21 16:00 09/01/21 16:00 Temperature 97.4 F L Pulse Rate 73 74 Respiratory Rate 15 Blood Pressure 101/48 L Pulse Oximetry 94 Oxygen Delivery Room Air 09/01/21 18:00 09/01/21 20:00 09/01/21 20:00 Temperature 98 F Pulse Rate 76 82 82 Respiratory Rate 18 18 Blood Pressure 101/49 L Pulse Oximetry 94 94 Oxygen Delivery Room Air 09/02/21 00:00 09/02/21 00:00 09/01/21 20:00 Temperature 98 F Pulse Rate 73 73 78 Respiratory Rate 20 20 Blood Pressure 124/51 L Pulse Oximetry 95 95 Oxygen Delivery Room Air 09/01/21 22:00 09/02/21 00:00 09/02/21 02:00 Temperature Pulse Rate 83 72 75 Respiratory Rate Blood Pressure Pulse Oximetry Oxygen Delivery 09/02/21 04:00 09/02/21 04:00 09/02/21 04:00 Temperature 98.7 F Pulse Rate 82 82 80 Respiratory Rate 20 20 Blood Pressure 124/53 L Pulse Oximetry 94 94 Oxygen Delivery Room Air 09/02/21 05:53 09/02/21 08:00 09/02/21 12:00 Temperature 98.5 F 98.5 F Pulse Rate 75 84 92 Respiratory Rate 20 16 Blood Pressure 110/48 L 90/47 L Pulse Oximetry 90 90 Oxygen Delivery Intake/Output Intake/Output: Intake & Output 08/30/21 08/31/21 09/01/21 09/02/21 23:59 23:59 23:59 23:59 Intake Total 300 2700 4340 490 Output Total 1700 1050 995 Balance 300 1000 3290 -921 Meds/Results Medications: Active Medications Generic Name Dose Route Start Last Admin Trade Name Freq PRN Reason Stop Dose Admin Acetaminophen 1,000 mg 08/31/21 07:20 09/01/21 12:21 Acetaminophen 500 Mg Tablet PO 1,000 mg BID PRN Administration Pain or Fever Artificial Tears 1 drop 08/31/21 07:41 Artificial Tears Ophth Soln 15 Ml Bottle EACH EYE BID PRN Dry Eye(s) Aspirin 81 mg 08/31/21 09:00 09/02/21 09:52 Aspirin 81 Mg Enteric Tablet PO 81 mg QAM ILANA Administration Bisacodyl 10 mg 08/31/21 07:20 Bisacodyl 10 Mg Suppository RECTAL QAM PRN Constipation Carbidopa/Levodopa 1 tablet 08/31/21 09:00 09/02/21 12:51 Carbidopa/Levodopa 12.5/50 Mg Tablet PO 1 tablet TID ILANA Administration Carbidopa/Levodopa 2 tablet 08/31/21 09:00 09/02/21 12:51 Carbidopa/Levodopa 25/100 Mg Tablet PO 2 tablet TID ILANA Administration Cyanocobalamin 1,000 mcg 08/31/21 09:00 09/02/21 09:52 Cyanocobalamin 1,000 Mcg Tablet PO 1,000 mcg QAM ILANA Administration Dextrose 12.5 gm 08/30/21 19:45 Dextrose 50% 25 Gm/50 Ml Syringe IV PUSH PRN PRN Hypoglycemia Protocol Divalproex Sodium 500 mg 08/31/21 09:00 09/02/21 09:52 Divalproex Sodium Er 500 Mg Tab.24h PO 500 mg Q12HR ILANA Administration Docusate Sodium 100 mg 08/31/21 09:00 09/02/21 09:53 Docusate Sodium 100 Mg Capsule PO 100 mg Q12HR ILANA Administration Fentanyl Citrate 25 mcg 08/31/21 14:40 Fentanyl Citrate Inj (*Crx) 100 Mcg/2 Ml Vial IV PUSH Q2M PRN Pain Fluticasone Propionate 2 spray 08/31/21 09:00 09/02/21 09:51 Fluticasone Propionate 0.05% Na Spr 16 Gm Btl (*Bkc) NASAL 2 spray DAILY ILANA Administration Folic Acid 0.8 mg 08/31/21 09:00 09/02/21 09:52 Fo
[2021-09-02 18:05] LABS: Glucose Point of Care 219 mg/dl (65-105)
[2021-09-02 20:46] LABS: Vancomycin Trough 10.8 ug/mL (10.0-20.0)
[2021-09-02] MEDS: PRIMIDONE 25 MG TABLET PO (21:09)
[2021-09-02] MEDS: MELATONIN 5 MG TABLET 10 MG PO (21:09)
[2021-09-02] MEDS: traZODone HCL 50 MG TABLET PO (21:09)
[2021-09-02] MEDS: risperiDONE 0.5 MG TABLET PO (21:09)
[2021-09-02] MEDS: MAGNESIUM OXIDE 400 MG TABLET PO (21:10)
[2021-09-02 23:42] LABS: Pneumococcal Antigen Urine Not Detected (Not Detected)
[2021-09-03] VITALS (13 sets, daily range): BP systolic 93–148; BP diastolic 50–74; PULSE 73–94; RESP 16–20; TEMP 36.4–36.9; O2SAT 90–98
[2021-09-03 00:49] LABS: Glucose Point of Care 321 mg/dl (65-105)
[2021-09-03] MEDS: INSULIN ASPART (*BKC) 100 UNITS/ML SUB-Q ×3 (00:50→17:13)
[2021-09-03 05:25] LABS: Basophils Percent Auto 0.2 % (0.2-1.2); Eosinophils Absolute Auto 0.5 K/mm3 (0-0.3); Eosinophils Percent Auto 5.3 % (0-4.4); Hemoglobin 8.7 g/dL (14.0-18.0); Immature Granulocyte Absolute 0.45 K/mm3 (0.00-0.031); Immature Granulocyte Percent A 4.8 % (0-0.5); Lymphocytes Absolute Auto 1.03 K/mm3 (0.9-3.2); Lymphocytes Percent Auto 11.1 % (18.3-44.2); Mean Corpuscular HGB Conc 32.2 g/dl (32-36); Mean Corpuscular Volume 86.8 fl (80-100); Mean Platelet Volume 10.1 fl (7.4-10.4); Monocytes Absolute Auto 0.7 K/mm3 (0.1-0.6); Monocytes Percent Auto 7.7 % (2.6-8.5); Neutrophils Absolute Auto 6.6 K/mm3 (1.3-6.7); Neutrophils Percent Auto 70.9 % (45.5-73.1); Platelet Count Result 201 k/mm3 (150-375); Red Blood Count 3.11 M/mm3 (4.6-6.20); Red Cell Distribution Width 19.6 % (11.5-14.5); White Blood Count 9.3 K/mm3 (4.5-10.0)
[2021-09-03 05:34] LABS: Anion Gap 3 mmol/L (8-16); Blood Urea Nitrogen 30 mg/dL (9-20); CRP 8.1 mg/dL (<1.0); Calcium 8.4 mg/dL (8.4-10.2); Carbon Dioxide 22 mmol/L (22-30); Chloride 107 mmol/L (98-107); Estimated CRCL calculation 41 ml/min; Estimated Glomerular Filt Rate 54; Glucose 186 mg/dL (65-110); Magnesium 1.8 mg/dL (1.6-2.3); Phosphorus 2.2 mg/dL (2.5-4.5); Potassium 3.3 mmol/L (3.4-5.0); Sodium 132 mmol/L (137-145)
[2021-09-03] MEDS: CARBIDOPA/LEVODOPA 25/100 MG TABLET 2 TABLET PO ×3 (08:17→16:45)
[2021-09-03] MEDS: POTASSIUM CHLORIDE 20 MEQ TABLET PO (08:17)
[2021-09-03] MEDS: DOCUSATE SODIUM 100 MG CAPSULE PO ×2 (08:17→22:09)
[2021-09-03] MEDS: MULTIVITAMINS /C LUTEIN (CENTRUM SILVER) TABLET *BKC 1 TAB PO (08:17)
[2021-09-03] MEDS: POTASSIUM/PHOSPHORUS/SODIUM 1.5 GM PACKET 1 PACKET PO (08:17)
[2021-09-03] MEDS: polyethylene glycoL 3350 17 GM POWD.PACK PO (08:17)
[2021-09-03] MEDS: FOLIC ACID 0.4 MG TABLET 0.8 MG PO (08:17)
[2021-09-03] MEDS: guaiFENesin 12 HR 600 MG TABCR 1200 MG PO ×2 (08:18→22:10)
[2021-09-03] MEDS: PANTOPRAZOLE 40 MG TABLET PO ×2 (08:18→22:13)
[2021-09-03] MEDS: ASPIRIN 81 MG ENTERIC TABLET PO (08:18)
[2021-09-03] MEDS: SERTRALINE HCL 50 MG TABLET 150 MG PO (08:18)
[2021-09-03] MEDS: CHOLECALCIFEROL 1,000 UNITS TABLET 1000 UNITS PO (08:18)
[2021-09-03] MEDS: DIVALPROEX SODIUM ER 500 MG TAB.24H PO ×2 (08:18→22:09)
[2021-09-03] MEDS: FLUTICASONE PROPIONATE 0.05% NA SPR 16 GM BTL (*BKC) 2 SPRAY NASAL (08:18)
[2021-09-03] MEDS: CYANOCOBALAMIN 1,000 MCG TABLET 1000 MCG PO (08:18)
[2021-09-03] MEDS: CARBIDOPA/LEVODOPA 12.5/50 MG TABLET 1 TABLET PO ×3 (08:19→16:45)
--- NOTE | 2021-09-03 08:51 | WPDUROPN2 ---
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 Continue broad spectrum antibiotics, culture from OR NG, send new culture as urine appeared purulent yesterday. Agree with IMU admission. (2) Acute UTI: Code(s): N39.0 - Urinary tract infection, site not specified Status: Acute Subjective Subjective Date/Time Seen: 09/03/21 08:51 NAEO, patient reports slight improvement in flank pain, urine appears better. Exam Narrative: NAD, A&Oxx3 RRR EWOB S/NT/ND, scaphoid Akhtar in place, urine is clear today (purulent appearing yesterday). Objective Data Vital Signs Vital Signs: Vital Signs - 24 hr 09/02/21 12:00 09/02/21 10:00 09/02/21 12:00 Temperature 98.5 F Pulse Rate 92 97 103 H Respiratory Rate 16 Blood Pressure 90/47 L Pulse Oximetry 90 Oxygen Delivery 09/02/21 14:00 09/02/21 12:00 09/02/21 16:00 Temperature Pulse Rate 90 89 Respiratory Rate Blood Pressure Pulse Oximetry 90 Oxygen Delivery Room Air 09/02/21 16:00 09/02/21 16:00 09/02/21 18:00 Temperature 97.4 F L Pulse Rate 87 87 Respiratory Rate 20 Blood Pressure 111/63 Pulse Oximetry 90 95 Oxygen Delivery Room Air 09/02/21 19:51 09/02/21 21:13 09/02/21 20:00 Temperature 97.9 F Pulse Rate 87 83 Respiratory Rate 20 Blood Pressure 90/45 L 110/58 L Pulse Oximetry 91 Oxygen Delivery 09/02/21 20:00 09/02/21 22:00 09/03/21 00:00 Temperature 97.6 F Pulse Rate 87 78 73 Respiratory Rate 20 20 Blood Pressure 113/57 L Pulse Oximetry 91 98 Oxygen Delivery Room Air 09/03/21 00:00 09/03/21 00:00 09/03/21 02:00 Temperature Pulse Rate 76 73 73 Respiratory Rate 20 Blood Pressure Pulse Oximetry 98 Oxygen Delivery Room Air 09/03/21 03:28 09/03/21 04:00 09/03/21 04:00 Temperature 97.6 F Pulse Rate 74 75 74 Respiratory Rate 20 20 Blood Pressure 148/74 H Pulse Oximetry 96 96 Oxygen Delivery Room Air 09/03/21 06:00 09/03/21 08:00 Temperature 98.2 F Pulse Rate 84 88 Respiratory Rate 16 Blood Pressure 112/54 L Pulse Oximetry 90 Oxygen Delivery Intake/Output Intake/Output: Intake & Output 08/31/21 09/01/21 09/02/21 09/03/21 23:59 23:59 23:59 23:59 Intake Total 2700 4340 1830 1340 Output Total 1700 1050 1595 800 Balance 1000 3290 235 540 Meds/Results Medications: Active Medications Generic Name Dose Route Start Last Admin Trade Name Freq PRN Reason Stop Dose Admin Acetaminophen 1,000 mg 08/31/21 07:20 09/01/21 12:21 Acetaminophen 500 Mg Tablet PO 1,000 mg BID PRN Administration Pain or Fever Artificial Tears 1 drop 08/31/21 07:41 Artificial Tears Ophth Soln 15 Ml Bottle EACH EYE BID PRN Dry Eye(s) Aspirin 81 mg 08/31/21 09:00 09/03/21 08:18 Aspirin 81 Mg Enteric Tablet PO 81 mg QAM ILANA Administration Bisacodyl 10 mg 08/31/21 07:20 Bisacodyl 10 Mg Suppository RECTAL QAM PRN Constipation Carbidopa/Levodopa 1 tablet 08/31/21 09:00 09/03/21 08:19 Carbidopa/Levodopa 12.5/50 Mg Tablet PO 1 tablet TID ILANA Administration Carbidopa/Levodopa 2 tablet 08/31/21 09:00 09/03/21 08:17 Carbidopa/Levodopa 25/100 Mg Tablet PO 2 tablet TID ILANA Administration Cyanocobalamin 1,000 mcg 08/31/21 09:00 09/03/21 08:18 Cyanocobalamin 1,000 Mcg Tablet PO 1,000 mcg QAM ILANA Administration Dextrose 12.5 gm 08/30/21 19:45 Dextrose 50% 25 Gm/50 Ml Syringe IV PUSH PRN PRN Hypoglycemia Protocol Divalproex Sodium 500 mg 08/31/21 09:00 09/03/21 08:18 Divalproex Sodium Er 500 Mg Tab.24h PO 500 mg Q12HR ILANA Administration Docusate Sodium 100 mg 08/31/21 09:00 09/03/21 08:17 Docusate Sodium 10
[2021-09-03 11:49] LABS: Glucose Point of Care 232 mg/dl (65-105)
--- NOTE | 2021-09-03 14:09 | PM.IMPN ---
Progress Note: A&P Assessment and Plan (1) Sepsis associated hypotension: Code(s): A41.9 - Sepsis, unspecified organism; I95.9 - Hypotension, unspecified Status: Acute Assessment and Plan: Sepsis present on admission. Source is obstructed right renal pelvis with obstructing pyelitis. 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 [place] he was transiently bacteremic from the recent stent placement. BP better and stable. No further fevers. Renal function better. BCx 08/30 and 09/01 NGTD. UCx 08/30 and 08/31 negative. Continue IV antibiotics. Continue to monitor. 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 Patient underwent cystoscopy with right stent placement on 08/31.? There was purulence noted in the right renal pelvis and fluid was sent for culture. Urine culture is negative? Appreciate Urology evaluation and treatment. Renal ultrasound showing severe right hydronephrosis prior to stent. Plan to repeat Renal US tomorrow. Will continue to follow. (3) Anemia: Code(s): D64.9 - Anemia, unspecified Status: Acute Assessment and Plan: Patient's hemoglobin has been low since a year ago running in the 8-10 range mostly. Hemoglobin last admission was 11.4 but the following day dropped to 8.7 but remained relatively stable. Hgb did drop to 6.5 at the Rehab and he received 1 unit PRBC. Guaiac negative. Iron studies are more consistent with anemia of chronic disease probably related to CKD, malnutrition and/or Parkinson's disease. No evidence of acute blood loss. Hemoglobin has improved to 8 range and stable. Will continue to monitor H&H and transfuse as necessary. (4) Acute UTI: Code(s): N39.0 - Urinary tract infection, site not specified Status: Acute Assessment and Plan: On the last admission, urine culture was negative. One Blood culture was positive for Staph hominis but repeat blood cultures were negative. [place] to be a contaminant and he was not discharged on abx. This admission, BCx on 08/30 and 09/01 NGTD. UCx 08/30 negative. Urine culture from cystoscope (right renal pelvis) 08/31 also negative. Despite negative cultures, felt patient's symptoms related to obstruction with pyelitis. Continue broad-spectrum IV antibiotics. Will need to finish an emperic treatment course. (5) Deep vein thrombosis (DVT) of ulnar vein: Code(s): I82.629 - Acute embolism and thrombosis of deep veins of unspecified upper extremity Status: Acute Assessment and Plan: Doppler shows partial thrombus of the left ulnar vein. Patient was not candidate for anticoagulation prior. K-pad ordered for left forearm. He is improving but will continue to hold Lovenox for now. Repeat US tomorrow. If persistent or propagating, will consider starting anticoagulation. (6) Acute renal insufficiency: Code(s): N28.9 - Disorder of kidney and ureter, unspecified Status: Acute Assessment and Plan: Earlier this year patient's creatinine was 1.0-1.4 range but was 1.8 last admission. Creatinine this admission was 2.3 possibly related to obstructive process. He also may be dehydrated and/or ATN related to UTI/pyelitis. He has had a metabolic non gap acidosis intermittently so consider RTA. Proteinuria could be related to the obstructive process. Urine eosinophils negative. Prot/Cr ration elevated at 1.25gm. Renal US showing severe hydronephrosis felt contributing to his elevated Cr. Creatinine back to baseline. Metabolic acidosis resolved. Continue to follow. (7) Weakness: Code(s): R53.1 - Weakness Status: Acute Assessment
[2021-09-03 15:27] LABS: Albumin 2.1 g/dL (3.8-4.8); Alpha 1 Globulin 0.4 g/dL (0.2-0.3); Alpha 2 Globulin 0.7 g/dL (0.5-0.9); Beta 1 Globulin 0.3 g/dL (0.4-0.6); Gamma Globulin 1.1 g/dL (0.8-1.7)
[2021-09-03 16:57] LABS: Glucose Point of Care 224 mg/dl (65-105)
[2021-09-03] MEDS: traZODone HCL 50 MG TABLET PO (22:08)
[2021-09-03] MEDS: MAGNESIUM OXIDE 400 MG TABLET PO (22:11)
[2021-09-03] MEDS: MELATONIN 5 MG TABLET 10 MG PO (22:13)
[2021-09-03] MEDS: PRIMIDONE 25 MG TABLET PO (22:14)
[2021-09-03] MEDS: risperiDONE 0.5 MG TABLET PO (22:15)
[2021-09-03] MEDS: INSULIN GLARGINE (*BKC) 100 UNITS/ML SUB-Q (22:45)
[2021-09-03 23:00] LABS: Glucose Point of Care 167 mg/dl (65-105)
[2021-09-04 07:38] LABS: Hematocrit 25.7 % (42.0-52.0); Hemoglobin 8.2 g/dL (14.0-18.0); Mean Corpuscular HGB Conc 31.9 g/dl (32-36); Mean Corpuscular Hemoglobin 27.4 pg (26-34); Mean Platelet Volume 10.2 fl (7.4-10.4); Platelet Count Result 220 k/mm3 (150-375); Red Blood Count 2.99 M/mm3 (4.6-6.20); Red Cell Distribution Width 19.4 % (11.5-14.5); White Blood Count 8.9 K/mm3 (4.5-10.0)
[2021-09-04 07:45] LABS: Glucose Point of Care 142 mg/dl (65-105)
[2021-09-04 07:56] LABS: Albumin Level 1.9 g/dL (3.5-5.1); Anion Gap 2 mmol/L (8-16); Blood Urea Nitrogen 27 mg/dL (9-20); Calcium 8.2 mg/dL (8.4-10.2); Carbon Dioxide 23 mmol/L (22-30); Chloride 107 mmol/L (98-107); Estimated CRCL calculation 38 ml/min; Estimated Glomerular Filt Rate 49; Glucose 139 mg/dL (65-110); Magnesium 1.6 mg/dL (1.6-2.3); Phosphorus 2.7 mg/dL (2.5-4.5); Potassium 3.8 mmol/L (3.4-5.0); Sodium 132 mmol/L (137-145)
[2021-09-04 08:00] VITALS: BP 125/56; PULSE 83; RESP 16; TEMP 36.8; O2SAT 93
--- NOTE | 2021-09-04 09:08 | WPDUROPN2 ---
Progress Note: A&P Assessment and Plan (1) Hydronephrosis: Code(s): N13.30 - Unspecified hydronephrosis Status: Acute Assessment and Plan: Patient clinically looks much better and feels better. Surprisingly cultures have been negative. Fluid in right renal pelvis was grossly purulent. Would recommend oral antibiotics for. Of the least 10-14 days on discharge. Akhtar can be removed when no longer required for output. Will plan on outpatient ureteroscopy in approximately 3-4 weeks time. Subjective Subjective Date/Time Seen: 09/04/21 09:08 Principal diagnosis: Right hydronephrosis with pyelitis Interval history: Feeling better at this time. Review of Systems Review of Systems: All systems reviewed & are unremarkable except as noted in HPI and below Exam Const: General: cooperative and comfortable Eyes: General: appearance normal, both eyes and all related structures Resp: Effort & Inspection: normal respiratory effort Urinary Catheter: Urinary Catheter: patent and draining and urine clear Objective Data Vital Signs Vital Signs: Vital Signs - 24 hr 09/03/21 10:00 09/03/21 11:52 09/03/21 12:00 Temperature 36.8 C Pulse Rate 94 88 89 Respiratory Rate 16 Blood Pressure 99/50 L Pulse Oximetry 91 Oxygen Delivery 09/03/21 12:00 09/03/21 14:00 09/03/21 16:00 Temperature 36.8 C Pulse Rate 88 87 86 Respiratory Rate 16 16 Blood Pressure 95/59 L Pulse Oximetry 90 91 Oxygen Delivery Room Air 09/03/21 16:00 09/03/21 16:00 09/03/21 20:00 Temperature 36.9 C Pulse Rate 88 87 84 Respiratory Rate 16 16 Blood Pressure 93/55 L Pulse Oximetry 90 93 Oxygen Delivery Room Air 09/03/21 23:36 09/03/21 20:00 09/04/21 08:00 Temperature 36.7 C 36.8 C Pulse Rate 87 87 83 Respiratory Rate 16 16 16 Blood Pressure 112/54 L 125/56 L Pulse Oximetry 90 90 93 Oxygen Delivery Room Air Intake/Output Intake/Output: Intake & Output 09/01/21 09/02/21 09/03/21 09/04/21 23:59 23:59 23:59 23:59 Intake Total 4340 1830 1920 750 Output Total 1050 1595 1000 700 Balance 3290 235 920 50 Meds/Results Medications: Active Medications Generic Name Dose Route Start Last Admin Trade Name Mando PRN Reason Stop Dose Admin Acetaminophen 1,000 mg 08/31/21 07:20 09/01/21 12:21 Acetaminophen 500 Mg Tablet PO 1,000 mg BID PRN Administration Pain or Fever Artificial Tears 1 drop 08/31/21 07:41 Artificial Tears Ophth Soln 15 Ml Bottle EACH EYE BID PRN Dry Eye(s) Aspirin 81 mg 08/31/21 09:00 09/03/21 08:18 Aspirin 81 Mg Enteric Tablet PO 81 mg QAM ILANA Administration Bisacodyl 10 mg 08/31/21 07:20 Bisacodyl 10 Mg Suppository RECTAL QAM PRN Constipation Carbidopa/Levodopa 1 tablet 08/31/21 09:00 09/03/21 16:45 Carbidopa/Levodopa 12.5/50 Mg Tablet PO 1 tablet TID ILANA Administration Carbidopa/Levodopa 2 tablet 08/31/21 09:00 09/03/21 16:45 Carbidopa/Levodopa 25/100 Mg Tablet PO 2 tablet TID ILANA Administration Cyanocobalamin 1,000 mcg 08/31/21 09:00 09/03/21 08:18 Cyanocobalamin 1,000 Mcg Tablet PO 1,000 mcg QAM ILANA Administration Dextrose 12.5 gm 08/30/21 19:45 Dextrose 50% 25 Gm/50 Ml Syringe IV PUSH PRN PRN Hypoglycemia Protocol Divalproex Sodium 500 mg 08/31/21 09:00 09/03/21 22:09 Divalproex Sodium Er 500 Mg Tab.24h PO 500 mg Q12HR ILANA Administration Docusate Sodium 100 mg 08/31/21 09:00 09/03/21 22:09 Docusate Sodium 100 Mg Capsule PO 100 mg Q12HR ILANA Administration Fentanyl Citrate 25 mcg 08/31/21 14:40 Fentanyl Citrate Inj (*Crx) 100 Mcg/2 Ml Vial IV PUSH Q2M PRN Pain Fluticasone Propionate 2 spray 08/31/21 09:00 09/03/21 08:18 Fluticasone Propionate 0.05% Na Spr 16 Gm Btl (*Bkc) NASAL 2 spray DAILY ILANA Administration Folic Acid 0.8 mg 08/31/21 09:00 09/03/21 08:17 Folic Acid 0.4 Mg Tablet PO
[2021-09-04] MEDS: ASPIRIN 81 MG ENTERIC TABLET PO (09:58)
[2021-09-04] MEDS: CARBIDOPA/LEVODOPA 25/100 MG TABLET 2 TABLET PO ×3 (09:58→17:10)
[2021-09-04] MEDS: DIVALPROEX SODIUM ER 500 MG TAB.24H PO ×2 (09:59→21:37)
[2021-09-04] MEDS: CHOLECALCIFEROL 1,000 UNITS TABLET 1000 UNITS PO (09:59)
[2021-09-04] MEDS: DOCUSATE SODIUM 100 MG CAPSULE PO ×2 (09:59→21:37)
[2021-09-04] MEDS: CARBIDOPA/LEVODOPA 12.5/50 MG TABLET 1 TABLET PO ×3 (09:59→17:10)
[2021-09-04] MEDS: CYANOCOBALAMIN 1,000 MCG TABLET 1000 MCG PO (09:59)
[2021-09-04] MEDS: FOLIC ACID 0.4 MG TABLET 0.8 MG PO (10:00)
[2021-09-04] MEDS: guaiFENesin 12 HR 600 MG TABCR 1200 MG PO ×2 (10:00→21:50)
[2021-09-04] MEDS: FLUTICASONE PROPIONATE 0.05% NA SPR 16 GM BTL (*BKC) 2 SPRAY NASAL (10:00)
[2021-09-04] MEDS: PANTOPRAZOLE 40 MG TABLET PO ×2 (10:01→21:37)
[2021-09-04] MEDS: SERTRALINE HCL 50 MG TABLET 150 MG PO (10:01)
[2021-09-04] MEDS: polyethylene glycoL 3350 17 GM POWD.PACK PO (10:01)
[2021-09-04] MEDS: MULTIVITAMINS /C LUTEIN (CENTRUM SILVER) TABLET *BKC 1 TAB PO (10:01)
[2021-09-04 11:20] VITALS: BP 96/72; PULSE 109; RESP 16; TEMP 36.3; O2SAT 97
[2021-09-04 11:20] LABS: Glucose Point of Care 226 mg/dl (65-105)
[2021-09-04] MEDS: INSULIN ASPART (*BKC) 100 UNITS/ML SUB-Q (12:01)
--- NOTE | 2021-09-04 14:38 | PM.IMPN ---
Progress Note: A&P Assessment and Plan (1) Sepsis associated hypotension: Code(s): A41.9 - Sepsis, unspecified organism; I95.9 - Hypotension, unspecified Status: Acute Assessment and Plan: Sepsis present on admission. Source is obstructed right renal pelvis with obstructing pyelitis. 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 [place] he was transiently bacteremic from the recent stent placement. BP better and stable. No further fevers. Renal function better. BCx 08/30 and 09/01 NGTD. UCx 08/30 and 08/31 negative. Continue IV antibiotics. 09/04: Resolved, all cultures negative, currently on day 6 of vancomycin and cefepime, urology requesting total of 10-14 days of oral antibiotics due to grossly purulent fluid in right renal pelvis, will discuss with Infectious Disease pharmacist tomorrow prior to discharge (2) Other obstructive defects of renal pelvis and ureter: Code(s): Q62.39 - Other obstructive defects of renal pelvis and ureter Status: Acute Assessment and Plan: CT of the abdomen pelvis 08/30 shows hyperdense fluid in the dilated right renal collecting system and renal pelvis which abruptly terminates at the UPJ. Patient underwent cystoscopy with right stent placement on 08/31.? There was purulence noted in the right renal pelvis and fluid was sent for culture. Urine culture is negative? Appreciate Urology evaluation and treatment. Renal ultrasound showing severe right hydronephrosis prior to stent. 09/04: Renal ultrasound from today shows mild persistent right hydronephrosis with some ascites, much improved from the August 31 study, will DC Akhtar today. (3) Anemia: Code(s): D64.9 - Anemia, unspecified Status: Acute Assessment and Plan: Patient's hemoglobin has been low since a year ago running in the 8-10 range mostly. Hemoglobin last admission was 11.4 but the following day dropped to 8.7 but remained relatively stable. Hgb did drop to 6.5 at the Rehab and he received 1 unit PRBC. Guaiac negative. Iron studies are more consistent with anemia of chronic disease probably related to CKD, malnutrition and/or Parkinson's disease. No evidence of acute blood loss. Hemoglobin has improved to 8 range and stable. Will continue to monitor H&H and transfuse as necessary. 09/04: Hemoglobin stable at 8.2 today (4) Acute UTI: Code(s): N39.0 - Urinary tract infection, site not specified Status: Acute Assessment and Plan: On the last admission, urine culture was negative. One Blood culture was positive for Staph hominis but repeat blood cultures were negative. [place] to be a contaminant and he was not discharged on abx. This admission, BCx on 08/30 and 09/01 NGTD. UCx 08/30 negative. Urine culture from cystoscope (right renal pelvis) 08/31 also negative. Despite negative cultures, felt patient's symptoms related to obstruction with pyelitis. Continue broad-spectrum IV antibiotics. Will need to finish an emperic treatment course. 09/04: See above for details (5) Deep vein thrombosis (DVT) of ulnar vein: Code(s): I82.629 - Acute embolism and thrombosis of deep veins of unspecified upper extremity Status: Acute Assessment and Plan: Doppler shows partial thrombus of the left ulnar vein. Patient was not candidate for anticoagulation prior. K-pad ordered for left forearm. He is improving but will continue to hold Lovenox for now. Repeat US tomorrow. If persistent or propagating, will consider starting anticoagulation. 09/04: Repeat Doppler study shows no thrombus of the left ulnar vein (6) Acute renal insufficiency: Code(s): N28.9 - Disorder of kidney and ureter, unspecified Status: Acute Assessment and Plan: Earlier this year patient's creatinine was 1.0-1.4 range but was 1.8 last admission. Creatinine this admission was 2.3 possibly related to obstructive process. He also may be dehydrated and/or AT
--- NOTE | 2021-09-04 14:45 | PCNFU ---
Nutrition Follow-Up Complete: Inadequate energy intake related to appetite and dentition as evidenced by pt report Goal:Pt. to meet >50% of estimated nutritional needs. Pt is progressing towards goal. Pt current nutrition is Diabetic consistent carb, level 5 minced and moist per speech. Nutrition recommendation: Continue with current plan of care. Last recorded weight is 65.1 kg - stable x admit wt. Bowel Motility: no recent BM recorded Labs Reviewed: Hgb:8.2, HCT:25.7, Alb:1.9, NA:132, BUN:27, Cre:1.4 Meds Noted: vitaman B, folic acid, miralax, lantus, zofran. Skin: no pressure areas Additional Notes: Pt diet upgraded to diabetic, minced and moist level 5 per speech. Pt is requesting regular consistency. Explained importance of following speech recommendations for diet consistency and would need to discuss and diet upgrade with physician. Pt states overall intake is still poor but has muscle milk and drinks that. Pt is not interested in supplements here. Encourage good intake. Will monitor labs, medication, wt, and reported intake every 5 days
[2021-09-04 14:50] LABS: ANCA Screen Negative (Negative)
[2021-09-04 15:53] VITALS: BP 82/48; PULSE 88; RESP 16; TEMP 37.1; O2SAT 93
[2021-09-04 16:06] LABS: Chloride Rand Ur 80 mmol/L (32-290); Chloride/Creatinine Rand Ur 182 (23-275); Creatinine Random Urine 44 mg/dL (20-320)
[2021-09-04 16:20] LABS: Glucose Point of Care 167 mg/dl (65-105)
[2021-09-04 19:41] LABS: Glucose Point of Care 192 mg/dl (65-105)
[2021-09-04] MEDS: PRIMIDONE 25 MG TABLET PO (21:37)
[2021-09-04] MEDS: traZODone HCL 50 MG TABLET PO (21:37)
[2021-09-04] MEDS: risperiDONE 0.5 MG TABLET PO (21:37)
[2021-09-04] MEDS: MELATONIN 5 MG TABLET 10 MG PO (21:37)
[2021-09-04] MEDS: INSULIN GLARGINE (*BKC) 100 UNITS/ML SUB-Q (21:39)
[2021-09-04] MEDS: MAGNESIUM OXIDE 400 MG TABLET PO (21:39)
[2021-09-04 22:00] VITALS: BP 124/57; PULSE 89; RESP 18; TEMP 37.3; O2SAT 90
[2021-09-04 22:34] LABS: Total Protein/Creatinine Ratio 1773 mg/g creat (22-128)
[2021-09-05 06:00] VITALS: BP 127/65; PULSE 88; RESP 18; TEMP 37.3; O2SAT 93
[2021-09-05 07:57] LABS: Glucose Point of Care 166 mg/dl (65-105)
[2021-09-05] MEDS: CYANOCOBALAMIN 1,000 MCG TABLET 1000 MCG PO (09:27)
[2021-09-05] MEDS: CHOLECALCIFEROL 1,000 UNITS TABLET 1000 UNITS PO (09:27)
[2021-09-05] MEDS: ASPIRIN 81 MG ENTERIC TABLET PO (09:27)
[2021-09-05] MEDS: CARBIDOPA/LEVODOPA 25/100 MG TABLET 2 TABLET PO ×3 (09:27→17:07)
[2021-09-05] MEDS: CARBIDOPA/LEVODOPA 12.5/50 MG TABLET 1 TABLET PO ×3 (09:27→17:07)
[2021-09-05] MEDS: guaiFENesin 12 HR 600 MG TABCR 1200 MG PO ×2 (09:28→21:09)
[2021-09-05] MEDS: FLUTICASONE PROPIONATE 0.05% NA SPR 16 GM BTL (*BKC) 2 SPRAY NASAL (09:28)
[2021-09-05] MEDS: DIVALPROEX SODIUM ER 500 MG TAB.24H PO ×2 (09:28→21:09)
[2021-09-05] MEDS: PANTOPRAZOLE 40 MG TABLET PO ×2 (09:28→21:08)
[2021-09-05] MEDS: DOCUSATE SODIUM 100 MG CAPSULE PO ×2 (09:28→21:08)
[2021-09-05] MEDS: SERTRALINE HCL 50 MG TABLET 150 MG PO (09:28)
[2021-09-05] MEDS: MULTIVITAMINS /C LUTEIN (CENTRUM SILVER) TABLET *BKC 1 TAB PO (09:28)
[2021-09-05] MEDS: FOLIC ACID 0.4 MG TABLET 0.8 MG PO (09:28)
[2021-09-05] MEDS: polyethylene glycoL 3350 17 GM POWD.PACK PO (09:28)
[2021-09-05 11:28] LABS: Glucose Point of Care 194 mg/dl (65-105)
[2021-09-05 14:00] VITALS: BP 92/51; PULSE 91; RESP 16; TEMP 36.8; O2SAT 93
[2021-09-05 14:18] LABS: Glucose Point of Care 140 mg/dl (65-105)
[2021-09-05 14:19] LABS: Glucose Point of Care 137 mg/dl (65-105)
[2021-09-05 14:20] LABS: Glucose Point of Care 182 mg/dl (65-105)
[2021-09-05 14:21] LABS: Glucose Point of Care 140 mg/dl (65-105)
[2021-09-05 14:21] LABS: Glucose Point of Care 181 mg/dl (65-105)
[2021-09-05 14:50] VITALS: BP 93/53; BP 96/54
--- NOTE | 2021-09-05 15:30 | PM.IMPN ---
Progress Note: A&P Assessment and Plan (1) Sepsis associated hypotension: Code(s): A41.9 - Sepsis, unspecified organism; I95.9 - Hypotension, unspecified Status: Acute Assessment and Plan: Sepsis present on admission. Source is obstructed right renal pelvis with obstructing pyelitis. 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 [place] he was transiently bacteremic from the recent stent placement. BP better and stable. No further fevers. Renal function better. BCx 08/30 and 09/01 NGTD. UCx 08/30 and 08/31 negative. Currently on day 7 of vancomycin and cefepime, urology requesting total of 10-14 days of oral antibiotics due to grossly purulent fluid in right renal pelvis. Pharmacy recommended increasing cefepime to Q12h. (2) Other obstructive defects of renal pelvis and ureter: Code(s): Q62.39 - Other obstructive defects of renal pelvis and ureter Status: Acute Assessment and Plan: CT of the abdomen pelvis 08/30 shows hyperdense fluid in the dilated right renal collecting system and renal pelvis which abruptly terminates at the UPJ. Patient underwent cystoscopy with right stent placement on 08/31.? There was purulence noted in the right renal pelvis and fluid was sent for culture. Urine culture is negative? Appreciate Urology evaluation and treatment. Renal ultrasound showing severe right hydronephrosis prior to stent. Repeat renal ultrasound from 09/04 shows mild persistent right hydronephrosis with some ascites, much improved from the August 31 study. Remove Akhtar when okay with urology (3) Anemia: Code(s): D64.9 - Anemia, unspecified Status: Acute Assessment and Plan: Patient's hemoglobin has been low since a year ago running in the 8-10 range mostly. Hemoglobin last admission was 11.4 but the following day dropped to 8.7 but remained relatively stable. Hgb did drop to 6.5 at the Rehab and he received 1 unit PRBC. Guaiac negative. Iron studies are more consistent with anemia of chronic disease probably related to CKD, malnutrition and/or Parkinson's disease. No evidence of acute blood loss. Hemoglobin has improved to 8 range and stable. Will continue to monitor H&H and transfuse as necessary. (4) Acute UTI: Code(s): N39.0 - Urinary tract infection, site not specified Status: Acute Assessment and Plan: On the last admission, urine culture was negative. One Blood culture was positive for Staph hominis but repeat blood cultures were negative. [place] to be a contaminant and he was not discharged on abx. This admission, BCx on 08/30 and 09/01 NGTD. UCx 08/30 negative. Urine culture from cystoscope (right renal pelvis) 08/31 also negative. Despite negative cultures, felt patient's symptoms related to obstruction with pyelitis. Continue broad-spectrum IV antibiotics. Will need to finish an emperic treatment course. (5) Deep vein thrombosis (DVT) of ulnar vein: Code(s): I82.629 - Acute embolism and thrombosis of deep veins of unspecified upper extremity Status: Acute Assessment and Plan: Doppler shows partial thrombus of the left ulnar vein. Patient was not candidate for anticoagulation prior. K-pad ordered for left forearm. He is improving but will continue to hold Lovenox for now. Repeat US tomorrow. If persistent or propagating, will consider starting anticoagulation. Repeat Doppler study shows no thrombus of the left ulnar vein. Resolved. Add lovenox (6) Acute renal insufficiency: Code(s): N28.9 - Disorder of kidney and ureter, unspecified Status: Acute Assessment and Plan: Earlier this year patient's creatinine was 1.0-1.4 range but was 1.8 last admission. Creatinine this admission was 2.3 possibly related to obstructive process. He also may be dehydrated and/or ATN related to UTI/pyelitis. He has had a metabolic non gap acidosis intermittently so consider RTA. Proteinuria could be related to the ob
[2021-09-05 16:35] LABS: Glucose Point of Care 201 mg/dl (65-105)
[2021-09-05] MEDS: ENOXAPARIN 40 MG/0.4 ML SYRINGE SUB-Q (17:07)
[2021-09-05] MEDS: INSULIN ASPART (*BKC) 100 UNITS/ML SUB-Q (17:08)
[2021-09-05 20:42] LABS: Vancomycin Trough 14.9 ug/mL (10.0-20.0)
[2021-09-05] MEDS: PRIMIDONE 25 MG TABLET PO (21:07)
[2021-09-05] MEDS: MELATONIN 5 MG TABLET 10 MG PO (21:07)
[2021-09-05] MEDS: MAGNESIUM OXIDE 400 MG TABLET PO (21:07)
[2021-09-05] MEDS: traZODone HCL 50 MG TABLET PO (21:07)
[2021-09-05] MEDS: risperiDONE 0.5 MG TABLET PO (21:08)
[2021-09-05] MEDS: INSULIN GLARGINE (*BKC) 100 UNITS/ML SUB-Q (21:19)
[2021-09-05 22:00] VITALS: BP 140/58; PULSE 81; RESP 16; TEMP 36.5; O2SAT 95
[2021-09-06 06:00] VITALS: BP 144/62; PULSE 71; RESP 18; TEMP 36.2; O2SAT 94
[2021-09-06 06:36] LABS: Basophils Percent Auto 0.3 % (0.2-1.2); Eosinophils Absolute Auto 0.4 K/mm3 (0-0.3); Eosinophils Percent Auto 4.8 % (0-4.4); Hematocrit 23.4 % (42.0-52.0); Hemoglobin 7.6 g/dL (14.0-18.0); Immature Granulocyte Absolute 0.23 K/mm3 (0.00-0.031); Immature Granulocyte Percent A 2.7 % (0-0.5); Lymphocytes Absolute Auto 1.19 K/mm3 (0.9-3.2); Lymphocytes Percent Auto 13.8 % (18.3-44.2); Mean Corpuscular HGB Conc 32.5 g/dl (32-36); Mean Corpuscular Volume 86.3 fl (80-100); Monocytes Absolute Auto 0.7 K/mm3 (0.1-0.6); Monocytes Percent Auto 7.9 % (2.6-8.5); Neutrophils Absolute Auto 6.1 K/mm3 (1.3-6.7); Neutrophils Percent Auto 70.5 % (45.5-73.1); Platelet Count Result 237 k/mm3 (150-375); Red Blood Count 2.71 M/mm3 (4.6-6.20); Red Cell Distribution Width 19.4 % (11.5-14.5); White Blood Count 8.6 K/mm3 (4.5-10.0)
[2021-09-06 06:47] LABS: Glucose Point of Care 181 mg/dl (65-105)
[2021-09-06 06:53] LABS: Albumin Level 2.2 g/dL (3.5-5.1); Anion Gap 1 mmol/L (8-16); Blood Urea Nitrogen 28 mg/dL (9-20); Calcium 8.4 mg/dL (8.4-10.2); Carbon Dioxide 25 mmol/L (22-30); Chloride 105 mmol/L (98-107); Estimated CRCL calculation 43 ml/min; Estimated Glomerular Filt Rate 59; Glucose 104 mg/dL (65-110); Magnesium 1.5 mg/dL (1.6-2.3); Phosphorus 3.2 mg/dL (2.5-4.5); Sodium 131 mmol/L (137-145)
[2021-09-06] MEDS: MAGNESIUM SULF 2 GM/WATER 50ML 2 GM/50 ML BAG IVPB (07:58)
[2021-09-06 08:19] LABS: Glucose Point of Care 92 mg/dl (65-105)
[2021-09-06] MEDS: ASPIRIN 81 MG ENTERIC TABLET PO (09:01)
[2021-09-06] MEDS: CARBIDOPA/LEVODOPA 25/100 MG TABLET 2 TABLET PO ×3 (09:01→16:37)
[2021-09-06] MEDS: DIVALPROEX SODIUM ER 500 MG TAB.24H PO ×2 (09:02→19:59)
[2021-09-06] MEDS: CHOLECALCIFEROL 1,000 UNITS TABLET 1000 UNITS PO (09:02)
[2021-09-06] MEDS: CARBIDOPA/LEVODOPA 12.5/50 MG TABLET 1 TABLET PO ×3 (09:02→16:38)
[2021-09-06] MEDS: CYANOCOBALAMIN 1,000 MCG TABLET 1000 MCG PO (09:02)
[2021-09-06] MEDS: ENOXAPARIN 40 MG/0.4 ML SYRINGE SUB-Q (09:03)
[2021-09-06] MEDS: FOLIC ACID 0.4 MG TABLET 0.8 MG PO (09:03)
[2021-09-06] MEDS: DOCUSATE SODIUM 100 MG CAPSULE PO ×2 (09:03→19:59)
[2021-09-06] MEDS: MULTIVITAMINS /C LUTEIN (CENTRUM SILVER) TABLET *BKC 1 TAB PO (09:03)
[2021-09-06] MEDS: FLUTICASONE PROPIONATE 0.05% NA SPR 16 GM BTL (*BKC) 2 SPRAY NASAL (09:03)
[2021-09-06] MEDS: guaiFENesin 12 HR 600 MG TABCR 1200 MG PO ×2 (09:03→20:00)
[2021-09-06] MEDS: polyethylene glycoL 3350 17 GM POWD.PACK PO (09:04)
[2021-09-06] MEDS: PANTOPRAZOLE 40 MG TABLET PO ×2 (09:04→19:59)
[2021-09-06] MEDS: SERTRALINE HCL 50 MG TABLET 150 MG PO (09:04)
[2021-09-06 10:49] LABS: Hematocrit 25.1 % (42.0-52.0); Hemoglobin 8.2 g/dL (14.0-18.0)
[2021-09-06 12:04] LABS: Glucose Point of Care 197 mg/dl (65-105)
[2021-09-06 15:46] VITALS: BP 102/60
[2021-09-06 15:47] VITALS: BP 98/50
[2021-09-06 16:12] VITALS: BP 95/55; PULSE 86; RESP 16; TEMP 36.7; O2SAT 97
--- NOTE | 2021-09-06 16:13 | PM.DS ---
DS: Admitting Diagnosis Discharge Date 09/06/21 Admitting Diagnosis Anemia DS: Discharge Diagnosis Discharge Diagnosis (1) Sepsis associated hypotension: Code(s): A41.9 - Sepsis, unspecified organism; I95.9 - Hypotension, unspecified Status: Acute Assessment and Plan: Sepsis present on admission. Source is obstructed right renal pelvis with obstructing pyelitis. 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 [place] he was transiently bacteremic from the recent stent placement. BP better overall but still soft at times felt related to his medications and/or from his Parkinsons. No further fevers. Renal function better. BCx 08/30 and 09/01 negative. UCx 08/30, 08/31 and 09/03 negative. Currently on day 8 of vancomycin and cefepime, urology requesting total of 10-14 days of oral antibiotics due to grossly purulent fluid in right renal pelvis. Pharmacy ID recommended Augmentin at discharge. (2) Other obstructive defects of renal pelvis and ureter: Code(s): Q62.39 - Other obstructive defects of renal pelvis and ureter Status: Acute Assessment and Plan: CT of the abdomen pelvis 08/30 shows hyperdense fluid in the dilated right renal collecting system and renal pelvis which abruptly terminates at the UPJ. Patient underwent cystoscopy with right stent placement on 08/31.? There was purulence noted in the right renal pelvis and fluid was sent for culture. Urine culture is negative? Appreciate Urology evaluation and treatment. Renal ultrasound showing severe right hydronephrosis prior to stent. Repeat renal ultrasound from 09/04 shows mild persistent right hydronephrosis with some ascites, much improved from the August 31 study. Follow up with urology after discharge for further management. (3) Anemia: Code(s): D64.9 - Anemia, unspecified Status: Acute Assessment and Plan: Patient's hemoglobin has been low since a year ago running in the 8-10 range mostly. Hemoglobin last admission was 11.4 but the following day dropped to 8.7 but remained relatively stable. Hgb did drop to 6.5 at the Rehab and he received 1 unit PRBC. Guaiac negative. Iron studies are more consistent with anemia of chronic disease probably related to CKD, malnutrition and/or Parkinson's disease. No evidence of acute blood loss. Hemoglobin has improved to 8 range and stable. (4) Acute UTI: Code(s): N39.0 - Urinary tract infection, site not specified Status: Acute Assessment and Plan: On the last admission, urine culture was negative. One Blood culture was positive for Staph hominis but repeat blood cultures were negative. [place] to be a contaminant and he was not discharged on abx. This admission, BCx on 08/30 and 09/01 negative. UCx 08/30 negative. Urine culture from cystoscope (right renal pelvis) 08/31 also negative. Despite negative cultures, felt patient's symptoms related to obstruction with pyelitis. Treated with broad-spectrum IV antibiotics. Will need to finish a 2 week emperic treatment course. (5) Deep vein thrombosis (DVT) of ulnar vein: Code(s): I82.629 - Acute embolism and thrombosis of deep veins of unspecified upper extremity Status: Acute Assessment and Plan: Doppler showed partial thrombus of the left ulnar vein. Patient was not candidate for anticoagulation. K-pad ordered for left forearm. Repeat Doppler study shows no thrombus of the left ulnar vein. (6) Acute renal insufficiency: Code(s): N28.9 - Disorder of kidney and ureter, unspecified Status: Acute Assessment and Plan: Earlier this year patient's creatinine was 1.0-1.4 range but was 1.8 last admission. Creatinine this admission was 2.3 possibly related to obstructive process. He also may be dehydrated and/or ATN related to UTI/pyelitis. He has had a metabolic non gap acidosis intermittently. Proteinuria could be related to the obstructive process. Urine eosin
[2021-09-06 17:26] LABS: Glucose Point of Care 181 mg/dl (65-105)
[2021-09-06 18:42] LABS: EDCOVIDSCREEN Negative (Negative)
[2021-09-06] MEDS: MELATONIN 5 MG TABLET 10 MG PO (19:58)
[2021-09-06] MEDS: PRIMIDONE 25 MG TABLET PO (19:59)
[2021-09-06] MEDS: traZODone HCL 50 MG TABLET PO (19:59)
[2021-09-06] MEDS: risperiDONE 0.5 MG TABLET PO (19:59)
[2021-09-06] MEDS: MAGNESIUM OXIDE 400 MG TABLET PO (19:59)
[2021-09-06] MEDS: INSULIN GLARGINE (*BKC) 100 UNITS/ML SUB-Q (21:10)
[2021-09-06 21:53] LABS: Glucose Point of Care 300 mg/dl (65-105)
[2021-09-06 22:00] VITALS: BP 125/72; PULSE 91; RESP 18; TEMP 37.4; O2SAT 92
--- NOTE | 2021-09-08 07:35 | PC.NURSE ---
Urine pneumococcal antigen is negative. UPEP shows no abn. peaks. Dr. Alejandra urias.
[2021-09-13 07:45] LABS: Glucose Point of Care 137 mg/dl (65-105)
== END 2021-09-06 23:55 | DRG 854 ==
LOC: ANHIMU 08-31 09:41 → ANH3MEDSUR 09-04 07:31 → ANHIMU 09-07 12:32
PROVIDERS: Internal Medicine; Physician Assistant; Student in an Organized Health Care Education/Training Program; Urology; Admitting Provider Internal Medicine; PCP Family Medicine; Visit Provider Internal Medicine
PROC: 0T768DZ Dilation of Right Ureter with Intraluminal Device, Via Natural or Artificial Opening Endoscopic (ICD-10-PCS; CPT 52352; principal; 2021-08-31 16:30)
DX: A41.9 Sepsis, unspecified organism (principal); E87.2 Acidosis; I82.622 Acute embolism and thrombosis of deep veins of left upper extremity; K86.1 Other chronic pancreatitis; Q62.39 Other obstructive defects of renal pelvis and ureter; N11.1 Chronic obstructive pyelonephritis; N28.9 Disorder of kidney and ureter, unspecified; E86.0 Dehydration; D63.8 Anemia in other chronic diseases classified elsewhere; Z20.822 Contact with and (suspected) exposure to COVID-19; I95.9 Hypotension, unspecified; E11.65 Type 2 diabetes mellitus with hyperglycemia; F17.290 Nicotine dependence, other tobacco product, uncomplicated; F12.90 Cannabis use, unspecified, uncomplicated; F31.9 Bipolar disorder, unspecified; G89.29 Other chronic pain; G20 Parkinson's disease; I10 Essential (primary) hypertension; I35.0 Nonrheumatic aortic (valve) stenosis; I27.20 Pulmonary hypertension, unspecified; J43.9 Emphysema, unspecified; K08.109 Complete loss of teeth, unspecified cause, unspecified class; M54.9 Dorsalgia, unspecified; R13.10 Dysphagia, unspecified; Z86.73 Personal history of transient ischemic attack (TIA), and cerebral infarction without residual deficits; Z66 Do not resuscitate; Z79.4 Long term (current) use of insulin
CPT/HCPCS: 36415; 74420; 76775; 80048; 80053; 80069; 80076; 80202; 81001; 82436; 82550; 82570; 82948; 83605; 83735; 84100; 84133; 84155; 84156; 84165; 84166; 84300; 85014; 85018; 85025; 85027; 85999; 86036; 86038; 86140; 86160; 87040; 87086; 87426; 87899; 92610; 93306; 93880; 93970; 93971; 96361; 96365; 96367; 97110; 97162; 97166; 97530; 97535; A9270; C1758; C1769; C2617; C9803; G0378; J0692; J1650; J1815; J2704; J3370; J3475; J7030; J7070; J7120

== ENCOUNTER 2021-09-09 18:30 | Inpatient (IN) | payer MEDICARE, SELFPAY ==
[2021-09-09] VITALS (8 sets, daily range): BP systolic 107–139; BP diastolic 61–68; PULSE 83–92; RESP 16–18; TEMP 36.8–37.1; O2SAT 93–99; BMI 16.1
--- NOTE | ~2021-09-09 | XR_ITS ---
XR chest 1V portable 09/09/2021 21:09 Indication: Shortness of breath. COPD. Procedure: AP portable chest Comparison: Comparison to multiple prior studies sequentially, with oldest reviewed study dated 08/27. Findings: Patchy bilateral airspace disease, right greater than left. Severe emphysema. Small pleural effusions. No pneumothorax. Impression: 1: Patchy bilateral airspace disease, consistent with pneumonia. 2: Severe bullous emphysema. 3: Small pleural effusions. Reviewed, dictated and finalized at location A. Impression: 1: Patchy bilateral airspace disease, consistent with pneumonia. 2: Severe bullous emphysema. 3: Small pleural effusions.
--- NOTE | ~2021-09-09 | XR_ITS ---
XR chest 1V portable 09/10/2021 22:47 Indication: Shortness of breath Procedure: AP portable chest Comparison: 08/30/2021 Findings: There is severe emphysema with worsening of bilateral airspace disease, consistent with pne umonia versus edema. Small right pleural effusion. No pneumothorax. No acute osseous abnormality. Impression: 1: Progression of bilateral airspace disease, consistent with pneumonia, superimposed on severe emphy sema. 2: Small right pleural effusion. Reviewed, dictated and finalized at location A. Impression: 1: Progression of bilateral airspace disease, consistent with pneumonia, superi mposed on severe emphysema. 2: Small right pleural effusion.
--- NOTE | 2021-09-09 18:45 | ED.GENADULT ---
HPI - General Adult General Chief complaint: Recheck/Abnormal Lab/Rx Stated complaint: low HGB Time Seen by Provider: 09/09/21 18:37 Source: patient and EMS Mode of arrival: EMS Limitations: no limitations History of Present Illness HPI narrative: 76 years old white female [facility]. Also jail reports that the patient have shortness of breath. Currently patient is asymptomatic. Patient normally on no oxygen. Started on oxygen yesterday by nasal cannula at 2 L because of hypoxia. Related Data Home Medications Medication Instructions Recorded Confirmed carbidopa 25 mg-levodopa 100 mg 2.5 tablet PO TID 03/08/19 09/09/21 tablet vitamin B12 500 mcg-folic acid 400 1 tablet PO DAILY 03/08/19 09/09/21 mcg tablet trkpkbdo-iqm-jqstp acid 300 1 tablet PO DAILY 05/18/20 09/09/21 mcg-lycopene 600 mcg-lutein 300 mcg tablet (Centrum Silver Men) acetaminophen 500 mg tablet 1,000 mg PO BID PRN Pain 06/06/20 09/09/21 (Tylenol Extra Strength) cholecalciferol (vitamin D3) 25 25 mcg PO DAILY 07/03/20 09/09/21 mcg (1,000 unit) capsule folic acid 800 mcg tablet 0.8 mg PO DAILY 07/03/20 09/09/21 melatonin 10 mg capsule 10 mg PO QHS 07/03/20 09/09/21 aspirin 81 mg tablet,delayed 81 mg PO QAM 05/16/21 09/09/21 release (Adult Aspirin Regimen) pantoprazole 40 mg tablet,delayed 40 mg PO BID 05/16/21 09/09/21 release (Protonix) artificial tears solution eye drops 1 drp ophthalmic (eye) BID PRN Dry 05/17/21 09/09/21 Eyes glipizide 10 mg tablet 40 mg PO DAILY 08/20/21 09/09/21 guaifenesin 1,200 mg tablet, 1,200 mg PO BID 08/20/21 09/09/21 extended release 12 hr (Mucinex) polyethylene glycol 3350 17 gram 17 g PO DAILY 08/20/21 09/09/21 oral powder packet (Miralax) sertraline 100 mg tablet 150 mg PO DAILY 08/20/21 09/09/21 Allergies Allergy/AdvReac Type Severity Reaction Status Date / Time codeine Allergy Mild RASH,PT Verified 07/25/21 16:05 STATED HE IS NOT ALLERGIC TO THIS. 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 Other Unknown family medical history Social History Social History Social History: Patient is adopted. Lives at home in [place] with his , Phoebe Barrera. He has 4 children. He is retired. 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 He reports daily vaping. He is a former 50 pack-year smoker. He denies alcohol use but was a heavy alcohol user up until 40 years ago. He notes occasional marijuana use. He is a DNR and he has designated his surrogate medical decision maker as his , Phoebe Barrera. Smoking packs per day: 1.5 Smoking cigarettes per day: 30.0 Years smoked: 55 Smoking pack-years: 82.50 Smoking status: Former smoker Second hand tobacco smoke exposure: No Alcohol intake: never Substance use: current Substance use type: marijuana Other substance usage details: smokes Last
[2021-09-09 19:06] LABS: Basophils Absolute Auto 0.1 K/mm3 (0.0-0.1); Basophils Percent Auto 0.9 % (0.2-1.2); Eosinophils Absolute Auto 0.2 K/mm3 (0-0.3); Eosinophils Percent Auto 2.4 % (0-4.4); Hemoglobin 7.3 g/dL (14.0-18.0); Immature Granulocyte Absolute 0.02 K/mm3 (0.00-0.031); Immature Granulocyte Percent A 0.3 % (0-0.5); Lymphocytes Absolute Auto 2.02 K/mm3 (0.9-3.2); Lymphocytes Percent Auto 29.1 % (18.3-44.2); Mean Corpuscular HGB Conc 30.4 g/dl (32-36); Mean Corpuscular Volume 88.9 fl (80-100); Mean Platelet Volume 9.4 fl (7.4-10.4); Monocytes Absolute Auto 0.9 K/mm3 (0.1-0.6); Monocytes Percent Auto 13.4 % (2.6-8.5); Neutrophils Absolute Auto 3.8 K/mm3 (1.3-6.7); Neutrophils Percent Auto 53.9 % (45.5-73.1); Platelet Count Result 269 k/mm3 (150-375); Red Cell Distribution Width 19.1 % (11.5-14.5)
[2021-09-09 19:10] LABS: INR 1.2; Prothrombin Time 14.9 Seconds (11.1-14.7)
[2021-09-09 19:11] LABS: Partial Thromboplastin Time 47.8 SECONDS (22.3-36.8)
[2021-09-09 19:12] LABS: Albumin Level 2.5 g/dL (3.5-5.1); Alkaline Phosphatase 104 U/L (38-126); Anion Gap 3 mmol/L (8-16); Aspartate Amino Transferase 16 U/L (17-59); Bilirubin,Total 0.2 mg/dL (0.2-1.3); Blood Urea Nitrogen 30 mg/dL (9-20); Calcium 8.6 mg/dL (8.4-10.2); Carbon Dioxide 29 mmol/L (22-30); Chloride 99 mmol/L (98-107); Estimated CRCL calculation 48 ml/min; Estimated Glomerular Filt Rate 54; Glucose 149 mg/dL (65-110); Potassium 4.3 mmol/L (3.4-5.0); Sodium 131 mmol/L (137-145)
[2021-09-09 19:41] LABS: Iron 31 ug/dL (49-181)
[2021-09-09 19:44] LABS: Lactate Dehydrogenase 231 U/L (313-618)
[2021-09-09 19:50] LABS: Alanine Aminotransferase < 4 U/L (6-50)
[2021-09-09 21:00] LABS: Folic Acid > 20.0 ng/mL (2.76->20); Vitamin B12 > 1000.0 pg/mL (239-931)
--- NOTE | 2021-09-09 21:33 | PC.NURSE ---
Olga Johnson RN updated on pt admission
[2021-09-09 21:46] LABS: Base Excess ABG 5.9 mEq/l (+/-2.0); Fractional Inspired Oxygen 21 %; Oxygen Content ABG 10.5 %vol (16.0-22.0); Oxygen Saturation ABG 91.8 % (95.0-100.0); PCO2 ABG 41.5 mmHg (35.0-45.0); PO2 FiO2 Ratio Arterial Blood 2.76 %; Total Hemoglobin 8.4 g/dL (12.0-18.0); pH ABG 7.477 (7.350-7.450)
[2021-09-09 21:47] LABS: Modified Allen's Test Pass; Site Drawn LEFT RADIAL
--- NOTE | 2021-09-09 22:11 | PM.IMHP ---
H&P: HPI History of Present Illness Date/Time: 09/09/21 22:11 Chief Complaint: Shortness of breath Narrative: 76-year-old male past medical history significant for COPD, Parkinson's disease, diabetes, anemia is presenting with shortness of breath. He was incidentally found to have a low hemoglobin 7.3. Fecal occult blood test was negative in the ER. Patient denies any nausea, vomiting, diarrhea, melena or hematemesis. He denies any chest pain admits to minimal shortness of breath, currently resolved on room air. He denies fevers or chills. No lower extremity edema, no URI symptoms. Of note, patient was recently discharged on September 06 after an extensive admission for sepsis secondary to obstructing pyelitis. Patient had grossly purulent fluid from the right renal pelvis. He was discharged on Augmentin to complete a 14 day course. 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 Other Unknown family medical history Social History Social History Social History: Patient is adopted. Lives at home in [place] with his , Phoebe Barrera. He has 4 children. He is retired. 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 He reports daily vaping. He is a former 50 pack-year smoker. He denies alcohol use but was a heavy alcohol user up until 40 years ago. He notes occasional marijuana use. He is a DNR and he has designated his surrogate medical decision maker as his , Phoebe Barrera. Smoking packs per day: 1.5 Smoking cigarettes per day: 30.0 Years smoked: 55 Smoking pack-years: 82.50 Smoking status: Former smoker Second hand tobacco smoke exposure: No Alcohol intake: never Substance use: never Substance use type: marijuana Other substance usage details: smokes Last use: 1 week Gender identity (if verbalized by the patient): Male Spiritual care concerns: No Agree to blood products: Yes Meds Home Medications and Allergies Home Medications Medication Instructions Recorded Confirmed Type carbidopa 25 mg-levodopa 100 mg 2.5 tablet PO TID 03/08/19 09/09/21 History tablet wsbvkqun-vqj-yhxqw acid 300 1 tablet PO DAILY 05/18/20 09/09/21 History mcg-lycopene 600 mcg-lutein 300 mcg tablet (Centrum Silver Men) acetaminophen 500 mg tablet 1,000 mg PO BID PRN Pain 06/06/20 09/09/21 History (Tylenol Extra Strength) docusate sodium 100 mg capsule 100 mg PO Q12HR 30 days #60 caps 06/08/20 09/09/21 Rx cholecalciferol (vitamin D3) 25 25 mcg PO DAILY 07/03/20 09/09/21 History mcg (1,000 unit) capsule folic acid 800 mcg tablet 0.8 mg PO DAILY 07/03/20 09/09/21 History melatonin 10 mg capsule 10 mg PO QHS 07/03/20 09/09/21 History lancets 28 gauge (Push Button #100 ea 11/03/20 09/09/21 Rx Safety Lancets) divalproex 500 mg tablet,extended 500 mg PO BID #180 tabs 03/05/21 09/09/21 Rx release 24 hr empagliflozin 10 mg tablet 10 mg PO DAILY #30 tabs 03/22/21 09/09/21 Rx (Jardiance) aspirin 81 mg
[2021-09-09 22:20] LABS: INR 1.3; Prothrombin Time 15.3 Seconds (11.1-14.7)
[2021-09-09 22:21] LABS: Partial Thromboplastin Time 47.6 SECONDS (22.3-36.8)
[2021-09-09 22:23] LABS: Lactic Acid Reflex 0.7 mmol/L (0.7-2.0)
[2021-09-09 22:26] LABS: CRP 7.7 mg/dL (<1.0)
[2021-09-09 22:27] LABS: SARS-CoV-2 RNA PCR Negative
--- NOTE | 2021-09-09 22:48 | ADMGEN ---
This patient, Getachew Barrera, was admitted to Medical Room 344-01. Patient/family oriented to hospital policies and general routines including ID bracelet, bed and alarms, visiting hours, pain management, procedures, bathroom and other care routines, personal items, smoking policy, room service/diet, and visiting hours. Information on how to activate the Rapid Response Team has been discussed. Patient/Family are encouraged to report perceived risks to care and to ask questions if they do not understand what they are told or what they should do.
[2021-09-09] MEDS: SODIUM CHLORIDE 0.9% IV 1,000 ML 125 ML IV CONT (23:03)
[2021-09-10 05:52] LABS: Basophils Absolute Auto 0.1 K/mm3 (0.0-0.1); Basophils Percent Auto 1.3 % (0.2-1.2); Eosinophils Absolute Auto 0.1 K/mm3 (0-0.3); Eosinophils Percent Auto 2.3 % (0-4.4); Hemoglobin 7.6 g/dL (14.0-18.0); Immature Granulocyte Absolute 0.04 K/mm3 (0.00-0.031); Immature Granulocyte Percent A 0.7 % (0-0.5); Lymphocytes Absolute Auto 1.73 K/mm3 (0.9-3.2); Lymphocytes Percent Auto 28.8 % (18.3-44.2); Mean Corpuscular HGB Conc 31.7 g/dl (32-36); Mean Corpuscular Volume 88.6 fl (80-100); Mean Platelet Volume 9.6 fl (7.4-10.4); Monocytes Absolute Auto 1.1 K/mm3 (0.1-0.6); Monocytes Percent Auto 17.5 % (2.6-8.5); Neutrophils Percent Auto 49.4 % (45.5-73.1); Platelet Count Result 212 k/mm3 (150-375); Red Blood Count 2.71 M/mm3 (4.6-6.20); Red Cell Distribution Width 19.2 % (11.5-14.5)
[2021-09-10 06:00] VITALS: BP 151/66; PULSE 79; RESP 18; TEMP 36.9; O2SAT 100
[2021-09-10 06:08] LABS: Anion Gap 3 mmol/L (8-16); Blood Urea Nitrogen 28 mg/dL (9-20); Calcium 8.4 mg/dL (8.4-10.2); Carbon Dioxide 25 mmol/L (22-30); Chloride 102 mmol/L (98-107); Estimated CRCL calculation 39 ml/min; Estimated Glomerular Filt Rate > 60; Glucose 125 mg/dL (65-110); Potassium 4.2 mmol/L (3.4-5.0); Sodium 130 mmol/L (137-145)
[2021-09-10 08:00] VITALS: PULSE 84; RESP 18; O2SAT 97
[2021-09-10] MEDS: SODIUM CHLORIDE 0.9% IV 1,000 ML 125 ML IV CONT ×2 (08:48→18:33)
[2021-09-10] MEDS: traMADol HCL (*CRX) 25 MG TABLET PO (09:47)
[2021-09-10 11:37] VITALS: BMI 16.1
[2021-09-10 11:48] VITALS: BMI 10.0
--- NOTE | 2021-09-10 11:56 | PM.IMPN ---
Progress Note: A&P Assessment and Plan (1) Anemia: Code(s): D64.9 - Anemia, unspecified Status: Acute Assessment and Plan: Monitor hemoglobin, Hemoglobin is stable. Awaiting discharge plans from corrections caseworker (2) Hyponatremia: Code(s): E87.1 - Hypo-osmolality and hyponatremia Status: Acute Assessment and Plan: Gentle IV fluid hydration asymptomatic, monitor (3) Adult failure to thrive: Code(s): R62.7 - Adult failure to thrive Status: Acute (4) GERD (gastroesophageal reflux disease): Qualifiers: Esophagitis presence: esophagitis presence not specified Qualified Code(s): K21.9 - Gastro-esophageal reflux disease without esophagitis Code(s): K21.9 - Gastro-esophageal reflux disease without esophagitis Status: Acute (5) Hyperlipidemia: Qualifiers: Hyperlipidemia type: unspecified Qualified Code(s): E78.5 - Hyperlipidemia, unspecified Code(s): E78.5 - Hyperlipidemia, unspecified Status: Acute (6) COPD (chronic obstructive pulmonary disease): Qualifiers: COPD type: emphysema Emphysema type: unspecified Qualified Code(s): J43.9 - Emphysema, unspecified Code(s): J44.9 - Chronic obstructive pulmonary disease, unspecified Status: Acute (7) Aortic stenosis: Qualifiers: Cardiac valve disease etiology: etiology unspecified Qualified Code(s): I35.0 - Nonrheumatic aortic (valve) stenosis Code(s): I35.0 - Nonrheumatic aortic (valve) stenosis Status: Acute (8) Parkinsons disease: Code(s): G20 - Parkinson's disease Status: Acute (9) Chronic depression: Code(s): F32.9 - Major depressive disorder, single episode, unspecified Status: Acute (10) Type 2 diabetes mellitus with hyperglycemia: Qualifiers: Diabetes mellitus longwall headgate operator insulin use: without half-way use Qualified Code(s): E11.65 - Type 2 diabetes mellitus with hyperglycemia Code(s): E11.65 - Type 2 diabetes mellitus with hyperglycemia Status: Acute Assessment and Plan: Accu-Cheks with sliding scale insulin (11) Pneumonia: Code(s): J18.9 - Pneumonia, unspecified organism Status: Acute Assessment and Plan: IV Levaquin Subjective Date/time seen: 09/10/21 11:56 patient denies any significant shortness of breath. Feels much better today. Exam Narrative: General: Cachectic looking frail gentleman, alert and oriented HEENT: Atraumatic, normocephalic, mucous membranes moist CV: Regular rate and rhythm, S1, S2 Lungs: Clear to auscultation bilaterally, no rales or crackles noted, no wheezes, good air entry Abdomen: Soft, nontender, nondistended Extremities: Normal to inspection Skin: No rashes noted, no lesions or wounds seen Psych: Euthymic, normal affect Objective Data Vital Signs Vital Signs: Vital Signs - 24 hr 09/09/21 18:34 09/09/21 18:36 09/09/21 19:17 Temperature 98.2 F Pulse Rate 91 92 Respiratory Rate 18 18 18 Blood Pressure 139/65 122/61 Pulse Oximetry 93 94 Oxygen Delivery Nasal Cannula Oxygen Flow Rate 2 2 09/09/21 20:03 09/09/21 21:00 09/09/21 21:51 Temperature Pulse Rate 89 87 87 Respiratory Rate 18 16 18 Blood Pressure 111/65 107/68 116/64 Pulse Oximetry 94 98 95 Oxygen Delivery Oxygen Flow Rate 09/09/21 22:04 09/09/21 23:15 09/10/21 06:00 Temperature 98.8 F 98.6 F 98.4 F Pulse Rate 88 83 79 Respiratory Rate 18 18 18 Blood Pressure 124/66 151/66 H Pulse Oximetry 97 99 100 Oxygen Delivery Oxygen Flow Rate 09/10/21 08:00 Temperature Pulse Rate 84 Respiratory Rate 18 Blood Pressure Pulse Oximetry 97 Oxygen Delivery Room Air Oxygen Flow Rate Intake/Output Intake/Output: Intake & Output 09/07/21 09/08/21 09/09/21 09/10/21 23:59 23:59 23:59 23:59 Intake Total 1240 Balance 1240 Meds/Results Medications: Active Medications Gener
--- NOTE | 2021-09-10 12:22 | PCNSR ---
On 09/10/21, the student, Robina Aviles, provided care and completed [facility] documentation on this patient. I have reviewed the student's documentation and agree with the findings.
[2021-09-10 13:51] VITALS: O2SAT 97
[2021-09-10 16:00] VITALS: BP 129/67; PULSE 85; RESP 16; TEMP 36.7; O2SAT 95
[2021-09-10 21:35] VITALS: BP 123/54; PULSE 81; RESP 18; TEMP 36.7; O2SAT 93
--- NOTE | 2021-09-10 22:33 | ECG_ITS ---
Measurements Intervals [place] Rate: 79 P: 88 TN: 176 QRS: -71 QRSD: 137 T: 75 QT: 417 QTc: 480 Interpretive Statements SINUS RHYTHM RIGHT BUNDLE BRANCH BLOCK LEFT ANTERIOR FASCICULAR BLOCK ABNORMAL ECG Electronically Signed On 09-11-2021 9:08:12 CDT by Peewee Montoya D.O.
[2021-09-10] MEDS: LORazepam (*CRX) 0.5 MG TABLET PO (22:53)
--- NOTE | 2021-09-10 22:56 | P.PNCROSS_ITS ---
Event Note Event Note Event Note: S: Patient was complaining of chest pain/pressure. He was unable to take a deep breath, and was feeling very short of breath. He stated It feels like someone is sitting on my chest. O: Chest xray showed progression of bilateral airspace disease consistent with PNA superimposed on severe emphysema, trops, EKG, BNP, anemia labs, and CBC ordered A: General: No acute distress. Mental Status: Awake, alert and oriented to person, place, and time with clear speech. Cardiac: S1 and S2 regular rate and rhythm. No murmurs, gallops, or rubs auscultated. Respiratory: Chest wall symmetric, Respirations even and unlabored. Lung sounds rhonci in the bases Abdominal: Abdomen soft, round and non-tender to palpation. Bowel sounds present and normoactive in all 4 quadrants. Neurological: Full and symmetric motor and light touch sensation bilateral ly. Cranial nerves II-XII grossly intact. P: Await results, continue home medications, stopped fluids, continue antibiotics. H/H was low at 6.4. 2 units of PRBC ordered and given
[2021-09-10 23:05] LABS: Hematocrit 21.1 % (42.0-52.0); Mean Corpuscular HGB Conc 30.3 g/dl (32-36); Mean Corpuscular Hemoglobin 27.1 pg (26-34); Mean Corpuscular Volume 89.4 fl (80-100); Mean Platelet Volume 9.3 fl (7.4-10.4); Platelet Count Result 209 k/mm3 (150-375); Red Blood Count 2.36 M/mm3 (4.6-6.20); Red Cell Distribution Width 18.8 % (11.5-14.5); White Blood Count 5.2 K/mm3 (4.5-10.0)
[2021-09-10 23:15] LABS: Hemoglobin 6.4 g/dL (14.0-18.0)
[2021-09-10 23:26] LABS: Troponin I < 0.012 ng/mL (0.000-0.034)
[2021-09-10 23:35] LABS: Transferrin 84 mg/dL (206-381)
[2021-09-10 23:36] LABS: NT Pro B Type Natriuretic Pept 2340 pg/mL (5-100)
[2021-09-11] VITALS (12 sets, daily range): BP systolic 122–174; BP diastolic 61–78; PULSE 65–81; RESP 14–20; TEMP 36.4–37.4; O2SAT 92–100
[2021-09-11] MEDS: TUBING, BLOOD PLUM PUMP TUBING 1 EACH XX (00:01)
[2021-09-11] MEDS: SODIUM CHLORIDE 0.9% IV 250 ML 30 ML IV CONT (00:30)
[2021-09-11 00:39] LABS: Folic Acid > 20.0 ng/mL (2.76->20)
[2021-09-11 02:42] LABS: Troponin I < 0.012 ng/mL (0.000-0.034)
[2021-09-11 03:55] LABS: Iron 47 ug/dL (49-181)
[2021-09-11 04:04] LABS: Percent Iron Saturation 27 % (20-50)
[2021-09-11 08:47] LABS: Hematocrit 31.2 % (42.0-52.0); Hemoglobin 9.9 g/dL (14.0-18.0)
[2021-09-11] MEDS: PANTOPRAZOLE 40 MG TABLET PO ×2 (09:32→21:21)
[2021-09-11] MEDS: CHOLECALCIFEROL 1,000 UNITS TABLET 1000 UNITS PO (09:32)
[2021-09-11] MEDS: ASPIRIN 81 MG ENTERIC TABLET PO (09:32)
[2021-09-11] MEDS: CARBIDOPA/LEVODOPA 25/100 MG TABLET 1 TABLET PO ×3 (09:32→17:10)
[2021-09-11] MEDS: polyethylene glycoL 3350 17 GM POWD.PACK PO (09:32)
[2021-09-11] MEDS: FLUTICASONE PROPIONATE 0.05% NA SPR 16 GM BTL (*BKC) 2 SPRAY NASAL ×2 (09:33→17:10)
[2021-09-11] MEDS: DIVALPROEX SODIUM DR 250 MG TABEC 500 MG PO ×2 (09:33→17:10)
[2021-09-11] MEDS: FERROUS SULFATE 324 MG TABLET PO (09:33)
--- NOTE | 2021-09-11 10:33 | PM.IMPN ---
Progress Note: A&P Assessment and Plan (1) Anemia: Code(s): D64.9 - Anemia, unspecified Status: Acute Assessment and Plan: Acute drop in hemoglobin last night. 2 units PRBC transfused. Iron studies show iron deficiency anemia. Started on once daily iron supplement. Hemoglobin stable now (2) Hyponatremia: Code(s): E87.1 - Hypo-osmolality and hyponatremia Status: Acute Assessment and Plan: Gentle IV fluid hydration asymptomatic, monitor BMP (3) GERD (gastroesophageal reflux disease): Qualifiers: Esophagitis presence: esophagitis presence not specified Qualified Code(s): K21.9 - Gastro-esophageal reflux disease without esophagitis Code(s): K21.9 - Gastro-esophageal reflux disease without esophagitis Status: Acute Assessment and Plan: Continue PPI (4) Parkinsons disease: Code(s): G20 - Parkinson's disease Status: Acute Assessment and Plan: Continue home med (5) Type 2 diabetes mellitus with hyperglycemia: Qualifiers: Diabetes mellitus superintendent container terminal insulin use: without skilled nursing use Qualified Code(s): E11.65 - Type 2 diabetes mellitus with hyperglycemia Code(s): E11.65 - Type 2 diabetes mellitus with hyperglycemia Status: Acute Assessment and Plan: Accu-Cheks with sliding scale insulin (6) Pneumonia: Code(s): J18.9 - Pneumonia, unspecified organism Status: Acute Assessment and Plan: IV Levaquin Subjective Date/time seen: 09/11/21 10:33 Interval history: Stable. Acute drop in hemoglobin overnight. Exam Narrative: General: Cachectic looking frail gentleman, alert and oriented HEENT: Atraumatic, normocephalic, mucous membranes moist CV: Regular rate and rhythm, S1, S2 Lungs: Clear to auscultation bilaterally, no rales or crackles noted, no wheezes, good air entry Abdomen: Soft, nontender, nondistended Extremities: Normal to inspection Skin: No rashes noted, no lesions or wounds seen Psych: Euthymic, normal affect Objective Data Vital Signs Vital Signs: Vital Signs - 24 hr 09/10/21 11:48 09/10/21 16:00 09/10/21 13:51 Temperature 98.1 F Pulse Rate 85 Respiratory Rate 16 Blood Pressure 129/67 Pulse Oximetry 95 97 Oxygen Delivery Room Air Room Air 09/10/21 21:35 09/11/21 00:24 09/11/21 00:45 Temperature 98.0 F 98.6 F 98.9 F Pulse Rate 81 78 71 Respiratory Rate 18 16 14 Blood Pressure 123/54 L 145/76 H 122/61 Pulse Oximetry 93 94 96 Oxygen Delivery 09/11/21 01:45 09/11/21 02:45 09/11/21 03:03 Temperature 98.6 F 99.0 F 99.0 F Pulse Rate 70 76 74 Respiratory Rate 14 16 16 Blood Pressure 146/68 H 160/67 H 153/63 H Pulse Oximetry 98 99 97 Oxygen Delivery 09/11/21 03:20 09/11/21 04:20 09/11/21 05:20 Temperature 99.0 F 99.4 F 98.0 F Pulse Rate 70 81 72 Respiratory Rate 16 14 18 Blood Pressure 155/62 H 174/78 H 157/66 H Pulse Oximetry 97 98 92 Oxygen Delivery 09/11/21 06:04 Temperature 99.0 F Pulse Rate 73 Respiratory Rate 16 Blood Pressure 134/63 Pulse Oximetry 92 Oxygen Delivery Intake/Output Intake/Output: Intake & Output 09/08/21 09/09/21 09/10/21 09/11/21 23:59 23:59 23:59 23:59 Intake Total 2775 870 Balance 2775 870 Meds/Results Medications: Active Medications Generic Name Dose Route Start Last Admin Trade Name Mando PRN Reason Stop Dose Admin Acetaminophen 1,000 mg 09/10/21 22:34 Acetaminophen 500 Mg Tablet PO BID PRN Pain Artificial Tears 1 drop 09/10/21 22:34 Artificial Tears Ophth Soln 15 Ml Bottle EACH EYE BID PRN Dry Eyes Aspirin 81 mg 09/11/21 09:00 09/11/21 09:32 Aspirin 81 Mg Enteric Tablet PO 81 mg QAM ILANA Administration Carbidopa/Levodopa 1 tablet 09/11/21 09:00 09/11/21 09:32 Carbidopa/Levodopa 25/100 Mg Tablet PO 1 tablet TID ILANA Administration Divalproex Sodium 500 mg 09/11/21 09:00 09/11/21 09:33 Diva
--- NOTE | 2021-09-11 10:34 | PCPTNOTE ---
Patient refused treatment this session. Patient did not really give reason why, just stated he does not want to do therapy at this time.
[2021-09-11] MEDS: SODIUM CHLORIDE 0.9% IV 1,000 ML 50 ML IV CONT (13:31)
[2021-09-11] MEDS: MAGNESIUM OXIDE 400 MG TABLET PO (21:21)
[2021-09-11] MEDS: MELATONIN 5 MG TABLET 10 MG PO (21:21)
[2021-09-11] MEDS: PRIMIDONE 25 MG TABLET PO (21:21)
[2021-09-11] MEDS: LORazepam (*CRX) 0.5 MG TABLET PO (21:22)
[2021-09-12 05:22] VITALS: BP 161/61; PULSE 66; RESP 18; TEMP 36.5; O2SAT 94
--- NOTE | 2021-09-12 08:42 | PCOTNOTE ---
Attempted to see patient this am. Patient was sleeping upon entering and refused therapy at this time stating, No. Patient reported being too tired.
[2021-09-12] MEDS: FLUTICASONE PROPIONATE 0.05% NA SPR 16 GM BTL (*BKC) 2 SPRAY NASAL ×2 (09:25→17:31)
[2021-09-12] MEDS: polyethylene glycoL 3350 17 GM POWD.PACK PO (09:25)
[2021-09-12] MEDS: FERROUS SULFATE 324 MG TABLET PO (09:25)
[2021-09-12] MEDS: CHOLECALCIFEROL 1,000 UNITS TABLET 1000 UNITS PO (09:25)
[2021-09-12] MEDS: DIVALPROEX SODIUM DR 250 MG TABEC 500 MG PO ×2 (09:25→17:31)
[2021-09-12] MEDS: PANTOPRAZOLE 40 MG TABLET PO ×2 (09:25→20:16)
[2021-09-12] MEDS: CARBIDOPA/LEVODOPA 25/100 MG TABLET 1 TABLET PO ×3 (09:25→17:31)
[2021-09-12] MEDS: ASPIRIN 81 MG ENTERIC TABLET PO (09:25)
[2021-09-12] MEDS: SODIUM CHLORIDE 0.9% IV 1,000 ML 50 ML IV CONT (09:26)
--- NOTE | 2021-09-12 11:44 | PM.IMPN ---
Progress Note: A&P Assessment and Plan (1) Anemia: Code(s): D64.9 - Anemia, unspecified Status: Acute Assessment and Plan: Acute drop in hemoglobin last night. Status post 2 units PRBC transfused. Iron studies show iron deficiency anemia. Started on once daily iron supplement. Hemoglobin stable now. No bleeding noted. (2) Hyponatremia: Code(s): E87.1 - Hypo-osmolality and hyponatremia Status: Acute Assessment and Plan: Chronic and stable. (3) GERD (gastroesophageal reflux disease): Qualifiers: Esophagitis presence: esophagitis presence not specified Qualified Code(s): K21.9 - Gastro-esophageal reflux disease without esophagitis Code(s): K21.9 - Gastro-esophageal reflux disease without esophagitis Status: Acute Assessment and Plan: Continue PPI (4) Parkinsons disease: Code(s): G20 - Parkinson's disease Status: Acute Assessment and Plan: Continue home med (5) Type 2 diabetes mellitus with hyperglycemia: Qualifiers: Diabetes mellitus technician terminal and repeater insulin use: without [place] [facility] use Qualified Code(s): E11.65 - Type 2 diabetes mellitus with hyperglycemia Code(s): E11.65 - Type 2 diabetes mellitus with hyperglycemia Status: Acute Assessment and Plan: Accu-Cheks with sliding scale insulin (6) Pneumonia: Code(s): J18.9 - Pneumonia, unspecified organism Status: Acute Assessment and Plan: IV Levaquin Subjective Date/time seen: 09/12/21 11:44 No complaints. Hemoglobin stable. Exam Narrative: General: Cachectic looking frail gentleman, alert and oriented HEENT: Atraumatic, normocephalic, mucous membranes moist CV: Regular rate and rhythm, S1, S2 Lungs: Clear to auscultation bilaterally, no rales or crackles noted, no wheezes, good air entry Abdomen: Soft, nontender, nondistended Extremities: Normal to inspection Skin: No rashes noted, no lesions or wounds seen Psych: Euthymic, normal affect Objective Data Vital Signs Vital Signs: Vital Signs - 24 hr 09/11/21 14:00 09/11/21 15:25 09/11/21 20:01 Temperature 98.2 F 97.6 F Pulse Rate 75 65 Respiratory Rate 20 16 Blood Pressure 151/70 H 155/61 H Pulse Oximetry 100 97 97 Oxygen Delivery Room Air 09/12/21 05:22 Temperature 97.7 F Pulse Rate 66 Respiratory Rate 18 Blood Pressure 161/61 H Pulse Oximetry 94 Oxygen Delivery Intake/Output Intake/Output: Intake & Output 09/09/21 09/10/21 09/11/21 09/12/21 23:59 23:59 23:59 23:59 Intake Total 2775 1170 1100 Balance 2775 1170 1100 Meds/Results Medications: Active Medications Generic Name Dose Route Start Last Admin Trade Name Freq PRN Reason Stop Dose Admin Acetaminophen 1,000 mg 09/10/21 22:34 Acetaminophen 500 Mg Tablet PO BID PRN Pain Artificial Tears 1 drop 09/10/21 22:34 Artificial Tears Ophth Soln 15 Ml Bottle EACH EYE BID PRN Dry Eyes Aspirin 81 mg 09/11/21 09:00 09/12/21 09:25 Aspirin 81 Mg Enteric Tablet PO 81 mg QAM ILANA Administration Carbidopa/Levodopa 1 tablet 09/11/21 09:00 09/12/21 09:25 Carbidopa/Levodopa 25/100 Mg Tablet PO 1 tablet TID ILANA Administration Divalproex Sodium 500 mg 09/11/21 09:00 09/12/21 09:[address] 250 Mg Tabec PO 500 mg BID ILANA Administration Ferrous Sulfate 324 mg 09/11/21 08:05 09/12/21 09:25 Ferrous Sulfate 324 Mg Tablet PO 324 mg DAILY@0800 ILANA Administration Fluticasone Propionate 2 spray 09/11/21 09:00 09/12/21 09:25 Fluticasone Propionate 0.05% Na Spr 16 Gm Btl (*Bkc) NASAL 2 spray BID ILANA Administration Levofloxacin/Dextrose 750 mg in 150 mls @ 100 mls/hr 09/10/21 22:00 09/11/21 21:19 Levaquin 750 Mg/D5w 150 Ml IVPB 100 mls/hr Q24H ILANA Administration Sodium Chloride 1,000 mls @ 50 mls/hr 09/11/21 10:40 09/12/21 09:26 Normal Saline Iv IV CONT 50 mls/hr .Q20H ILANA
[2021-09-12 13:58] VITALS: BP 156/62; PULSE 68; RESP 16; TEMP 37; O2SAT 95
[2021-09-12 20:00] VITALS: PULSE 65; RESP 20; O2SAT 95
[2021-09-12 20:01] VITALS: BP 149/61; PULSE 65; RESP 20; TEMP 36.6; O2SAT 95
[2021-09-12] MEDS: LORazepam (*CRX) 0.5 MG TABLET PO (20:16)
[2021-09-12] MEDS: PRIMIDONE 25 MG TABLET PO (20:16)
[2021-09-12] MEDS: MELATONIN 5 MG TABLET 10 MG PO (20:16)
[2021-09-12] MEDS: MAGNESIUM OXIDE 400 MG TABLET PO (20:16)
[2021-09-13 04:22] VITALS: BP 150/57; PULSE 60; RESP 18; TEMP 36.6; O2SAT 95
[2021-09-13] MEDS: SODIUM CHLORIDE 0.9% IV 1,000 ML 50 ML IV CONT (08:18)
[2021-09-13] MEDS: FERROUS SULFATE 324 MG TABLET PO (08:20)
[2021-09-13] MEDS: ASPIRIN 81 MG ENTERIC TABLET PO (08:20)
[2021-09-13] MEDS: CHOLECALCIFEROL 1,000 UNITS TABLET 1000 UNITS PO (08:21)
[2021-09-13] MEDS: CARBIDOPA/LEVODOPA 25/100 MG TABLET 1 TABLET PO ×3 (08:21→18:32)
[2021-09-13] MEDS: DIVALPROEX SODIUM DR 250 MG TABEC 500 MG PO ×2 (08:21→18:33)
[2021-09-13] MEDS: FLUTICASONE PROPIONATE 0.05% NA SPR 16 GM BTL (*BKC) 2 SPRAY NASAL ×2 (08:22→18:32)
[2021-09-13] MEDS: PANTOPRAZOLE 40 MG TABLET PO ×2 (08:24→20:19)
[2021-09-13] MEDS: polyethylene glycoL 3350 17 GM POWD.PACK PO (08:25)
[2021-09-13 08:44] LABS: Hematocrit 32.4 % (42.0-52.0); Hemoglobin 10.2 g/dL (14.0-18.0); Mean Corpuscular HGB Conc 31.5 g/dl (32-36); Mean Corpuscular Hemoglobin 28.2 pg (26-34); Mean Corpuscular Volume 89.5 fl (80-100); Mean Platelet Volume 9.2 fl (7.4-10.4); Platelet Count Result 209 k/mm3 (150-375); Red Blood Count 3.62 M/mm3 (4.6-6.20); Red Cell Distribution Width 16.7 % (11.5-14.5); White Blood Count 6.5 K/mm3 (4.5-10.0)
--- NOTE | 2021-09-13 11:07 | PCOTNOTE ---
Attempted to see patient at 10:19am this date, patient stated he was too tiered and to come back later, attempted to encourage and educate on benefits of OT, continued to state I didn't sleep well and I am too tiered.
--- NOTE | 2021-09-13 11:12 | PCNFU ---
Nutrition Follow-Up Complete: Inadequate energy intake related to low appetite as evidenced by 50% meal intake. Goal: Adequate intake of at least 75% of meals. Pt is progressing towards goal. Pt current nutrition is heart healthy. Last recorded weight is 54 kg. Weight is stable. Bowel Motility: + BM 09/13 Labs Reviewed: Hgb:10.2, Hct:32.4 Meds Noted: Ferrous sulfate, Protonix, Miralax, Mysoline, Vitamin D Skin: WNL Additional Notes: Continue with current diet order. Pt reported food is terrible but has fair intake. Recommend pt receive Nutritional Ice Cream BID: 300 kcals, 9 grams protein per container, per MD orders. Monitor weight, labs, and intake and follow up in 5 days.
--- NOTE | 2021-09-13 11:29 | PM.DS ---
DS: Admitting Diagnosis Discharge Date September 13, 2021 Admitting Diagnosis Pneumonia DS: Discharge Diagnosis Discharge Diagnosis (1) Anemia: Code(s): D64.9 - Anemia, unspecified Status: Acute Assessment and Plan: Likely related to chronic disease. did receive transfusion but hemoglobin has stabilized. No blood loss (2) Hyponatremia: Code(s): E87.1 - Hypo-osmolality and hyponatremia Status: Acute Assessment and Plan: Chronic. No symptoms. Monitor on discharge. 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 One more day of Levaquin on discharge. DS: Summary Hospital Course Hospital Course: See discharge plan and diagnosis Time Spent with Patient Time attestation: Total time spent providing and/or coordinating discharge services: Exam Narrative: General: Cachectic looking frail gentleman, alert and oriented HEENT: Atraumatic, normocephalic, mucous membranes moist CV: Regular rate and rhythm, S1, S2 Lungs: Clear to auscultation bilaterally, no rales or crackles noted, no wheezes, good air entry Abdomen: Soft, nontender, nondistended Extremities: Normal to inspection Skin: No rashes noted, no lesions or wounds seen Psych: Euthymic, normal affect DS: Data Data Completed and Pending Labs on day of discharge: Labs from last 24 hours 09/13/21 09/09/21 08:33 18:53 WBC 6.5 RBC 3.62 L Hgb 10.2 L Hct 32.4 L MCV 89.5 MCH 28.2 MCHC 31.5 L RDW 16.7 H Plt Count 209 MPV 9.2 Crossmatch See Detail Preliminary micro results at discharge 09/09/21 22:04 Blood Culture - Preliminary Blood 09/09/21 22:04 Blood Culture - Preliminary Blood Discharge Plan Discharge Attending physician on discharge: Prudencio Cooper Discharging Clinician: Prudencio Cooper Patient Disposition: SNF Activity: no preference Diet: as tolerated Stand Alone Forms: General Discharge Information Discharge Medications: New levofloxacin 750 mg tablet 750 mg PO DAILY 1 Days Qty: 1 0RF Continued Centrum Silver Men 300-600-300 mcg tablet 1 tablet PO DAILY folic acid 800 mcg tablet 0.8 mg PO DAILY Rx Instructions: pt takes at noon cholecalciferol (vitamin D3) 25 mcg (1,000 unit) capsule 25 mcg PO DAILY melatonin 10 mg capsule 10 mg PO QHS polyethylene glycol 3350 [Miralax] 17 gram Powder In Packet 17 g PO DAILY Mucinex 1,200 mg Tablet Extended Release 12hr 1,200 mg PO BID sertraline 100 mg tablet 150 mg PO DAILY Rx Instructions: takes in the morning cyanocobalamin (vitamin B-12) [Vitamin B-12] 1,000 mcg Tablet 1,000 mcg PO QAM Qty: 30 0RF bisacodyl 10 mg Suppository 10 mg RECTAL QAM PRN (Reason: Constipation) Qty: 5 0RF folic acid 400 mcg Tablet 400 mcg PO DAILY Aloe [place] Antifungal 2 % Ointment 1 applic TOPICAL TID ferrous sulfate 325 mg (65 mg iron) Tablet 325 mg PO BID fluticasone propionate 50 mcg/actuation spray
--- NOTE | 2021-09-13 12:16 | PCNSR ---
On 09/13/21, the student, Adriane Adkins, provided care and completed [facility] documentation on this patient. I have reviewed the student's documentation and agree with the findings.
[2021-09-13 14:00] VITALS: BP 123/53; PULSE 69; RESP 16; TEMP 36.4; O2SAT 97
--- NOTE | 2021-09-13 15:44 | PCCCNOTE ---
On 09/13/21, the student, Camryn Conner, provided care and completed [facility] documentation on this patient. I have reviewed the student's documentation and agree with the findings.
--- NOTE | 2021-09-13 16:17 | PM.IMPN ---
Progress Note: A&P Assessment and Plan (1) Anemia: Code(s): D64.9 - Anemia, unspecified Status: Acute Assessment and Plan: Likely related to chronic disease. did receive transfusion but hemoglobin has stabilized. No blood loss (2) Hyponatremia: Code(s): E87.1 - Hypo-osmolality and hyponatremia Status: Acute Assessment and Plan: Chronic. No symptoms. Monitor on discharge. 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 One more day of Levaquin on discharge. Subjective Date/time seen: 09/13/21 16:17 No complaints Exam Narrative: General: Cachectic looking frail gentleman, alert and oriented HEENT: Atraumatic, normocephalic, mucous membranes moist CV: Regular rate and rhythm, S1, S2 Lungs: Clear to auscultation bilaterally, no rales or crackles noted, no wheezes, good air entry Abdomen: Soft, nontender, nondistended Extremities: Normal to inspection Skin: No rashes noted, no lesions or wounds seen Psych: Euthymic, normal affect Objective Data Vital Signs Vital Signs: Vital Signs - 24 hr 09/12/21 20:01 09/12/21 20:00 09/13/21 04:22 Temperature 98 F 97.8 F Pulse Rate 65 65 60 Respiratory Rate 20 20 18 Blood Pressure 149/61 H 150/57 H Pulse Oximetry 95 95 95 Oxygen Delivery Room Air 09/13/21 08:21 09/13/21 14:00 Temperature 97.6 F Pulse Rate 69 Respiratory Rate 16 Blood Pressure 123/53 L Pulse Oximetry 97 Oxygen Delivery Room Air Intake/Output Intake/Output: Intake & Output 09/10/21 09/11/21 09/12/21 09/13/21 23:59 23:59 23:59 23:59 Intake Total 2775 1320 1940 1480 Balance 2775 1320 1940 1480 Meds/Results Medications: Active Medications Generic Name Dose Route Start Last Admin Trade Name Freq PRN Reason Stop Dose Admin Acetaminophen 1,000 mg 09/10/21 22:34 Acetaminophen 500 Mg Tablet PO BID PRN Pain Artificial Tears 1 drop 09/10/21 22:34 Artificial Tears Ophth Soln 15 Ml Bottle EACH EYE BID PRN Dry Eyes Aspirin 81 mg 09/11/21 09:00 09/13/21 08:20 Aspirin 81 Mg Enteric Tablet PO 81 mg QAM ILANA Administration Carbidopa/Levodopa 1 tablet 09/11/21 09:00 09/13/21 14:52 Carbidopa/Levodopa 25/100 Mg Tablet PO 1 tablet TID ILANA Administration Divalproex Sodium 500 mg 09/11/21 09:00 09/13/21 08:[address] 250 Mg Tabec PO 500 mg BID ILANA Administration Ferrous Sulfate 324 mg 09/11/21 08:05 09/13/21 08:20 Ferrous Sulfate 324 Mg Tablet PO 324 mg DAILY@0800 ILANA Administration Fluticasone Propionate 2 spray 09/11/21 09:00 09/13/21 08:22 Fluticasone Propionate 0.05% Na Spr 16 Gm Btl (*Bkc) NASAL 2 spray BID ILANA Administration Levofloxacin/Dextrose 750 mg in 150 mls @ 100 mls/hr 09/10/21 22:00 09/12/21 21:50 Levaquin 750 Mg/D5w 150 Ml IVPB Infused Q24H ILANA Infusion Sodium Chloride 1,000 mls @ 50 mls/hr 09/11/21 10:40 09/13/21 08:18 Normal Saline Iv IV CONT 50 mls/hr .Q20H ILANA Administration Lorazepam
[2021-09-13 17:03] VITALS: O2SAT 97
[2021-09-13 20:00] VITALS: PULSE 64; RESP 18; O2SAT 97
[2021-09-13] MEDS: MELATONIN 5 MG TABLET 10 MG PO (20:18)
[2021-09-13] MEDS: MAGNESIUM OXIDE 400 MG TABLET PO (20:18)
[2021-09-13] MEDS: LORazepam (*CRX) 0.5 MG TABLET PO (20:18)
[2021-09-13] MEDS: PRIMIDONE 25 MG TABLET PO (20:19)
[2021-09-13 21:34] VITALS: BP 152/61; PULSE 64; RESP 18; TEMP 36.8; O2SAT 97
[2021-09-13 22:07] VITALS: O2SAT 92
[2021-09-14 06:00] VITALS: BP 165/66; PULSE 77; RESP 18; TEMP 36.9; O2SAT 97
[2021-09-14] MEDS: FERROUS SULFATE 324 MG TABLET PO (09:49)
[2021-09-14] MEDS: DIVALPROEX SODIUM DR 250 MG TABEC 500 MG PO (09:50)
[2021-09-14] MEDS: PANTOPRAZOLE 40 MG TABLET PO (09:50)
[2021-09-14] MEDS: CHOLECALCIFEROL 1,000 UNITS TABLET 1000 UNITS PO (09:50)
[2021-09-14] MEDS: ASPIRIN 81 MG ENTERIC TABLET PO (09:50)
[2021-09-14] MEDS: CARBIDOPA/LEVODOPA 25/100 MG TABLET 1 TABLET PO ×2 (09:50→14:27)
[2021-09-14] MEDS: FLUTICASONE PROPIONATE 0.05% NA SPR 16 GM BTL (*BKC) 2 SPRAY NASAL (09:50)
[2021-09-14] MEDS: polyethylene glycoL 3350 17 GM POWD.PACK PO (09:50)
[2021-09-14] MEDS: SODIUM CHLORIDE 0.9% IV 1,000 ML 50 ML IV CONT (09:52)
--- NOTE | 2021-09-14 12:01 | PM.DS ---
DS: Admitting Diagnosis Discharge Date September 14, 2021 Admitting Diagnosis Pneumonia DS: Discharge Diagnosis Discharge Diagnosis (1) Anemia: Code(s): D64.9 - Anemia, unspecified Status: Acute Assessment and Plan: Likely related to chronic disease. did receive transfusion but hemoglobin has stabilized. No blood loss (2) Hyponatremia: Code(s): E87.1 - Hypo-osmolality and hyponatremia Status: Acute Assessment and Plan: Chronic. No symptoms. Monitor on discharge. (3) GERD (gastroesophageal reflux disease): Qualifiers: Esophagitis presence: esophagitis presence not specified Qualified Code(s): K21.9 - Gastro-esophageal reflux disease without esophagitis Code(s): K21.9 - Gastro-esophageal reflux disease without esophagitis Status: Acute Assessment and Plan: Continue PPI (4) Parkinsons disease: Code(s): G20 - Parkinson's disease Status: Acute Assessment and Plan: Continue home med (5) Type 2 diabetes mellitus with hyperglycemia: Qualifiers: Diabetes mellitus skilled nursing insulin use: without terminal computer operator use Qualified Code(s): E11.65 - Type 2 diabetes mellitus with hyperglycemia Code(s): E11.65 - Type 2 diabetes mellitus with hyperglycemia Status: Acute Assessment and Plan: Accu-Cheks with sliding scale insulin (6) Pneumonia: Code(s): J18.9 - Pneumonia, unspecified organism Status: Acute Assessment and Plan: Improved. One more day of Levaquin on discharge. DS: Summary Hospital Course Hospital Course: See discharge plan diagnoses Time Spent with Patient Time attestation: Total time spent providing and/or coordinating discharge services: Exam Narrative: General: Cachectic looking frail gentleman, alert and oriented HEENT: Atraumatic, normocephalic, mucous membranes moist CV: Regular rate and rhythm, S1, S2 Lungs: Clear to auscultation bilaterally, no rales or crackles noted, no wheezes, good air entry Abdomen: Soft, nontender, nondistended Extremities: Normal to inspection Skin: No rashes noted, no lesions or wounds seen Psych: Euthymic, normal affect DS: Data Data Completed and Pending Labs on day of discharge: Preliminary micro results at discharge 09/09/21 22:04 Blood Culture - Preliminary Blood 09/09/21 22:04 Blood Culture - Preliminary Blood Discharge Plan Discharge Attending physician on discharge: Kenneth,Prudencio T. Discharging Clinician: Prudencio Cooper Patient Disposition: SNF Activity: no preference Diet: as tolerated Stand Alone Forms: General Discharge Information Discharge Medications: New levofloxacin 750 mg tablet 750 mg PO DAILY 1 Days Qty: 1 0RF Continued Centrum Silver Men 300-600-300 mcg tablet 1 tablet PO DAILY folic acid 800 mcg tablet 0.8 mg PO DAILY Rx Instructions: pt takes at noon cholecalciferol (vitamin D3) 25 mcg (1,000 unit) capsule 25 mcg PO DAILY melatonin 10 mg capsule 10 mg PO QHS polyethylene glycol 3350 [Miralax] 17 gram Powder In Packet 17 g PO DAILY Mucinex 1,200 mg Tablet Extended Release 12hr 1,200 mg PO BID sertraline 100 mg tablet 150 mg PO DAILY Rx Instructions: takes in the morning cyanocobalamin (vitamin B-12) [Vitamin B-12] 1,000 mcg Tablet 1,000 mcg PO QAM Qty: 30 0RF bisacodyl 10 mg Suppository 10 mg RECTAL QAM PRN (Reason: Constipation) Qty: 5 0RF folic acid 400 mcg Tablet 400 mcg PO DAILY Aloe Lindsay Antifungal 2 % Ointment 1 applic TOPICAL TID ferrous sulfate 325 mg (65 mg iron) Tablet 325 mg PO BID fluticasone propionate 50 mcg/actuation spray,suspension 2 spray intranasal BID magnesium oxide 400 mg magnesium tablet 400 mg PO HS Rx Instructions: pt takes at bedtime acetaminophen [Tylenol Extra Strength] 500 mg Tablet 1,000 mg PO BID PRN (
[2021-09-14 14:36] VITALS: BP 155/65; PULSE 67; RESP 18; TEMP 36.8; O2SAT 99
== END 2021-09-14 18:27 | DRG 194 ==
LOC: ANHED 21:08 → ANH3MED 21:43
PROVIDERS: Hospitalist; Nurse Practitioner; Admitting Provider Student in an Organized Health Care Education/Training Program; Emergency Provider Emergency Medicine; PCP Family Medicine; Visit Provider Chiropractor
DX: J18.9 Pneumonia, unspecified organism (principal); E87.1 Hypo-osmolality and hyponatremia; R64 Cachexia; Z68.1 Body mass index [BMI] 19.9 or less, adult; D50.8 Other iron deficiency anemias; J43.9 Emphysema, unspecified; D63.8 Anemia in other chronic diseases classified elsewhere; K21.9 Gastro-esophageal reflux disease without esophagitis; G20 Parkinson's disease; E11.65 Type 2 diabetes mellitus with hyperglycemia; R09.02 Hypoxemia; F31.9 Bipolar disorder, unspecified; E78.5 Hyperlipidemia, unspecified; R62.7 Adult failure to thrive; I35.0 Nonrheumatic aortic (valve) stenosis; Z66 Do not resuscitate; Z87.891 Personal history of nicotine dependence
CPT/HCPCS: 36415; 36430; 36600; 71045; 80048; 80053; 82607; 82728; 82746; 82805; 83540; 83550; 83605; 83615; 83880; 84466; 84484; 85014; 85018; 85025; 85027; 85610; 85730; 86140; 86850; 86900; 86901; 86920; 87040; 93005; 96374; 97110; 97161; 97167; 97530; 99285; A9270; C9803; J0131; J1956; J7030; J7050; P9016; U0003; U0005

== ENCOUNTER 2021-11-07 14:08 | Outpatient (CLI) | payer MEDICARE, SELFPAY ==
--- NOTE | ~2021-11-07 | US_ITS ---
EXAMINATION: US retroperitoneal comp DATE: 11/07/2021 15:28 INDICATION: HYDRONEPHROSIS, RIGHT TECHNIQUE: Multiple grayscale and Doppler ultrasound images of the kidneys were obtained. COMPARISON: 09/04/2021, CT abdomen and pelvis 08/30/2021 FINDINGS: The right kidney measures 9.2 x 3.7 x 5.0 cm. The left kidney measures 9.9 x 5.6 x 5.9 cm. The kidney s demonstrate normal parenchymal echogenicity. 3.9 cm simple right renal cyst. There is no hydronephr osis. The bladder is poorly visualized. IMPRESSION: Unremarkable renal sonogram findings. Reviewed, dictated and finalized at location K.
== END 2021-11-07 14:09 | disposition home or self-care (01) ==
PROVIDERS: PCP Family Medicine; Visit Provider Urology
DX: N13.2 Hydronephrosis with renal and ureteral calculous obstruction (principal); N13.30 Unspecified hydronephrosis; N28.1 Cyst of kidney, acquired
CPT/HCPCS: 76770

== ENCOUNTER 2021-12-03 10:00 | Inpatient (IN) | payer MEDICARE, SELFPAY ==
[2021-12-03] VITALS (27 sets, daily range): BP systolic 106–150; BP diastolic 50–73; PULSE 68–83; RESP 9–18; TEMP 35.7–36.9; O2SAT 92–98; BMI 15.5
--- NOTE | ~2021-12-03 | US_ITS ---
EXAMINATION: US renal BI DATE: 12/05/2021 09:06 INDICATION: Acute renal injury and right hydronephrosis TECHNIQUE: Multiple ultrasound grayscale images of the kidneys were obtained. COMPARISON: 12/03/2021 FINDINGS: The right kidney measures 10.6 x 4.8 x 5.6 cm. The left kidney measures 4.4 x 5.7 x 6.3 cm. Slight de crease in now mild, previously moderate right hydronephrosis. Again seen is some echogenic material i n the dependent dilated calyces of the right kidney. There is no left hydronephrosis. The kidneys dem onstrate normal echogenicity. 4.4 cm simple appearing anechoic exophytic cyst arising from the upper pole of the right kidney. No stones identified. There are small thickening the bladder. Echogenic fo ci with dirty shadowing consistent with gas along the nondependent wall of the bladder. IMPRESSION: 1. Slight improvement in mild right hydronephrosis with hypoechoic material dependently in a few of the dilated calyces which could be related to blood or infection. 2. Small amount of gas in the nondependent bladder. Correlate for recent bladder instrumentation or F oley catheterization. Otherwise is would raise concern for infection or fistulous communication to th e bowel. Reviewed, dictated and finalized at location A. IMPRESSION: 1. Slight improvement in mild right hydronephrosis with hypoechoic material de pendently in a few of the dilated calyces which could be related to blood or in fection. 2. Small amount of gas in the nondependent bladder. Correlate for recent bladde r instrumentation or Akhtar catheterization. Otherwise is would raise concern fo r infection or fistulous communication to the bowel.
--- NOTE | ~2021-12-03 | XR_ITS ---
EXAMINATION: XR retrograde pyelo w/stent RT DATE: 12/05/2021 15:05 CDT INDICATION: RT RETRO/STENT PLACEMENT . TECHNIQUE: 6 fluoroscopic images and 2 cine clips consisting of 13 and 38 images of the abdomen and p antonieta were obtained during right retrograde pyelography with stent placement performed by the surgeon . I was not present in the operating room. Fluoroscopy exposure time was 22.7 seconds. DAP [id number] mG ym2. COMPARISON: Renal ultrasound, same date. CT abdomen and pelvis 08/30/2021. FINDINGS: Cannulation of the right ureter with contrast filling a normal ureter and dilated renal pelvis and ca lyces. Apparent filling defects within the renal pelvis may represent the previously described debris . Ureteral stent deployment, in good position. IMPRESSION: Fluoroscopic documentation of right retrograde pyelography with stent placement. Please refer to the operative note for complete procedural details . Reviewed, dictated and finalized at location K. IMPRESSION: Fluoroscopic documentation of right retrograde pyelography with stent placement . Please refer to the operative note for complete procedural details .
--- NOTE | ~2021-12-03 | CT_ITS ---
EXAMINATION: CT abdomen pelvis wo con DATE: 12/09/2021 03:46 INDICATION: Generalized abdominal pain with nausea and vomiting. TECHNIQUE: Computed tomography (CT) of the abdomen and pelvis was performed without intravenous contr ast. The dose-length product was 317.94 mGy-cm. Automated exposure control and iterative reconstructi on technique were employed. COMPARISON: CT dated 08/30/2021 FINDINGS: There is severe emphysema. There are areas bilateral pleural effusion versus pleural thicke fernando, right greater than left. There is pneumatosis of the gastric wall with portal venous gas. The spleen, adrenal glands are unrem arkable. There is chronic pancreatitis. There is a 4 cm right renal cyst. There is a right internal u reteral stent in expected position. There is mild bilateral perinephric stranding which is nonspecifi c. There is atherosclerosis of the aorta with infrarenal abdominal aortic aneurysm measuring 3.1 cm. There are air-fluid levels in the small bowel and colon, possibly ileus. There are bilateral L5 spond ylolysis with grade 2 spondylolisthesis at L5-S1. There is a chronic L1 burst fracture. There are diane ateral renal calcifications centrally which may represent stones or vascular calcifications. No defin ite ureteral stones. Bladder is grossly unremarkable. IMPRESSION: 1. Pneumatosis of the gastric wall with a portal venous gas in the liver. These findings may be due t o increased pressure due to vomiting or possibly emphysematous gastritis. 2: Small pleural effusions versus pleural thickening. 3: Severe emphysema. 4: Chronic pancreatitis. 5: Probable nonobstructing bilateral renal stones versus vascular calcifications. Right internal uret eral stent in expected position. Reviewed, dictated and finalized at location A. IMPRESSION: 1. Pneumatosis of the gastric wall with a portal venous gas in the liver. These findings may be due to increased pressure due to vomiting or possibly emphysem atous gastritis. 2: Small pleural effusions versus pleural thickening. 3: Severe emphysema. 4: Chronic pancreatitis. 5: Probable nonobstructing bilateral renal stones versus vascular calcification s. Right internal ureteral stent in expected position.
--- NOTE | ~2021-12-03 | XR_ITS ---
XR abdomen/kub 1V 12/08/2021 11:48 Indication: Abdomen pain Procedure: KUB Comparison: 08/26/2021 Findings: Bowel gas pattern is nonobstructive. There are coarse calcifications in the left upper abdo men, consistent with chronic pancreatitis. There is right internal ureteral stent in expected positio n. There is a chronic burst fracture of L1. Moderate lumbar spondylosis with levoscoliosis. Impression: 1: No acute abdominal abnormality. 2: Chronic pancreatitis. Reviewed, dictated and finalized at location A. Impression: 1: No acute abdominal abnormality. 2: Chronic pancreatitis.
--- NOTE | ~2021-12-03 | US_ITS ---
EXAMINATION: US renal BI DATE: 12/07/2021 09:51 INDICATION: Right hydronephrosis post stent placement. TECHNIQUE: Multiple ultrasound grayscale images of the kidneys were obtained. COMPARISON: None. FINDINGS: The right kidney measures 11.4 x 3.9 x 4.3 cm. The left kidney measures 10.1 x 6.1 x 6.5 cm. The kidn eys demonstrate normal echogenicity. 3.7 cm simple anechoic exophytic cyst at the upper pole of the r ight kidney. There is no hydronephrosis in either kidney. Linear echogenic stent is seen in the right renal pelvis and in the right trigonal region of the otherwise normal-appearing bladder. No stones i dentified. IMPRESSION: 1. Normal kidneys with right internal ureteral stent in expected position and without hydronephrosis . Reviewed, dictated and finalized at location A. IMPRESSION: 1. Normal kidneys with right internal ureteral stent in expected position and without hydronephrosis.
--- NOTE | ~2021-12-03 | US_ITS ---
EXAMINATION: US renal BI DATE: 12/03/2021 15:46 INDICATION: acute kidney injury TECHNIQUE: Multiple grayscale and Doppler ultrasound images of the kidneys were obtained. COMPARISON: Retroperitoneal ultrasound 11/07/2021, CT abdomen and pelvis 08/30/2021. FINDINGS: The right kidney measures 9.2 x 4.7 x 5.7 cm. The left kidney measures 12.2 x 5.0 x 6.5 cm. The kidne ys demonstrate normal parenchymal echogenicity. 3.8 cm right upper pole simple cyst. Mild right corti janusz thinning and atrophy. Moderate right caliectasis and pelviectasis, with calyceal debris. There is no hydronephrosis. Bilateral ureteral jets in the urinary bladder. Scattered debris in the urinary b ladder. IMPRESSION: Moderate right pelvicaliectasis, with infectious, or crystalline, or hemorrhagic debris in the renal calyces and urinary bladder. Reviewed, dictated and finalized at location K. IMPRESSION: Moderate right pelvicaliectasis, with infectious, or crystalline, or hemorrhagi c debris in the renal calyces and urinary bladder.
--- NOTE | 2021-12-03 10:33 | ED.WEAKNESS ---
HPI - Weakness General Chief complaint: Weakness Stated complaint: Uti Symptoms Time Seen by Provider: 12/03/21 10:13 History of Present Illness HPI Narrative: Patient is a 76-year-old male who presents ER with weakness. Patient has been having urinary frequency and dysuria. Denies fevers chills or sweats. Patient is too weak to get up and has had a bowel movement on himself. Reports he is not been ambulatory for several months. He seems to have poor insight into his chronic illnesses. Family called EMS. Related Data Home Medications Medication Instructions Recorded Confirmed carbidopa 25 mg-levodopa 100 mg 1 tablet PO TID 03/08/19 11/20/21 tablet spbwaabs-pzj-khoeu acid 300 1 tablet PO DAILY 05/18/20 11/20/21 mcg-lycopene 600 mcg-lutein 300 mcg tablet (Centrum Silver Men) acetaminophen 500 mg tablet 1,000 mg PO BID PRN Pain 06/06/20 11/20/21 (Tylenol Extra Strength) cholecalciferol (vitamin D3) 25 25 mcg PO DAILY 07/03/20 11/20/21 mcg (1,000 unit) capsule aspirin 81 mg tablet,delayed 81 mg PO QAM 05/16/21 11/20/21 release (Adult Aspirin Regimen) pantoprazole 40 mg tablet,delayed 40 mg PO BID 05/16/21 11/20/21 release (Protonix) artificial tears solution eye drops 1 drp ophthalmic (eye) BID PRN Dry 05/17/21 11/20/21 Eyes guaifenesin 1,200 mg tablet, 1,200 mg PO BID 08/20/21 11/20/21 extended release 12 hr (Mucinex) polyethylene glycol 3350 17 gram 17 g PO DAILY 08/20/21 11/20/21 oral powder packet (Miralax) sertraline 100 mg tablet 150 mg PO DAILY 08/20/21 11/20/21 ferrous sulfate 325 mg (65 mg 325 mg PO BID 09/09/21 11/20/21 iron) tablet fluticasone propionate 50 2 spray intranasal BID 09/09/21 11/20/21 mcg/actuation nasal spray,suspension folic acid 400 mcg tablet 400 mcg PO DAILY 09/09/21 11/20/21 magnesium 30 mg tablet 30 mg PO DAILY 11/06/21 11/20/21 Allergies Allergy/AdvReac Type Severity Reaction Status Date / Time No Known Allergies Allergy Verified 11/20/21 14:20 Review of Systems Review of Systems: All systems reviewed & are unremarkable except as noted in HPI and below Constitutional: Constitutional: Denies chills, Reports fatigue, Denies fever(s) and Reports weakness ENT: Denies nasal congestion and Denies sore throat Cardiovascular: Cardiovascular: Denies chest pain, Denies rapid heart rate and Denies radiating jaw, neck or arm pain Respiratory: Respiratory: Denies cough and Denies dyspnea Gastrointestinal: Gastrointestinal: Denies abdominal pain, Reports diarrhea, Denies nausea and Denies vomiting Genitourinary: Genitourinary: Denies hematuria, Reports dysuria and Reports urinary frequency PMF Past Medical History Medical History Anemia Aortic stenosis moderate Bipolar disorder Broken ribs Chronic depression COPD (chronic obstructive pulmonary disease) Difficulty in walking History of CVA (cerebrovascular accident) 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 Other Unknown family medical history Social History Social History Social History: Patient is adopted. Lives at home in [place] with his , Phoebe Barrera. He has 4 children. He is retired. 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 He is a former 50 pack-year smoker. He denies alcohol use but was a h
[2021-12-03] MEDS: SODIUM CHLORIDE 0.9% IV 1,000 ML 999 ML IV CONT (11:22)
[2021-12-03 11:27] LABS: Appearance Urine Turbid (Clear); Bilirubin Urine Negative (Negative); Blood Urine 2+ (Negative); Color Urine Light Yellow (Yellow); Glucose Urine UA 1+ mg/dL (Negative); Ketones Urine Negative (Negative); Leukocyte Esterase Ur 3+ LEU/UL (Negative); Nitrate Urine Negative (Negative); Protein Urine 2+ mg/dL (Negative); Urobilinogen Urine 0.2 mg/dL (<2.0); pH Urine 5.5 (5.0-9.0)
[2021-12-03 11:33] LABS: Bacteria Urine 4+ /hpf; Mucus Urine Rare /lpf; WBC Clumps Urine Present /HPF; WBC Urine >75 /hpf
[2021-12-03 11:39] LABS: Add Urine Microscopic? YES
[2021-12-03 11:56] LABS: Alanine Aminotransferase 6 U/L (6-50); Albumin Level 3.6 g/dL (3.5-5.1); Alkaline Phosphatase 67 U/L (38-126); Anion Gap 13 mmol/L (8-16); Aspartate Amino Transferase 28 U/L (17-59); Bilirubin,Total 0.8 mg/dL (0.2-1.3); Blood Urea Nitrogen 59 mg/dL (9-20); Calcium 8.9 mg/dL (8.4-10.2); Carbon Dioxide 17 mmol/L (22-30); Chloride 100 mmol/L (98-107); Estimated CRCL calculation 21 ml/min; Estimated Glomerular Filt Rate 35; Glucose 124 mg/dL (65-110); Lipase 21 U/L (23-300); Potassium 4.5 mmol/L (3.4-5.0); Sodium 130 mmol/L (137-145)
[2021-12-03 13:17] LABS: Basophils Percent Auto 0.5 % (0.2-1.2); Eosinophils Absolute Auto 0.1 K/mm3 (0-0.3); Eosinophils Percent Auto 1.2 % (0-4.4); Hematocrit 25.4 % (42.0-52.0); Hemoglobin 8.3 g/dL (14.0-18.0); Immature Granulocyte Absolute 0.25 K/mm3 (0.00-0.031); Immature Granulocyte Percent A 3.4 % (0-0.5); Immature Platelet Fraction Pct 2.5 % (0.9-11.2); Lymphocytes Absolute Auto 0.59 K/mm3 (0.9-3.2); Lymphocytes Percent Auto 7.9 % (18.3-44.2); Mean Corpuscular HGB Conc 32.7 g/dl (32-36); Mean Corpuscular Hemoglobin 30.3 pg (26-34); Mean Corpuscular Volume 92.7 fl (80-100); Mean Platelet Volume 10.4 fl (7.4-10.4); Monocytes Absolute Auto 0.7 K/mm3 (0.1-0.6); Monocytes Percent Auto 9.2 % (2.6-8.5); Neutrophils Absolute Auto 5.8 K/mm3 (1.3-6.7); Neutrophils Percent Auto 77.8 % (45.5-73.1); Platelet Count Result 244 k/mm3 (150-375); Red Blood Count 2.74 M/mm3 (4.6-6.20); Red Cell Distribution Width 15.4 % (11.5-14.5); White Blood Count 7.5 K/mm3 (4.5-10.0)
[2021-12-03 13:42] LABS: Hypochromasia 1+ (NORMAL); Platelet Estimate Adequate (Adequate)
[2021-12-03 13:43] LABS: Anisocytosis 1+ (NORMAL); Schistocytes 1+ (NORMAL)
--- NOTE | 2021-12-03 17:00 | PM.IMHP ---
H&P: HPI History of Present Illness Date/Time: 12/03/21 17:00 Chief Complaint: Weakness. Narrative: This is a pleasant 76-year-old male with Parkinson's disease, chronic obstructive pulmonary disease, hypertension, anemia, and type 2 diabetes who presented to the emergency department via EMS from home for evaluation of weakness. He had a ureteral stent removed on Friday and he began to feel unwell that evening with generalized malaise, progressive weakness, poor appetite, low-grade fever, and urinary frequency and hesitancy. He is essentially wheelchair-bound at home but does help himself to stand and pivot when transferring. This morning he was unable to do so row and he was brought in for evaluation. Vital signs were stable on arrival. Labs were significant for a hemoglobin of nearly 2.5 grams lower than what it was several weeks ago and an increase in BUN and creatinine from baseline. Urine was positive for leukocyte esterase, white blood cells, white blood cell clumps, and bacteria. He is being admitted in this setting for further care. With IV fluids he has perked up somewhat and he is enjoying the baseball game on television with family members at bedside and he has no specific complaints. Review of Systems Review of Systems: Twelve systems were reviewed. He has had a low-grade fever as above. Family members tested him for COVID over the weekend due to some mild sinus congestion and runny nose, that was negative. No sick contacts. He has not had chest pain shortness a breath. No significant cough. Occasional coughing or throat clearing with eating but no concerns for aspiration. Appetite has not been good but no nausea or vomiting. He denies diarrhea. Except as documented, all other systems were reviewed and are negative. PENDING SALE TO [facility] Past Medical History Medical History (Updated 12/03/21 @ 21:39 by Suellen Wills PA-C) Anemia Aortic stenosis Bipolar disorder Cerebrovascular accident 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 Chronic depression Chronic obstructive pulmonary disease Hypertension Parkinsons disease Type 2 diabetes mellitus Surgical History Surgical History (Updated 12/03/21 @ 21:29 by Suellen Wills PA-C) History of cystoscopy History of repair of left rotator cuff History of throat surgery History of tonsillectomy History of ureter stent History of urethral stent Family History Family History Unknown No problems noted. Other Unknown family medical history Social History Social History (Updated 12/03/21 @ 21:29 by Suellen Wills PA-C) Social History: Patient is adopted. Lives at home in [place] with his , Phoebe Barrera. He has 4 children. He is retired. 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 He is a former smoker. He denies alcohol use but was a heavy alcohol user up until 40 years ago. He notes edible cannabis use. He is a DNR and he has designated his surrogate medical decision maker as his , Phoebe Barrera. Smoking packs per day: 1.5 Smoking cigarettes per day: 30.0 Years smoked: 55 Smoking pack-years: 82.50 Smoking status: Former smoker Second hand tobacco smoke exposure: No Alcohol intake: never Substance use: never Substance use type: marijuana Other substance usage details: smokes Last use: 1 week Spiritual care concerns: No Agree to blood products: Yes Meds Home Medications and Allergies Home Medications Medication Instructions Recorded Confirmed Type carbidopa 25 mg-levodopa 100 mg 2.5 tablet PO TID 03/08/19 12/03/21 History tablet acetaminophen 500 mg tablet 1,000 mg PO BID PRN Pain 06/06/20 12/03/21 History (Tylenol Extra Strength) cholecalciferol (vitamin D3) 25 25 mcg PO DAILY 07/03/20 12/03/21 History mcg (1,000 unit) capsule lancets 28 gauge (Push Button #100 ea 11/03/2011/02
[2021-12-03] MEDS: SODIUM CHLORIDE 0.9% IV 1,000 ML 125 ML IV CONT (17:47)
--- NOTE | 2021-12-03 18:06 | ADMGEN ---
This patient, Getachew Barrera, was admitted to [facility] Surg Room 330-01. Patient/family oriented to hospital policies and general routines including ID bracelet, bed and alarms, visiting hours, pain management, procedures, bathroom and other care routines, personal items, smoking policy, room service/diet, and visiting hours. Information on how to activate the Rapid Response Team has been discussed. Patient/Family are encouraged to report perceived risks to care and to ask questions if they do not understand what they are told or what they should do.
[2021-12-03 22:26] LABS: Hematocrit 29.7 % (42.0-52.0); Hemoglobin 9.3 g/dL (14.0-18.0)
[2021-12-03 22:32] LABS: Anion Gap 15 mmol/L (8-16); Blood Urea Nitrogen 51 mg/dL (9-20); Calcium 8.7 mg/dL (8.4-10.2); Carbon Dioxide 17 mmol/L (22-30); Chloride 102 mmol/L (98-107); Estimated CRCL calculation 22 ml/min; Estimated Glomerular Filt Rate 35; Glucose 114 mg/dL (65-110); Potassium 3.7 mmol/L (3.4-5.0); Sodium 134 mmol/L (137-145)
[2021-12-03] MEDS: guaiFENesin 12 HR 600 MG TABCR 1200 MG PO (22:42)
[2021-12-03] MEDS: traZODone HCL 50 MG TABLET PO (22:42)
[2021-12-03] MEDS: DIVALPROEX SODIUM ER 500 MG TAB.24H PO (22:42)
[2021-12-03] MEDS: PRIMIDONE 25 MG TABLET PO (22:43)
[2021-12-03] MEDS: PANTOPRAZOLE 40 MG TABLET PO (22:43)
[2021-12-03] MEDS: risperiDONE 0.5 MG TABLET PO (22:43)
[2021-12-03 23:04] LABS: Iron 57 ug/dL (49-181); Percent Iron Saturation 28 % (20-50)
[2021-12-04] VITALS: BP 148/67; PULSE 81; RESP 18; TEMP 36.6; O2SAT 98
[2021-12-04 00:17] LABS: Folic Acid > 20.0 ng/mL (2.76->20); Vitamin B12 > 1000.0 pg/mL (239-931)
[2021-12-04] MEDS: SODIUM CHLORIDE 0.9% IV 1,000 ML 100 ML IV CONT (00:49)
--- NOTE | 2021-12-04 02:25 | PC.NURSE ---
Pt compliant with medication. Pt has no complaints at this time. Pt cleaned up by nurse and tech. Pt does not like to be bothered and has more than once told staff to leave him alone. Pt is resting and refused repositioning. Pt able to answer A&O questions other than president. Pt able to tell name, year, and location. Pt has no other complaints at this time, will continue to monitor.
[2021-12-04] MEDS: ACETAMINOPHEN 500 MG TABLET 1000 MG PO ×2 (03:48→18:42)
[2021-12-04 06:11] LABS: Hematocrit 25.2 % (42.0-52.0); Mean Corpuscular HGB Conc 31.7 g/dl (32-36); Mean Corpuscular Hemoglobin 29.7 pg (26-34); Mean Corpuscular Volume 93.7 fl (80-100); Mean Platelet Volume 9.5 fl (7.4-10.4); Platelet Count Result 217 k/mm3 (150-375); Red Blood Count 2.69 M/mm3 (4.6-6.20); Red Cell Distribution Width 15.5 % (11.5-14.5); White Blood Count 6.1 K/mm3 (4.5-10.0)
[2021-12-04 06:36] LABS: Albumin Level 2.8 g/dL (3.5-5.1); Alkaline Phosphatase 56 U/L (38-126); Anion Gap 12 mmol/L (8-16); Aspartate Amino Transferase 13 U/L (17-59); Bilirubin,Total 0.3 mg/dL (0.2-1.3); Blood Urea Nitrogen 46 mg/dL (9-20); Calcium 8.5 mg/dL (8.4-10.2); Carbon Dioxide 18 mmol/L (22-30); Chloride 103 mmol/L (98-107); Estimated CRCL calculation 24 ml/min; Estimated Glomerular Filt Rate 37; Glucose 120 mg/dL (65-110); Magnesium 1.8 mg/dL (1.6-2.3); Potassium 3.6 mmol/L (3.4-5.0); Sodium 133 mmol/L (137-145)
[2021-12-04 07:13] LABS: Alanine Aminotransferase < 6 U/L (6-50)
[2021-12-04 08:00] VITALS: BP 122/53; PULSE 68; RESP 20; TEMP 36.3; O2SAT 98
[2021-12-04 08:08] LABS: Glucose Point of Care 116 mg/dl (65-105)
[2021-12-04 08:13] LABS: Hemoglobin A1C 6.3 % (<5.7)
[2021-12-04] MEDS: FLUTICASONE PROPIONATE 0.05% NA SPR 16 GM BTL (*BKC) 2 SPRAY NASAL (08:26)
[2021-12-04] MEDS: DIVALPROEX SODIUM ER 500 MG TAB.24H PO ×2 (08:26→20:41)
[2021-12-04] MEDS: CARBIDOPA/LEVODOPA 25/100 MG TABLET 1 TABLET PO ×3 (08:26→17:23)
[2021-12-04] MEDS: ASPIRIN 81 MG ENTERIC TABLET PO (08:27)
[2021-12-04] MEDS: FERROUS SULFATE 324 MG TABLET PO (08:27)
[2021-12-04] MEDS: guaiFENesin 12 HR 600 MG TABCR 1200 MG PO ×2 (08:27→20:41)
[2021-12-04] MEDS: SERTRALINE HCL 50 MG TABLET 150 MG PO (08:28)
[2021-12-04] MEDS: CYANOCOBALAMIN 1,000 MCG TABLET 1000 MCG PO (08:28)
[2021-12-04] MEDS: CHOLECALCIFEROL 1,000 UNITS TABLET 1000 UNITS PO (08:28)
[2021-12-04] MEDS: FOLIC ACID 0.4 MG TABLET PO (08:28)
[2021-12-04] MEDS: PANTOPRAZOLE 40 MG TABLET PO ×2 (08:28→20:41)
[2021-12-04] MEDS: EMPAGLIFLOZIN 25 MG TABLET PO (08:28)
[2021-12-04 11:30] VITALS: BMI 15.7
[2021-12-04 11:43] LABS: Glucose Point of Care 197 mg/dl (65-105)
[2021-12-04 12:00] VITALS: BP 132/51; PULSE 75; RESP 20; TEMP 36.5; O2SAT 100
--- NOTE | 2021-12-04 12:48 | PCNSR ---
On 12/04/21, the student,Abel Medina, provided care and completed [facility] documentation on this patient. I have reviewed the student's documentation and agree with the findings.
--- NOTE | 2021-12-04 15:07 | WPDURCON ---
Assessment and Plan Assessment and plan (1) Acute kidney injury: Code(s): N17.9 - Acute kidney failure, unspecified Status: Acute Assessment and Plan: Will keep NPO after midnight, repeat KAYLEN in the morning. Per discussion with Dr. Pope if no improvement in either creatinine or KAYLEN, he may need a right ureteral stent placed tomorrow. Will re-assess in the am. (2) Urinary tract infection: Code(s): N39.0 - Urinary tract infection, site not specified Status: Acute Assessment and Plan: Urine Culture pending, continue IV antibiotics, tailor to culture results. (3) Hydronephrosis: Code(s): N13.30 - Unspecified hydronephrosis Status: Acute Assessment and Plan: Not noted on KAYLEN. Urology Consult Note HPI Date Seen: 12/04/21 Time Seen: 12:45 Requesting Physician: Onur Roberts MD Primary Care Provider: Linda Blanc MD Consult Narrative Reason for consult: UTI/Abnormal US/GABRIELA Narrative: Getachew Barrera is a 76 year old male who presented to the ER on 12/03/21 by EMS for worsening weakness, urgency to urinate and dysuria. He had a right ureteral stent removed with Dr. Pope on 11/23/21 in the office that was done without any difficulty and went well. He states after the stent removal he began to feel these symptoms and they have become worse. He denies a fever, hematuria or abdominal/flank pain. His baseline creatinine was 1.10 on 09/10/21 and is now 1.80, WBC 6.1. His KAYLEN shows moderate right pelvicaliectasis in the bladder and renal calyces. He is afebrile at this time and appears comfortable in his bed. 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 Chronic depression Chronic obstructive pulmonary disease Hypertension Parkinsons disease Type 2 diabetes mellitus Surgical History Surgical History History of cystoscopy History of repair of left rotator cuff History of throat surgery History of tonsillectomy History of ureter stent History of urethral stent Family History Family History Unknown No problems noted. Other Unknown family medical history Social History Social History Social History: Patient is adopted. Lives at home in [place] with his , Phoebe Barrera. He has 4 children. He is retired. 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 He is a former smoker. He denies alcohol use but was a heavy alcohol user up until 40 years ago. He notes edible cannabis use. He is a DNR and he has designated his surrogate medical decision maker as his , Phoebe Barrera. Smoking packs per day: 1.5 Smoking cigarettes per day: 30.0 Years smoked: 55 Smoking pack-years: 82.50 Smoking status: Former smoker Second hand tobacco smoke exposure: No Alcohol intake: never Substance use: never Substance use type: marijuana Other substance usage details: smokes Last use: 1 week Spiritual care concerns: No Agree to blood products: Yes Meds Home Medications and Allergies Home Medications Medication Instructions Recorded Confirmed Type carbidopa 25 mg-levodopa 100 mg 2.5 tablet PO TID 03/08/19 12/03/21 History tablet acetaminophen 500 mg tablet 1,000 mg PO BID PRN Pain
[2021-12-04 16:00] VITALS: BP 155/64; PULSE 70; RESP 18; TEMP 36.1; O2SAT 100
[2021-12-04 16:48] LABS: Glucose Point of Care 211 mg/dl (65-105)
--- NOTE | 2021-12-04 17:08 | PM.IMPN ---
Progress Note: A&P Assessment and Plan (1) Urinary tract infection: Code(s): N39.0 - Urinary tract infection, site not specified Status: Acute Assessment and Plan: Continue Rocephin, follow-up culture Appreciate urology consultation, patient will be NPO after midnight repeat KAYLEN in the a.m., may need another right ureteral stent placed (2) Acute on chronic anemia: Code(s): D64.9 - Anemia, unspecified Status: Acute Assessment and Plan: Monitor, relatively stable (3) Acute kidney injury: Code(s): N17.9 - Acute kidney failure, unspecified Status: Acute Assessment and Plan: Improving, continue to monitor (4) Type 2 diabetes mellitus: Code(s): E11.9 - Type 2 diabetes mellitus without complications Status: Acute Assessment and Plan: A1c is 6.3, continue Accu-Cheks and sliding scale and home insulin and diabetic medications (5) Hyponatremia: Code(s): E87.1 - Hypo-osmolality and hyponatremia Status: Acute Assessment and Plan: Appears to be at baseline (6) Parkinsons disease: Code(s): G20 - Parkinson's disease Status: Acute Assessment and Plan: Stable, continue home meds Plan DVT prophylaxis with SCDs GI prophylaxis not indicated Code status full code Subjective Date/time seen: 12/04/21 17:08 Interval history: Patient states he feels fine, he is just upset that the infection came back when they pulled the stent. No overnight events noted. No chest pain or shortness of breath. No nausea, vomiting or diarrhea. No fevers or chills. Review of Systems Review of Systems: 12 point review of systems was assessed and was negative except as noted in the HPI Exam Narrative: General: No acute distress, alert and oriented per baseline HEENT: Atraumatic, normocephalic, mucous membranes moist CV: Regular rate and rhythm, S1, S2 Lungs: Clear to auscultation bilaterally, no rales or crackles noted, no wheezes, good air entry Abdomen: Soft, nontender, nondistended Extremities: Normal to inspection Skin: No rashes noted, no lesions or wounds seen Psych: Euthymic, normal affect Objective Data Vital Signs Vital Signs: Vital Signs - 24 hr 12/03/21 18:00 12/03/21 20:52 12/03/21 22:00 Temperature 97.6 F 97.8 F Pulse Rate 79 81 Respiratory Rate 16 17 Blood Pressure 132/68 148/67 H Pulse Oximetry 95 98 Oxygen Delivery Room Air 12/04/21 00:00 12/03/21 21:46 12/04/21 08:00 Temperature 97.8 F 98.4 F 97.3 F L Pulse Rate 81 81 68 Respiratory Rate 18 17 20 Blood Pressure 148/67 H 119/50 L 122/53 L Pulse Oximetry 98 92 98 Oxygen Delivery 12/04/21 13:06 12/04/21 13:41 12/04/21 12:00 Temperature 97.7 F Pulse Rate 75 Respiratory Rate 20 Blood Pressure 132/51 L Pulse Oximetry 100 Oxygen Delivery Room Air Room Air Intake/Output Intake/Output: Intake & Output 12/01/21 12/02/21 12/03/21 12/04/21 23:59 23:59 23:59 23:59 Intake Total 1270 342 Balance 1270 342 Meds/Results Medications: Active Medications Generic Name Dose Route Start Last Admin Trade Name Mando PRN Reason Stop Dose Admin Acetaminophen 1,000 mg 12/03/21 21:44 12/04/21 03:48 Acetaminophen 500 Mg Tablet PO 1,000 mg BID PRN Administration Pain Rated 1-3 Artificial Tears 1 drop 12/03/21 21:55 Artificial Tears Ophth Soln 15 Ml Bottle EACH EYE BID PRN Dry Eye(s) Aspirin 81 mg 12/04/21 09:00 12/04/21 08:27 Aspirin 81 Mg Enteric Tablet PO 81 mg QAM ILANA Administration Bisacodyl 10 mg 12/03/21 21:44 Bisacodyl 10 Mg Suppository RECTAL QAM PRN Constipation Carbidopa/Levodopa 1 tablet 12/04/21 09:00 12/04/21 11:48 Carbidopa/Levodopa 25/100 Mg Tablet PO 1 tablet TIDWM ILANA Administration Cyanocobalamin 1,000 mcg 12/04/21 09:00 12/04/21 08:28 Cyanocobalamin 1,000 Mcg Tablet PO 1,000 mcg QAM ILANA Administration Dextrose
[2021-12-04] MEDS: INSULIN GLARGINE (*BKC) 100 UNITS/ML 15 UNITS SUB-Q (17:23)
[2021-12-04] MEDS: INSULIN ASPART (*BKC) 100 UNITS/ML SUB-Q (17:23)
[2021-12-04 20:00] VITALS: BP 129/69; PULSE 71; RESP 16; TEMP 36.6; O2SAT 98
[2021-12-04] MEDS: PRIMIDONE 25 MG TABLET PO (20:40)
[2021-12-04] MEDS: traZODone HCL 50 MG TABLET PO (20:40)
[2021-12-04] MEDS: risperiDONE 0.5 MG TABLET PO (20:41)
[2021-12-04 20:57] LABS: Glucose Point of Care 145 mg/dl (65-105)
[2021-12-05] VITALS (12 sets, daily range): BP systolic 115–163; BP diastolic 56–79; PULSE 65–103; RESP 11–18; TEMP 36.3–37; O2SAT 95–99
[2021-12-05 06:03] LABS: Anion Gap 11 mmol/L (8-16); Blood Urea Nitrogen 37 mg/dL (9-20); Calcium 8.4 mg/dL (8.4-10.2); Carbon Dioxide 21 mmol/L (22-30); Chloride 104 mmol/L (98-107); Estimated CRCL calculation 24 ml/min; Estimated Glomerular Filt Rate 37; Glucose 143 mg/dL (65-110); Potassium 3.9 mmol/L (3.4-5.0); Sodium 136 mmol/L (137-145)
[2021-12-05 08:06] LABS: Glucose Point of Care 134 mg/dl (65-105)
[2021-12-05 12:23] LABS: Glucose Point of Care 126 mg/dl (65-105)
--- NOTE | 2021-12-05 12:47 | WPDUROPN2 ---
Progress Note: A&P Assessment and Plan (1) Acute kidney injury: Code(s): N17.9 - Acute kidney failure, unspecified Status: Acute Assessment and Plan: No improvement, continued abdominal and flank pain. Keep NPO, plan to go to the OR today with Dr. Borden. Obtain Consent: Cystoscopy, right retrograde pyelogram, right stent placement. minimal improvement of hydro in the right ureter on KAYLEN. (2) Urinary tract infection: Code(s): N39.0 - Urinary tract infection, site not specified Status: Acute Assessment and Plan: Culture positive for E-Coli, sensitivities pending. Continue IV antibiotics, tailor to sensitivity report. Subjective Subjective Date/Time Seen: 12/05/21 12:47 Urine culture positive, growing E-Coli The patient continues to have right flank and RUQ pain as well as an elevated creatinine of 1.8. His repeat KAYLEN does show some mild improvement of right hydronephrosis. Review of Systems Cardiovascular: Cardiovascular: Reports no additional cardiovascular complaints Respiratory: Respiratory: Reports no additional respiratory complaints Gastrointestinal: Gastrointestinal: Reports abdominal pain, Denies nausea and Denies vomiting Genitourinary: Genitourinary: Denies hematuria, Denies dysuria, Reports flank pain and Reports urinary frequency Exam Resp: Effort & Inspection: normal respiratory effort Cardio: Rate: regular rate GI: GI Palp: Yes Soft to palpation and Yes Tenderness to palpation present (GI) (RUQ, RLQ upon palpation) : General: Yes CVA tenderness on the right Extrem: Right lower extremity: no edema Left lower extremity: no edema Objective Data Vital Signs Vital Signs: Vital Signs - 24 hr 12/04/21 13:06 12/04/21 13:41 12/04/21 16:00 Temperature 96.9 F L Pulse Rate 70 Respiratory Rate 18 Blood Pressure 155/64 H Pulse Oximetry 100 Oxygen Delivery Room Air Room Air 12/04/21 20:41 12/04/21 20:00 12/05/21 00:00 Temperature 97.9 F 97.8 F Pulse Rate 71 74 Respiratory Rate 16 16 Blood Pressure 129/69 115/56 L Pulse Oximetry 98 96 Oxygen Delivery Room Air 12/05/21 04:00 12/05/21 08:00 12/05/21 12:00 Temperature 97.9 F 98 F 97.6 F Pulse Rate 72 73 75 Respiratory Rate 18 16 14 Blood Pressure 143/68 H 154/69 H 139/68 Pulse Oximetry 97 95 98 Oxygen Delivery Intake/Output Intake/Output: Intake & Output 12/02/21 12/03/21 12/04/21 12/05/21 23:59 23:59 23:59 23:59 Intake Total 1270 2792 100 Balance 1270 2792 100 Meds/Results Medications: Active Medications Generic Name Dose Route Start Last Admin Trade Name Freq PRN Reason Stop Dose Admin Acetaminophen 1,000 mg 12/03/21 21:44 12/04/21 18:42 Acetaminophen 500 Mg Tablet PO 1,000 mg BID PRN Administration Pain Rated 1-3 Artificial Tears 1 drop 12/03/21 21:55 Artificial Tears Ophth Soln 15 Ml Bottle EACH EYE BID PRN Dry Eye(s) Aspirin 81 mg 12/04/21 09:00 12/04/21 08:27 Aspirin 81 Mg Enteric Tablet PO 81 mg QAM ILANA Administration Bisacodyl 10 mg 12/03/21 21:44 Bisacodyl 10 Mg Suppository RECTAL QAM PRN Constipation Carbidopa/Levodopa 1 tablet 12/04/21 09:00 12/05/21 11:13 Carbidopa/Levodopa 25/100 Mg Tablet PO Not Given TIDWM ILANA Cyanocobalamin 1,000 mcg 12/04/21 09:00 12/04/21 08:28 Cyanocobalamin 1,000 Mcg Tablet PO 1,000 mcg QAM ILANA Administration Dextrose 12.5 gm 12/03/21 21:42 Dextrose 50% 25 Gm/50 Ml Syringe IV PUSH PRN PRN Hypoglycemia Protocol Divalproex Sodium 500 mg 12/03/21 22:15 12/04/21 20:41 Divalproex Sodium Er 500 Mg Tab.24h PO 500 mg Q12HR ILANA Administration Docusate Sodium 100 mg 12/03/21 21:44 Docusate Sodium 100 Mg Capsule PO Q12HR PRN Constipation Empagliflozin 25 mg 12/04/21 09:00 12/04/21 08:28 Empagliflozin 25 Mg Tablet PO 25 mg DAILY ILANA Administration Ferrous Sulfate 324 mg 10
--- NOTE | 2021-12-05 13:06 | PC.NURSE ---
to OR per stretcher
--- NOTE | 2021-12-05 13:31 | WPDANESEPPF ---
Anes - Initial Pre Proc Eval Procedure: Operation Date: 12/05/21 14:30 Proposed Procedures p Cystoscopy, Right Retrograde Pyelogram, Right Stent Placement - Thong Borden MD Date/Time: 12/05/21 13:31 Surgeon: Onur Roberts MD Pre Op Diagnosis: GABRIELA/UTI Patient Data Age: 76 Gender: M Height: 1.83 m Weight: 53.4 kg Last Vital Signs Temp 36.4 C 12/05/21 12:00 Pulse 75 12/05/21 12:00 Resp 14 12/05/21 12:00 BP 139/68 12/05/21 12:00 Pulse Ox 98 12/05/21 12:00 O2 Del Method Room Air 12/04/21 20:41 Allergies Allergy/AdvReac Type Severity Reaction Status Date / Time No Known Allergies Allergy Verified 12/03/21 18:16 Home Medications Medication Instructions Recorded Confirmed Type carbidopa 25 mg-levodopa 100 mg 2.5 tablet PO TID 03/08/19 12/03/21 History tablet acetaminophen 500 mg tablet 1,000 mg PO BID PRN Pain 06/06/20 12/03/21 History (Tylenol Extra Strength) cholecalciferol (vitamin D3) 25 25 mcg PO DAILY 07/03/20 12/03/21 History mcg (1,000 unit) capsule lancets 28 gauge (Push Button #100 ea 11/03/20 12/05/21 Rx Safety Lancets) divalproex 500 mg tablet,extended 500 mg PO BID #180 tabs 03/05/21 12/03/21 Rx release 24 hr aspirin 81 mg tablet,delayed 81 mg PO QAM 05/16/21 12/03/21 History release (Adult Aspirin Regimen) pantoprazole 40 mg tablet,delayed 40 mg PO BID 05/16/21 12/03/21 History release (Protonix) artificial tears solution eye drops 1 drp ophthalmic (eye) BID PRN Dry 05/17/21 12/03/21 History Eyes risperidone 0.5 mg tablet 0.5 mg PO QHS #30 tabs 06/29/21 12/03/21 Rx (Risperdal) blood sugar diagnostic #100 ea 07/09/21 12/05/21 Rx trazodone 50 mg tablet 50 mg PO HS #30 tabs 07/17/21 12/03/21 Rx guaifenesin 1,200 mg tablet, 1,200 mg PO BID 08/20/21 12/03/21 History extended release 12 hr (Mucinex) polyethylene glycol 3350 17 gram 17 g PO DAILY PRN Constipation 08/20/21 12/03/21 History oral powder packet (Miralax) sertraline 100 mg tablet 150 mg PO DAILY 08/20/21 12/03/21 History bisacodyl 10 mg rectal suppository 10 mg RECTAL QAM PRN Constipation 08/27/21 12/03/21 Rx #5 ea cyanocobalamin (vitamin B-12) 1,000 mcg PO QAM #30 tabs 08/27/21 12/03/21 Rx 1,000 mcg tablet (Vitamin B-12) lorazepam 0.5 mg tablet (Ativan) 0.5 mg PO HS PRN Anxiety #10 tabs 09/06/21 12/03/21 Rx primidone 50 mg tablet 25 mg PO HS #1 tablet 09/06/21 12/03/21 Rx ferrous sulfate 325 mg (65 mg 325 mg PO DAILY 09/09/21 12/03/21 History iron) tablet fluticasone propionate 50 2 spray intranasal BID 09/09/21 12/03/21 History mcg/actuation nasal spray,suspension folic acid 400 mcg tablet 400 mcg PO DAILY 09/09/21 12/03/21 History empagliflozin 25 mg tablet 25 mg PO DAILY #30 tabs 11/02/21 12/03/21 Rx (Jardiance) dulaglutide 1.5 mg/0.5 mL 1.5 mg (0.5 mL) subcut WEEKLY #6.5 11/04/21 12/03/21 Rx subcutaneous pen injector mL (Trulicity) flash glucose scanning reader #1 ea 11/06/21 12/05/21 Rx (FreeStyle Starr 14 Day [place]) flash glucose sensor (FreeStyle #1 ea 11/06/21 12/05/21 Rx Starr 14 Day Sensor kit) insulin aspart U-100 100 unit/mL See Rx Instructions subcut 11/07/21 12/03/21 Rx (3 mL) subcutaneous pen (Novolog .COMPLEX #15 mL Flexpen U-100 Insulin aspart) pen needle, diabetic 31 gauge x #100 ea 11/21/21 12/05/21 Rx 3/16 (Comfort EZ Pen [place]) docusate sodium 100 mg capsule 100 mg PO Q12HR PRN Constipation 12/03/21 12/03/21 History insulin glargine 100 unit/mL (3 15 unit subcut QPM 12/03/21 12/03/21 History mL) subcutaneous pen (Lantus Solostar U-100 Insulin) Laboratory Tests 12/04/21 12/04/21 12/05/21 16:40 20:44 05:36 Sodium 136 mmol/L L mmol/L (137-145) Potassium 3.9 mmol/L mmol/L (3.4-5.0) Chloride 104 mmol/L mmol/L (98-107) Carbon Dioxide 21 mmol/L L mmol/L (22-30) Anion Gap 11 mmol/L mmol/L (8-16) BUN 37 mg/dL H mg/dL
--- NOTE | 2021-12-05 13:33 | PM.IMPN ---
Progress Note: A&P Assessment and Plan (1) Urinary tract infection: Code(s): N39.0 - Urinary tract infection, site not specified Status: Acute Assessment and Plan: Continue Rocephin, follow-up culture Appreciate urology consultation, patient will be NPO after midnight repeat KAYLEN in the a.m., may need another right ureteral stent placed (2) Acute on chronic anemia: Code(s): D64.9 - Anemia, unspecified Status: Acute Assessment and Plan: Monitor, relatively stable (3) Acute kidney injury: Code(s): N17.9 - Acute kidney failure, unspecified Status: Acute Assessment and Plan: Improving, continue to monitor (4) Type 2 diabetes mellitus: Code(s): E11.9 - Type 2 diabetes mellitus without complications Status: Acute Assessment and Plan: A1c is 6.3, continue Accu-Cheks and sliding scale and home insulin and diabetic medications (5) Hyponatremia: Code(s): E87.1 - Hypo-osmolality and hyponatremia Status: Acute Assessment and Plan: Appears to be at baseline (6) Parkinsons disease: Code(s): G20 - Parkinson's disease Status: Acute Assessment and Plan: Stable, continue home meds Plan DVT prophylaxis with SCDs GI prophylaxis not indicated Code status full code Subjective Date/time seen: 12/05/21 13:33 no new complaints Exam Narrative: General: No acute distress, alert and oriented per baseline HEENT: Atraumatic, normocephalic, mucous membranes moist CV: Regular rate and rhythm, S1, S2 Lungs: Clear to auscultation bilaterally, no rales or crackles noted, no wheezes, good air entry Abdomen: Soft, nontender, nondistended Extremities: Normal to inspection Skin: No rashes noted, no lesions or wounds seen Psych: Euthymic, normal affect Objective Data Vital Signs Vital Signs: Vital Signs - 24 hr 12/04/21 13:41 12/04/21 16:00 12/04/21 20:41 Temperature 96.9 F L Pulse Rate 70 Respiratory Rate 18 Blood Pressure 155/64 H Pulse Oximetry 100 Oxygen Delivery Room Air Room Air 12/04/21 20:00 12/05/21 00:00 12/05/21 04:00 Temperature 97.9 F 97.8 F 97.9 F Pulse Rate 71 74 72 Respiratory Rate 16 16 18 Blood Pressure 129/69 115/56 L 143/68 H Pulse Oximetry 98 96 97 Oxygen Delivery 12/05/21 08:00 12/05/21 12:00 Temperature 98 F 97.6 F Pulse Rate 73 75 Respiratory Rate 16 14 Blood Pressure 154/69 H 139/68 Pulse Oximetry 95 98 Oxygen Delivery Intake/Output Intake/Output: Intake & Output 12/02/21 12/03/21 12/04/21 12/05/21 23:59 23:59 23:59 23:59 Intake Total 1270 2792 100 Balance 1270 2792 100 Meds/Results Medications: Active Medications Generic Name Dose Route Start Last Admin Trade Name Freq PRN Reason Stop Dose Admin Acetaminophen 1,000 mg 12/03/21 21:44 12/04/21 18:42 Acetaminophen 500 Mg Tablet PO 1,000 mg BID PRN Administration Pain Rated 1-3 Artificial Tears 1 drop 12/03/21 21:55 Artificial Tears Ophth Soln 15 Ml Bottle EACH EYE BID PRN Dry Eye(s) Aspirin 81 mg 12/04/21 09:00 12/04/21 08:27 Aspirin 81 Mg Enteric Tablet PO 81 mg QAM ILANA Administration Bisacodyl 10 mg 12/03/21 21:44 Bisacodyl 10 Mg Suppository RECTAL QAM PRN Constipation Carbidopa/Levodopa 1 tablet 12/04/21 09:00 12/05/21 11:13 Carbidopa/Levodopa 25/100 Mg Tablet PO Not Given TIDWM ILANA Cyanocobalamin 1,000 mcg 12/04/21 09:00 12/04/21 08:28 Cyanocobalamin 1,000 Mcg Tablet PO 1,000 mcg QAM ILANA Administration Dextrose 12.5 gm 12/03/21 21:42 Dextrose 50% 25 Gm/50 Ml Syringe IV PUSH PRN PRN Hypoglycemia Protocol Divalproex Sodium 500 mg 12/03/21 22:15 12/04/21 20:41 Divalproex Sodium Er 500 Mg Tab.24h PO 500 mg Q12HR ILANA Administration Docusate Sodium 100 mg 12/03/21 21:44 Docusate Sodium 100 Mg Capsule PO Q12HR PRN Constipation Empagliflozin 25 mg
--- NOTE | 2021-12-05 14:53 | WPDHPUPDATE1 ---
History and Physical Update Update Date/Time: 12/05/21 14:53 History and Physical has been reviewed, including an updated exam of the patient. There are NO changes in the patient's condition. Risks, benefits, and alternatives have been discussed and questions answered. Patient agrees to proceed with procedure.
[2021-12-05] MEDS: LIDOCAINE HCL 2% GEL UROJET 10 ML PKG MUCOUS MEM (15:20)
--- NOTE | 2021-12-05 15:51 | W.PM.PROC2 ---
Procedure Note - Detailed Date of Procedure 12/05/21 Pre-op Diagnosis GABRIELA/UTI, right hydronephrosis Post-op Diagnosis Same Procedure Performed Cystoscopy, right retrograde pyelography and right ureteral stent placement Surgeon Thong Borden MD Description of Procedure patient is brought to the operative suite was prepped draped in routine sterile fashion while in dorsal lithotomy position. 2% xylocaine jelly was introduced intraurethrally and systemic sedation is administered per the anesthesia department. Cystoscopy is undertaken with a 19 F rigid cystoscope. There was no urethral stricture and an open prostatic urethra. His bladder was trabeculated with some debris in the base. There was no mucosal abnormalities including no obvious neoplasms. An 8 F bulb-tipped catheter was used to obtain a right retrograde pyelogram. There appears to be no ureteral strictures but there is a filling defect in the right renal pelvis consistent with the debris or clot identified on recent ultrasounds. A 4.8 F variable length stent was positioned with the proximal coil in renal pelvis and distal coil in the bladder. Scopes and wires removed the patient bladder was emptied. He was taken recovery room good condition. Drains Yes Packing No Pathology None sent Complications No immediate complications Condition Stable Disposition PACU
[2021-12-05 16:04] LABS: Glucose Point of Care 98 mg/dl (65-105)
--- NOTE | 2021-12-05 16:29 | SUR.PHASEI ---
600ml wasted from bag one of LR
--- NOTE | 2021-12-05 16:43 | PC.NURSE ---
patient returning to room from OR.
[2021-12-05] MEDS: SERTRALINE HCL 50 MG TABLET 150 MG PO (16:48)
[2021-12-05] MEDS: DIVALPROEX SODIUM ER 500 MG TAB.24H PO (16:49)
[2021-12-05] MEDS: ASPIRIN 81 MG ENTERIC TABLET PO (16:49)
[2021-12-05] MEDS: FLUTICASONE PROPIONATE 0.05% NA SPR 16 GM BTL (*BKC) 2 SPRAY NASAL (16:49)
[2021-12-05] MEDS: CARBIDOPA/LEVODOPA 25/100 MG TABLET 1 TABLET PO (16:49)
[2021-12-05] MEDS: INSULIN GLARGINE (*BKC) 100 UNITS/ML 15 UNITS SUB-Q (17:57)
[2021-12-05] MEDS: guaiFENesin 12 HR 600 MG TABCR 1200 MG PO (21:04)
[2021-12-05] MEDS: risperiDONE 0.5 MG TABLET PO (21:05)
[2021-12-05] MEDS: PRIMIDONE 25 MG TABLET PO (21:05)
[2021-12-05] MEDS: traZODone HCL 50 MG TABLET PO (21:05)
[2021-12-05] MEDS: PANTOPRAZOLE 40 MG TABLET PO (21:05)
[2021-12-05 22:27] LABS: Glucose Point of Care 146 mg/dl (65-105)
--- NOTE | 2021-12-06 00:15 | PC.NURSE ---
Pt resting comfortably. Pt continues to have blood tinged urine following stent placement. Pt has genitals and bottom open to air due to redness. Pt resting comfortably. Will continue to monitor pt.
[2021-12-06 04:00] VITALS: BP 134/59; PULSE 71; RESP 16; TEMP 36.6; O2SAT 97
--- NOTE | 2021-12-06 07:30 | WPDANESPN ---
Anes - Prog Note Post-Op Date/Time: 12/06/21 07:30 Cardiovascular status: normal Respiratory status: normal Airway patency: baseline Mental status: baseline Post-Op hydration status: normal Vital Signs: Last Vital Signs Temp 97.3 F L 12/05/21 20:00 Pulse 65 12/05/21 20:00 Resp 16 12/05/21 20:00 BP 150/59 H 12/05/21 20:00 Pulse Ox 99 12/05/21 20:00 O2 Del Method Room Air 12/05/21 21:17 O2 Flow Rate 6 12/05/21 15:26 Pain Score (VAS): 0/10 I/O: Intake & Output 12/05/21 12/05/21 12/06/21 15:59 23:59 07:59 Intake Total 50 740 Balance 50 740 Laboratory Tests 12/04/21 05:26 12/05/21 05:36 12/05/21 12/05/21 12/05/21 07:59 11:40 15:54 POC Capillary Glucose 134 H 126 H 98 12/05/21 21:02 POC Capillary Glucose 146 H Microbiology 12/03/21 11:05 Clean Catch Midstream Urine Culture - Final Escherichia Coli Post-procedural complaints: none Patient Feedback: Patient satisfied with anesthetic care.
[2021-12-06 07:52] LABS: Glucose Point of Care 92 mg/dl (65-105)
[2021-12-06 08:00] VITALS: BP 114/71; PULSE 77; RESP 12; TEMP 36.4; O2SAT 96
[2021-12-06] MEDS: FERROUS SULFATE 324 MG TABLET PO (08:21)
[2021-12-06] MEDS: FLUTICASONE PROPIONATE 0.05% NA SPR 16 GM BTL (*BKC) 2 SPRAY NASAL (08:21)
[2021-12-06] MEDS: CARBIDOPA/LEVODOPA 25/100 MG TABLET 1 TABLET PO ×3 (08:21→17:20)
[2021-12-06] MEDS: DIVALPROEX SODIUM ER 500 MG TAB.24H PO ×2 (08:21→20:11)
[2021-12-06] MEDS: FOLIC ACID 0.4 MG TABLET PO (08:21)
[2021-12-06] MEDS: CYANOCOBALAMIN 1,000 MCG TABLET 1000 MCG PO (08:21)
[2021-12-06] MEDS: PANTOPRAZOLE 40 MG TABLET PO ×2 (08:22→20:11)
[2021-12-06] MEDS: SERTRALINE HCL 50 MG TABLET 150 MG PO (08:22)
[2021-12-06] MEDS: guaiFENesin 12 HR 600 MG TABCR 1200 MG PO ×2 (08:22→20:12)
[2021-12-06] MEDS: EMPAGLIFLOZIN 25 MG TABLET PO (08:23)
[2021-12-06] MEDS: CHOLECALCIFEROL 1,000 UNITS TABLET 1000 UNITS PO (08:23)
[2021-12-06] MEDS: ASPIRIN 81 MG ENTERIC TABLET PO (08:23)
[2021-12-06 08:31] LABS: SARS-CoV-2 RNA PCR Negative
[2021-12-06] MEDS: ACETAMINOPHEN 500 MG TABLET 1000 MG PO ×2 (10:18→20:11)
[2021-12-06 10:56] LABS: Anion Gap 10 mmol/L (8-16); Blood Urea Nitrogen 35 mg/dL (9-20); Calcium 8.4 mg/dL (8.4-10.2); Carbon Dioxide 24 mmol/L (22-30); Chloride 100 mmol/L (98-107); Estimated CRCL calculation 26 ml/min; Estimated Glomerular Filt Rate 37; Glucose 171 mg/dL (65-110); Sodium 134 mmol/L (137-145)
--- NOTE | 2021-12-06 10:56 | PM.IMPN ---
Progress Note: A&P Assessment and Plan (1) Urinary tract infection: Code(s): N39.0 - Urinary tract infection, site not specified Status: Acute Assessment and Plan: Continue Rocephin, follow-up culture status post stent placement. Having some pain with urination. Will monitor 1 more day (2) Acute on chronic anemia: Code(s): D64.9 - Anemia, unspecified Status: Acute Assessment and Plan: Monitor, relatively stable (3) Acute kidney injury: Code(s): N17.9 - Acute kidney failure, unspecified Status: Acute Assessment and Plan: Improving, continue to monitor (4) Type 2 diabetes mellitus: Code(s): E11.9 - Type 2 diabetes mellitus without complications Status: Acute Assessment and Plan: A1c is 6.3, continue Accu-Cheks and sliding scale and home insulin and diabetic medications (5) Hyponatremia: Code(s): E87.1 - Hypo-osmolality and hyponatremia Status: Acute Assessment and Plan: Appears to be at baseline (6) Parkinsons disease: Code(s): G20 - Parkinson's disease Status: Acute Assessment and Plan: Stable, continue home meds Plan DVT prophylaxis with SCDs GI prophylaxis not indicated Code status full code Subjective Date/time seen: 12/06/21 10:56 status post procedure, complaining of pain Exam Narrative: General: No acute distress, alert and oriented per baseline HEENT: Atraumatic, normocephalic, mucous membranes moist CV: Regular rate and rhythm, S1, S2 Lungs: Clear to auscultation bilaterally, no rales or crackles noted, no wheezes, good air entry Abdomen: Soft, nontender, nondistended Extremities: Normal to inspection Skin: No rashes noted, no lesions or wounds seen Psych: Euthymic, normal affect Objective Data Vital Signs Vital Signs: Vital Signs - 24 hr 12/05/21 12:00 12/05/21 13:34 12/05/21 15:26 Temperature 97.6 F 98.1 F 98.6 F Pulse Rate 75 69 79 Respiratory Rate 14 16 16 Blood Pressure 139/68 146/59 H 143/72 H Pulse Oximetry 98 98 98 Oxygen Delivery Room Air Simple Face Mask Oxygen Flow Rate 6 12/05/21 15:40 12/05/21 15:55 12/05/21 16:10 Temperature Pulse Rate 72 103 H 91 Respiratory Rate 11 L 15 15 Blood Pressure 155/79 H 137/70 144/78 H Pulse Oximetry 98 99 97 Oxygen Delivery Room Air Room Air Room Air Oxygen Flow Rate 12/05/21 16:25 12/05/21 16:45 12/05/21 21:17 Temperature 97.3 F L Pulse Rate 98 73 Respiratory Rate 15 16 Blood Pressure 147/76 H 163/66 H Pulse Oximetry 97 98 Oxygen Delivery Room Air Room Air Oxygen Flow Rate 12/05/21 20:00 12/06/21 04:00 12/06/21 08:00 Temperature 97.3 F L 97.9 F 97.6 F Pulse Rate 65 71 77 Respiratory Rate 16 16 12 Blood Pressure 150/59 H 134/59 L 114/71 Pulse Oximetry 99 97 96 Oxygen Delivery Oxygen Flow Rate Intake/Output Intake/Output: Intake & Output 12/03/21 12/04/21 12/05/21 12/06/21 23:59 23:59 23:59 23:59 Intake Total 1270 2792 890 730 Balance 1270 2792 890 730 Meds/Results Medications: Active Medications Generic Name Dose Route Start Last Admin Trade Name Freq PRN Reason Stop Dose Admin Acetaminophen 1,000 mg 12/03/21 21:44 12/06/21 10:18 Acetaminophen 500 Mg Tablet PO 1,000 mg BID PRN Administration Pain Rated 1-3 Artificial Tears 1 drop 12/03/21 21:55 Artificial Tears Ophth Soln 15 Ml Bottle EACH EYE BID PRN Dry Eye(s) Aspirin 81 mg 12/04/21 09:00 12/06/21 08:23 Aspirin 81 Mg Enteric Tablet PO 81 mg QAM ILANA Administration Bisacodyl 10 mg 12/03/21 21:44 Bisacodyl 10 Mg Suppository RECTAL QAM PRN Constipation Carbidopa/Levodopa 1 tablet 12/04/21 09:00 12/06/21 08:21 Carbidopa/Levodopa 25/100 Mg Tablet PO 1 tablet TIDWM ILANA Administration Cyanocobalamin 1,000 mcg 12/04/21 09:00 12/06/21 08:21 Cyanocobalamin 1,000 Mcg Tablet PO 1,000 mcg QAM ILANA Administration Dextrose
[2021-12-06 11:36] LABS: Glucose Point of Care 183 mg/dl (65-105)
[2021-12-06 12:00] VITALS: BP 140/66; PULSE 71; RESP 14; TEMP 36.3; O2SAT 97
--- NOTE | 2021-12-06 15:01 | PCNFU ---
Nutrition Follow-Up Complete: inadequate oral intake related to poor appetite and alcohol consumption as evidence by 34 lbs (21%) unintentional wt loss over 2 years Goal: encourage intake 75% or greater each meal time and complete intake of nutritional supplements _ Meeting meal intake goal. Not drinking Glucerna. Pt current nutrition is Heart healthy. Nutrition recommendation: Agree with current diet. Discontinue supplement as patient says he does not like it and will not drink it. Last recorded weight is 58.1 kg. Bowel Motility: No BM charted Labs Reviewed: Na 134, GFR 37, BUN 35, Creat 1.8 Meds Noted: Vit D, folic acid, protonix, Zofran, ferrous sulfate, Vit B12 Skin: WNL Additional Notes: Patient says his will be bringing his home supplement, muscle milk in for him. follow up in 5 days monitor appetite, meal and supplement intake, wt and labs
--- NOTE | 2021-12-06 15:47 | WPDUROPN2 ---
Progress Note: A&P Assessment and Plan (1) Acute kidney injury: Code(s): N17.9 - Acute kidney failure, unspecified Status: Acute Assessment and Plan: No improvement yet, continue to monitor until baseline. Repeat US tomorrow. (2) Urinary tract infection: Code(s): N39.0 - Urinary tract infection, site not specified Status: Acute Assessment and Plan: Urine culture grew E-Coli, continue Ceftriaxone. Subjective Subjective Date/Time Seen: 12/06/21 15:47 Patient is s/p Cystoscopy, right retrograde pyelogram, right stent placement. He c/o stent pain with urination. He states otherwise he is doing well. Creatinine has not improved at this time, but has not worsened either, it remains at 1.80. Post Op day: 1 Review of Systems Cardiovascular: Cardiovascular: Denies chest pain Respiratory: Respiratory: Reports no additional respiratory complaints Gastrointestinal: Gastrointestinal: Denies abdominal pain, Denies nausea and Denies vomiting Genitourinary: Genitourinary: Denies hematuria, Reports dysuria, Denies flank pain, Denies urinary frequency and Denies urinary hesitancy Exam Const: General: cooperative Resp: Effort & Inspection: normal respiratory effort Cardio: Rate: regular rate GI: GI Palp: Yes Soft to palpation and Yes Tenderness to palpation present (GI) (RUQ, RLQ) : General: Yes CVA tenderness on the right Extrem: Right lower extremity: no edema Left lower extremity: no edema Objective Data Vital Signs Vital Signs: Vital Signs - 24 hr 12/05/21 15:55 12/05/21 16:10 12/05/21 16:25 Temperature Pulse Rate 103 H 91 98 Respiratory Rate 15 15 15 Blood Pressure 137/70 144/78 H 147/76 H Pulse Oximetry 99 97 97 Oxygen Delivery Room Air Room Air Room Air 12/05/21 16:45 12/05/21 21:17 12/05/21 20:00 Temperature 97.3 F L 97.3 F L Pulse Rate 73 65 Respiratory Rate 16 16 Blood Pressure 163/66 H 150/59 H Pulse Oximetry 98 99 Oxygen Delivery Room Air 12/06/21 04:00 12/06/21 08:00 Temperature 97.9 F 97.6 F Pulse Rate 71 77 Respiratory Rate 16 12 Blood Pressure 134/59 L 114/71 Pulse Oximetry 97 96 Oxygen Delivery Intake/Output Intake/Output: Intake & Output 12/03/21 12/04/21 12/05/21 12/06/21 23:59 23:59 23:59 23:59 Intake Total 1270 2792 890 730 Balance 1270 2792 890 730 Meds/Results Medications: Active Medications Generic Name Dose Route Start Last Admin Trade Name Freq PRN Reason Stop Dose Admin Acetaminophen 1,000 mg 12/03/21 21:44 12/06/21 10:18 Acetaminophen 500 Mg Tablet PO 1,000 mg BID PRN Administration Pain Rated 1-3 Artificial Tears 1 drop 12/03/21 21:55 Artificial Tears Ophth Soln 15 Ml Bottle EACH EYE BID PRN Dry Eye(s) Aspirin 81 mg 12/04/21 09:00 12/06/21 08:23 Aspirin 81 Mg Enteric Tablet PO 81 mg QAM ILANA Administration Bisacodyl 10 mg 12/03/21 21:44 Bisacodyl 10 Mg Suppository RECTAL QAM PRN Constipation Carbidopa/Levodopa 1 tablet 12/04/21 09:00 12/06/21 12:11 Carbidopa/Levodopa 25/100 Mg Tablet PO 1 tablet TIDWM ILANA Administration Cyanocobalamin 1,000 mcg 12/04/21 09:00 12/06/21 08:21 Cyanocobalamin 1,000 Mcg Tablet PO 1,000 mcg QAM ILANA Administration Dextrose 12.5 gm 12/03/21 21:42 Dextrose 50% 25 Gm/50 Ml Syringe IV PUSH PRN PRN Hypoglycemia Protocol Divalproex Sodium 500 mg 12/03/21 22:15 12/06/21 08:21 Divalproex Sodium Er 500 Mg Tab.24h PO 500 mg Q12HR ILANA Administration Docusate Sodium 100 mg 12/03/21 21:44 Docusate Sodium 100 Mg Capsule PO Q12HR PRN Constipation Empagliflozin 25 mg 12/04/21 09:00 12/06/21 08:23 Empagliflozin 25 Mg Tablet PO 25 mg DAILY ILANA Administration Ferrous Sulfate 324 mg 12/04/21 08:00 12/06/21 08:21 Ferrous Sulfate 324 Mg Tablet PO 324 mg DAILY@0800 ILANA Administration Fluticasone Propionate 2 spray 12/04/21 0
[2021-12-06 16:00] VITALS: BP 146/65; PULSE 70; RESP 14; TEMP 36.5; O2SAT 97
[2021-12-06] MEDS: INSULIN GLARGINE (*BKC) 100 UNITS/ML 15 UNITS SUB-Q (17:20)
[2021-12-06 17:29] LABS: Glucose Point of Care 172 mg/dl (65-105)
[2021-12-06 20:00] VITALS: BP 160/61; PULSE 64; RESP 17; TEMP 36.3; O2SAT 97
[2021-12-06] MEDS: traZODone HCL 50 MG TABLET PO (20:11)
[2021-12-06] MEDS: PRIMIDONE 25 MG TABLET PO (20:11)
[2021-12-06] MEDS: risperiDONE 0.5 MG TABLET PO (20:11)
[2021-12-06 20:30] LABS: Glucose Point of Care 146 mg/dl (65-105)
[2021-12-07] VITALS: BP 138/62; PULSE 71; RESP 16; TEMP 36.3; O2SAT 96
[2021-12-07 05:45] VITALS: BP 132/64; PULSE 67; RESP 20; TEMP 36.2; O2SAT 97
[2021-12-07] MEDS: ACETAMINOPHEN 500 MG TABLET 1000 MG PO ×2 (05:53→14:42)
[2021-12-07 06:32] LABS: Anion Gap 8 mmol/L (8-16); Blood Urea Nitrogen 35 mg/dL (9-20); Calcium 8.4 mg/dL (8.4-10.2); Carbon Dioxide 24 mmol/L (22-30); Chloride 100 mmol/L (98-107); Estimated CRCL calculation 28 ml/min; Estimated Glomerular Filt Rate 39; Glucose 81 mg/dL (65-110); Potassium 3.9 mmol/L (3.4-5.0); Sodium 132 mmol/L (137-145)
[2021-12-07 08:00] VITALS: BP 140/73; PULSE 65; RESP 14; TEMP 36.2; O2SAT 97
[2021-12-07 08:16] LABS: Glucose Point of Care 78 mg/dl (65-105)
--- NOTE | 2021-12-07 08:18 | WPDUROPN2 ---
Progress Note: A&P Assessment and Plan (1) Acute kidney injury: Code(s): N17.9 - Acute kidney failure, unspecified Status: Acute (2) Urinary tract infection: Code(s): N39.0 - Urinary tract infection, site not specified Status: Acute Assessment and Plan: Serum creat. 1.7 this morning. Will try Pyridium for stent irritation. Subjective Subjective Date/Time Seen: 12/07/21 08:18 Again, c/o mild irritation with stent (dysuria) Review of Systems Cardiovascular: Cardiovascular: Denies chest pain, Denies lightheadedness, Denies palpitations and Denies dyspnea Respiratory: Respiratory: Denies dyspnea Gastrointestinal: Gastrointestinal: Reports abdominal pain (LUQ), Denies diarrhea, Denies nausea and Denies vomiting Genitourinary: Genitourinary: Denies hematuria and Denies dysuria Endocrine: Endocrine: Denies palpitations Exam Const: General: no acute distress Resp: Effort & Inspection: normal respiratory effort GI: Inspection: non-distended GI Palp: No abdominal tenderness and No Guarding due to palpation present (GI) Auscultation: normal bowel sounds Objective Data Vital Signs Vital Signs: Vital Signs - 24 hr 12/06/21 12:00 12/06/21 16:00 12/06/21 20:00 Temperature 97.4 F L 97.7 F Pulse Rate 71 70 Respiratory Rate 14 14 Blood Pressure 140/66 146/65 H Pulse Oximetry 97 97 Oxygen Delivery Room Air 12/06/21 20:00 12/07/21 00:00 Temperature 97.3 F L 97.4 F L Pulse Rate 64 71 Respiratory Rate 17 16 Blood Pressure 160/61 H 138/62 Pulse Oximetry 97 96 Oxygen Delivery Intake/Output Intake/Output: Intake & Output 12/04/21 12/05/21 12/06/21 12/07/21 23:59 23:59 23:59 23:59 Intake Total 2792 890 2165 Balance 2792 890 2165 Meds/Results Medications: Active Medications Generic Name Dose Route Start Last Admin Trade Name Freq PRN Reason Stop Dose Admin Acetaminophen 1,000 mg 12/03/21 21:44 12/07/21 05:53 Acetaminophen 500 Mg Tablet PO 1,000 mg BID PRN Administration Pain Rated 1-3 Artificial Tears 1 drop 12/03/21 21:55 Artificial Tears Ophth Soln 15 Ml Bottle EACH EYE BID PRN Dry Eye(s) Aspirin 81 mg 12/04/21 09:00 12/06/21 08:23 Aspirin 81 Mg Enteric Tablet PO 81 mg QAM ILANA Administration Bisacodyl 10 mg 12/03/21 21:44 Bisacodyl 10 Mg Suppository RECTAL QAM PRN Constipation Carbidopa/Levodopa 1 tablet 12/04/21 09:00 12/06/21 17:20 Carbidopa/Levodopa 25/100 Mg Tablet PO 1 tablet TIDWM ILANA Administration Cyanocobalamin 1,000 mcg 12/04/21 09:00 12/06/21 08:21 Cyanocobalamin 1,000 Mcg Tablet PO 1,000 mcg QAM ILANA Administration Dextrose 12.5 gm 12/03/21 21:42 Dextrose 50% 25 Gm/50 Ml Syringe IV PUSH PRN PRN Hypoglycemia Protocol Divalproex Sodium 500 mg 12/03/21 22:15 12/06/21 20:11 Divalproex Sodium Er 500 Mg Tab.24h PO 500 mg Q12HR ILANA Administration Docusate Sodium 100 mg 12/03/21 21:44 Docusate Sodium 100 Mg Capsule PO Q12HR PRN Constipation Empagliflozin 25 mg 12/04/21 09:00 12/06/21 08:23 Empagliflozin 25 Mg Tablet PO 25 mg DAILY ILANA Administration Ferrous Sulfate 324 mg 12/04/21 08:00 12/06/21 08:21 Ferrous Sulfate 324 Mg Tablet PO 324 mg DAILY@0800 ILANA Administration Fluticasone Propionate 2 spray 12/04/21 09:00 12/06/21 08:21 Fluticasone Propionate 0.05% Na Spr 16 Gm Btl (*Bkc) NASAL 2 spray DAILY ILANA Administration Folic Acid 0.4 mg 12/04/21 09:00 12/06/21 08:21 Folic Acid 0.4 Mg Tablet PO 0.4 mg DAILY ILANA Administration Glucagon 1 mg 12/03/21 21:42 Glucagon For Inj 1 Mg Vial IM PRN PRN Hypoglycemia Protocol Glucose 15 gm 12/03/21 21:42 Glucose Oral Gel 15 Gm Of Glucse In 37.5 Gm Tube PO PRN PRN Hypoglycemia Protocol Guaifenesin 1,200 mg 12/03/21 22:00 12/06/21 20:12 Guaifenesin 12 Hr 600 Mg Tabcr PO
--- NOTE | 2021-12-07 08:25 | PCOTNOTE ---
Attempted to see patient this am, however patient going off floor for testing.
[2021-12-07] MEDS: FOLIC ACID 0.4 MG TABLET PO (08:38)
[2021-12-07] MEDS: PANTOPRAZOLE 40 MG TABLET PO ×2 (08:38→20:15)
[2021-12-07] MEDS: CYANOCOBALAMIN 1,000 MCG TABLET 1000 MCG PO (08:38)
[2021-12-07] MEDS: FERROUS SULFATE 324 MG TABLET PO (08:38)
[2021-12-07] MEDS: ASPIRIN 81 MG ENTERIC TABLET PO (08:38)
[2021-12-07] MEDS: CARBIDOPA/LEVODOPA 25/100 MG TABLET 1 TABLET PO ×3 (08:38→17:10)
[2021-12-07] MEDS: EMPAGLIFLOZIN 25 MG TABLET PO (08:38)
[2021-12-07] MEDS: guaiFENesin 12 HR 600 MG TABCR 1200 MG PO ×2 (08:38→20:15)
[2021-12-07] MEDS: PHENAZOPYRIDINE HCL 100 MG TABLET 200 MG PO ×2 (08:38→17:09)
[2021-12-07] MEDS: SERTRALINE HCL 50 MG TABLET 150 MG PO (08:38)
[2021-12-07] MEDS: FLUTICASONE PROPIONATE 0.05% NA SPR 16 GM BTL (*BKC) 2 SPRAY NASAL (08:39)
[2021-12-07] MEDS: CHOLECALCIFEROL 1,000 UNITS TABLET 1000 UNITS PO (08:39)
[2021-12-07] MEDS: DIVALPROEX SODIUM ER 500 MG TAB.24H PO ×2 (09:48→20:14)
--- NOTE | 2021-12-07 10:50 | PM.IMPN ---
Progress Note: A&P Assessment and Plan (1) Urinary tract infection: Code(s): N39.0 - Urinary tract infection, site not specified Status: Acute Assessment and Plan: Continue Rocephin, follow-up culture status post stent placement. Having some pain with urination. status post ureteral stent (2) Acute on chronic anemia: Code(s): D64.9 - Anemia, unspecified Status: Acute Assessment and Plan: Monitor, relatively stable (3) Acute kidney injury: Code(s): N17.9 - Acute kidney failure, unspecified Status: Acute Assessment and Plan: Improving slightly today renal ultrasound ordered by Urology (4) Type 2 diabetes mellitus: Code(s): E11.9 - Type 2 diabetes mellitus without complications Status: Acute Assessment and Plan: A1c is 6.3, continue Accu-Cheks and sliding scale and home insulin and diabetic medications (5) Hyponatremia: Code(s): E87.1 - Hypo-osmolality and hyponatremia Status: Acute Assessment and Plan: Appears to be at baseline (6) Parkinsons disease: Code(s): G20 - Parkinson's disease Status: Acute Assessment and Plan: Stable, continue home meds Subjective Date/time seen: 12/07/21 10:50 still having significant pain Exam Narrative: General: No acute distress, alert and oriented per baseline HEENT: Atraumatic, normocephalic, mucous membranes moist CV: Regular rate and rhythm, S1, S2 Lungs: Clear to auscultation bilaterally, no rales or crackles noted, no wheezes, good air entry Abdomen: Soft, nontender, nondistended Extremities: Normal to inspection Skin: No rashes noted, no lesions or wounds seen Psych: Euthymic, normal affect Objective Data Vital Signs Vital Signs: Vital Signs - 24 hr 12/06/21 12:00 12/06/21 16:00 12/06/21 20:00 Temperature 97.4 F L 97.7 F Pulse Rate 71 70 Respiratory Rate 14 14 Blood Pressure 140/66 146/65 H Pulse Oximetry 97 97 Oxygen Delivery Room Air 12/06/21 20:00 12/07/21 00:00 12/07/21 05:45 Temperature 97.3 F L 97.4 F L 97.2 F L Pulse Rate 64 71 67 Respiratory Rate 17 16 20 Blood Pressure 160/61 H 138/62 132/64 Pulse Oximetry 97 96 97 Oxygen Delivery 12/07/21 08:00 12/07/21 08:35 Temperature 97.2 F L Pulse Rate 65 Respiratory Rate 14 Blood Pressure 140/73 Pulse Oximetry 97 Oxygen Delivery Room Air Intake/Output Intake/Output: Intake & Output 12/04/21 12/05/21 12/06/21 12/07/21 23:59 23:59 23:59 23:59 Intake Total 2792 890 2165 540 Balance 2792 890 2165 540 Meds/Results Medications: Active Medications Generic Name Dose Route Start Last Admin Trade Name Freq PRN Reason Stop Dose Admin Acetaminophen 1,000 mg 12/03/21 21:44 12/07/21 05:53 Acetaminophen 500 Mg Tablet PO 1,000 mg BID PRN Administration Pain Rated 1-3 Artificial Tears 1 drop 12/03/21 21:55 Artificial Tears Ophth Soln 15 Ml Bottle EACH EYE BID PRN Dry Eye(s) Aspirin 81 mg 12/04/21 09:00 12/07/21 08:38 Aspirin 81 Mg Enteric Tablet PO 81 mg QAM ILANA Administration Bisacodyl 10 mg 12/03/21 21:44 Bisacodyl 10 Mg Suppository RECTAL QAM PRN Constipation Carbidopa/Levodopa 1 tablet 12/04/21 09:00 12/07/21 08:38 Carbidopa/Levodopa 25/100 Mg Tablet PO 1 tablet TIDWM ILANA Administration Cyanocobalamin 1,000 mcg 12/04/21 09:00 12/07/21 08:38 Cyanocobalamin 1,000 Mcg Tablet PO 1,000 mcg QAM ILANA Administration Dextrose 12.5 gm 12/03/21 21:42 Dextrose 50% 25 Gm/50 Ml Syringe IV PUSH PRN PRN Hypoglycemia Protocol Divalproex Sodium 500 mg 12/03/21 22:15 12/07/21 09:48 Divalproex Sodium Er 500 Mg Tab.24h PO 500 mg Q12HR ILANA Administration Docusate Sodium 100 mg 12/03/21 21:44 Docusate Sodium 100 Mg Capsule PO Q12HR PRN Constipation Empagliflozin 25 mg 12/04/21 09:00 12/07/21 08:38 Empagliflozin 25 Mg Tablet
[2021-12-07 11:19] LABS: Glucose Point of Care 116 mg/dl (65-105)
[2021-12-07 12:00] VITALS: BP 157/80; PULSE 77; RESP 16; TEMP 36.3; O2SAT 100
[2021-12-07 16:00] VITALS: BP 123/62; PULSE 72; RESP 16; TEMP 36.1; O2SAT 99
[2021-12-07 16:36] LABS: Glucose Point of Care 148 mg/dl (65-105)
[2021-12-07] MEDS: INSULIN GLARGINE (*BKC) 100 UNITS/ML 15 UNITS SUB-Q (17:10)
[2021-12-07 20:00] VITALS: BP 134/72; PULSE 70; RESP 18; TEMP 37.2; O2SAT 97
[2021-12-07] MEDS: PRIMIDONE 25 MG TABLET PO (20:14)
[2021-12-07] MEDS: risperiDONE 0.5 MG TABLET PO (20:14)
[2021-12-07] MEDS: ARTIFICIAL TEARS OPHTH SOLN 15 ML BOTTLE 1 DROP EACH EYE (20:14)
[2021-12-07] MEDS: traZODone HCL 50 MG TABLET PO (20:15)
[2021-12-07 21:42] LABS: Glucose Point of Care 157 mg/dl (65-105)
[2021-12-08] VITALS: BP 131/67; PULSE 64; RESP 18; TEMP 36.8; O2SAT 96
[2021-12-08 04:00] VITALS: BP 155/70; PULSE 72; RESP 16; TEMP 36.6; O2SAT 98
[2021-12-08] MEDS: ACETAMINOPHEN 500 MG TABLET 1000 MG PO ×2 (05:41→20:14)
[2021-12-08 07:55] LABS: Glucose Point of Care 142 mg/dl (65-105)
[2021-12-08] MEDS: CARBIDOPA/LEVODOPA 25/100 MG TABLET 1 TABLET PO ×3 (08:08→17:15)
[2021-12-08] MEDS: CYANOCOBALAMIN 1,000 MCG TABLET 1000 MCG PO (08:08)
[2021-12-08] MEDS: PHENAZOPYRIDINE HCL 100 MG TABLET 200 MG PO ×2 (08:08→17:15)
[2021-12-08] MEDS: FLUTICASONE PROPIONATE 0.05% NA SPR 16 GM BTL (*BKC) 2 SPRAY NASAL (08:09)
[2021-12-08] MEDS: EMPAGLIFLOZIN 25 MG TABLET PO (08:09)
[2021-12-08] MEDS: PANTOPRAZOLE 40 MG TABLET PO ×2 (08:09→20:14)
[2021-12-08] MEDS: CHOLECALCIFEROL 1,000 UNITS TABLET 1000 UNITS PO (08:09)
[2021-12-08] MEDS: guaiFENesin 12 HR 600 MG TABCR 1200 MG PO ×2 (08:09→20:14)
[2021-12-08] MEDS: FERROUS SULFATE 324 MG TABLET PO (08:09)
[2021-12-08] MEDS: DIVALPROEX SODIUM ER 500 MG TAB.24H PO ×2 (08:09→20:14)
[2021-12-08] MEDS: ASPIRIN 81 MG ENTERIC TABLET PO (08:09)
[2021-12-08] MEDS: FOLIC ACID 0.4 MG TABLET PO (08:09)
[2021-12-08] MEDS: SERTRALINE HCL 50 MG TABLET 150 MG PO (08:09)
[2021-12-08 09:19] LABS: Basophils Absolute Auto 0.1 K/mm3 (0.0-0.1); Basophils Percent Auto 0.6 % (0.2-1.2); Eosinophils Absolute Auto 0.4 K/mm3 (0-0.3); Eosinophils Percent Auto 4.6 % (0-4.4); Hematocrit 26.6 % (42.0-52.0); Hemoglobin 8.5 g/dL (14.0-18.0); Immature Granulocyte Percent A 3.6 % (0-0.5); Lymphocytes Percent Auto 19.3 % (18.3-44.2); Mean Corpuscular Hemoglobin 30.1 pg (26-34); Mean Corpuscular Volume 94.3 fl (80-100); Mean Platelet Volume 9.2 fl (7.4-10.4); Monocytes Absolute Auto 0.6 K/mm3 (0.1-0.6); Monocytes Percent Auto 7.4 % (2.6-8.5); Neutrophils Absolute Auto 5.4 K/mm3 (1.3-6.7); Neutrophils Percent Auto 64.5 % (45.5-73.1); Platelet Count Result 202 k/mm3 (150-375); Red Blood Count 2.82 M/mm3 (4.6-6.20); White Blood Count 8.3 K/mm3 (4.5-10.0)
[2021-12-08 09:32] LABS: Anion Gap 11 mmol/L (8-16); Blood Urea Nitrogen 36 mg/dL (9-20); Calcium 8.5 mg/dL (8.4-10.2); Carbon Dioxide 23 mmol/L (22-30); Chloride 97 mmol/L (98-107); Estimated CRCL calculation 37 ml/min; Estimated Glomerular Filt Rate 39; Glucose 184 mg/dL (65-110); Potassium 4.5 mmol/L (3.4-5.0); Sodium 131 mmol/L (137-145)
[2021-12-08 11:19] LABS: Glucose Point of Care 221 mg/dl (65-105)
--- NOTE | 2021-12-08 11:20 | PM.IMPN ---
Progress Note: A&P Assessment and Plan (1) Urinary tract infection: Code(s): N39.0 - Urinary tract infection, site not specified Status: Acute Assessment and Plan: Continue Rocephin, follow-up culture status post stent placement. Having some pain with urination. status post ureteral stent Renal ultrasound looks okay Having more pain, question the reason for his pain will await Urology evaluation today (2) Acute on chronic anemia: Code(s): D64.9 - Anemia, unspecified Status: Acute Assessment and Plan: Monitor, relatively stable (3) Acute kidney injury: Code(s): N17.9 - Acute kidney failure, unspecified Status: Acute Assessment and Plan: Improving slightly today renal ultrasound ordered by Urology (4) Type 2 diabetes mellitus: Code(s): E11.9 - Type 2 diabetes mellitus without complications Status: Acute Assessment and Plan: A1c is 6.3, continue Accu-Cheks and sliding scale and home insulin and diabetic medications (5) Hyponatremia: Code(s): E87.1 - Hypo-osmolality and hyponatremia Status: Acute Assessment and Plan: Appears to be at baseline (6) Parkinsons disease: Code(s): G20 - Parkinson's disease Status: Acute Assessment and Plan: Stable, continue home meds Subjective Date/time seen: 12/08/21 11:20 Still having pretty significant pain now on the left side of his abdomen. Exam Narrative: General: No acute distress, alert and oriented per baseline HEENT: Atraumatic, normocephalic, mucous membranes moist CV: Regular rate and rhythm, S1, S2 Lungs: Clear to auscultation bilaterally, no rales or crackles noted, no wheezes, good air entry Abdomen: Soft, nontender, nondistended Extremities: Normal to inspection Skin: No rashes noted, no lesions or wounds seen Psych: Euthymic, normal affect Objective Data Vital Signs Vital Signs: Vital Signs - 24 hr 12/07/21 12:00 12/07/21 16:00 12/07/21 20:00 Temperature 97.4 F L 97 F L 99 F Pulse Rate 77 72 70 Respiratory Rate 16 16 18 Blood Pressure 157/80 H 123/62 134/72 Pulse Oximetry 100 99 97 Oxygen Delivery 12/07/21 20:00 12/08/21 00:00 12/08/21 04:00 Temperature 98.2 F 97.9 F Pulse Rate 64 72 Respiratory Rate 18 16 Blood Pressure 131/67 155/70 H Pulse Oximetry 96 98 Oxygen Delivery Room Air 12/08/21 08:45 Temperature Pulse Rate Respiratory Rate Blood Pressure Pulse Oximetry Oxygen Delivery Room Air Intake/Output Intake/Output: Intake & Output 12/05/21 12/06/21 12/07/21 12/08/21 23:59 23:59 23:59 23:59 Intake Total 890 2215 1770 270 Balance 890 2215 1770 270 Meds/Results Medications: Active Medications Generic Name Dose Route Start Last Admin Trade Name Freq PRN Reason Stop Dose Admin Acetaminophen 1,000 mg 12/03/21 21:44 12/08/21 05:41 Acetaminophen 500 Mg Tablet PO 1,000 mg BID PRN Administration Pain Rated 1-3 Artificial Tears 1 drop 12/03/21 21:55 12/07/21 20:14 Artificial Tears Ophth Soln 15 Ml Bottle EACH EYE 1 drop BID PRN Administration Dry Eye(s) Aspirin 81 mg 12/04/21 09:00 12/08/21 08:09 Aspirin 81 Mg Enteric Tablet PO 81 mg QAM ILANA Administration Bisacodyl 10 mg 12/03/21 21:44 Bisacodyl 10 Mg Suppository RECTAL QAM PRN Constipation Carbidopa/Levodopa 1 tablet 12/04/21 09:00 12/08/21 08:08 Carbidopa/Levodopa 25/100 Mg Tablet PO 1 tablet TIDWM ILANA Administration Cyanocobalamin 1,000 mcg 12/04/21 09:00 12/08/21 08:08 Cyanocobalamin 1,000 Mcg Tablet PO 1,000 mcg QAM ILANA Administration Dextrose 12.5 gm 12/03/21 21:42 Dextrose 50% 25 Gm/50 Ml Syringe IV PUSH PRN PRN Hypoglycemia Protocol Divalproex Sodium 500 mg 12/03/21 22:15 12/08/21 08:09 Divalproex Sodium Er 500 Mg Tab.24h PO 500 mg Q12HR ILANA Administration Docusate Sodium 100 mg 12/03/21 21:44 Docu
[2021-12-08] MEDS: SODIUM CHLORIDE 0.9% IV 1,000 ML 50 ML IV CONT (11:35)
[2021-12-08] MEDS: INSULIN ASPART (*BKC) 100 UNITS/ML SUB-Q (11:36)
--- NOTE | 2021-12-08 12:20 | PCOTNOTE ---
Attempted to see pt for occupational therapy at 11:41am. Pt was refusing to get out of bed and/or participating in therapeutic activities. Pt was educated on the importance of sitting up in the chair for greater strengthening/independence with daily occupations. Due to not gaining any therapeutic benefit from participating in therapeutic activities/ue exercises supine, therapy session was not completed. Will attempt at a later time for OT treatment.
--- NOTE | 2021-12-08 13:55 | PCOTNOTE ---
A 2nd attempt was made to see pt for occupational therapy this PM. Pt continues to refuse to get out of bed stating Why should I get up if it hurts... . Pt was educated on the importance of functional mobility for increase strengthening/independence for independence with adls. RN was notified of pt's continued refusal. Will continue per poc duration/frequency tomorrow.
[2021-12-08 14:00] VITALS: BP 141/69; PULSE 73; RESP 16; TEMP 36.8; O2SAT 97
[2021-12-08 16:11] LABS: Glucose Point of Care 74 mg/dl (65-105)
[2021-12-08] MEDS: INSULIN GLARGINE (*BKC) 100 UNITS/ML 15 UNITS SUB-Q (17:15)
[2021-12-08 19:48] LABS: Glucose Point of Care 106 mg/dl (65-105)
[2021-12-08] MEDS: traZODone HCL 50 MG TABLET PO (20:14)
[2021-12-08] MEDS: risperiDONE 0.5 MG TABLET PO (20:14)
[2021-12-08] MEDS: ARTIFICIAL TEARS OPHTH SOLN 15 ML BOTTLE 1 DROP EACH EYE (20:14)
[2021-12-08] MEDS: PRIMIDONE 25 MG TABLET PO (20:14)
[2021-12-08 21:56] VITALS: BP 126/68; PULSE 76; RESP 18; TEMP 36.6; O2SAT 95
[2021-12-08] MEDS: ONDANSETRON INJ 4 MG/2 ML VIAL IV PUSH (23:26)
[2021-12-09] MEDS: SODIUM CHLORIDE 0.9% IV 1,000 ML 50 ML IV CONT ×2 (03:10→23:42)
[2021-12-09 03:25] LABS: Basophils Percent Auto 0.3 % (0.2-1.2); Eosinophils Absolute Auto 0.3 K/mm3 (0-0.3); Eosinophils Percent Auto 2.3 % (0-4.4); Hematocrit 29.7 % (42.0-52.0); Hemoglobin 9.4 g/dL (14.0-18.0); Immature Granulocyte Absolute 0.28 K/mm3 (0.00-0.031); Immature Granulocyte Percent A 2.5 % (0-0.5); Lymphocytes Absolute Auto 1.38 K/mm3 (0.9-3.2); Lymphocytes Percent Auto 12.1 % (18.3-44.2); Mean Corpuscular HGB Conc 31.6 g/dl (32-36); Mean Corpuscular Hemoglobin 29.8 pg (26-34); Mean Corpuscular Volume 94.3 fl (80-100); Mean Platelet Volume 9.4 fl (7.4-10.4); Monocytes Absolute Auto 0.4 K/mm3 (0.1-0.6); Monocytes Percent Auto 3.8 % (2.6-8.5); Platelet Count Result 212 k/mm3 (150-375); Red Blood Count 3.15 M/mm3 (4.6-6.20); Red Cell Distribution Width 15.2 % (11.5-14.5); White Blood Count 11.4 K/mm3 (4.5-10.0)
[2021-12-09 03:34] LABS: Lactic Acid Reflex 0.8 mmol/L (0.7-2.0)
[2021-12-09 03:35] LABS: Anion Gap 9 mmol/L (8-16); Blood Urea Nitrogen 37 mg/dL (9-20); Calcium 8.7 mg/dL (8.4-10.2); Carbon Dioxide 21 mmol/L (22-30); Chloride 100 mmol/L (98-107); Estimated CRCL calculation 40 ml/min; Estimated Glomerular Filt Rate 42; Glucose 152 mg/dL (65-110); Magnesium 1.5 mg/dL (1.6-2.3); Potassium 4.8 mmol/L (3.4-5.0); Sodium 130 mmol/L (137-145)
[2021-12-09 04:38] LABS: Toxigenic C. Diff NEGATIVE (NEGATIVE)
[2021-12-09 06:00] VITALS: BP 130/73; PULSE 83; RESP 18; TEMP 36.2; O2SAT 96
[2021-12-09 07:40] LABS: Anion Gap 11 mmol/L (8-16); Blood Urea Nitrogen 36 mg/dL (9-20); Calcium 8.3 mg/dL (8.4-10.2); Carbon Dioxide 22 mmol/L (22-30); Chloride 99 mmol/L (98-107); Estimated CRCL calculation 40 ml/min; Estimated Glomerular Filt Rate 42; Glucose 127 mg/dL (65-110); Potassium 4.7 mmol/L (3.4-5.0); Sodium 132 mmol/L (137-145)
[2021-12-09] MEDS: CARBIDOPA/LEVODOPA 25/100 MG TABLET 1 TABLET PO ×3 (08:15→16:59)
[2021-12-09] MEDS: FOLIC ACID 0.4 MG TABLET PO (08:15)
[2021-12-09] MEDS: EMPAGLIFLOZIN 25 MG TABLET PO (08:15)
[2021-12-09] MEDS: SERTRALINE HCL 50 MG TABLET 150 MG PO (08:15)
[2021-12-09] MEDS: guaiFENesin 12 HR 600 MG TABCR 1200 MG PO ×2 (08:15→20:21)
[2021-12-09] MEDS: PHENAZOPYRIDINE HCL 100 MG TABLET 200 MG PO ×2 (08:15→16:58)
[2021-12-09] MEDS: PANTOPRAZOLE 40 MG TABLET PO ×2 (08:16→20:20)
[2021-12-09] MEDS: FERROUS SULFATE 324 MG TABLET PO (08:16)
[2021-12-09] MEDS: ASPIRIN 81 MG ENTERIC TABLET PO (08:16)
[2021-12-09] MEDS: CYANOCOBALAMIN 1,000 MCG TABLET 1000 MCG PO (08:16)
[2021-12-09] MEDS: CHOLECALCIFEROL 1,000 UNITS TABLET 1000 UNITS PO (08:16)
[2021-12-09] MEDS: FLUTICASONE PROPIONATE 0.05% NA SPR 16 GM BTL (*BKC) 2 SPRAY NASAL (08:16)
[2021-12-09] MEDS: DIVALPROEX SODIUM ER 500 MG TAB.24H PO ×2 (08:16→20:21)
[2021-12-09 09:08] LABS: Glucose Point of Care 118 mg/dl (65-105)
--- NOTE | 2021-12-09 11:13 | PM.IMPN ---
Progress Note: A&P Assessment and Plan (1) Urinary tract infection: Code(s): N39.0 - Urinary tract infection, site not specified Status: Acute Assessment and Plan: Continue Rocephin, follow-up culture status post stent placement. Having some pain with urination. status post ureteral stent Renal ultrasound looks okay Having more pain, question the reason for his pain will await Urology evaluation today (2) Acute on chronic anemia: Code(s): D64.9 - Anemia, unspecified Status: Acute Assessment and Plan: Monitor, relatively stable (3) Acute kidney injury: Code(s): N17.9 - Acute kidney failure, unspecified Status: Acute Assessment and Plan: Improving slightly today renal ultrasound ordered by Urology (4) Type 2 diabetes mellitus: Code(s): E11.9 - Type 2 diabetes mellitus without complications Status: Acute Assessment and Plan: A1c is 6.3, continue Accu-Cheks and sliding scale and home insulin and diabetic medications (5) Hyponatremia: Code(s): E87.1 - Hypo-osmolality and hyponatremia Status: Acute Assessment and Plan: Appears to be at baseline (6) Parkinsons disease: Code(s): G20 - Parkinson's disease Status: Acute Assessment and Plan: Stable, continue home meds (7) Abnormal abdominal CT scan: Code(s): R93.5 - Abnormal findings on diagnostic imaging of other abdominal regions, including retroperitoneum Status: Acute Assessment and Plan: consult surgery for ct findings - likely relate to emesis having nvd - No colitis on ct scan Subjective Date/time seen: 12/09/21 11:13 still having severe pain In the abdomen after stent placement. Imaging studies reviewed Exam Narrative: General: No acute distress, alert and oriented per baseline HEENT: Atraumatic, normocephalic, mucous membranes moist CV: Regular rate and rhythm, S1, S2 Lungs: Clear to auscultation bilaterally, no rales or crackles noted, no wheezes, good air entry Abdomen: Soft, nontender, nondistended Extremities: Normal to inspection Skin: No rashes noted, no lesions or wounds seen Psych: Euthymic, normal affect Objective Data Vital Signs Vital Signs: Vital Signs - 24 hr 12/08/21 14:00 12/08/21 20:00 12/08/21 21:56 Temperature 98.2 F 97.8 F Pulse Rate 73 76 Respiratory Rate 16 18 Blood Pressure 141/69 H 126/68 Pulse Oximetry 97 95 Oxygen Delivery Room Air 12/09/21 06:00 12/09/21 09:40 Temperature 97.2 F L Pulse Rate 83 Respiratory Rate 18 Blood Pressure 130/73 Pulse Oximetry 96 Oxygen Delivery Room Air Intake/Output Intake/Output: Intake & Output 12/06/21 12/07/21 12/08/21 12/09/21 23:59 23:59 23:59 23:59 Intake Total 2215 1820 1080 1340 Balance 2215 1820 1080 1340 Meds/Results Medications: Active Medications Generic Name Dose Route Start Last Admin Trade Name Freq PRN Reason Stop Dose Admin Acetaminophen 1,000 mg 12/03/21 21:44 12/08/21 20:14 Acetaminophen 500 Mg Tablet PO 1,000 mg BID PRN Administration Pain Rated 1-3 Artificial Tears 1 drop 12/03/21 21:55 12/08/21 20:14 Artificial Tears Ophth Soln 15 Ml Bottle EACH EYE 1 drop BID PRN Administration Dry Eye(s) Aspirin 81 mg 12/04/21 09:00 12/09/21 08:16 Aspirin 81 Mg Enteric Tablet PO 81 mg QAM ILANA Administration Bisacodyl 10 mg 12/03/21 21:44 Bisacodyl 10 Mg Suppository RECTAL QAM PRN Constipation Carbidopa/Levodopa 1 tablet 12/04/21 09:00 12/09/21 11:03 Carbidopa/Levodopa 25/100 Mg Tablet PO 1 tablet TIDWM ILANA Administration Cyanocobalamin 1,000 mcg 12/04/21 09:00 12/09/21 08:16 Cyanocobalamin 1,000 Mcg Tablet PO 1,000 mcg QAM ILANA Administration Dextrose 12.5 gm 12/03/21 21:42 Dextrose 50% 25 Gm/50 Ml Syringe IV PUSH PRN PRN Hypoglycemia Protocol Divalproex Sodium 500 mg 12/03/21 22:15
[2021-12-09 11:15] LABS: Glucose Point of Care 135 mg/dl (65-105)
--- NOTE | 2021-12-09 13:54 | PM.CNGS ---
Assessment and Plan Assessment and plan (1) Abnormal abdominal CT scan: Code(s): R93.5 - Abnormal findings on diagnostic imaging of other abdominal regions, including retroperitoneum Status: Acute Assessment and Plan: I have reviewed the CT and discussed the CT findings with Dr. Cooper. Patient's abdominal exam is overall benign and he does not have any significant findings concerning for sepsis or septic shock. He would overall be a very poor surgical candidate if the CT findings did indeed lead to gastric ischemia. Overall the risks of gastric ischemia or very low given the excellent collateral circulation of the stomach. This CT finding does appear more likely related to the severe nausea and vomiting. Patient is already on Protonix twice daily. Will add Carafate 1000 mg p.o. Before meals and at bedtime. Will continue to follow the patient with clinical exams. (2) Emphysematous gastritis: Code(s): K29.60 - Other gastritis without bleeding Status: Acute (3) Acute kidney injury: Code(s): N17.9 - Acute kidney failure, unspecified Status: Acute (4) Urinary tract infection: Code(s): N39.0 - Urinary tract infection, site not specified Status: Acute (5) Chronic obstructive pulmonary disease: Code(s): J44.9 - Chronic obstructive pulmonary disease, unspecified Status: Acute (6) Type 2 diabetes mellitus: Code(s): E11.9 - Type 2 diabetes mellitus without complications Status: Acute (7) Parkinsons disease: Code(s): G20 - Parkinson's disease Status: Acute History of Present Illness Consult details Consult date: 12/09/21 Reason for consult: other ( Abnormal CT abdomen) Narrative: this is a 76-year-old man who I am asked to see for a CT abnormality noted from early this morning. He is currently hospitalized with urinary tract infection with acute kidney injury and right hydronephrosis. He underwent cystoscopy with right ureteral stent placement on 12/05/2021. He was having some increasing pain from the stent placement and overnight was having severe nausea and vomiting. He states he was also having significant diarrhea. Due to the increasing pain with the nausea and vomiting, a CT abdomen and pelvis without contrast was obtained early this morning. CT showed evidence of pneumatosis in the gastric wall with portal venous gas in the liver concerning for emphysematous gastritis. Patient has a DNR status and has chronic medical conditions include Parkinson's disease, diabetes, emphysema, aortic stenosis, and history of CVA. Review of Systems Review of Systems: All systems reviewed & are unremarkable except as noted in HPI and below Constitutional: Constitutional: Denies chills and Denies fever(s) Eyes: Eyes: Denies change in vision ENT: Denies hearing loss, Denies neck pain and Denies sore throat Cardiovascular: Cardiovascular: Denies chest pain and Denies dyspnea Respiratory: Respiratory: Denies cough, Denies dyspnea and Denies wheezing Gastrointestinal: Gastrointestinal: Reports as per HPI Genitourinary: Genitourinary: Denies hematuria and Denies dysuria Musculoskeletal: Musculoskeletal: Denies arthralgias, Denies joint swelling and Denies neck pain Allergic/Immunologic: Allergic/Immunologic: Denies wheezing [facility] Past Medical History Medical History Anemia Aortic stenosis Bipolar disorder Cerebrovascular accident 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 Chronic depression Chronic obstructive pulmonary disease Hypertension Parkinsons disease Type 2 diabetes mellitus Surgical History Surgical History History of cystoscopy History of repair of left rotator cuff History of throat surgery History of tonsillectomy History of ureter stent History of urethral stent Family History Fam
[2021-12-09 14:00] VITALS: BP 132/68; PULSE 74; RESP 18; TEMP 36.8; O2SAT 97
[2021-12-09] MEDS: ACETAMINOPHEN 500 MG TABLET 1000 MG PO (16:58)
[2021-12-09 16:59] LABS: Glucose Point of Care 72 mg/dl (65-105)
[2021-12-09] MEDS: INSULIN GLARGINE (*BKC) 100 UNITS/ML 15 UNITS SUB-Q (16:59)
[2021-12-09] MEDS: SUCRALFATE SUSP 100 MG/ML 10 ML UDC 1000 MG PO ×2 (16:59→20:20)
[2021-12-09 19:45] LABS: Glucose Point of Care 132 mg/dl (65-105)
[2021-12-09] MEDS: risperiDONE 0.5 MG TABLET PO (20:20)
[2021-12-09] MEDS: PRIMIDONE 25 MG TABLET PO (20:20)
[2021-12-09] MEDS: traZODone HCL 50 MG TABLET PO (20:21)
--- NOTE | 2021-12-09 21:35 | PC.NURSE ---
I spoke to Dr Fallon about Mr Barrera duplicate order of Pantoprazole 40 mg tab bid, and 40 mg IVP bid, to make sure it wasn't supposed to be given that way. She said to d/c the pill and just do IVP bid. I have done this starting tomorrow morning as I have already given the pill tonight.
[2021-12-09 21:37] VITALS: BP 99/59; PULSE 74; RESP 17; TEMP 36.6; O2SAT 97
[2021-12-10] MEDS: ACETAMINOPHEN 500 MG TABLET 1000 MG PO ×2 (04:35→20:21)
[2021-12-10 05:26] VITALS: BP 113/79; PULSE 69; RESP 16; TEMP 36.6; O2SAT 95
[2021-12-10] MEDS: SUCRALFATE SUSP 100 MG/ML 10 ML UDC 1000 MG PO ×4 (05:56→20:23)
[2021-12-10 07:51] LABS: Glucose Point of Care 64 mg/dl (65-105)
[2021-12-10 09:03] LABS: Glucose Point of Care 106 mg/dl (65-105)
[2021-12-10] MEDS: CHOLECALCIFEROL 1,000 UNITS TABLET 1000 UNITS PO (09:21)
[2021-12-10] MEDS: SERTRALINE HCL 50 MG TABLET 150 MG PO (09:21)
[2021-12-10] MEDS: CYANOCOBALAMIN 1,000 MCG TABLET 1000 MCG PO (09:21)
[2021-12-10] MEDS: FOLIC ACID 0.4 MG TABLET PO (09:21)
[2021-12-10] MEDS: DIVALPROEX SODIUM ER 500 MG TAB.24H PO ×2 (09:21→20:23)
[2021-12-10] MEDS: PHENAZOPYRIDINE HCL 100 MG TABLET 200 MG PO ×3 (09:21→17:25)
[2021-12-10] MEDS: FERROUS SULFATE 324 MG TABLET PO (09:21)
[2021-12-10] MEDS: PANTOPRAZOLE SODIUM IV 40 MG VIAL IV PUSH ×2 (09:22→20:23)
[2021-12-10] MEDS: ASPIRIN 81 MG ENTERIC TABLET PO (09:22)
[2021-12-10] MEDS: CARBIDOPA/LEVODOPA 25/100 MG TABLET 1 TABLET PO ×3 (09:22→17:26)
[2021-12-10] MEDS: EMPAGLIFLOZIN 25 MG TABLET PO (09:22)
[2021-12-10] MEDS: FLUTICASONE PROPIONATE 0.05% NA SPR 16 GM BTL (*BKC) 2 SPRAY NASAL (09:23)
--- NOTE | 2021-12-10 10:43 | PM.IMPN ---
Progress Note: A&P Assessment and Plan (1) Urinary tract infection: Code(s): N39.0 - Urinary tract infection, site not specified Status: Acute Assessment and Plan: Continue Rocephin, follow-up culture status post stent placement. Having some pain with urination. status post ureteral stent Renal ultrasound looks okay Having more pain, question the reason for his pain will await Urology evaluation today (2) Acute on chronic anemia: Code(s): D64.9 - Anemia, unspecified Status: Acute Assessment and Plan: Monitor, relatively stable (3) Acute kidney injury: Code(s): N17.9 - Acute kidney failure, unspecified Status: Acute Assessment and Plan: Improving slightly today renal ultrasound ordered by Urology (4) Type 2 diabetes mellitus: Code(s): E11.9 - Type 2 diabetes mellitus without complications Status: Acute Assessment and Plan: A1c is 6.3, continue Accu-Cheks and sliding scale and home insulin and diabetic medications (5) Hyponatremia: Code(s): E87.1 - Hypo-osmolality and hyponatremia Status: Acute Assessment and Plan: Appears to be at baseline (6) Parkinsons disease: Code(s): G20 - Parkinson's disease Status: Acute Assessment and Plan: Stable, continue home meds (7) Abnormal abdominal CT scan: Code(s): R93.5 - Abnormal findings on diagnostic imaging of other abdominal regions, including retroperitoneum Status: Acute Assessment and Plan: see plan below (8) Emphysematous gastritis: Code(s): K29.60 - Other gastritis without bleeding Status: Acute Assessment and Plan: minimal abdominal pain, wants to eat, tolerating food. Likely related to emesis. Appreciate surgical consult Subjective Date/time seen: 12/10/21 10:43 Wanting to eat, Minimal abdominal pain noted today. Exam Narrative: General: No acute distress, alert and oriented per baseline HEENT: Atraumatic, normocephalic, mucous membranes moist CV: Regular rate and rhythm, S1, S2 Lungs: Clear to auscultation bilaterally, no rales or crackles noted, no wheezes, good air entry Abdomen: Soft, nontender, nondistended Extremities: Normal to inspection Skin: No rashes noted, no lesions or wounds seen Psych: Euthymic, normal affect Objective Data Vital Signs Vital Signs: Vital Signs - 24 hr 12/09/21 14:00 12/09/21 21:37 12/10/21 05:26 Temperature 98.3 F 97.9 F 97.9 F Pulse Rate 74 74 69 Respiratory Rate 18 17 16 Blood Pressure 132/68 99/59 L 113/79 Pulse Oximetry 97 97 95 Intake/Output Intake/Output: Intake & Output 12/07/21 12/08/21 12/09/21 12/10/21 23:59 23:59 23:59 23:59 Intake Total 1820 1080 3030 240 Balance 1820 1080 3030 240 Meds/Results Medications: Active Medications Generic Name Dose Route Start Last Admin Trade Name Freq PRN Reason Stop Dose Admin Acetaminophen 1,000 mg 12/03/21 21:44 12/10/21 04:35 Acetaminophen 500 Mg Tablet PO 1,000 mg BID PRN Administration Pain Rated 1-3 Artificial Tears 1 drop 12/03/21 21:55 12/08/21 20:14 Artificial Tears Ophth Soln 15 Ml Bottle EACH EYE 1 drop BID PRN Administration Dry Eye(s) Aspirin 81 mg 12/04/21 09:00 12/10/21 09:22 Aspirin 81 Mg Enteric Tablet PO 81 mg QAM ILANA Administration Bisacodyl 10 mg 12/03/21 21:44 Bisacodyl 10 Mg Suppository RECTAL QAM PRN Constipation Carbidopa/Levodopa 1 tablet 12/04/21 09:00 12/10/21 09:22 Carbidopa/Levodopa 25/100 Mg Tablet PO 1 tablet TIDWM ILANA Administration Cyanocobalamin 1,000 mcg 12/04/21 09:00 12/10/21 09:21 Cyanocobalamin 1,000 Mcg Tablet PO 1,000 mcg QAM ILANA Administration Dextrose 12.5 gm 12/03/21 21:42 Dextrose 50% 25 Gm/50 Ml Syringe IV PUSH PRN PRN Hypoglycemia Protocol Divalproex Sodium 500 mg 12/03/21 22:15 12/10/21 09:21 Divalproex Sodium Er 500 Mg
[2021-12-10 11:36] LABS: Glucose Point of Care 183 mg/dl (65-105)
[2021-12-10] MEDS: guaiFENesin 12 HR 600 MG TABCR 1200 MG PO ×2 (12:43→20:23)
[2021-12-10 14:00] VITALS: BP 122/77; PULSE 76; RESP 18; TEMP 36.7; O2SAT 96
[2021-12-10 17:10] LABS: Glucose Point of Care 117 mg/dl (65-105)
--- NOTE | 2021-12-10 17:50 | PM.PNGS ---
Progress Note: A&P Assessment and Plan (1) Emphysematous gastritis: Code(s): K29.60 - Other gastritis without bleeding Status: Acute Assessment and Plan: Clinically benign abdomen. No surgical recommendations at this time. Continue PPI and Carafate. Will sign off. (2) Abnormal abdominal CT scan: Code(s): R93.5 - Abnormal findings on diagnostic imaging of other abdominal regions, including retroperitoneum Status: Acute (3) Acute kidney injury: Code(s): N17.9 - Acute kidney failure, unspecified Status: Acute (4) Urinary tract infection: Code(s): N39.0 - Urinary tract infection, site not specified Status: Acute (5) Chronic obstructive pulmonary disease: Code(s): J44.9 - Chronic obstructive pulmonary disease, unspecified Status: Acute (6) Parkinsons disease: Code(s): G20 - Parkinson's disease Status: Acute (7) Type 2 diabetes mellitus: Code(s): E11.9 - Type 2 diabetes mellitus without complications Status: Acute Subjective Subjective Date/Time Seen: 12/10/21 17:50 Interval history: No more abdominal pain, nausea, or vomiting. Tolerating diet. Exam GI: Inspection: non-distended GI Palp: Yes Soft to palpation, No Tenderness to palpation present (GI), No Guarding due to palpation present (GI) and No Rebound tenderness present Percussion: Yes normal to percussion Auscultation: normal bowel sounds Objective Data Vital Signs Vital Signs: Vital Signs - 24 hr 12/09/21 21:37 12/10/21 05:26 12/10/21 08:00 Temperature 36.6 C 36.6 C Pulse Rate 74 69 Respiratory Rate 17 16 Blood Pressure 99/59 L 113/79 Pulse Oximetry 97 95 Oxygen Delivery Room Air 12/10/21 14:00 Temperature 36.7 C Pulse Rate 76 Respiratory Rate 18 Blood Pressure 122/77 Pulse Oximetry 96 Oxygen Delivery Intake/Output Intake/Output: Intake & Output 12/07/21 12/08/21 12/09/21 12/10/21 23:59 23:59 23:59 23:59 Intake Total 1820 1080 3030 240 Balance 1820 1080 3030 240 Meds/Results Medications: Active Medications Generic Name Dose Route Start Last Admin Trade Name Freq PRN Reason Stop Dose Admin Acetaminophen 1,000 mg 12/03/21 21:44 12/10/21 04:35 Acetaminophen 500 Mg Tablet PO 1,000 mg BID PRN Administration Pain Rated 1-3 Artificial Tears 1 drop 12/03/21 21:55 12/08/21 20:14 Artificial Tears Ophth Soln 15 Ml Bottle EACH EYE 1 drop BID PRN Administration Dry Eye(s) Aspirin 81 mg 12/04/21 09:00 12/10/21 09:22 Aspirin 81 Mg Enteric Tablet PO 81 mg QAM ILANA Administration Bisacodyl 10 mg 12/03/21 21:44 Bisacodyl 10 Mg Suppository RECTAL QAM PRN Constipation Carbidopa/Levodopa 1 tablet 12/04/21 09:00 12/10/21 17:26 Carbidopa/Levodopa 25/100 Mg Tablet PO 1 tablet TIDWM ILANA Administration Cyanocobalamin 1,000 mcg 12/04/21 09:00 12/10/21 09:21 Cyanocobalamin 1,000 Mcg Tablet PO 1,000 mcg QAM ILANA Administration Dextrose 12.5 gm 12/03/21 21:42 Dextrose 50% 25 Gm/50 Ml Syringe IV PUSH PRN PRN Hypoglycemia Protocol Divalproex Sodium 500 mg 12/03/21 22:15 12/10/21 09:21 Divalproex Sodium Er 500 Mg Tab.24h PO 500 mg Q12HR ILANA Administration Docusate Sodium 100 mg 12/03/21 21:44 Docusate Sodium 100 Mg Capsule PO Q12HR PRN Constipation Empagliflozin 25 mg 12/04/21 09:00 12/10/21 09:22 Empagliflozin 25 Mg Tablet PO 25 mg DAILY ILANA Administration Ferrous Sulfate 324 mg 12/04/21 08:00 12/10/21 09:21 Ferrous Sulfate 324 Mg Tablet PO 324 mg DAILY@0800 ILANA Administration Fluticasone Propionate 2 spray 12/04/21 09:00 12/10/21 09:23 Fluticasone Propionate 0.05% Na Spr 16 Gm Btl (*Bkc) NASAL 2 spray DAILY ILANA Administration Folic Acid 0.4 mg 12/04/21 09:00 12/10/21 09:21 Folic Acid 0.4 Mg Tablet PO 0.4 mg DAILY ILANA Administration Glucagon 1 mg 12/03/21 21:42
--- NOTE | 2021-12-10 18:07 | WPDUROPN2 ---
Progress Note: A&P Assessment and Plan (1) Acute UTI: Code(s): N39.0 - Urinary tract infection, site not specified Status: Acute Assessment and Plan: Continue IV antibiotics, d/c home on oral antibiotics. (2) GABRIELA (acute kidney injury): Code(s): N17.9 - Acute kidney failure, unspecified Status: Acute Assessment and Plan: Improved with stent, will repeat a creatinine tomorrow morning. CT yesterday shows bilateral nonobstructive stones and right stent in place. No need to intervene surgically at this time. I did order Pyridium to assist in stent irritation, pain is expected with stent druing urination. No further treatment or evaluation at this time. (3) Bilateral renal stones: Code(s): N20.0 - Calculus of kidney Status: Acute Plan Ok to discharge home if creatinine is normal and patient is tolerating stent discomfort with Pyridium to f/u with Dr. Pope for stent and stone management in the office. Subjective Subjective Date/Time Seen: 12/10/21 18:07 s/p Cystoscopy, right retrograde pyelography and right ureteral stent placement with c/o stent pain The patient continues to have ongoing dysuria with urination only regarding his stent. He denies pain at rest, frequency or urgency to urinate. He also denies difficulty with urination. Post Op day: 5 Review of Systems Respiratory: Respiratory: Reports no additional respiratory complaints Gastrointestinal: Gastrointestinal: Denies abdominal pain, Denies nausea and Denies vomiting Genitourinary: Genitourinary: Denies hematuria, Reports dysuria, Denies flank pain, Denies urinary frequency, Denies urinary hesitancy and Denies urinary urgency Exam Const: General: cooperative, comfortable and alert Resp: Effort & Inspection: normal respiratory effort Cardio: Rate: regular rate GI: GI Palp: Yes Soft to palpation and No Tenderness to palpation present (GI) : General: Yes no CVA tenderness Extrem: General: no edema Objective Data Vital Signs Vital Signs: Vital Signs - 24 hr 12/09/21 21:37 12/10/21 05:26 12/10/21 08:00 Temperature 97.9 F 97.9 F Pulse Rate 74 69 Respiratory Rate 17 16 Blood Pressure 99/59 L 113/79 Pulse Oximetry 97 95 Oxygen Delivery Room Air 12/10/21 14:00 Temperature 98.0 F Pulse Rate 76 Respiratory Rate 18 Blood Pressure 122/77 Pulse Oximetry 96 Oxygen Delivery Intake/Output Intake/Output: Intake & Output 12/07/21 12/08/21 12/09/21 12/10/21 23:59 23:59 23:59 23:59 Intake Total 1820 1080 3030 240 Balance 1820 1080 3030 240 Meds/Results Medications: Active Medications Generic Name Dose Route Start Last Admin Trade Name Freq PRN Reason Stop Dose Admin Acetaminophen 1,000 mg 12/03/21 21:44 12/10/21 04:35 Acetaminophen 500 Mg Tablet PO 1,000 mg BID PRN Administration Pain Rated 1-3 Artificial Tears 1 drop 12/03/21 21:55 12/08/21 20:14 Artificial Tears Ophth Soln 15 Ml Bottle EACH EYE 1 drop BID PRN Administration Dry Eye(s) Aspirin 81 mg 12/04/21 09:00 12/10/21 09:22 Aspirin 81 Mg Enteric Tablet PO 81 mg QAM ILANA Administration Bisacodyl 10 mg 12/03/21 21:44 Bisacodyl 10 Mg Suppository RECTAL QAM PRN Constipation Carbidopa/Levodopa 1 tablet 12/04/21 09:00 12/10/21 17:26 Carbidopa/Levodopa 25/100 Mg Tablet PO 1 tablet TIDWM ILANA Administration Cyanocobalamin 1,000 mcg 12/04/21 09:00 12/10/21 09:21 Cyanocobalamin 1,000 Mcg Tablet PO 1,000 mcg QAM ILANA Administration Dextrose 12.5 gm 12/03/21 21:42 Dextrose 50% 25 Gm/50 Ml Syringe IV PUSH PRN PRN Hypoglycemia Protocol Divalproex Sodium 500 mg 12/03/21 22:15 12/10/21 09:21 Divalproex Sodium Er 500 Mg Tab.24h PO 500 mg Q12HR ILANA Administration Docusate Sodium 100 mg 12/03/21 21:44 Docusate Sodium 100 Mg Capsule PO Q12HR PRN Constipation Empagliflozin 25 mg 12/04/21 0
[2021-12-10] MEDS: INSULIN GLARGINE (*BKC) 100 UNITS/ML 15 UNITS SUB-Q (18:32)
[2021-12-10 20:20] LABS: Glucose Point of Care 237 mg/dl (65-105)
[2021-12-10] MEDS: SODIUM CHLORIDE 0.9% IV 1,000 ML 50 ML IV CONT (20:20)
[2021-12-10] MEDS: traZODone HCL 50 MG TABLET PO (20:23)
[2021-12-10] MEDS: PRIMIDONE 25 MG TABLET PO (20:23)
[2021-12-10] MEDS: risperiDONE 0.5 MG TABLET PO (20:23)
[2021-12-10] MEDS: LORazepam (*CRX) 0.5 MG TABLET PO (20:23)
[2021-12-10 22:00] VITALS: BP 101/74; PULSE 88; RESP 14; TEMP 36.9; O2SAT 96
[2021-12-11 06:00] VITALS: BP 146/61; PULSE 71; RESP 12; TEMP 36.4; O2SAT 97
[2021-12-11] MEDS: SUCRALFATE SUSP 100 MG/ML 10 ML UDC 1000 MG PO ×3 (06:08→17:02)
[2021-12-11 06:43] LABS: Basophils Percent Auto 0.4 % (0.2-1.2); Eosinophils Absolute Auto 0.6 K/mm3 (0-0.3); Eosinophils Percent Auto 7.3 % (0-4.4); Hematocrit 25.9 % (42.0-52.0); Hemoglobin 7.8 g/dL (14.0-18.0); Immature Granulocyte Absolute 0.22 K/mm3 (0.00-0.031); Immature Granulocyte Percent A 2.9 % (0-0.5); Lymphocytes Absolute Auto 1.42 K/mm3 (0.9-3.2); Lymphocytes Percent Auto 18.5 % (18.3-44.2); Mean Corpuscular HGB Conc 30.1 g/dl (32-36); Mean Corpuscular Hemoglobin 29.5 pg (26-34); Mean Corpuscular Volume 98.1 fl (80-100); Mean Platelet Volume 9.6 fl (7.4-10.4); Monocytes Absolute Auto 0.4 K/mm3 (0.1-0.6); Monocytes Percent Auto 5.7 % (2.6-8.5); Neutrophils Percent Auto 65.2 % (45.5-73.1); Platelet Count Result 209 k/mm3 (150-375); Red Blood Count 2.64 M/mm3 (4.6-6.20); White Blood Count 7.7 K/mm3 (4.5-10.0)
[2021-12-11 06:54] LABS: Lactic Acid Reflex 1.3 mmol/L (0.7-2.0)
[2021-12-11 06:55] LABS: Alanine Aminotransferase 8 U/L (6-50); Albumin Level 2.8 g/dL (3.5-5.1); Alkaline Phosphatase 64 U/L (38-126); Anion Gap 12 mmol/L (8-16); Aspartate Amino Transferase 14 U/L (17-59); Bilirubin,Total 0.4 mg/dL (0.2-1.3); Blood Urea Nitrogen 27 mg/dL (9-20); Calcium 8.3 mg/dL (8.4-10.2); Carbon Dioxide 22 mmol/L (22-30); Chloride 102 mmol/L (98-107); Estimated CRCL calculation 35 ml/min; Estimated Glomerular Filt Rate 59; Glucose 90 mg/dL (65-110); Potassium 4.2 mmol/L (3.4-5.0); Sodium 136 mmol/L (137-145)
[2021-12-11 07:25] LABS: Glucose Point of Care 51 mg/dl (65-105)
[2021-12-11 07:53] VITALS: O2SAT 97
[2021-12-11] MEDS: DIVALPROEX SODIUM ER 500 MG TAB.24H PO ×2 (08:57→20:33)
[2021-12-11] MEDS: PANTOPRAZOLE SODIUM IV 40 MG VIAL IV PUSH ×2 (08:57→20:33)
[2021-12-11] MEDS: SERTRALINE HCL 50 MG TABLET 150 MG PO (08:57)
[2021-12-11] MEDS: FOLIC ACID 0.4 MG TABLET PO (08:57)
[2021-12-11] MEDS: CYANOCOBALAMIN 1,000 MCG TABLET 1000 MCG PO (08:57)
[2021-12-11] MEDS: guaiFENesin 12 HR 600 MG TABCR 1200 MG PO ×2 (08:57→20:35)
[2021-12-11] MEDS: FERROUS SULFATE 324 MG TABLET PO (08:57)
[2021-12-11] MEDS: CARBIDOPA/LEVODOPA 25/100 MG TABLET 1 TABLET PO ×3 (08:58→17:02)
[2021-12-11] MEDS: CHOLECALCIFEROL 1,000 UNITS TABLET 1000 UNITS PO (08:58)
[2021-12-11] MEDS: PHENAZOPYRIDINE HCL 100 MG TABLET 200 MG PO ×3 (08:58→17:03)
[2021-12-11] MEDS: ASPIRIN 81 MG ENTERIC TABLET PO (08:58)
[2021-12-11] MEDS: FLUTICASONE PROPIONATE 0.05% NA SPR 16 GM BTL (*BKC) 2 SPRAY NASAL (08:59)
[2021-12-11] MEDS: ACETAMINOPHEN 500 MG TABLET 1000 MG PO ×2 (09:18→20:33)
[2021-12-11 10:10] LABS: Glucose Point of Care 81 mg/dl (65-105)
--- NOTE | 2021-12-11 10:25 | PM.IMPN ---
Progress Note: A&P Assessment and Plan (1) Urinary tract infection: Code(s): N39.0 - Urinary tract infection, site not specified Status: Acute Assessment and Plan: status post stent put in for renal calculi. Pain is controlled making urine IV Rocephin for UTI. He is on day 7. (2) Acute on chronic anemia: Code(s): D64.9 - Anemia, unspecified Status: Acute Assessment and Plan: monitor (3) Acute kidney injury: Code(s): N17.9 - Acute kidney failure, unspecified Status: Acute Assessment and Plan: improving (4) Type 2 diabetes mellitus: Code(s): E11.9 - Type 2 diabetes mellitus without complications Status: Acute (5) Hyponatremia: Code(s): E87.1 - Hypo-osmolality and hyponatremia Status: Acute (6) Parkinsons disease: Code(s): G20 - Parkinson's disease Status: Acute (7) Abnormal abdominal CT scan: Code(s): R93.5 - Abnormal findings on diagnostic imaging of other abdominal regions, including retroperitoneum Status: Acute (8) Emphysematous gastritis: Code(s): K29.60 - Other gastritis without bleeding Status: Acute Assessment and Plan: Likely not real likely secondary to nausea vomiting. Feeling good and asymptomatic today. Plan Likely discharge tomorrow Subjective Date/time seen: 12/11/21 10:25 no complaints Exam Narrative: General: alert and oriented Psych: appropriate mood nad affect Eyes: PERRLA Neck: Trachea midline, no new lesions Skin: no changes Lungs: CTA Cardiac: Normal S1,S2, no MGR ABD: soft, nd, nt, nbs Ext: no new lesions, no cce Vasc: Pulses intact Objective Data Vital Signs Vital Signs: Vital Signs - 24 hr 12/10/21 14:00 12/10/21 22:00 12/11/21 06:00 Temperature 98.0 F 98.5 F 97.5 F L Pulse Rate 76 88 71 Respiratory Rate 18 14 12 Blood Pressure 122/77 101/74 146/61 H Pulse Oximetry 96 96 97 Oxygen Delivery 12/11/21 07:53 Temperature Pulse Rate Respiratory Rate Blood Pressure Pulse Oximetry 97 Oxygen Delivery Room Air Intake/Output Intake/Output: Intake & Output 12/08/21 12/09/21 12/10/21 12/11/21 23:59 23:59 23:59 23:59 Intake Total 1080 3030 1290 540 Balance 1080 3030 1290 540 Meds/Results Medications: Active Medications Generic Name Dose Route Start Last Admin Trade Name Jose Gq PRN Reason Stop Dose Admin Acetaminophen 1,000 mg 12/03/21 21:44 12/11/21 09:18 Acetaminophen 500 Mg Tablet PO 1,000 mg BID PRN Administration Pain Rated 1-3 Artificial Tears 1 drop 12/03/21 21:55 12/08/21 20:14 Artificial Tears Ophth Soln 15 Ml Bottle EACH EYE 1 drop BID PRN Administration Dry Eye(s) Aspirin 81 mg 12/04/21 09:00 12/11/21 08:58 Aspirin 81 Mg Enteric Tablet PO 81 mg QAM ILANA Administration Bisacodyl 10 mg 12/03/21 21:44 Bisacodyl 10 Mg Suppository RECTAL QAM PRN Constipation Carbidopa/Levodopa 1 tablet 12/04/21 09:00 12/11/21 08:58 Carbidopa/Levodopa 25/100 Mg Tablet PO 1 tablet TIDWM ILANA Administration Cyanocobalamin 1,000 mcg 12/04/21 09:00 12/11/21 08:57 Cyanocobalamin 1,000 Mcg Tablet PO 1,000 mcg QAM ILANA Administration Dextrose 12.5 gm 12/03/21 21:42 Dextrose 50% 25 Gm/50 Ml Syringe IV PUSH PRN PRN Hypoglycemia Protocol Divalproex Sodium 500 mg 12/03/21 22:15 12/11/21 08:57 Divalproex Sodium Er 500 Mg Tab.24h PO 500 mg Q12HR ILANA Administration Docusate Sodium 100 mg 12/03/21 21:44 Docusate Sodium 100 Mg Capsule PO Q12HR PRN Constipation Empagliflozin 25 mg 12/04/21 09:00 12/11/21 09:00 Empagliflozin 25 Mg Tablet PO Not Given DAILY ILANA Ferrous Sulfate 324 mg 12/04/21 08:00 12/11/21 08:57 Ferrous Sulfate 324 Mg Tablet PO 324 mg DAILY@0800 ILANA Administration Fluticasone Propionate 2 spray 12/04/21 09:00 12/11/21 08:59 Fluticasone Propionate 0.05%
[2021-12-11 12:37] LABS: Glucose Point of Care 168 mg/dl (65-105)
--- NOTE | 2021-12-11 13:16 | PCNFU ---
Nutrition Follow-Up Complete: inadequate oral intake related to poor appetite and alcohol consumption as evidence by 34 lbs (21%) unintentional wt loss over 2 years encourage intake 75% or greater each meal time and complete intake of nutritional supplements Goal: goal not met. continue original goal Pt current nutrition is heart healthy diet, ensure compact BID. Last recorded weight is 52.1 kg. Bowel Motility:12/09 Labs Reviewed:Hgb: 7.7, Alb: 2.8, Na: 136, BUN: 27 Meds Noted:vitamin D, folic acid, protonix, zofran, ferrous sulfate, vitamin B12 Skin: WNL-no pressure injuries Additional Notes: Pt says his appetite is improving, but he does not like the food here so he does not eat much. average meal intake 65%. claims to be drinking the 2 nutritional supplements and finishes them. follow up in 7 days monitor appetite, meal and supplement intake, wt and labs
--- NOTE | 2021-12-11 13:27 | PCNSR ---
On 12/11/21, the student,Abel Medina, provided care and completed [facility] documentation on this patient. I have reviewed the student's documentation and agree with the findings.
[2021-12-11] MEDS: CEFDINIR 300 MG CAPSULE PO ×2 (13:55→20:34)
[2021-12-11 14:00] VITALS: BP 121/70; PULSE 88; RESP 12; TEMP 36.4; O2SAT 94
[2021-12-11 16:39] LABS: Glucose Point of Care 145 mg/dl (65-105)
[2021-12-11] MEDS: LORazepam (*CRX) 0.5 MG TABLET PO (20:34)
[2021-12-11] MEDS: traZODone HCL 50 MG TABLET PO (20:34)
[2021-12-11] MEDS: PRIMIDONE 25 MG TABLET PO (20:34)
[2021-12-11] MEDS: risperiDONE 0.5 MG TABLET PO (20:34)
[2021-12-11 20:57] LABS: Glucose Point of Care 198 mg/dl (65-105)
[2021-12-11 22:00] VITALS: BP 94/58; PULSE 88; RESP 18; TEMP 36.8; O2SAT 100
[2021-12-12 06:00] VITALS: BP 139/65; PULSE 75; RESP 18; TEMP 36.7; O2SAT 96
[2021-12-12 08:03] LABS: Glucose Point of Care 78 mg/dl (65-105)
--- NOTE | 2021-12-12 09:13 | PCOTNOTE ---
Attempted to see patient this am, however patient refused stating, Oh arline no. I'm going home today. My home care takers can help me when I get there. But thanks for coming by.
[2021-12-12] MEDS: SERTRALINE HCL 50 MG TABLET 150 MG PO (09:26)
[2021-12-12] MEDS: FLUTICASONE PROPIONATE 0.05% NA SPR 16 GM BTL (*BKC) 2 SPRAY NASAL (09:26)
[2021-12-12] MEDS: CYANOCOBALAMIN 1,000 MCG TABLET 1000 MCG PO (09:26)
[2021-12-12] MEDS: FERROUS SULFATE 324 MG TABLET PO (09:26)
[2021-12-12] MEDS: PHENAZOPYRIDINE HCL 100 MG TABLET 200 MG PO ×3 (09:27→16:51)
[2021-12-12] MEDS: guaiFENesin 12 HR 600 MG TABCR 1200 MG PO (09:27)
[2021-12-12] MEDS: EMPAGLIFLOZIN 25 MG TABLET PO (09:27)
[2021-12-12] MEDS: CARBIDOPA/LEVODOPA 25/100 MG TABLET 1 TABLET PO ×3 (09:27→16:52)
[2021-12-12] MEDS: FOLIC ACID 0.4 MG TABLET PO (09:27)
[2021-12-12] MEDS: CEFDINIR 300 MG CAPSULE PO (09:28)
[2021-12-12] MEDS: CHOLECALCIFEROL 1,000 UNITS TABLET 1000 UNITS PO (09:28)
[2021-12-12] MEDS: ASPIRIN 81 MG ENTERIC TABLET PO (09:28)
[2021-12-12] MEDS: DIVALPROEX SODIUM ER 500 MG TAB.24H PO (09:28)
[2021-12-12] MEDS: SUCRALFATE SUSP 100 MG/ML 10 ML UDC 1000 MG PO (11:26)
[2021-12-12] MEDS: PANTOPRAZOLE 40 MG TABLET PO (11:26)
[2021-12-12 11:45] LABS: Glucose Point of Care 155 mg/dl (65-105)
[2021-12-12] MEDS: ACETAMINOPHEN 500 MG TABLET 1000 MG PO (12:09)
--- NOTE | 2021-12-12 12:09 | PCPTNOTE ---
Patient refused treatment this session stating I am getting out of here today and going home.
[2021-12-12 14:00] VITALS: BP 103/67; PULSE 84; RESP 16; TEMP 36.8; O2SAT 98
--- NOTE | 2021-12-12 15:48 | PM.DS ---
DS: Admitting Diagnosis Discharge Date 12/12/21 Admitting Diagnosis Weakness DS: Discharge Diagnosis Discharge Diagnosis (1) Urinary tract infection: Code(s): N39.0 - Urinary tract infection, site not specified Status: Acute (2) Acute on chronic anemia: Code(s): D64.9 - Anemia, unspecified Status: Acute (3) Acute kidney injury: Code(s): N17.9 - Acute kidney failure, unspecified Status: Acute (4) Type 2 diabetes mellitus: Code(s): E11.9 - Type 2 diabetes mellitus without complications Status: Acute (5) Hyponatremia: Code(s): E87.1 - Hypo-osmolality and hyponatremia Status: Acute (6) Parkinsons disease: Code(s): G20 - Parkinson's disease Status: Acute (7) Abnormal abdominal CT scan: Code(s): R93.5 - Abnormal findings on diagnostic imaging of other abdominal regions, including retroperitoneum Status: Acute (8) Emphysematous gastritis: Code(s): K29.60 - Other gastritis without bleeding Status: Acute DS: Summary Hospital Course Reason for hospitalization: 76yo male with Parkinson's disease, COPD and HTN here for weakness. Please see H&P for details Hospital Course: The patient presented to the emergency department for evaluation of low-grade fevers, weakness, and urinary symptoms. Symptoms started the evening after he had a ureteral stent removed. UA appeared infected and was started on empiric ceftriaxone. Renal ultrasound showed moderate right pelvicaliectasis. Urology was consulted. Patient underwent cystoscopy with right retrograde pyelogram and right ureteral stent placement 12/05/2021. Urine culture grew E coli that was relatively pansensitive. Completed 8 days of IV Rocephin. He was then switched to Omnicef and completed abx course. CT of the abdomen and pelvis was performed for abdominal pain, nausea and vomiting. This showed severe emphysema, pneumatosis of the gastric wall with portal venous gas which may be due to increased pressure from vomiting as well as chronic pancreatitis. Hemoglobin is low 8.3 but remained stable mostly in the 8-9 range. White count remain essentially within normal limits. Patient acute kidney injury admission with a creatinine 1.9. With the treatment of UTI and stent placement causing resolution of the hydronephrosis, creatinine trended down to 1.2. Iron studies are more consistent anemia chronic disease. B12 folate and TSH levels were normal. Lipase was normal. Should be mentioned the stool guaiac was negative back in August. Patient had clinical improvement. He overall did well and was able be discharged home on 12/12/2021. Status at Discharge Cognitive/behavioral status at discharge: stable Time Spent with Patient Time attestation: Total time spent providing and/or coordinating discharge services: 35 minutes Time spent: Greater than 30 minutes Exam Narrative: AF 98.0 139/65 75 18 96% ra Gen - thin male lying flat in bed in NARD Chest - CTA bilaterally, nml RR CV - RRR S1/S2 with 2/6 systolic murmur LLSB Abd - Soft, NT/ND, Positive BS Ext - No pedal edema Psych - Nml mood and affect Skin - Warm and dry DS: Data Data Completed and Pending Labs on day of discharge: Labs from last 24 hours 12/12/21 12/12/21 12/11/21 11:37 07:50 20:38 POC Capillary Glucose 155 H 78 198 H 12/11/21 16:34 POC Capillary Glucose 145 H Discharge Plan Discharge Attending physician on discharge: Mike Roberts Consulting providers: Brett Pope Discharging Clinician: Mike Roberts Anticipated Discharge Date/Time: 12/12/21 16:00 Patient Disposition: Home Health Service Activity: as tolerated Diet: regular Discharge Instructions: Care Coordination: patient to have [facility] for PT/OT and RN. They can be reached at [phone] and will contact you to schedule their first visit. RN Please fax discharge
[2021-12-12 16:46] LABS: Glucose Point of Care 130 mg/dl (65-105)
== END 2021-12-12 17:30 | disposition home health service (06) | DRG 660 ==
LOC: ANHED 15:04 → ANH3MEDSUR 16:46
PROVIDERS: Chiropractor; Internal Medicine; Nurse Practitioner Adult Health; Physician Assistant; Urology; Admitting Provider Internal Medicine; Emergency Provider Emergency Medicine; PCP Family Medicine; Visit Provider Internal Medicine
PROC: 0T768DZ Dilation of Right Ureter with Intraluminal Device, Via Natural or Artificial Opening Endoscopic (ICD-10-PCS; CPT 52352; principal; 2021-12-05 14:30)
DX: N13.6 Pyonephrosis (principal); E87.1 Hypo-osmolality and hyponatremia; K86.1 Other chronic pancreatitis; B96.20 Unspecified Escherichia coli [E. coli] as the cause of diseases classified elsewhere; N17.9 Acute kidney failure, unspecified; D64.9 Anemia, unspecified; E11.9 Type 2 diabetes mellitus without complications; G20 Parkinson's disease; J43.9 Emphysema, unspecified; I10 Essential (primary) hypertension; F31.9 Bipolar disorder, unspecified; K29.60 Other gastritis without bleeding; Z20.822 Contact with and (suspected) exposure to COVID-19; Z66 Do not resuscitate; Z79.4 Long term (current) use of insulin; Z79.899 Other long term (current) drug therapy; Z86.73 Personal history of transient ischemic attack (TIA), and cerebral infarction without residual deficits; Z87.891 Personal history of nicotine dependence; Z99.3 Dependence on wheelchair
CPT/HCPCS: 36415; 51701; 74018; 74176; 74420; 76775; 80048; 80053; 81001; 82607; 82728; 82746; 82948; 83036; 83540; 83550; 83605; 83690; 83735; 84443; 85014; 85018; 85025; 85027; 85055; 87077; 87086; 87088; 87186; 87493; 96361; 96365; 97110; 97161; 97165; 97530; 99285; A9270; C1758; C1769; C2617; C9113; C9803; G0378; J0696; J1815; J2405; J2704; J3010; J7030; U0003; U0005

== ENCOUNTER 2021-12-21 15:13 | Outpatient (CLI) | payer MEDICARE, SELFPAY ==
[2021-12-21 16:03] LABS: Hematocrit 28.8 % (42.0-52.0); Hemoglobin 8.9 g/dL (14.0-18.0)
[2021-12-21 16:20] LABS: Valproic Acid 42.1 ug/mL (50-120)
== END 2021-12-21 15:14 | disposition home or self-care (01) ==
LOC: ANHSURGERY 15:29
PROVIDERS: Anesthesiology; PCP Family Medicine; Visit Provider Urology
DX: D64.9 Anemia, unspecified (principal); G20 Parkinson's disease; N13.30 Unspecified hydronephrosis; Z01.818 Encounter for other preprocedural examination
CPT/HCPCS: 36415; 80164; 85014; 85018; 87086

== ENCOUNTER 2021-12-25 01:57 | Day surgery (SDC) | payer MEDICARE, SELFPAY ==
--- NOTE | 2021-12-19 15:08 | PC.NURSE ---
Report to the Outpatient Waiting Room, entrance under the green pavilion located off [facility], at time __1045 on date _12/25/21 . Planned Procedure Time: _1245 . Time changes happen often and if your time is changed the preop area will call you the afternoon before. - You and your visitor will be asked to self-screen and do not enter if you have any COVID symptoms. - We encourage only one visitor and NO visitors under age 16 are allowed at this time. Your visitor will receive communication by the phone number that is given day of service. - The patient visitor is requested to social distance or may leave the building when not with patient due to restrictions. - A mask is required within the hospital. Patients may have clear liquids (water, carbonated beverages, clear teas, apple juice) until 3 hours prior to surgery with a maximum of 20 ounces. - No food from midnight until time of surgery - Infants may have breast milk until 4 hours before surgery, formula 6 hours prior to surgery. - Children will be allowed to drink immediately following surgery. If applicable, please bring a bottle or sippy cup to assist with drinking. Juice, water, soda, and popsicles are readily available. For infants on formula, please bring formula the day of surgery. Pacifiers are allowed. Take the following medications with a SIP of water the morning of surgery: __CARBIDOPA-LEVODOPA,DIVALPROEX,SERTRALINE Medications to discontinue per physician __ALL VITAMINS AND SUPPLEMENTS 3 DAYS PRE OP ___. TO CALL DR LIZ REGARDING ASPIRIN Date to take last dose____12/21/21 Please no make-up, nail macedonian, hairspray, perfume, deodorant, or body powder the day of surgery. No jewelry (including any body piercings) or valuables the day of surgery, leave them at home. Please take a shower or bath the night before, or the morning of, surgery with an antibacterial soap. Wear comfortable, loose fitting clothing. Children are encouraged to wear pajamas. - Jewelry must be removed prior to entering the operating room. Rings and piercings that are not removed may be cut off. - The hospital will not accept responsibility for valuables. - Please leave all valuables, including medications, at home the day of surgery. If you are going home after surgery, a licensed team otr truck driver must drive you home. - NO public transportation without another adult. - We recommend that an adult stay with you for 24 hours following discharge. - We also recommend that you do not drive, make important decision, drink alcoholic beverages, or take any drugs that were not prescribed by your health care provider for at least 24 hours after your discharge time. For Pediatric surgeries, we recommend two adults accompany the child home. Follow any additional instructions given to you from your surgeon. If you or anyone in your household have experienced Covid symptoms in the past week, please notify your surgeon or the nurse liaison at the phone number below for possible testing. Telephone instructions given to __WIFE ANA and asked if any additional questions and then verbalized understanding. Patient advised to call surgeon office or pre surgery nurse liaison [phone] if any additional questions.
[2021-12-19 15:45] VITALS: BMI 17.7
--- NOTE | 2021-12-24 12:08 | WPDANESEPPF ---
Anes - Initial Pre Proc Eval Procedure: Operation Date: 12/25/21 12:45 Proposed Procedures p Cystoscopy, Right Retrograde Pyelogram, Right Ureteroscopy, Possible Stent Removal or Exchange - Brett Pope MD Date/Time: 12/24/21 12:08 Surgeon: Brett Pope MD Pre Op Diagnosis: right hydronephrosis Patient Data Age: 76 Gender: M Height: 1.75 m Weight: 54.45 kg Allergies Allergy/AdvReac Type Severity Reaction Status Date / Time No Known Allergies Allergy Verified 12/25/21 11:19 Home Medications Medication Instructions Recorded Confirmed Type acetaminophen 500 mg tablet 1,000 mg PO BID PRN Pain 06/06/20 12/25/21 History (Tylenol Extra Strength) cholecalciferol (vitamin D3) 25 25 mcg PO DAILY 07/03/20 12/25/21 History mcg (1,000 unit) capsule lancets 28 gauge (Push Button #100 ea 11/03/20 12/21/21 Rx Safety Lancets) aspirin 81 mg tablet,delayed 81 mg PO QAM 05/16/21 12/25/21 History release (Adult Aspirin Regimen) pantoprazole 40 mg tablet,delayed 40 mg PO BID 05/16/21 12/25/21 History release (Protonix) artificial tears solution eye drops 1 drp ophthalmic (eye) BID PRN Dry 05/17/21 12/25/21 History Eyes risperidone 0.5 mg tablet 0.5 mg PO QHS #30 tabs 06/29/21 12/25/21 Rx (Risperdal) blood sugar diagnostic #100 ea 07/09/21 12/21/21 Rx trazodone 50 mg tablet 50 mg PO HS #30 tabs 07/17/21 12/25/21 Rx guaifenesin 1,200 mg tablet, 1,200 mg PO BID 08/20/21 12/21/21 History extended release 12 hr (Mucinex) polyethylene glycol 3350 17 gram 17 g PO DAILY PRN Constipation 08/20/21 12/25/21 History oral powder packet (Miralax) sertraline 100 mg tablet 150 mg PO DAILY 08/20/21 12/25/21 History bisacodyl 10 mg rectal suppository 10 mg RECTAL QAM PRN Constipation 08/27/21 12/21/21 Rx #5 ea cyanocobalamin (vitamin B-12) 1,000 mcg PO QAM #30 tabs 08/27/21 12/25/21 Rx 1,000 mcg tablet (Vitamin B-12) primidone 50 mg tablet 25 mg PO HS #1 tablet 09/06/21 12/25/21 Rx fluticasone propionate 50 2 spray intranasal BID 09/09/21 12/21/21 History mcg/actuation nasal spray,suspension folic acid 400 mcg tablet 400 mcg PO DAILY 09/09/21 12/25/21 History empagliflozin 25 mg tablet 25 mg PO DAILY #30 tabs 11/02/21 12/25/21 Rx (Jardiance) flash glucose scanning reader #1 ea 11/06/21 12/21/21 Rx (FreeStyle Starr 14 Day [place]) flash glucose sensor (FreeStyle #1 ea 11/06/21 12/21/21 Rx Starr 14 Day Sensor kit) insulin aspart U-100 100 unit/mL See Rx Instructions subcut 11/07/21 12/25/21 Rx (3 mL) subcutaneous pen (Novolog .COMPLEX #15 mL Flexpen U-100 Insulin aspart) pen needle, diabetic 31 gauge x #100 ea 11/21/21 12/21/21 Rx 3/16 (Comfort EZ Pen [place]) docusate sodium 100 mg capsule 100 mg PO Q12HR PRN Constipation 12/03/21 12/25/21 History carbidopa 25 mg-levodopa 100 mg 1 tablet PO TID #1 tablet 12/12/21 12/25/21 Rx tablet divalproex 500 mg tablet,extended 500 mg PO BID #180 tabs 12/19/21 12/25/21 Rx release 24 hr lorazepam 0.5 mg tablet (Ativan) 0.5 mg PO HS PRN Anxiety #30 tabs 12/19/21 12/25/21 Rx magnesium oxide 400 mg PO DAILY #30 tabs 12/19/21 12/25/21 Rx plecanatide 3 mg tablet 3 mg PO DAILY #30 tabs 12/19/21 12/25/21 Rx insulin glargine 100 unit/mL (3 12 unit subcut QPM 12/25/21 12/25/21 History mL) subcutaneous pen (Lantus Solostar U-100 Insulin) Other studies: Admit Date: ? ? 08/30/2021 Staff Ordering Physician: ? ? Mike Roberts? Accounts Receivable Manager: ? ? Haylee Titus RDCS Attending Provider: ? ? Jt Salguero? Exam Type: ? ? CA echo doppler color flow Study Info Indications ?? ? - ao stenosis Complete two-dimensional, color flow and Doppler transthoracic echocardiogram is performed. Account #: ? ? [id number] Summary ? 1. Complete two-dimensional, color flow and Doppler transthoracic echocardiogram is performed. ? 2. Left ventricular chamber dimension is normal. ? 3. Left ventricular s
[2021-12-25] VITALS (10 sets, daily range): BP systolic 105–133; BP diastolic 57–74; PULSE 68–77; RESP 12–16; TEMP 36.2–37.1; O2SAT 97–100
--- NOTE | ~2021-12-25 | XR_ITS ---
EXAMINATION: XR retrograde pyelo w/stent RT DATE: 12/25/2021 14:15 INDICATION: Right internal ureteral stent placement TECHNIQUE: Fluoroscopic images from a right internal ureteral stent placement are submitted for loli palafox 24 seconds of fluoroscopy time. 3 fluoroscopic images. FINDINGS: There is a right double-J internal ureteral stent projecting in expected position, with proximal Sherwood loop at the level of the renal pelvis and distal loop in the pelvis within the bladder lumen. IMPRESSION: 1. Right internal ureteral stent placement. Please refer to real-time procedural findings for dom mascorro. Reviewed, dictated and finalized at location B. IMPRESSION: 1. Right internal ureteral stent placement. Please refer to real-time procedu ral findings for details.
[2021-12-25 11:20] LABS: Glucose Point of Care 86 mg/dl (65-105)
[2021-12-25] MEDS: LACTATED RINGERS 1,000 ML 30 ML IV CONT (12:07)
--- NOTE | 2021-12-25 13:28 | WPDHPUPDATE1 ---
History and Physical Update Update Date/Time: 12/25/21 13:29 History and Physical has been reviewed, including an updated exam of the patient. There are NO changes in the patient's condition. Risks, benefits, and alternatives have been discussed and questions answered. Patient agrees to proceed with procedure. Proceed with cysto, right retrograde pyelogram, right ureteroscopy, possible right stent exchange
[2021-12-25] MEDS: ceFAZolin 2 GM/D5W 50 ML 2 GM/50 ML BAG IVPB (13:46)
[2021-12-25] MEDS: LIDOCAINE HCL 2% GEL UROJET 10 ML PKG MUCOUS MEM (14:03)
--- NOTE | 2021-12-25 14:13 | W.PM.PROC2 ---
Procedure Note - Detailed Date of Procedure 12/25/21 Pre-op Diagnosis right hydronephrosis Post-op Diagnosis Same Procedure Performed Cystoscopy, right retrograde pyelogram, right ureteroscopy, right ureteral stent exchange Surgeon Brett Pope MD Anesthesia General Description of Procedure Patient is taken the operative suite correctly identified. Once anesthesia was obtained was placed in dorsal lithotomy position and prepped draped usual sterile fashion. Twenty-two Djiboutian scope inserted the bladder. The right ureteral stent was grasped brought out the meatus. Guidewire was inserted. Mini flexible ureteral scope was then inserted into the right ureteral orifice. There were no ureteral strictures or lesions in the ureter. At the UPJ area it appears to be somewhat tight in little bit of tortuosity. It did take a little bit of manipulation of the scope to get into the collecting system. Upon entering the collecting system there was no evidence of tumors or other irregularities. Pyelogram was performed to confirm placement of the stent. 4.8 Djiboutian contour stent was then placed with the proximal end coiled in the renal pelvis and distal in the bladder. 2% viscous lidocaine was inserted into the urethra. Patient is taken recovery stable condition. Is unclear why he developed such pyonephrosis once the stent is out. Possibly secondary to the UPJ area not draining well. Will discuss possibly removing the stent in the future for another trial. Unfortunately he gets very ill when the stent comes out. Drains Yes Packing No Pathology None sent Complications No immediate complications Condition Stable Disposition PACU
[2021-12-25 14:31] LABS: Glucose Point of Care 80 mg/dl (65-105)
--- NOTE | 2021-12-25 16:12 | SUR.PHASEII ---
1600- patient vital signs stable, pain controlled, requesting to get dressed. IV removed and patient assisted with dressing. sitting in wheelchair awaiting caregiver Franca to pharmacy picking tech. Discharge instructions reviewed with Phoebe via telephone.
== END 2021-12-25 16:30 | disposition home or self-care (01) ==
PROVIDERS: PCP Family Medicine; Visit Provider Urology
PROC: (CPT 52352; principal; 2021-12-25 12:45)
DX: N13.30 Unspecified hydronephrosis (principal); D64.9 Anemia, unspecified; G20 Parkinson's disease; E11.9 Type 2 diabetes mellitus without complications; I10 Essential (primary) hypertension; E78.5 Hyperlipidemia, unspecified; J44.9 Chronic obstructive pulmonary disease, unspecified; K21.9 Gastro-esophageal reflux disease without esophagitis; F31.9 Bipolar disorder, unspecified; Z86.73 Personal history of transient ischemic attack (TIA), and cerebral infarction without residual deficits; Z79.82 Long term (current) use of aspirin; Z79.84 Long term (current) use of oral hypoglycemic drugs; Z79.4 Long term (current) use of insulin; Z87.891 Personal history of nicotine dependence
CPT/HCPCS: 52332; 36415; 74420; 80164; 82948; 85014; 85018; 87086; A9270; C1758; C1769; C2617; J0690; J2405; J2704; J3010; J7120; Q9966

== ENCOUNTER 2022-04-24 11:02 | Outpatient (RCR) | payer MEDICARE, SELFPAY ==
--- NOTE | 2021-11-27 08:57 | PCPTNOTE ---
Patient called & cancelled scheduled appointment this date due to not being able to get out of bed . He has been rescheduled at this time.
== END 2022-04-24 11:03 | disposition home or self-care (01) ==
LOC: ANHGOSHPT 11:02
PROVIDERS: PCP Family Medicine; Visit Provider Physician Assistant Medical
DX: R53.1 Weakness (principal); R53.81 Other malaise; R26.2 Difficulty in walking, not elsewhere classified
CPT/HCPCS: 99199

== ENCOUNTER 2022-07-25 12:27 | Outpatient (CLI) | payer MEDICARE, SELFPAY ==
[2022-07-25 13:14] LABS: Anion Gap 10 mmol/L (8-16); Blood Urea Nitrogen 18 mg/dL (9-20); Calcium 9.4 mg/dL (8.4-10.2); Carbon Dioxide 23 mmol/L (22-30); Chloride 104 mmol/L (98-107); Estimated Glomerular Filt Rate 42; Glucose 159 mg/dL (65-110); Potassium 4.4 mmol/L (3.4-5.0); Sodium 137 mmol/L (137-145)
[2022-07-25 13:23] LABS: Valproic Acid 46.9 ug/mL (50-120)
== END 2022-07-25 12:28 | disposition home or self-care (01) ==
PROVIDERS: Anesthesiology; PCP Family Medicine; Visit Provider Urology
DX: Z01.818 Encounter for other preprocedural examination (principal); N13.30 Unspecified hydronephrosis; E11.9 Type 2 diabetes mellitus without complications; Z79.899 Other long term (current) drug therapy
CPT/HCPCS: 36415; 80048; 80164; 87086; 87088; 87147

== ENCOUNTER 2022-07-30 00:37 | Day surgery (SDC) | payer MEDICARE, SELFPAY ==
--- NOTE | 2022-07-19 13:13 | PC.NURSE ---
Report to the Outpatient Waiting Room, entrance under the green pavilion located off [facility], at time _1200 on date __07/30/22 . Planned Procedure Time: __1400 . Time changes happen often and if your time is changed the preop area will call you the afternoon before. - You and your visitor will be asked to self-screen and do not enter if you have any COVID symptoms. - A mask is optional within the hospital at this time. Patients may have clear liquids (water, carbonated beverages, clear teas, apple juice) until 3 hours prior to surgery with a maximum of 20 ounces. - No food from midnight until time of surgery - Infants may have breast milk until 4 hours before surgery, infant formula 6 hours prior to surgery. - Children will be allowed to drink immediately following surgery. If applicable, please bring a bottle or sippy cup to assist with drinking. Juice, water, soda, and popsicles are readily available. For infants on formula, please bring formula the day of surgery. Pacifiers are allowed. Take the following medications with a SIP of water the morning of surgery: __CARBIDOPA-LEVODOPA,DIVALPROEX,,SERTRALINE DO NOT STOP ANY OF YOUR OTHER PRESCRIPTION MEDICATIONS PRIOR TO SURGERY ?EXCEPT THE FOLLOWING Medications to discontinue per physician ALL VITAMINS/SUPPLEMENTS 3 DAYS PRE OP.LAST DOSE07/26/22. TO CALL_DR LIZ REGARDING ASPIRIN Please no make-up, nail maori, hairspray, perfume, deodorant, or body powder the day of surgery. No jewelry (including any body piercings) or valuables the day of surgery, leave them at home. Please take a shower or bath the night before, or the morning of, surgery with an antibacterial soap. Wear comfortable, loose fitting clothing. Children are encouraged to wear pajamas. - Jewelry must be removed prior to entering the operating room. Rings and piercings that are not removed may be cut off. - The hospital will not accept responsibility for valuables. - Please leave all valuables, including medications, at home the day of surgery. If you are going home after surgery, a licensed mechanic driver must drive you home. - NO public transportation without another adult if you receive anesthesia. - We recommend that an adult stay with you for 24 hours following discharge. - We also recommend that you do not drive, make important decision, drink alcoholic beverages, or take any drugs that were not prescribed by your health care provider for at least 24 hours after your discharge time. For Pediatric surgeries, we recommend two adults accompany the child home. Follow any additional instructions given to you from your surgeon. If you or anyone in your household have experienced Covid symptoms in the past week, please notify your surgeon or the nurse liaison at the phone number below for possible testing. Telephone instructions given to __PT'S ANA and asked if any additional questions and then verbalized understanding. Patient advised to call surgeon office or pre surgery nurse liaison [phone] if any additional questions.
[2022-07-19 13:28] VITALS: BMI 20.1
--- NOTE | ~2022-07-30 | XR_ITS ---
EXAMINATION: XR retrograde pyelo w/stent RT DATE: 07/30/2022 15:20 CDT INDICATION: RETRO/STENT RT SIDE . TECHNIQUE: 4 fluoroscopic images of the abdomen and pelvis were obtained during right retrograde pyel ography with stent placement performed by the surgeon. I was not present in the operating room. Fluor oscopy exposure time was 22.3 seconds. DAP [id number] mGym2. COMPARISON: X-ray retrograde pyelogram with stent right 12/25/2021; CT abdomen and pelvis 12/09/2021 FINDINGS: Contrast injection into the right collecting system following cannulation and guidewire placement rev eals moderate caliectasis and pelviectasis. Right ureteral stent placement, in good position. IMPRESSION: Fluoroscopic documentation of right retrograde pyelography with stent placement. Please refer to the operative note for complete procedural details . Reviewed, dictated and finalized at location K. IMPRESSION: Fluoroscopic documentation of right retrograde pyelography with stent placement . Please refer to the operative note for complete procedural details .
[2022-07-30 12:20] VITALS: BP 141/70; PULSE 79; RESP 16; TEMP 36.6; O2SAT 98
--- NOTE | 2022-07-30 12:24 | WPDHPUPDATE1 ---
History and Physical Update Update Date/Time: 07/30/22 12:24 History and Physical has been reviewed, including an updated exam of the patient. There are NO changes in the patient's condition. Risks, benefits, and alternatives have been discussed and questions answered. Patient agrees to proceed with procedure. Proceed with cystoscopy, right stent removal, right retrograde pyelogram, right ureteroscopy, possible stent placement
[2022-07-30] MEDS: LACTATED RINGERS 1,000 ML 30 ML IV CONT (12:44)
--- NOTE | 2022-07-30 12:51 | SUR.PREOP ---
Spoke with Dr Pope and showed urine culture report. Will proceed with surgery.
[2022-07-30 12:52] LABS: Glucose Point of Care 155 mg/dl (65-105)
--- NOTE | 2022-07-30 13:34 | WPDANESEPPF ---
Anes - Initial Pre Proc Eval Procedure: Operation Date: 07/30/22 14:00 Proposed Procedures p Cystoscopy, Right Stent Removal, Right Retrograde Pyelogram, Right Ureteroscopy, Possible Stent Replacement - Brett Pope MD Date/Time: 07/30/22 13:34 Surgeon: Brett Pope MD Pre Op Diagnosis: hydronephrosis Patient Data Age: 76 Gender: M Height: 1.78 m Weight: 62 kg Last Vital Signs Temp 36.6 C 07/30/22 12:20 Pulse 79 07/30/22 12:20 Resp 16 07/30/22 12:20 BP 141/70 H 07/30/22 12:20 Pulse Ox 98 07/30/22 12:20 O2 Del Method Room Air 07/30/22 12:20 Allergies Allergy/AdvReac Type Severity Reaction Status Date / Time No Known Allergies Allergy Verified 07/19/22 12:59 Home Medications Medication Instructions Recorded Confirmed Type acetaminophen 500 mg tablet 1,000 mg PO BID PRN Pain 06/06/20 07/19/22 History (Tylenol Extra Strength) cholecalciferol (vitamin D3) 25 25 mcg PO DAILY 07/03/20 07/19/22 History mcg (1,000 unit) capsule lancets 28 gauge (Push Button #100 ea 11/03/20 05/07/22 Rx Safety Lancets) aspirin 81 mg tablet,delayed 81 mg PO QAM 05/16/21 07/19/22 History release (Adult Aspirin Regimen) artificial tears solution eye drops 1 drp ophthalmic (eye) BID PRN Dry 05/17/21 07/19/22 History Eyes blood sugar diagnostic #100 ea 07/09/21 05/07/22 Rx guaifenesin 1,200 mg tablet, 1,200 mg PO BID 08/20/21 07/19/22 History extended release 12 hr (Mucinex) polyethylene glycol 3350 17 gram 17 g PO DAILY PRN Constipation 08/20/21 07/19/22 History oral powder packet (Miralax) bisacodyl 10 mg rectal suppository 10 mg RECTAL QAM PRN Constipation 08/27/21 07/19/22 Rx #5 ea cyanocobalamin (vitamin B-12) 1,000 mcg PO QAM #30 tabs 08/27/21 07/19/22 Rx 1,000 mcg tablet (Vitamin B-12) primidone 50 mg tablet 25 mg PO HS #1 tablet 09/06/21 07/19/22 Rx fluticasone propionate 50 2 spray intranasal BID 09/09/21 07/19/22 History mcg/actuation nasal spray,suspension folic acid 400 mcg tablet 400 mcg PO DAILY 09/09/21 07/19/22 History docusate sodium 100 mg capsule 100 mg PO Q12HR PRN Constipation 12/03/21 07/19/22 History carbidopa 25 mg-levodopa 100 mg 1 tablet PO TID #1 tablet 12/12/21 07/19/22 Rx tablet betamethasone dipropionate 0.05 % 1 applic topical DAILY PRN rash 02/20/22 07/19/22 Rx topical cream #15 grams pen needle, diabetic 31 gauge x #100 ea 02/20/22 05/07/22 Rx 3/16 (Comfort EZ Pen [place]) divalproex 500 mg tablet,extended 500 mg PO BID #120 tabs 03/06/22 07/19/22 Rx release 24 hr empagliflozin 10 mg tablet 10 mg PO DAILY #60 tabs 03/06/22 07/19/22 Rx (Jardiance) insulin aspart U-100 100 unit/mL See Rx Instructions subcut 03/06/22 07/19/22 Rx (3 mL) subcutaneous pen (Novolog .COMPLEX #15 mL FlexPen U-100 Insulin aspart) insulin glargine 100 unit/mL (3 12 unit (0.12 mL) subcut QPM 60 03/06/22 07/19/22 Rx mL) subcutaneous pen (Lantus days #7.2 mL Solostar U-100 Insulin) magnesium oxide 400 mg PO DAILY #60 tabs 03/06/22 07/19/22 Rx pantoprazole 40 mg tablet,delayed 40 mg PO BID #120 tabs 03/06/22 07/19/22 Rx release (Protonix) plecanatide 3 mg tablet 3 mg PO DAILY #60 tabs 03/06/22 07/19/22 Rx sertraline 100 mg tablet 150 mg PO DAILY 60 days #90 tabs 03/06/22 07/19/22 Rx trazodone 50 mg tablet 50 mg PO HS #60 tabs 03/06/22 07/19/22 Rx flash glucose scanning reader #1 ea 03/13/22 05/07/22 Rx (FreeStyle Starr 14 Day [place]) flash glucose sensor (FreeStyle #2 ea 03/13/22 05/07/22 Rx Starr 14 Day Sensor kit) lorazepam 0.5 mg tablet (Ativan) 0.5 mg PO HS PRN Anxiety #90 tabs 07/16/22 07/19/22 Rx rosuvastatin 10 mg tablet 10 mg PO DAILY #90 tabs 07/18/22 07/19/22 Rx Laboratory Tests 07/30/22 12:49 POC Capillary Glucose 155 H mg/dl (65-105) Patient hx anesthesia problems: none Family hx anesthesia problems: none Results Review: All pre-operative results and documents have been revie
[2022-07-30] MEDS: ceFAZolin 2 GM/D5W 50 ML 2 GM/50 ML BAG IVPB (15:10)
[2022-07-30] MEDS: LIDOCAINE HCL 2% GEL UROJET 10 ML PKG MUCOUS MEM (15:37)
--- NOTE | 2022-07-30 15:38 | W.PM.PROC2 ---
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 Once anesthesia was obtained was placed in dorsal lithotomy position and prepped and draped usual sterile fashion. Twenty-two Ukrainian scope was inserted the bladder no tumors noted. The prior stent was grasped brought to the meatus. A Sensor wire was then placed. A mini flexible scope was inserted into the orifice. There were no ureteral tumors seen. He does have somewhat tortuous area at the right UPJ which then leads into a dilated renal pelvis. No tumors noted. Pyelogram was performed to confirm placement the stent. 4.8 Ukrainian contour stent was then placed with the proximal end coiled in renal pelvis distal in the bladder. Patient was taken recovery stable condition. Will discuss treatment options with him in the office. If used to continue with the stent will change it out in approximately 8 months time. Drains Yes Packing No Pathology None sent Complications No immediate complications Condition Stable Disposition PACU
[2022-07-30 15:45] VITALS: BP 94/65; PULSE 72; RESP 12; TEMP 36.9; O2SAT 99
[2022-07-30 15:52] LABS: Glucose Point of Care 137 mg/dl (65-105)
[2022-07-30 16:00] VITALS: BP 129/68; PULSE 77; RESP 12; O2SAT 99
[2022-07-30 16:15] VITALS: BP 125/67; PULSE 71; RESP 12; O2SAT 94
[2022-07-30 16:35] VITALS: BP 183/60; PULSE 71
--- NOTE | 2022-07-30 17:03 | SUR.PHASEI ---
Anesthesia aware of BP and said no further treatment at this time.
[2022-07-30 17:05] VITALS: BP 170/80; PULSE 74
== END 2022-07-30 17:20 | disposition home or self-care (01) ==
PROVIDERS: PCP Family Medicine; Visit Provider Urology
PROC: (CPT 52352; principal; 2022-07-30 14:00)
DX: N13.30 Unspecified hydronephrosis (principal); J44.9 Chronic obstructive pulmonary disease, unspecified; I10 Essential (primary) hypertension; E78.5 Hyperlipidemia, unspecified; G20 Parkinson's disease; E11.9 Type 2 diabetes mellitus without complications; D64.9 Anemia, unspecified; F31.9 Bipolar disorder, unspecified; I35.0 Nonrheumatic aortic (valve) stenosis; K21.9 Gastro-esophageal reflux disease without esophagitis; Z86.73 Personal history of transient ischemic attack (TIA), and cerebral infarction without residual deficits; Z87.891 Personal history of nicotine dependence; Z79.82 Long term (current) use of aspirin; Z79.84 Long term (current) use of oral hypoglycemic drugs; Z79.4 Long term (current) use of insulin
CPT/HCPCS: 52332; 36415; 74420; 80048; 80164; 82948; 87086; 87088; 87147; C1758; C1769; C2617; J0690; J1100; J2405; J2704; J3010; J7120

== ENCOUNTER 2022-08-09 12:41 | Observation (INO) | payer MEDICARE, SELFPAY ==
[2022-08-09] VITALS (9 sets, daily range): BP systolic 111–153; BP diastolic 60–120; PULSE 80–90; RESP 15–20; TEMP 36.7–36.9; O2SAT 94–99
--- NOTE | ~2022-08-09 | XR_ITS ---
Supine view of the abdomen Clinical history: Abdominal pain COMPARISON: 12/08/2021 Findings: Bowel gas pattern is nonspecific. No evidence for obstruction or free air. Right ureteral s tent remains in place. Stable left upper quadrant calcifications, likely pancreatic in nature. Osseou s structures are intact. Impression: Nonspecific bowel gas pattern. Right ureteral stent in place. Stable presumed pancreatic calcifications. Reviewed, dictated and finalized at location . Impression: Nonspecific bowel gas pattern. Right ureteral stent in place. Stable presumed pancreatic calcifications.
--- NOTE | ~2022-08-09 | CT_ITS ---
EXAMINATION: CT pelvis wo con DATE: 08/09/2022 13:30 INDICATION: Fall. Right groin pain. Inability to bear weight. TECHNIQUE: Computed tomography (CT) of the pelvis was performed without intravenous contrast. Automat ed exposure control and iterative reconstruction technique were employed. Exam dose: 276.80 mGy-cm t otal exam DLP. COMPARISON: 08/30/2021 CT abdomen pelvis FINDINGS: There is slightly displaced recent right inferior pubic ramus fracture. No other pelvic fracture is evident. Normal alignment at the pubic symphysis and sacroiliac joints. No sacral fracture is identified. Bilateral L5 pars interarticularis defects with grade 2 anterolisthesis at L5-S1. There is multilevel degenerative disc disease of the lumbar spine, particularly severe at L5-S1. There is sclerosis patchy lucency of the femoral heads; avascular necrosis is not excluded. Mild fusiform infrarenal abdominal aortic aneurysm. 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 Postoperative change of the cecum. IMPRESSION: Minimally displaced right inferior pubic ramus fracture Bilateral L5 pars interarticularis defects with grade 2 anterolisthesis at L5-S1 Multilevel degenerative disc disease, particularly severe at L5-S1 Cannot exclude avascular necrosis of femoral heads; consider MR correlation Right internal urinary stent, right renal atrophy Reviewed, dictated and finalized at [facility]. Reviewed, dictated and finalized at location [] IMPRESSION: Minimally displaced right inferior pubic ramus fracture Bilateral L5 pars interarticularis defects with grade 2 anterolisthesis at L5-S 1 Multilevel degenerative disc disease, particularly severe at L5-S1 Cannot exclude avascular necrosis of femoral heads; consider MR correlation Right internal urinary stent, right renal atrophy
--- NOTE | 2022-08-09 14:01 | ED.FALL ---
HPI - Fall General Chief Complaint: Fall Stated Complaint: FALL Time Seen by Provider: 08/09/22 12:53 History of Present Illness HPI Narrative: this 76-year-old male patient with past medical history of anemia, aortic stenosis, bipolar disorder, CVA, hyperlipidemia, hypertension, Parkinson's disease with physical deconditioning and type 2 diabetes mellitus he resides in his own home with his spouse and a caregiver presents to the emergency room with complaints of having sustained a ground level fall 3 days ago when he slipped on ice in his kitchen. He states that he landed in the splits. Since then he has had pain in the right groin that is exacerbated by any weight-bearing or any attempt to walk. He states this has made it very difficult for him to be able to get around his home. He denies any numbness or tingling and he denies any other injuries. Onset (ago): day(s) ( Three) Related Data Home Medications Medication Instructions Recorded Confirmed acetaminophen 500 mg tablet 1,000 mg PO BID PRN Pain 06/06/20 08/04/22 (Tylenol Extra Strength) cholecalciferol (vitamin D3) 25 25 mcg PO DAILY 07/03/20 08/04/22 mcg (1,000 unit) capsule aspirin 81 mg tablet,delayed 81 mg PO QAM 05/16/21 08/04/22 release (Adult Aspirin Regimen) artificial tears solution eye drops 1 drp ophthalmic (eye) BID PRN Dry 05/17/21 08/04/22 Eyes guaifenesin 1,200 mg tablet, 1,200 mg PO BID 08/20/21 08/04/22 extended release 12 hr (Mucinex) polyethylene glycol 3350 17 gram 17 g PO DAILY PRN Constipation 08/20/21 08/04/22 oral powder packet (Miralax) fluticasone propionate 50 2 spray intranasal BID 09/09/21 08/04/22 mcg/actuation nasal spray,suspension folic acid 400 mcg tablet 400 mcg PO DAILY 09/09/21 08/04/22 docusate sodium 100 mg capsule 100 mg PO Q12HR PRN Constipation 12/03/21 08/04/22 Allergies Allergy/AdvReac Type Severity Reaction Status Date / Time No Known Allergies Allergy Verified 08/09/22 12:53 Review of Systems Review of Systems: a 12 point review of systems was performed and is otherwise negative with exception of what is noted in HPI. All systems reviewed & are unremarkable except as noted in HPI and below PMFSH Past Medical History Medical History Anemia Aortic stenosis Bipolar disorder Cerebrovascular accident 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 Cervical spinal stenosis Chronic depression Chronic obstructive pulmonary disease COPD (chronic obstructive pulmonary disease) GERD (gastroesophageal reflux disease) Hyperlipidemia Hypertension Hypotension Parkinsons disease Physical deconditioning Primary hypertension Type 2 diabetes mellitus Surgical History Surgical History History of cystoscopy History of repair of left rotator cuff History of throat surgery History of tonsillectomy History of ureter stent History of urethral stent Hx of cataract surgery Family History Family History Unknown No problems noted. Other Unknown family medical history Social History Social History Social History: Patient is adopted. Lives at home in [place] with his , Phoebe Barrera. He has 4 children. He is retired. 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 He is a former smoker. He denies alcohol use but was a heavy alcohol user up until 40 years ago. He notes edible cannabis use. He is a DNR and he has designated his surrogate medical decision maker as his , Phoebe Barrera. Smoking packs per day: 1.5 Smoking cigarettes per day: 30.0 Years smoked: 55 Smoking pack-years: 82.50 Smoking status: Former smoker Tobacco type: cigarettes Second hand tobacco smoke exposure: No Sm
--- NOTE | 2022-08-09 15:09 | PM.IMHP ---
H&P: HPI History of Present Illness Date/Time: 08/09/22 16:30 Chief Complaint: Right leg and groin pain after fall. Narrative: This is a pleasant 76-year-old male with Parkinson's disease, chronic obstructive pulmonary disease, hypertension, anemia, and type 2 diabetes who presented to the emergency department via EMS from home for evaluation of right leg and groin pain after a fall. He ambulates with a walker at home but he does have a wheelchair available as needed. He has been getting along quite well but unfortunately a couple of days ago he sustained a fall while in the kitchen. He reports slipping in a wet spot where an ice cube had fallen on the kitchen floor and this caused him to land essentially in the splits. He had pain in his right groin immediately after the fall and he had difficulties getting himself up. His a neighbor had to help. Since that time ?I have essentially been laying down? however his actuarial science professor has been able to get him to stand and shuffle to the living room where he spends his time in the recliner. He had a new home health actuarial science professor come in today and she was unable to get him up and he was sent to the ER. Pelvis CT today showed a minimally displaced right inferior pubic ramus fracture and he is being admitted in this setting for pain control, orthopedic consultation, and PT/OT. His labs were reviewed and are essentially stable compared to previous lab draws. At the time of my evaluation he is hungry and thirsty as he has not been able to eat since being in the ER. He denies syncope, near syncope, head trauma and loss of consciousness in the fall, fever, chills, sweats, cold and flu symptoms, chest pain, pleuritic pain, shortness a breath, nausea, vomiting, diarrhea, and dysuria. Review of Systems Review of Systems: Twelve systems were reviewed and are negative except for as per HPI. [facility] Past Medical History Medical History (Updated 08/10/22 @ 00:47 by Suellen Wills PA-C) Anemia Aortic stenosis Bipolar disorder Cerebrovascular accident 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 Cervical spinal stenosis Chronic depression Chronic kidney disease Chronic obstructive pulmonary disease Gastroesophageal reflux disease Hyperlipidemia Hypertension Parkinsons disease Type 2 diabetes mellitus Surgical History Surgical History History of cystoscopy History of repair of left rotator cuff History of throat surgery History of tonsillectomy History of ureter stent History of urethral stent Hx of cataract surgery Family History Family History Unknown No problems noted. Other Unknown family medical history Social History Social History (Updated 08/10/22 @ 00:44 by Suellen Wills PA-C) Social History: Patient is adopted. Lives at home in [place] with his , Phoebe Barrera. He has 4 children. He is retired. 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 He is a former smoker. He denies alcohol use but was a heavy alcohol user up until 40 years ago. He notes edible cannabis use. He is a DNR and he has designated his surrogate medical decision maker as his , Phoebe Barrera. Smoking packs per day: 1.5 Smoking cigarettes per day: 30.0 Years smoked: 55 Smoking pack-years: 82.50 Smoking status: Never smoker Tobacco type: cigarettes Second hand tobacco smoke exposure: No Smoking end date: 03/03/20 Alcohol intake: never Substance use: never Substance use type: marijuana Other substance usage details: smokes Last use: 1 week Lack of Transportation: No Lack of Food: Never True Current Housing: I Have Housing Concerned About Future Housing: No Difficulty Paying Gas/Electric Bills: No Difficulty Paying for Meds: No Currently Unemployed: No Education: High School Dipl
[2022-08-09 15:21] LABS: Basophils Percent Auto 0.5 % (0.2-1.2); Eosinophils Absolute Auto 0.1 K/mm3 (0-0.3); Eosinophils Percent Auto 2.2 % (0-4.4); Hematocrit 32.9 % (42.0-52.0); Hemoglobin 10.4 g/dL (14.0-18.0); Immature Granulocyte Absolute 0.04 K/mm3 (0.00-0.031); Immature Granulocyte Percent A 0.7 % (0-0.5); Lymphocytes Absolute Auto 0.61 K/mm3 (0.9-3.2); Lymphocytes Percent Auto 10.2 % (18.3-44.2); Mean Corpuscular HGB Conc 31.6 g/dl (32-36); Mean Corpuscular Hemoglobin 31.8 pg (26-34); Mean Corpuscular Volume 100.6 fl (80-100); Mean Platelet Volume 9.6 fl (7.4-10.4); Monocytes Absolute Auto 0.5 K/mm3 (0.1-0.6); Monocytes Percent Auto 8.4 % (2.6-8.5); Neutrophils Absolute Auto 4.7 K/mm3 (1.3-6.7); Platelet Count Result 254 k/mm3 (150-375); Red Blood Count 3.27 M/mm3 (4.6-6.20); Red Cell Distribution Width 15.3 % (11.5-14.5)
[2022-08-09 15:34] LABS: Alanine Aminotransferase 6 U/L (6-50); Albumin Level 4.2 g/dL (3.5-5.1); Alkaline Phosphatase 88 U/L (38-126); Anion Gap 11 mmol/L (8-16); Aspartate Amino Transferase 15 U/L (17-59); Bilirubin,Total 0.6 mg/dL (0.2-1.3); Blood Urea Nitrogen 22 mg/dL (9-20); Calcium 9.1 mg/dL (8.4-10.2); Carbon Dioxide 25 mmol/L (22-30); Chloride 98 mmol/L (98-107); Estimated CRCL calculation 35 ml/min; Estimated Glomerular Filt Rate 49; Glucose 69 mg/dL (65-110); Potassium 4.6 mmol/L (3.4-5.0); Sodium 134 mmol/L (137-145)
[2022-08-09 15:36] LABS: INR 1.4; Prothrombin Time 17.8 Seconds (11.1-14.7)
--- NOTE | 2022-08-09 16:29 | PM.CNOR ---
Assessment and Plan Assessment and plan (1) Closed pelvic fracture: Qualifiers: Encounter type: initial encounter Pelvic bone location: pubis Laterality: right Sublocation of pubis: other portion of pubis Qualified Code(s): S32.591A - Other specified fracture of right pubis, initial encounter for closed fracture Code(s): S32.9XXA - Fracture of unspecified parts of lumbosacral spine and pelvis, initial encounter for closed fracture Status: Acute (2) Cervical spinal stenosis: Code(s): M48.02 - Spinal stenosis, cervical region Status: Acute (3) Parkinsons disease: Code(s): G20 - Parkinson's disease Status: Acute Plan Acute fracture of the right pubic ramus. Reviewed the CT scan which shows the mildly displaced fracture of the inferior pubic ramus. Fracture is stable and should heal uneventfully. Okay to weight-bearing as tolerated although mobility will be limited early on. Consult physical therapy. Oxycodone for pain. He is interested in the home discharge which may be reasonable. He has in-home health care for his and himself. He will benefit from at least a few days of in patient pain control and therapy prior to discharge. Plan for follow-up x-rays in 4-6 weeks. History of Present Illness HPI Consult date: 08/09/22 Chief complaint: Pelvic Fracture Narrative: Pleasant 76-year-old male slipped in his kitchen on some ice 3 days ago. Complains of exquisite pain in the right hip worse with bearing weight. Admitted through the emergency room. No previous hip pain. No new bowel or bladder complaints. Previously incontinent. History of severe parkinsonism. History of bilateral rotator cuff arthropathy. Review of Systems Review of Systems: All systems reviewed & are unremarkable except as noted in HPI and below PMFSH Past Medical History Medical History Anemia Aortic stenosis Bipolar disorder Cerebrovascular accident 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 Cervical spinal stenosis Chronic depression Chronic obstructive pulmonary disease COPD (chronic obstructive pulmonary disease) GERD (gastroesophageal reflux disease) Hyperlipidemia Hypertension Hypotension Parkinsons disease Physical deconditioning Primary hypertension Type 2 diabetes mellitus Surgical History Surgical History History of cystoscopy History of repair of left rotator cuff History of throat surgery History of tonsillectomy History of ureter stent History of urethral stent Hx of cataract surgery Family History Family History Unknown No problems noted. Other Unknown family medical history Social History Social History Social History: Patient is adopted. Lives at home in [place] with his , Phoebe Barrera. He has 4 children. He is retired. 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 He is a former smoker. He denies alcohol use but was a heavy alcohol user up until 40 years ago. He notes edible cannabis use. He is a DNR and he has designated his surrogate medical decision maker as his , Phoebe Barrera. Smoking packs per day: 1.5 Smoking cigarettes per day: 30.0 Years smoked: 55 Smoking pack-years: 82.50 Smoking status: Former smoker Tobacco type: cigarettes Second hand tobacco smoke exposure: No Smoking end date: 03/03/20 Alcohol intake: never Substance use: never Substance use type: marijuana Other substance usage details: smokes Last use: 1 week Lack of Transportation: No Lack of Food: Never True Current Housing: I Have Housing Concerned About Future Housing: No Difficulty Paying Gas/Electric Bills: No Difficulty Paying for Meds: No Current
[2022-08-09 16:50] LABS: Glucose Point of Care 62 mg/dl (65-105)
[2022-08-09 18:00] LABS: Glucose Point of Care 135 mg/dl (65-105)
[2022-08-09] MEDS: oxyCODONE HCL (*CRX) 5 MG TAB IR 10 MG PO (19:39)
[2022-08-09 19:49] LABS: Glucose Point of Care 247 mg/dl (65-105)
[2022-08-09] MEDS: INSULIN GLARGINE (*BKC) 100 UNITS/ML 15 UNITS SUB-Q (23:00)
[2022-08-09] MEDS: CARBIDOPA/LEVODOPA 25/100 MG TABLET 2 TABLET PO (23:01)
[2022-08-09] MEDS: PRIMIDONE 25 MG TABLET PO (23:01)
[2022-08-09] MEDS: CARBIDOPA/LEVODOPA 12.5/50 MG TABLET 1 TABLET PO (23:02)
[2022-08-10 06:00] VITALS: BP 116/65; PULSE 78; RESP 18; TEMP 36.7; O2SAT 95
[2022-08-10 06:18] LABS: Hematocrit 28.2 % (42.0-52.0); Hemoglobin 8.8 g/dL (14.0-18.0); Mean Corpuscular HGB Conc 31.2 g/dl (32-36); Mean Corpuscular Hemoglobin 30.8 pg (26-34); Mean Corpuscular Volume 98.6 fl (80-100); Mean Platelet Volume 9.7 fl (7.4-10.4); Platelet Count Result 243 k/mm3 (150-375); Red Blood Count 2.86 M/mm3 (4.6-6.20); Red Cell Distribution Width 15.2 % (11.5-14.5); White Blood Count 5.7 K/mm3 (4.5-10.0)
[2022-08-10 06:30] LABS: Anion Gap 6 mmol/L (8-16); Blood Urea Nitrogen 22 mg/dL (9-20); Calcium 8.6 mg/dL (8.4-10.2); Carbon Dioxide 28 mmol/L (22-30); Chloride 99 mmol/L (98-107); Estimated CRCL calculation 35 ml/min; Estimated Glomerular Filt Rate 49; Glucose 64 mg/dL (65-110); Sodium 133 mmol/L (137-145)
[2022-08-10 07:32] LABS: Glucose Point of Care 58 mg/dl (65-105)
[2022-08-10 07:37] LABS: Hemoglobin A1C 7.3 % (<5.7)
--- NOTE | 2022-08-10 07:49 | PC.NURSE ---
pt blood sugar 68. Smith juice provided per pt request. Offers no complaints at this tme. Will recheck blood sugar post morning meal.
[2022-08-10 08:00] VITALS: BP 116/65; PULSE 78; RESP 18; TEMP 36.7; O2SAT 91
[2022-08-10] MEDS: ROSUVASTATIN 10 MG TABLET PO (09:10)
[2022-08-10] MEDS: SERTRALINE HCL 50 MG TABLET 150 MG PO (09:12)
[2022-08-10] MEDS: PANTOPRAZOLE 40 MG TABLET PO ×2 (09:12→22:01)
[2022-08-10] MEDS: EMPAGLIFLOZIN 10 MG TABLET PO (09:12)
[2022-08-10] MEDS: CARBIDOPA/LEVODOPA 12.5/50 MG TABLET 1 TABLET PO ×3 (09:13→17:28)
[2022-08-10] MEDS: CARBIDOPA/LEVODOPA 25/100 MG TABLET 2 TABLET PO ×3 (09:13→17:28)
[2022-08-10] MEDS: CYANOCOBALAMIN 1,000 MCG TABLET 1000 MCG PO (09:13)
[2022-08-10] MEDS: CHOLECALCIFEROL 1,000 UNITS TABLET 1000 UNITS PO (09:13)
[2022-08-10] MEDS: ASPIRIN 81 MG ENTERIC TABLET PO (09:14)
[2022-08-10] MEDS: FOLIC ACID 0.4 MG TABLET PO (09:14)
[2022-08-10] MEDS: FLUTICASONE PROPIONATE 0.05% NA SPR 16 GM BTL (*BKC) 2 SPRAY NASAL ×2 (09:14→17:27)
[2022-08-10] MEDS: DIVALPROEX SODIUM ER 500 MG TAB.24H PO ×2 (09:15→22:01)
[2022-08-10 10:14] VITALS: O2SAT 91
[2022-08-10] MEDS: HYDROcodone/acetaminophen (*CRX) 5-325 MG TABLET 1 TAB PO (10:37)
[2022-08-10 11:47] LABS: Glucose Point of Care 194 mg/dl (65-105)
--- NOTE | 2022-08-10 12:31 | PM.IMPN ---
Progress Note: A&P Assessment and Plan (1) Closed fracture of inferior pubic ramus: Code(s): S32.599A - Other specified fracture of unspecified pubis, initial encounter for closed fracture Status: Acute Assessment and Plan: The patient presented to the emergency department today for evaluation of right groin pain after sustaining a fall a few days ago. Pelvic CT shows a inferior pubic ramus fracture. This is non operative and should heal on its own. PT/OT has been consulted; he may need to go to rehab before returning home however he would like to go home if possible. Dr. Almanza has been consulted for his opinion which is greatly appreciated. Orthopedics recommending follow-up x-ray in 4-6 weeks. Analgesics are available as needed. Initiate fall precautions. (2) Chronic kidney disease: Code(s): N18.9 - Chronic kidney disease, unspecified Status: Acute Assessment and Plan: Monitor BMP. He is currently stable. (3) Type 2 diabetes mellitus: Code(s): E11.9 - Type 2 diabetes mellitus without complications Status: Acute Assessment and Plan: Initiate sliding scale insulin, Accu-Cheks, and hypoglycemic protocol. Plan His home medications will be reviewed and resumed as appropriate. Subjective Date/time seen: 08/10/22 12:31 Interval history: Patient lying in bed was disease urine comfortable. Patient has very decreased mobility and states he has not been out of bed since arriving the hospital. PT and OT have been ordered. This patient stated that he refused to go to a long-term for rehab. Prior to the fall patient was using a walker for long distances. he and his have a full-time caregiver at home that is with them 16 hours a day. Review of Systems Review of Systems: All systems reviewed & are unremarkable except as noted in HPI and below Exam Narrative: GENERAL: Comfortable, no acute distress HENMT: moist mucous membranes EYES: EOM intact b/l NECK: no lymphadenopathy RESPIRATORY: clear to auscultation CARDIO: RRR GI: soft, nontender, bowel sounds present SKIN: no rashes EXTREMITIES: no edema, redness or tenderness; Active and passive range of motion of the bilateral lower extremities Objective Data Vital Signs Vital Signs: Vital Signs - 24 hr 08/09/22 12:40 08/09/22 13:15 08/09/22 13:17 Temperature 98.4 F Pulse Rate 90 85 83 Respiratory Rate 18 17 15 Blood Pressure 153/71 H 134/120 H 119/64 Pulse Oximetry 97 Oxygen Delivery Room Air 08/09/22 14:19 08/09/22 14:30 08/09/22 14:45 Temperature Pulse Rate 84 80 81 Respiratory Rate 18 15 15 Blood Pressure 131/61 138/61 114/68 Pulse Oximetry Oxygen Delivery 08/09/22 15:00 08/09/22 15:27 08/09/22 22:00 Temperature 98.1 F Pulse Rate 83 87 87 Respiratory Rate 15 20 18 Blood Pressure 111/62 120/60 Pulse Oximetry 99 94 Oxygen Delivery 08/09/22 20:00 08/10/22 06:00 08/10/22 10:14 Temperature 98.1 F Pulse Rate 78 Respiratory Rate 18 Blood Pressure 116/65 Pulse Oximetry 95 91 Oxygen Delivery Room Air Room Air 08/10/22 08:00 08/10/22 08:00 Temperature 98.1 F Pulse Rate 78 78 Respiratory Rate 18 18 Blood Pressure 116/65 Pulse Oximetry 91 91 Oxygen Delivery Room Air Intake/Output Intake/Output: Intake & Output 08/07/22 08/08/22 08/09/22 08/10/22 23:59 23:59 23:59 23:59 Intake Total 300 860 Balance 300 860 Meds/Results Medications: Active Medications Generic Name Dose Route Start Last Admin Trade Name Freq PRN Reason Stop Dose Admin Acetaminophen 650 mg 08/09/22 21:53 Acetaminophen 325 Mg Tablet PO Q6H PRN Mild Pain (1-3) or Fever Hydrocodone Bitart/Acetaminophen 1 tab 08/09/22 14:29 08/10/22 10:37 Hydrocodone/Acetaminophen (*Crx) 5-325 Mg Tablet PO 1 tab Q4H PRN Administration Pain Rated 4-6 Artificial Tears 1 drop 08/09/22 21:51 Artificial Tears Ophth
[2022-08-10] MEDS: oxyCODONE HCL (*CRX) 5 MG TAB IR 10 MG PO ×2 (12:41→22:00)
--- NOTE | 2022-08-10 13:55 | PCOTNOTE ---
Attempted to see for OT evaluation. Patient declined despite education on the benefits of movement and getting out of bed. Will continue to attempt.
[2022-08-10 14:00] VITALS: BP 110/74; PULSE 90; RESP 18; TEMP 36.1; O2SAT 94
[2022-08-10 16:47] LABS: Glucose Point of Care 128 mg/dl (65-105)
[2022-08-10] MEDS: INSULIN GLARGINE (*BKC) 100 UNITS/ML 15 UNITS SUB-Q (17:27)
[2022-08-10 20:00] VITALS: PULSE 85; RESP 20; O2SAT 99
[2022-08-10 21:01] VITALS: BP 107/77; PULSE 85; RESP 20; TEMP 36.9; O2SAT 99
[2022-08-10] MEDS: LORazepam (*CRX) 0.5 MG TABLET PO (22:01)
[2022-08-10] MEDS: MAGNESIUM OXIDE 400 MG TABLET PO (22:02)
[2022-08-10] MEDS: PRIMIDONE 25 MG TABLET PO (22:02)
[2022-08-10] MEDS: traZODone HCL 50 MG TABLET PO (22:04)
[2022-08-10 22:19] LABS: Glucose Point of Care 144 mg/dl (65-105)
[2022-08-11 06:00] VITALS: BP 121/57; PULSE 94; RESP 20; TEMP 36.6; O2SAT 98
[2022-08-11 06:18] LABS: Basophils Absolute Auto 0.1 K/mm3 (0.0-0.1); Basophils Percent Auto 0.8 % (0.2-1.2); Eosinophils Absolute Auto 0.2 K/mm3 (0-0.3); Eosinophils Percent Auto 3.4 % (0-4.4); Hematocrit 29.2 % (42.0-52.0); Hemoglobin 9.4 g/dL (14.0-18.0); Immature Granulocyte Percent A 1.5 % (0-0.5); Lymphocytes Absolute Auto 1.13 K/mm3 (0.9-3.2); Lymphocytes Percent Auto 17.3 % (18.3-44.2); Mean Corpuscular HGB Conc 32.2 g/dl (32-36); Mean Corpuscular Volume 99.3 fl (80-100); Mean Platelet Volume 9.5 fl (7.4-10.4); Monocytes Absolute Auto 0.8 K/mm3 (0.1-0.6); Monocytes Percent Auto 11.9 % (2.6-8.5); Neutrophils Absolute Auto 4.3 K/mm3 (1.3-6.7); Neutrophils Percent Auto 65.1 % (45.5-73.1); Platelet Count Result 254 k/mm3 (150-375); Red Blood Count 2.94 M/mm3 (4.6-6.20); Red Cell Distribution Width 15.3 % (11.5-14.5); White Blood Count 6.6 K/mm3 (4.5-10.0)
[2022-08-11 06:36] LABS: Alanine Aminotransferase 6 U/L (6-50); Albumin Level 3.4 g/dL (3.5-5.1); Alkaline Phosphatase 81 U/L (38-126); Anion Gap 7 mmol/L (8-16); Aspartate Amino Transferase 14 U/L (17-59); Bilirubin,Total 0.5 mg/dL (0.2-1.3); Blood Urea Nitrogen 21 mg/dL (9-20); Calcium 8.6 mg/dL (8.4-10.2); Carbon Dioxide 27 mmol/L (22-30); Chloride 98 mmol/L (98-107); Estimated CRCL calculation 40 ml/min; Estimated Glomerular Filt Rate 49; Glucose 58 mg/dL (65-110); Potassium 4.3 mmol/L (3.4-5.0); Sodium 132 mmol/L (137-145)
[2022-08-11 07:05] LABS: Glucose Point of Care 64 mg/dl (65-105)
[2022-08-11] MEDS: GLUCOSE ORAL GEL 15 GM OF GLUCSE IN 37.5 GM TUBE PO (07:15)
[2022-08-11 08:00] LABS: Glucose Point of Care 101 mg/dl (65-105)
--- NOTE | 2022-08-11 08:48 | PCOTNOTE ---
Attempted OT evaluation this am. Pt. refused stating I dont want to . Educated pt. on importance of getting out of bed and participating in therapy. Will attempt again as able.
--- NOTE | 2022-08-11 09:05 | PCPTNOTE ---
Patient reports he is sorry but he does not want to do therapy and wants to be left alone. Educated patient on benefit of therapy and patient states you can help me by getting the hell out of here .
[2022-08-11] MEDS: FLUTICASONE PROPIONATE 0.05% NA SPR 16 GM BTL (*BKC) 2 SPRAY NASAL ×2 (09:26→17:24)
[2022-08-11] MEDS: EMPAGLIFLOZIN 10 MG TABLET PO (09:27)
[2022-08-11] MEDS: CARBIDOPA/LEVODOPA 25/100 MG TABLET 2 TABLET PO ×3 (09:27→17:25)
[2022-08-11] MEDS: CARBIDOPA/LEVODOPA 12.5/50 MG TABLET 1 TABLET PO ×3 (09:27→17:25)
[2022-08-11] MEDS: ROSUVASTATIN 10 MG TABLET PO (09:27)
[2022-08-11] MEDS: PANTOPRAZOLE 40 MG TABLET PO ×2 (09:28→21:01)
[2022-08-11] MEDS: CHOLECALCIFEROL 1,000 UNITS TABLET 1000 UNITS PO (09:28)
[2022-08-11] MEDS: SERTRALINE HCL 50 MG TABLET 150 MG PO (09:28)
[2022-08-11] MEDS: ASPIRIN 81 MG ENTERIC TABLET PO (09:28)
[2022-08-11] MEDS: CYANOCOBALAMIN 1,000 MCG TABLET 1000 MCG PO (09:28)
[2022-08-11] MEDS: DIVALPROEX SODIUM ER 500 MG TAB.24H PO ×2 (09:29→21:00)
[2022-08-11] MEDS: FOLIC ACID 0.4 MG TABLET PO (09:29)
[2022-08-11 11:56] LABS: Glucose Point of Care 143 mg/dl (65-105)
--- NOTE | 2022-08-11 13:12 | PM.IMPN ---
Progress Note: A&P Assessment and Plan (1) Closed fracture of inferior pubic ramus: Code(s): S32.599A - Other specified fracture of unspecified pubis, initial encounter for closed fracture Status: Acute Assessment and Plan: The patient presented to the emergency department today for evaluation of right groin pain after sustaining a fall a few days ago. Pelvic CT shows a inferior pubic ramus fracture. This is non operative and should heal on its own. PT/OT has been consulted; patient has refused them 2 sessions in a row. After long discussion with patient he stated that he would work with them in hopes to be placed into SNF. Dr. Almnaza has been consulted for his opinion which is greatly appreciated. Orthopedics recommending follow-up x-ray in 4-6 weeks. Analgesics are available as needed. Initiate fall precautions. (2) Chronic kidney disease: Code(s): N18.9 - Chronic kidney disease, unspecified Status: Acute Assessment and Plan: Monitor BMP. He is currently stable. (3) Type 2 diabetes mellitus: Code(s): E11.9 - Type 2 diabetes mellitus without complications Status: Acute Assessment and Plan: Initiate sliding scale insulin, Accu-Cheks, and hypoglycemic protocol. Plan His home medications will be reviewed and resumed as appropriate. Subjective Date/time seen: 08/11/22 13:12 Interval history: patient resting in bed comfortably. Patient refused PT and OT this morning. Had long conversation with the patient about need to work with physical therapy in order to improve his condition. Patient states that he is not strong enough to go home but he is refusing rehab at this time. Care coordination spoke with patient's and stated that she is not believe he can return home. This was communicated with the patient and he states he would be willing to possibly go to rehab if it was the right one. Explained to him that he would need to work with PT and OT in order to get this approved and he voices understanding. He was originally very adamant on not going to a skilled nursing this seems that his mind could possibly be changed. Patient continues to refuse PT and OT he will be discharged home. He has home health and caregivers that help him And his around the clock. Review of Systems Review of Systems: All systems reviewed & are unremarkable except as noted in HPI and below Exam Narrative: GENERAL: Comfortable, no acute distress HENMT: moist mucous membranes EYES: EOM intact b/l NECK: no lymphadenopathy RESPIRATORY: clear to auscultation CARDIO: RRR GI: soft, nontender, bowel sounds present SKIN: no rashes EXTREMITIES: no edema, redness or tenderness; Active and passive range of motion of the bilateral lower extremities Objective Data Vital Signs Vital Signs: Vital Signs - 24 hr 08/10/22 14:00 08/10/22 21:01 08/10/22 20:00 Temperature 97 F L 98.4 F Pulse Rate 90 85 85 Respiratory Rate 18 20 20 Blood Pressure 110/74 107/77 Pulse Oximetry 94 99 99 Oxygen Delivery Room Air 08/11/22 06:00 Temperature 98 F Pulse Rate 94 Respiratory Rate 20 Blood Pressure 121/57 L Pulse Oximetry 98 Oxygen Delivery Intake/Output Intake/Output: Intake & Output 08/08/22 08/09/22 08/10/22 08/11/22 23:59 23:59 23:59 23:59 Intake Total 300 1440 370 Balance 300 1440 370 Meds/Results Medications: Active Medications Generic Name Dose Route Start Last Admin Trade Name Freq PRN Reason Stop Dose Admin Acetaminophen 650 mg 08/09/22 21:53 Acetaminophen 325 Mg Tablet PO Q6H PRN Mild Pain (1-3) or Fever Hydrocodone Bitart/Acetaminophen 1 tab 08/09/22 14:29 08/10/22 10:37 Hydrocodone/Acetaminophen (*Crx) 5-325 Mg Tablet PO 1 tab Q4H PRN Administration Pain Rated 4-6 Artificial Tears 1 drop 08/09/22 21:51 Artificial Tears Ophth Soln 15 Ml Bottle EACH EYE BID PRN Dry Eyes Aspirin 8
[2022-08-11] MEDS: oxyCODONE HCL (*CRX) 5 MG TAB IR 10 MG PO (13:41)
[2022-08-11 14:00] VITALS: BP 108/60; PULSE 89; RESP 18; TEMP 36.4; O2SAT 97
[2022-08-11 17:03] LABS: Glucose Point of Care 97 mg/dl (65-105)
--- NOTE | 2022-08-11 19:29 | PC.NURSE ---
Pt is A&O 5 male who is compliant with care. Pt compliant with medication and participates and contributes in plan of care. Pt expresses no needs at this time. Pt blood sugar low this am. Lantus held this evening due to dropping blood sugar. casino beverage server nurse made aware and will recheck later. Pt monitored for any changes in status this shift.
[2022-08-11] MEDS: MAGNESIUM OXIDE 400 MG TABLET PO (21:00)
[2022-08-11] MEDS: traZODone HCL 50 MG TABLET PO (21:01)
[2022-08-11] MEDS: PRIMIDONE 25 MG TABLET PO (21:01)
[2022-08-11] MEDS: INSULIN GLARGINE (*BKC) 100 UNITS/ML 15 UNITS SUB-Q (21:07)
[2022-08-11 21:20] LABS: Glucose Point of Care 189 mg/dl (65-105)
[2022-08-11 22:00] VITALS: BP 109/65; PULSE 88; RESP 16; TEMP 36.1; O2SAT 93
[2022-08-12 06:00] VITALS: BP 110/68; PULSE 78; RESP 20; TEMP 35.9; O2SAT 99
[2022-08-12 06:32] LABS: Hematocrit 28.1 % (42.0-52.0); Mean Corpuscular Hemoglobin 31.9 pg (26-34); Mean Corpuscular Volume 99.6 fl (80-100); Mean Platelet Volume 9.3 fl (7.4-10.4); Platelet Count Result 257 k/mm3 (150-375); Red Blood Count 2.82 M/mm3 (4.6-6.20); Red Cell Distribution Width 15.1 % (11.5-14.5); White Blood Count 6.2 K/mm3 (4.5-10.0)
[2022-08-12 06:38] LABS: Anion Gap 5 mmol/L (8-16); Blood Urea Nitrogen 24 mg/dL (9-20); Calcium 8.5 mg/dL (8.4-10.2); Carbon Dioxide 29 mmol/L (22-30); Chloride 96 mmol/L (98-107); Estimated CRCL calculation 32 ml/min; Estimated Glomerular Filt Rate 42; Glucose 81 mg/dL (65-110); Potassium 4.3 mmol/L (3.4-5.0); Sodium 130 mmol/L (137-145)
[2022-08-12 07:41] LABS: Glucose Point of Care 79 mg/dl (65-105)
[2022-08-12] MEDS: CARBIDOPA/LEVODOPA 25/100 MG TABLET 2 TABLET PO ×3 (09:35→17:38)
[2022-08-12] MEDS: ROSUVASTATIN 10 MG TABLET PO (09:35)
[2022-08-12] MEDS: FLUTICASONE PROPIONATE 0.05% NA SPR 16 GM BTL (*BKC) 2 SPRAY NASAL ×2 (09:36→17:39)
[2022-08-12] MEDS: PANTOPRAZOLE 40 MG TABLET PO ×2 (09:36→21:42)
[2022-08-12] MEDS: SERTRALINE HCL 50 MG TABLET 150 MG PO (09:36)
[2022-08-12] MEDS: ASPIRIN 81 MG ENTERIC TABLET PO (09:36)
[2022-08-12] MEDS: FOLIC ACID 0.4 MG TABLET PO (09:36)
[2022-08-12] MEDS: EMPAGLIFLOZIN 10 MG TABLET PO (09:36)
[2022-08-12] MEDS: CARBIDOPA/LEVODOPA 12.5/50 MG TABLET 1 TABLET PO ×3 (09:36→17:39)
[2022-08-12] MEDS: CHOLECALCIFEROL 1,000 UNITS TABLET 1000 UNITS PO (09:36)
[2022-08-12] MEDS: DIVALPROEX SODIUM ER 500 MG TAB.24H PO ×2 (09:36→21:42)
[2022-08-12 11:51] LABS: Glucose Point of Care 135 mg/dl (65-105)
[2022-08-12] MEDS: CYANOCOBALAMIN 1,000 MCG TABLET 1000 MCG PO (13:55)
[2022-08-12 14:00] VITALS: BP 94/66; PULSE 89; RESP 20; TEMP 36.4; O2SAT 95
--- NOTE | 2022-08-12 15:37 | PM.IMPN ---
Progress Note: A&P Assessment and Plan (1) Closed fracture of inferior pubic ramus: Code(s): S32.599A - Other specified fracture of unspecified pubis, initial encounter for closed fracture Status: Acute Assessment and Plan: The patient presented to the emergency department today for evaluation of right groin pain after sustaining a fall a few days ago. Pelvic CT shows an inferior pubic ramus fracture. Seen in consultation by Orthopedic surgery. Conservative management has been recommended Continue PT/OT. Planning for SNF placement Will need follow-up x-ray in 4-6 weeks per Orthopedic recommendations. Analgesics available as needed. Fall precautions. (2) Chronic kidney disease: Code(s): N18.9 - Chronic kidney disease, unspecified Status: Acute Assessment and Plan: Renal function appears consistent with baseline. Monitor BMP (3) Type 2 diabetes mellitus: Code(s): E11.9 - Type 2 diabetes mellitus without complications Status: Acute Assessment and Plan: A1c is 7.3. Blood sugars are well controlled at this time. Continue Accu-Cheks, sliding scale insulin, hypoglycemic protocol Subjective Date/time seen: 08/12/22 15:37 Interval history: Date of service: 08/12/2022 Getachew Barrera is a 76-year-old male with a history of aortic stenosis, CVA, CKD, COPD, hypertension, type 2 diabetes and bipolar disorder who is seen in follow-up fo pubic ramus fracture. He complains of persistent pelvic pain today, rated 12/10. States his last bowel movement was 1 week ago. Endorses discomfort with urination secondary to recent ureteral stent placement. No shortness of breath, cough, chest pain. Review of Systems Review of Systems: All systems reviewed & are unremarkable except as noted in HPI and below Exam Narrative: General: Well-nourished well-appearing 76-year-old male, sitting up in bed, comfortable, NARD Neuro: awake, alert and oriented x4, speech clear, no focal neuro deficits noted HEENMT: normocephalic, atraumatic, EOMI, sclerae anicteric Respiratory: clear to auscultation bilaterally, nonlabored breathing Cardio: regular rate, regular rhythm Abdomen: nondistended, normoactive bowel sounds, soft, nontender to palpation Extremities: no edema, erythema, or tenderness to palpation Skin: no rashes or lesions, warm and dry Psych: appropriate mood and affect, judgment and insight intact Objective Data Vital Signs Vital Signs: Vital Signs - 24 hr 08/11/22 22:00 08/12/22 06:00 08/12/22 09:28 Temperature 96.9 F L 96.7 F L Pulse Rate 88 78 Respiratory Rate 16 20 Blood Pressure 109/65 110/68 Pulse Oximetry 93 99 Oxygen Delivery Room Air Intake/Output Intake/Output: Intake & Output 08/09/22 08/10/22 08/11/22 08/12/22 23:59 23:59 23:59 23:59 Intake Total 300 1440 610 540 Output Total 175 Balance 300 1440 610 365 Meds/Results Medications: Active Medications Generic Name Dose Route Start Last Admin Trade Name Freq PRN Reason Stop Dose Admin Acetaminophen 650 mg 08/09/22 21:53 Acetaminophen 325 Mg Tablet PO Q6H PRN Mild Pain (1-3) or Fever Artificial Tears 1 drop 08/09/22 21:51 Artificial Tears Ophth Soln 15 Ml Bottle EACH EYE BID PRN Dry Eyes Aspirin 81 mg 08/10/22 09:00 08/12/22 09:36 Aspirin 81 Mg Enteric Tablet PO 81 mg QAM ILANA Administration Carbidopa/Levodopa 2 tablet 08/09/22 21:55 08/12/22 13:54 Carbidopa/Levodopa 25/100 Mg Tablet PO 2 tablet TID ILANA Administration Carbidopa/Levodopa 1 tablet 08/09/22 22:05 08/12/22 13:54 Carbidopa/Levodopa 12.5/50 Mg Tablet PO 1 tablet TID ILANA Administration Cyanocobalamin 1,000 mcg 08/10/22 09:00 08/12/22 13:55 Cyanocobalamin 1,000 Mcg Tablet PO 1,000 mcg QAM ILANA Administration Dextrose 12.5 gm 08/09/22 14:29 Dextrose 50% 25 Gm/50 Ml Syringe IV PUSH PRN PRN Hypoglycemia Protoc
[2022-08-12 17:08] LABS: Glucose Point of Care 166 mg/dl (65-105)
[2022-08-12] MEDS: INSULIN GLARGINE (*BKC) 100 UNITS/ML 15 UNITS SUB-Q (17:37)
--- NOTE | 2022-08-12 18:18 | PC.NURSE ---
Pt reports no pain and expresses no needs this shift. Pt compliant with medication. Pt worked with OT this morning. Will continue to monitor pt.
[2022-08-12 20:36] LABS: Glucose Point of Care 181 mg/dl (65-105)
[2022-08-12] MEDS: traZODone HCL 50 MG TABLET PO (21:42)
[2022-08-12] MEDS: MAGNESIUM OXIDE 400 MG TABLET PO (21:42)
[2022-08-12] MEDS: PRIMIDONE 25 MG TABLET PO (21:42)
[2022-08-12 21:44] VITALS: BP 134/72; PULSE 85; RESP 16; TEMP 36.2; O2SAT 95
[2022-08-12] MEDS: oxyCODONE HCL (*CRX) 5 MG TAB IR 10 MG PO (21:56)
[2022-08-13 06:00] VITALS: BP 127/58; PULSE 82; RESP 18; TEMP 36.3; O2SAT 94
[2022-08-13 07:38] LABS: Glucose Point of Care 125 mg/dl (65-105)
[2022-08-13] MEDS: DOCUSATE SODIUM 100 MG CAPSULE PO (08:59)
[2022-08-13] MEDS: SERTRALINE HCL 50 MG TABLET 150 MG PO (09:00)
[2022-08-13] MEDS: CARBIDOPA/LEVODOPA 25/100 MG TABLET 2 TABLET PO ×3 (09:00→17:02)
[2022-08-13] MEDS: EMPAGLIFLOZIN 10 MG TABLET PO (09:00)
[2022-08-13] MEDS: ROSUVASTATIN 10 MG TABLET PO (09:00)
[2022-08-13] MEDS: ASPIRIN 81 MG ENTERIC TABLET PO (09:00)
[2022-08-13] MEDS: DIVALPROEX SODIUM ER 500 MG TAB.24H PO ×2 (09:00→20:39)
[2022-08-13] MEDS: CYANOCOBALAMIN 1,000 MCG TABLET 1000 MCG PO (09:01)
[2022-08-13] MEDS: FOLIC ACID 0.4 MG TABLET PO (09:01)
[2022-08-13] MEDS: CARBIDOPA/LEVODOPA 12.5/50 MG TABLET 1 TABLET PO ×3 (09:01→17:02)
[2022-08-13] MEDS: PANTOPRAZOLE 40 MG TABLET PO ×2 (09:01→20:40)
[2022-08-13] MEDS: CHOLECALCIFEROL 1,000 UNITS TABLET 1000 UNITS PO (09:01)
[2022-08-13] MEDS: FLUTICASONE PROPIONATE 0.05% NA SPR 16 GM BTL (*BKC) 2 SPRAY NASAL ×2 (09:01→17:02)
[2022-08-13 09:24] LABS: Hematocrit 29.9 % (42.0-52.0); Hemoglobin 9.5 g/dL (14.0-18.0)
[2022-08-13 09:33] LABS: Anion Gap 6 mmol/L (8-16); Blood Urea Nitrogen 25 mg/dL (9-20); Calcium 9.1 mg/dL (8.4-10.2); Carbon Dioxide 30 mmol/L (22-30); Chloride 96 mmol/L (98-107); Estimated CRCL calculation 30 ml/min; Estimated Glomerular Filt Rate 42; Glucose 115 mg/dL (65-110); Potassium 4.5 mmol/L (3.4-5.0); Sodium 132 mmol/L (137-145)
--- NOTE | 2022-08-13 10:43 | PCOTNOTE ---
Attempted to see Patient for OT treatment session at this time. Patient refused to participate in any activity at this time. Patient verbalized, I'm not interested, leave me alone .
[2022-08-13 11:22] LABS: Glucose Point of Care 130 mg/dl (65-105)
[2022-08-13 14:00] VITALS: BP 126/88; PULSE 85; RESP 16; TEMP 36.4; O2SAT 96
--- NOTE | 2022-08-13 14:51 | PM.IMPN ---
Progress Note: A&P Assessment and Plan (1) Closed fracture of inferior pubic ramus: Code(s): S32.599A - Other specified fracture of unspecified pubis, initial encounter for closed fracture Status: Acute Assessment and Plan: The patient presented to the emergency department today for evaluation of right groin pain after sustaining a fall a few days ago. Pelvic CT shows an inferior pubic ramus fracture. Seen in consultation by Orthopedic surgery. Conservative management has been recommended Continue PT/OT. Planning for SNF placement Will need follow-up x-ray in 4-6 weeks per Orthopedic recommendations. Analgesics available as needed. Fall precautions implemented (2) Chronic kidney disease: Code(s): N18.9 - Chronic kidney disease, unspecified Status: Acute Assessment and Plan: Renal function appears consistent with baseline. Monitor BMP (3) Type 2 diabetes mellitus: Code(s): E11.9 - Type 2 diabetes mellitus without complications Status: Acute Assessment and Plan: A1c is 7.3. Blood sugars are well controlled at this time. Continue Accu-Cheks, sliding scale insulin, hypoglycemic protocol Subjective Date/time seen: 08/13/22 14:51 Interval history: Date of service: 08/13/2022 Getachew Barrera is a 76-year-old male with a history of aortic stenosis, CVA, CKD, COPD, hypertension, type 2 diabetes and bipolar disorder who is seen in follow-up fo pubic ramus fracture. He complains of persistent pain today, rated 10-12/10. States pain is primarily concentrated in the right hip. He was able to tolerate therapy yesterday and states he was able to get out of bed. He is tolerating his diet. He denies nausea, vomiting, fever, chills, abdominal pain, shortness of breath, cough, chest pain. Review of Systems Review of Systems: All systems reviewed & are unremarkable except as noted in HPI and below Exam Narrative: General: Thin, well-appearing 76-year-old male, sitting up in bed, comfortable, NARD Neuro: awake, alert and oriented x4, speech clear, no focal neuro deficits noted HEENMT: normocephalic, atraumatic, EOMI, sclerae anicteric Respiratory: clear to auscultation bilaterally, nonlabored breathing Cardio: regular rate, regular rhythm Abdomen: nondistended, normoactive bowel sounds, soft, nontender to palpation Extremities: no edema, erythema, or tenderness to palpation, able to wiggle toes bilaterally Skin: no rashes or lesions, warm and dry Psych: appropriate mood and affect, judgment and insight intact Objective Data Vital Signs Vital Signs: Vital Signs - 24 hr 08/12/22 21:44 08/13/22 06:00 08/13/22 09:00 Temperature 97.1 F L 97.3 F L Pulse Rate 85 82 Respiratory Rate 16 18 Blood Pressure 134/72 127/58 L Pulse Oximetry 95 94 Oxygen Delivery Room Air 08/13/22 14:00 Temperature 97.5 F L Pulse Rate 85 Respiratory Rate 16 Blood Pressure 126/88 Pulse Oximetry 96 Oxygen Delivery Intake/Output Intake/Output: Intake & Output 08/10/22 08/11/22 08/12/22 08/13/22 23:59 23:59 23:59 23:59 Intake Total 6988 093 9170 360 Output Total 300 0 Balance 1440 610 720 360 Meds/Results Medications: Active Medications Generic Name Dose Route Start Last Admin Trade Name Jose Gq PRN Reason Stop Dose Admin Acetaminophen 650 mg 08/09/22 21:53 Acetaminophen 325 Mg Tablet PO Q6H PRN Mild Pain (1-3) or Fever Artificial Tears 1 drop 08/09/22 21:51 Artificial Tears Ophth Soln 15 Ml Bottle EACH EYE BID PRN Dry Eyes Aspirin 81 mg 08/10/22 09:00 08/13/22 09:00 Aspirin 81 Mg Enteric Tablet PO 81 mg QAM ILANA Administration Carbidopa/Levodopa 2 tablet 08/09/22 21:55 08/13/22 12:46 Carbidopa/Levodopa 25/100 Mg Tablet PO 2 tablet TID ILANA Administration Carbidopa/Levodopa 1 tablet 08/09/22 22:05 08/13/22 12:46 Carbidopa/Levodopa 12.5/50 Mg Tablet PO 1 tablet TID ILANA
[2022-08-13] MEDS: INSULIN GLARGINE (*BKC) 100 UNITS/ML 15 UNITS SUB-Q (17:01)
--- NOTE | 2022-08-13 17:12 | PC.NURSE ---
Pt is A&O male who participated and contributed in plan of care. Pt continues to have redness and some skin breakdown on leg and scrotal area. Barrier cream applied. Pt denies any pain and expresses no needs at this time. Pt compliant with care. Will continue to monitor pt.
[2022-08-13 18:48] LABS: Glucose Point of Care 157 mg/dl (65-105)
[2022-08-13 20:40] VITALS: BP 124/69; PULSE 87; RESP 16; TEMP 36.6; O2SAT 100
[2022-08-13] MEDS: MAGNESIUM OXIDE 400 MG TABLET PO (20:40)
[2022-08-13] MEDS: PRIMIDONE 25 MG TABLET PO (20:40)
[2022-08-13] MEDS: traZODone HCL 50 MG TABLET PO (20:40)
[2022-08-13 21:25] LABS: Glucose Point of Care 174 mg/dl (65-105)
[2022-08-14 12:10] LABS: Glucose Point of Care 117 mg/dl (65-105)
[2022-08-14 12:37] LABS: Glucose Point of Care 170 mg/dl (65-105)
--- NOTE | 2022-08-14 14:36 | PCPTNOTE ---
Patient refused treatment this session. Patient states he participated with OT this morning and is not wanting to do PT this afternoon. Patient states he needs to have a BM. Patient educated on the importance of participating in PT to improve strength and mobility.
[2022-08-14 16:39] LABS: Glucose Point of Care 184 mg/dl (65-105)
[2022-08-14] MEDS: oxyCODONE HCL (*CRX) 5 MG TAB IR 10 MG PO (19:59)
[2022-08-14] MEDS: MAGNESIUM OXIDE 400 MG TABLET PO (20:01)
[2022-08-14] MEDS: PRIMIDONE 25 MG TABLET PO (20:01)
[2022-08-14] MEDS: traZODone HCL 50 MG TABLET PO (20:02)
[2022-08-14 20:27] LABS: Glucose Point of Care 180 mg/dl (65-105)
[2022-08-14 21:23] VITALS: BP 101/65; PULSE 80; RESP 16; TEMP 36.4; O2SAT 96
--- NOTE | 2022-08-14 21:27 | PC.NURSE ---
Paper documentation exists on this patient due to [employer] downtime on 08/14/22 from 0030 to 1930 .
[2022-08-15 05:30] VITALS: BP 145/68; PULSE 78; RESP 16; TEMP 36.3; O2SAT 94
[2022-08-15 07:59] LABS: Glucose Point of Care 119 mg/dl (65-105)
[2022-08-15 09:26] LABS: Anion Gap 7 mmol/L (8-16); Blood Urea Nitrogen 25 mg/dL (9-20); Calcium 8.5 mg/dL (8.4-10.2); Carbon Dioxide 27 mmol/L (22-30); Chloride 95 mmol/L (98-107); Estimated CRCL calculation 30 ml/min; Estimated Glomerular Filt Rate 42; Glucose 125 mg/dL (65-110); Potassium 4.1 mmol/L (3.4-5.0); Sodium 129 mmol/L (137-145)
[2022-08-15] MEDS: SERTRALINE HCL 50 MG TABLET 150 MG PO (10:08)
[2022-08-15] MEDS: SENNA/DOCUSATE SODIUM TABLET 2 TAB PO (10:08)
[2022-08-15] MEDS: CARBIDOPA/LEVODOPA 25/100 MG TABLET 2 TABLET PO ×2 (10:09→13:31)
[2022-08-15] MEDS: CARBIDOPA/LEVODOPA 12.5/50 MG TABLET 1 TABLET PO ×2 (10:09→13:31)
[2022-08-15] MEDS: ASPIRIN 81 MG ENTERIC TABLET PO (10:10)
[2022-08-15] MEDS: CHOLECALCIFEROL 1,000 UNITS TABLET 1000 UNITS PO (10:10)
[2022-08-15] MEDS: CYANOCOBALAMIN 1,000 MCG TABLET 1000 MCG PO (10:10)
[2022-08-15] MEDS: PANTOPRAZOLE 40 MG TABLET PO (10:10)
[2022-08-15] MEDS: ROSUVASTATIN 10 MG TABLET PO (10:10)
[2022-08-15] MEDS: FOLIC ACID 0.4 MG TABLET PO (10:10)
[2022-08-15] MEDS: EMPAGLIFLOZIN 10 MG TABLET PO (10:10)
[2022-08-15] MEDS: FLUTICASONE PROPIONATE 0.05% NA SPR 16 GM BTL (*BKC) 2 SPRAY NASAL (10:11)
[2022-08-15] MEDS: oxyCODONE HCL (*CRX) 5 MG TAB IR 10 MG PO ×2 (10:14→15:27)
[2022-08-15] MEDS: DIVALPROEX SODIUM ER 500 MG TAB.24H PO (10:20)
[2022-08-15 11:32] LABS: Glucose Point of Care 139 mg/dl (65-105)
--- NOTE | 2022-08-15 11:40 | PCPTNOTE ---
Patient declined PT at this time stating I just threw up. Patient continues to feel nauseated. PT will continue to follow per plan of care.
--- NOTE | 2022-08-15 11:52 | PM.DS ---
DS: Admitting Diagnosis Discharge Date 08/15/2022 Admitting Diagnosis Closed fracture of inferior pubic ramus, initial encounter for closed fracture Parkinson's disease, chronic Chronic anemia Chronic kidney disease, unspecified Type 2 diabetes mellitus without complications DS: Discharge Diagnosis Discharge Diagnosis (1) Closed fracture of inferior pubic ramus: Code(s): S32.599A - Other specified fracture of unspecified pubis, initial encounter for closed fracture Status: Acute Assessment and Plan: The patient presented to the emergency department today for evaluation of right groin pain after sustaining a fall. Pelvic CT showed inferior pubic ramus fracture. Orthopedic surgery was consulted and conservative management recommended PT/OT consulted. SNF placement recommended. Insurance coverage was denied, however, patient and still agreeable. Patient will need follow-up x-ray in 4-6 weeks per Orthopedic recommendations. Analgesics available as needed; he was treated with PRN oxycodone 5-10 mg Q4 hours for pain. Fall precautions implemented (2) Chronic kidney disease: Qualifiers: Chronic kidney disease stage: stage 3 (moderate) Chronic kidney disease stage 3 subtype: stage 3b (GFR 30-44) Qualified Code(s): N18.32 - Chronic kidney disease, stage 3b Code(s): N18.9 - Chronic kidney disease, unspecified Status: Chronic Assessment and Plan: Stage 3b. Renal function appeared consistent with baseline. Renal functioned monitored while hospitalized and stable. (3) Type 2 diabetes mellitus: Qualifiers: Diabetes mellitus terminal system operator insulin use: without chcf use Diabetes mellitus complication status: with kidney complications Diabetes mellitus complication detail: with chronic kidney disease Chronic kidney disease stage: stage 3 (moderate) Chronic kidney disease stage 3 subtype: stage 3b (GFR 30-44) Qualified Code(s): E11.22 - Type 2 diabetes mellitus with diabetic chronic kidney disease; N18.32 - Chronic kidney disease, stage 3b Code(s): E11.9 - Type 2 diabetes mellitus without complications Status: Chronic Assessment and Plan: A1c is 7.3. Blood sugars are well controlled at this time. Continue Accu-Cheks, sliding scale insulin, hypoglycemic protocol (4) GERD (gastroesophageal reflux disease): Qualifiers: Esophagitis presence: esophagitis presence not specified Qualified Code(s): K21.9 - Gastro-esophageal reflux disease without esophagitis Code(s): K21.9 - Gastro-esophageal reflux disease without esophagitis Status: Chronic (5) Physical deconditioning: Code(s): R53.81 - Other malaise Status: Acute Assessment and Plan: secondary to Parkinson disease and recent pelvic fracture. SNF rehab at discharge. (6) Parkinsons disease: Code(s): G20 - Parkinson's disease Status: Chronic Assessment and Plan: Chronic, continue Sinemet. DS: Summary Hospital Course Reason for hospitalization: Right leg and groin pain, fall Hospital Course: Patient is a 76-year-old male with Parkinson's disease, CKD, hypertension, anemia, and type 2 diabetes who presented to the emergency department via EMS from home for evaluation of right leg and groin pain after a fall. He usually ambulates with a walker at home but he does have a wheelchair available as needed. He has been getting along quite well until a couple of days prior to admission he sustained a fall while in the kitchen. He reported slipping in a wet spot where an ice cube had fallen on the kitchen floor and this caused him to land in the splits. He had pain in his right groin immediately after the fall and he had difficulties getting himself up. His and a neighbor had to help. Since that time, ?I have essentially been laying down? however his senior brand manager has been able to get him to stand and shuffle to the living ro
[2022-08-15 12:49] VITALS: BMI 18.8
[2022-08-15] MEDS: MAG HYDROX/AL HYDROX/SIMETH 30 ML UDC PO (13:30)
[2022-08-15] MEDS: TOLNAFTATE 1% POWDER 45 GM BTL 1 APPLIC TOPICAL (13:30)
[2022-08-15 14:00] VITALS: BP 126/71; PULSE 78; RESP 10; TEMP 36.5; O2SAT 93
[2022-08-15 16:17] LABS: EDCOVIDSCREEN Negative (Negative)
[2022-08-15 16:28] LABS: Glucose Point of Care 141 mg/dl (65-105)
== END 2022-08-15 17:30 ==
LOC: ANHED 14:09 → ANH3MEDSUR 15:43
PROVIDERS: Internal Medicine Critical Care Medicine; Nurse Practitioner Family; Physician Assistant; Admitting Provider Hospitalist; Emergency Provider Nurse Practitioner Adult Health; PCP Family Medicine; Visit Provider Physician Assistant
DX: S32.591A Other specified fracture of right pubis, initial encounter for closed fracture (principal); S32.9XXA Fracture of unspecified parts of lumbosacral spine and pelvis, initial encounter for closed fracture; W01.0XXA Fall on same level from slipping, tripping and stumbling without subsequent striking against object, initial encounter; Y92.000 Kitchen of unspecified non-institutional (private) residence as the place of occurrence of the external cause; M48.02 Spinal stenosis, cervical region; I12.9 Hypertensive chronic kidney disease with stage 1 through stage 4 chronic kidney disease, or unspecified chronic kidney disease; E11.22 Type 2 diabetes mellitus with diabetic chronic kidney disease; D63.1 Anemia in chronic kidney disease; N18.32 Chronic kidney disease, stage 3b; Z20.822 Contact with and (suspected) exposure to COVID-19; K86.89 Other specified diseases of pancreas; I35.0 Nonrheumatic aortic (valve) stenosis; Z99.89 Dependence on other enabling machines and devices; M51.37 Other intervertebral disc degeneration, lumbosacral region; F31.9 Bipolar disorder, unspecified; E78.5 Hyperlipidemia, unspecified; J44.9 Chronic obstructive pulmonary disease, unspecified; G20 Parkinson's disease; R53.81 Other malaise; K21.9 Gastro-esophageal reflux disease without esophagitis; Z66 Do not resuscitate; Z96.0 Presence of urogenital implants; F12.90 Cannabis use, unspecified, uncomplicated; Z87.891 Personal history of nicotine dependence; Z86.73 Personal history of transient ischemic attack (TIA), and cerebral infarction without residual deficits; Z79.1 Long term (current) use of non-steroidal anti-inflammatories (NSAID); Z79.82 Long term (current) use of aspirin; Z79.51 Long term (current) use of inhaled steroids
CPT/HCPCS: 36415; 72192; 74018; 80048; 80053; 82948; 83036; 85014; 85018; 85025; 85027; 85610; 86850; 86900; 86901; 87426; 97110; 97161; 97165; 97530; 97535; 99285; A9270; C9803; G0378; J1815